=== PATIENT | male | born 1965 | race Caucasian/White ===

== ENCOUNTER 2021-10-24 08:52 | Emergency (ER) | payer BC, SELFPAY ==
--- NOTE | ~2021-10-24 | XR_ITS ---
XR knee RT min 4V 10/24/2021 10:00 Indication: Right knee pain Procedure: 4 views right knee Comparison: No prior studies for comparison. Findings: No fracture, subluxation or dislocation. There is a moderate joint effusion. There is anato dee alignment. No foreign bodies. Impression: 1: Moderate joint effusion. Reviewed, dictated and finalized at location A. Impression: 1: Moderate joint effusion.
[2021-10-24 08:56] VITALS: BP 159/86; PULSE 84; RESP 16; TEMP 36.6; O2SAT 100
--- NOTE | 2021-10-24 09:35 | ED.LOWEXIN ---
HPI - Extremity Injury (Lower) General Chief Complaint: Extremity Injury, Lower Stated Complaint: knee pain, swelling Time Seen by Provider: 10/24/21 08:58 Source: patient Mode of arrival: ambulatory Limitations: no limitations History of Present Illness HPI Narrative: 56-year-old male presents today with complaints of right knee pain that started 2 days ago. Patient right knee is swollen, tender to touch, and medial lower knee with erythema and warmth to touch. Patient denies any injuries, fevers, body aches, or chills. Patient states pain currently a 3 out of 10 but with ambulation pain is 10 out of 10. Patient was wearing a brace at home. Related Data Home Medications Medication Instructions Recorded Confirmed dapagliflozin 10 mg tablet 10 mg PO DAILY 10/05/19 06/23/21 Allergies Allergy/AdvReac Type Severity Reaction Status Date / Time No Known Allergies Allergy Verified 10/24/21 09:19 Review of Systems Review of Systems: CONSTITUTIONAL: Denies fever, chills, or sweats. EYES: Denies visual changes, redness, or discharge. ENT: Denies rhinorrhea, congestion, sore throat, or otalgia. CARDIOVASCULAR: Denies chest pain, palpitations, or edema. RESPIRATORY: Denies cough or dyspnea. GASTROINTESTINAL: Denies abdominal pain, nausea, vomiting, or diarrhea. GENITOURINARY: Denies dysuria or hematuria. SKIN: Redness and warmth to right lower medial knee. Denies rash or itching. MUSCULOSKELETAL: Right knee pain. Denies back pain or myalgia. NEUROLOGIC: Denies headache, numbness, dizziness, or weakness. PSYCHIATRIC: Denies anxiety or depression. PMFSH Past Medical History Medical History (Updated 10/24/21 @ 14:29 by Pattie Johnson APRN) Adhesions of nasal septum and turbinates Hypertension Rhinitis Type 2 diabetes mellitus Unspecified asthma, uncomplicated Social History Social History Smoking packs per day: 1 Smoking cigarettes per day: 20.0 Years smoked: 5 Smoking pack-years: 5.00 Smoking status: Former smoker Second hand tobacco smoke exposure: No Smoking end date: 08/08/91 Alcohol intake: never Substance use: never Substance use type: does not use Exam Narrative: GENERAL: Well-appearing, well-nourished, and in no acute distress. HEAD: Normocephalic, atraumatic. EYES: PERRLA and EOMI. ENT: Nares clear, no rhinorrhea or epistaxis. Mucous membranes moist. Oropharynx without tonsillar hypertrophy exudate or other lesions. Bilateral TMs pearly puckett nonbulging NECK: Supple. No adenopathy or masses. No carotid bruits or JVD CHEST: Clear to auscultation. No respiratory distress. No wheezes rales or rhonchi HEART: Regular rate and rhythm. No murmur heard. Normal peripheral pulses. ABDOMEN: Soft, nontender, nondistended, normal active bowel sounds. EXTREMITIES: Right knee with swelling, erythema, and warmth. Decreased range of motion due to pain. Negative Christen's test, anterior drawer test, and posterior drawer test. SKIN: Warm, dry, no rash. NEURO: No focal deficits. Alert and oriented x3. PSYCH: Normal mood and affect. Extrem: Right lower extremity: knee Course Reevaluation(s) Additional Reevaluation(s): All results reviewed with patient and . Patient to be discharged home with ibuprofen and follow up with Dr. Greenberg. Instructed on when to return. Patient and in agreement and understand all discharge instructions. Consultations Consultation #1: Dr. Greenberg consulted and fluid results reviewed. Plan discharge home with follow up. Date: 10/24/21 Time: 14:25 Vital Signs Vital signs: Vital Signs Temperature 36.6 C 10/24/21 08:56 Pulse Rate 84 10/24/21 08:56 Respiratory Rate 16 10/24/21 08:56 Blood Pressure 159/86 H 10/24/21 08:56 Pulse Oximetry 100 10/24/21 08:56 Temperature 36.6 C 10/24/21 08:56 Pulse Rate 85 10/24/21 11:08 Respiratory Rate 18 10/24/21 11:08 Blood Pressure 169/91 H
[2021-10-24 10:11] LABS: Basophils Percent Auto 0.2 % (0.2-1.2); Eosinophils Absolute Auto 0.2 K/mm3 (0-0.3); Eosinophils Percent Auto 1.9 % (0-4.4); Hematocrit 42.3 % (42.0-52.0); Immature Granulocyte Absolute 0.01 K/mm3 (0.00-0.031); Immature Granulocyte Percent A 0.1 % (0-0.5); Lymphocytes Absolute Auto 0.97 K/mm3 (0.9-3.2); Mean Corpuscular HGB Conc 30.7 g/dl (32-36); Mean Corpuscular Hemoglobin 27.5 pg (26-34); Mean Corpuscular Volume 89.6 fl (80-100); Mean Platelet Volume 9.6 fl (7.4-10.4); Monocytes Absolute Auto 1.1 K/mm3 (0.1-0.6); Monocytes Percent Auto 13.2 % (2.6-8.5); Neutrophils Absolute Auto 5.8 K/mm3 (1.3-6.7); Neutrophils Percent Auto 72.6 % (45.5-73.1); Platelet Count Result 244 k/mm3 (150-375); Red Blood Count 4.72 M/mm3 (4.6-6.20); Red Cell Distribution Width 13.4 % (11.5-14.5); White Blood Count 8.1 K/mm3 (4.5-10.0)
[2021-10-24 10:21] LABS: Prothrombin Time 12.8 Seconds (11.1-14.7)
[2021-10-24 10:22] LABS: Alanine Aminotransferase 19 U/L (4-50); Albumin Level 3.7 g/dL (3.5-5.1); Alkaline Phosphatase 187 U/L (38-126); Anion Gap 6 mmol/L (8-16); Aspartate Amino Transferase 19 U/L (17-59); Bilirubin,Total 0.4 mg/dL (0.2-1.3); Blood Urea Nitrogen 25 mg/dL (9-20); Calcium 9.2 mg/dL (8.4-10.2); Carbon Dioxide 29 mmol/L (22-30); Chloride 100 mmol/L (98-107); Estimated CRCL calculation 84 ml/min; Estimated Glomerular Filt Rate > 60; Glucose 478 mg/dL (65-110); Partial Thromboplastin Time 33.9 SECONDS (22.3-36.8); Potassium 4.8 mmol/L (3.4-5.0); Sodium 135 mmol/L (137-145)
[2021-10-24] MEDS: SODIUM CHLORIDE 0.9% IV 2,000 ML 999 ML IV CONT (10:45)
[2021-10-24 10:58] LABS: Procalcitonin 0.3 ng/mL
[2021-10-24 11:08] VITALS: BP 169/91; PULSE 85; RESP 18; O2SAT 100
[2021-10-24] MEDS: LIDOCAINE HCL 1% LOCAL INJ 20 ML VIAL 10 ML INFILTRATE (12:18)
[2021-10-24 12:20] LABS: Glucose Point of Care 330 mg/dl (65-105)
[2021-10-24 13:31] LABS: Appearance Synovial Fluid Hazy (Clear); Color Synovial Fluid Yellow (Colorless); Nucleated Cell Synovial Fluid 15439 /uL (0-200); RBC Synovial Fluid 31022 /uL (0-0); Source Synovial Fluid Synovial fluid
[2021-10-24 13:32] LABS: Neutrophils Synovial Fluid 83 % (0-25)
[2021-10-24 13:33] LABS: Lymphocytes Synovial Fluid 11 %; Monocytes Synovial Fluid 6 %
[2021-10-24 13:37] LABS: Crystals Synovial Fluid Rare Cppd (None Seen)
--- NOTE | 2021-10-24 14:47 | PC.NURSE ---
Derrick wrap applied to patient's right knee. PMS intact prior and post application.
== END 2021-10-24 14:51 | disposition home or self-care (01) ==
PROVIDERS: Emergency Provider Nurse Practitioner Family; PCP Internal Medicine
DX: M25.461 Effusion, right knee (principal); L03.115 Cellulitis of right lower limb; I10 Essential (primary) hypertension; E11.9 Type 2 diabetes mellitus without complications; J45.909 Unspecified asthma, uncomplicated; Z87.891 Personal history of nicotine dependence; Z79.84 Long term (current) use of oral hypoglycemic drugs
CPT/HCPCS: 36415; 73564; 80053; 82948; 84145; 85025; 85610; 85730; 87070; 87075; 87147; 87181; 87186; 87205; 89051; 89060; 96360; 96361; 99283; A9270; J7030

== ENCOUNTER 2021-10-26 13:53 | Emergency (ER) | payer BC, SELFPAY ==
[2021-10-26 13:59] VITALS: BP 167/88; PULSE 97; RESP 18; TEMP 36.2; O2SAT 100
[2021-10-26 15:59] VITALS: BP 136/86; PULSE 83; RESP 14; O2SAT 97
[2021-10-26] MEDS: MORPHINE SULFATE INJ (*CRX) 10 MG/ML AMP 4 MG IM (16:49)
--- NOTE | 2021-10-26 17:36 | ED.LOWEXIN ---
HPI - Extremity Injury (Lower) General Chief Complaint: Extremity Injury, Lower Stated Complaint: Leg Pain Time Seen by Provider: 10/26/21 16:00 Source: patient Mode of arrival: wheelchair Limitations: no limitations History of Present Illness HPI Narrative: 56-year-old male presents today with complaints of right knee pain. Patient seen here previously and right knee was drained for a moderate effusion. Patient states he has been unable to bear weight since prior to his stay the other day. Patient with limited movement to right knee. Patient does have crutches at home which he states he has been using. Related Data Home Medications Medication Instructions Recorded Confirmed dapagliflozin 10 mg tablet 10 mg PO DAILY 10/05/19 06/23/21 Allergies Allergy/AdvReac Type Severity Reaction Status Date / Time No Known Allergies Allergy Verified 10/24/21 09:19 Review of Systems Review of Systems: CONSTITUTIONAL: Denies fever, chills, or sweats. EYES: Denies visual changes, redness, or discharge. ENT: Denies rhinorrhea, congestion, sore throat, or otalgia. CARDIOVASCULAR: Denies chest pain, palpitations, or edema. RESPIRATORY: Denies cough or dyspnea. GASTROINTESTINAL: Denies abdominal pain, nausea, vomiting, or diarrhea. GENITOURINARY: Denies dysuria or hematuria. SKIN: Denies rash or itching. MUSCULOSKELETAL: Right knee pain with swelling. Denies back pain, joint pain, or myalgia. NEUROLOGIC: Denies headache, numbness, dizziness, or weakness. PSYCHIATRIC: Denies anxiety or depression. PMFSH Past Medical History Medical History (Updated 10/26/21 @ 17:54 by Pattie Johnson APRN) Adhesions of nasal septum and turbinates Hypertension Rhinitis Type 2 diabetes mellitus Unspecified asthma, uncomplicated Social History Social History Smoking packs per day: 1 Smoking cigarettes per day: 20.0 Years smoked: 5 Smoking pack-years: 5.00 Smoking status: Former smoker Second hand tobacco smoke exposure: No Smoking end date: 08/08/91 Alcohol intake: never Substance use: never Substance use type: does not use Exam Narrative: GENERAL: Well-appearing, well-nourished, and in no acute distress. HEAD: Normocephalic, atraumatic. EYES: PERRLA and EOMI. ENT: Nares clear, no rhinorrhea or epistaxis. Mucous membranes moist. Oropharynx without tonsillar hypertrophy exudate or other lesions. Bilateral TMs pearly puckett nonbulging NECK: Supple. No adenopathy or masses. No carotid bruits or JVD CHEST: Clear to auscultation. No respiratory distress. No wheezes rales or rhonchi HEART: Regular rate and rhythm. No murmur heard. Normal peripheral pulses. ABDOMEN: Soft, nontender, nondistended, normal active bowel sounds. EXTREMITIES: Right knee swelling decreased from previous visit. Ecchymosis noted to anterior knee. Decreased range of motion. Pain with palpation to knee. SKIN: Warm, dry, no rash. NEURO: No focal deficits. Alert and oriented x3. PSYCH: Normal mood and affect. Course Course Emergency Course: 56-year-old male presents today with complaints of right knee pain. Previously seen here and knee effusion drained. Patient states he has been using ibuprofen without relief. Morphine 4 mg IM given. Patient states the pain might be a little bit better. Patient still unable to bear weight onto right leg. Will prescribe colchicine and indomethacin. Vital Signs Vital signs: Vital Signs Temperature 36.2 C L 10/26/21 13:59 Pulse Rate 97 10/26/21 13:59 Respiratory Rate 18 10/26/21 13:59 Blood Pressure 167/88 H 10/26/21 13:59 Pulse Oximetry 100 10/26/21 13:59 Temperature 36.2 C L 10/26/21 13:59 Pulse Rate 87 10/26/21 17:42 Respiratory Rate 14 10/26/21 17:42 Blood Pressure 161/88 H 10/26/21 17:42 Pulse Oximetry 100 10/26/21 17:42 Discharge Plan Discharge Clinical Impression: Acute pain of right knee, Effusion of knee
[2021-10-26 17:42] VITALS: BP 161/88; PULSE 87; RESP 14; O2SAT 100
[2021-10-26] MEDS: INDOMETHACIN 25 MG CAPSULE 50 MG PO (18:00)
[2021-10-26] MEDS: COLCHICINE 0.6 MG TABLET PO (18:00)
== END 2021-10-26 18:00 | disposition home or self-care (01) ==
PROVIDERS: Emergency Provider Nurse Practitioner Family; PCP Internal Medicine
DX: M25.561 Pain in right knee (principal); M25.461 Effusion, right knee; I10 Essential (primary) hypertension; E11.9 Type 2 diabetes mellitus without complications; J45.909 Unspecified asthma, uncomplicated; Z87.891 Personal history of nicotine dependence; Z79.84 Long term (current) use of oral hypoglycemic drugs
CPT/HCPCS: 96372; 99283; A9270; J2270

== ENCOUNTER 2021-10-30 12:24 | Inpatient (IN) | payer BC, SELFPAY ==
--- NOTE | ~2021-10-30 | XR_ITS ---
EXAMINATION: XR chest 1V portable DATE: 11/04/2021 19:47 INDICATION: Tachycardia. TECHNIQUE: A single frontal view of the chest was obtained. COMPARISON: None. FINDINGS: The chest demonstrates clear lungs without pneumonia, pleural effusion, or pneumothorax. Th e heart size is normal. There is an old healed fracture of right clavicle. IMPRESSION: 1. No acute cardiopulmonary disease. Reviewed, dictated and finalized at location A.
--- NOTE | ~2021-10-30 | XR_ITS ---
EXAMINATION: XR chest PICC line EXAM DATE: 11/13/2021 11:21 INDICATION: PICC placement . TECHNIQUE: Portable AP frontal chest x-ray was obtained. Comparison is made to prior examination from 11/04/2021. FINDINGS: There is a right-sided PICC line with tip projecting over the cavoatrial junction. Possibl e developing bilateral ill-defined edema or pneumonia. Recommend follow-up exam. The cardiomediastina l silhouette is prominent but magnified on this AP technique. There is no pneumothorax suspected. The re are no pleural effusions. IMPRESSION: 1. PICC line in position. 2. Possible developing ill-defined airspace disease, edema or pneumonia. Reviewed, dictated and finalized at location A.
--- NOTE | ~2021-10-30 | CT_ITS ---
EXAMINATION: CT femur RT w con DATE: 11/09/2021 15:09 INDICATION: Right knee septic arthritis TECHNIQUE: High resolution computed tomography (CT) of the right femur was performed with 100 mL Omni paque-350 intravenous contrast. Additional sagittal and coronal reconstructions were performed. Autom ated exposure control and iterative reconstruction technique were employed. The dose-length product w as 480.78 mGy-cm. COMPARISON: Right knee radiographs dated 10/24/2021 FINDINGS: Bone alignment is normal. No fracture. The right hip and knee joint spaces are normal on nonweightbea ring imaging. No cortical erosions or osteolysis. Large right knee joint effusion with scattered foci of internal gas within the suprapatellar pouch. There is thickened peripheral enhancing synovitis. I n addition many of the foci of gas are loculated within the nondependent portion of the effusion sugg esting internal debris and/or synovitis. There is diffuse subcutaneous edema throughout the right thi gh extending cephalad to the right hip and colon to the upper calf. No soft tissue gas to suggest nec rotizing fasciitis. On the buyer liaison images there is intramedullary hal and interlocking screw fixation a t the visualized proximal left tibia. IMPRESSION: 1. Large complex right knee joint effusion with foci of scattered internal gas which could be consist ent with provided history of a right knee septic arthritis. No acute osseous abnormality. Correlate f or recent joint aspiration to account for the gas within the suprapatellar pouch. Reviewed, dictated and finalized at location B. IMPRESSION: 1. Large complex right knee joint effusion with foci of scattered internal gas which could be consistent with provided history of a right knee septic arthriti s. No acute osseous abnormality. Correlate for recent joint aspiration to accou nt for the gas within the suprapatellar pouch.
--- NOTE | ~2021-10-30 | US_ITS ---
EXAMINATION: US venous doppler [facility] EXAM DATE: 10/30/2021 18:20 INDICATION: Right leg edema and pain. TECHNIQUE: Multiple grayscale, color flow and Doppler images of the lower extremity deep venous syste ms bilaterally were obtained and reviewed. There is no prior study for comparison. FINDINGS: Right side: The right common femoral, femoral and profunda veins demonstrate normal color flow, respi ratory variation, augmentation and compressibility. Compressibility, color flow confirmed within the right popliteal, posterior tibial, peroneal, and greater saphenous veins. Left side: The left common femoral, femoral and profunda veins demonstrate normal color flow, respira tory variation, augmentation and compressibility. Compressibility, color flow confirmed within the l eft popliteal, posterior tibial, peroneal, and greater saphenous veins. IMPRESSION: 1. No lower extremity deep venous thrombosis bilaterally. Reviewed, dictated and finalized at location .
[2021-10-30 12:30] VITALS: BP 168/111; PULSE 78; RESP 18; TEMP 36.8; O2SAT 98
--- NOTE | 2021-10-30 14:21 | ED.LOWEXIN ---
HPI - Extremity Injury (Lower) General Chief Complaint: Extremity Injury, Lower Stated Complaint: knee Time Seen by Provider: 10/30/21 14:14 Source: patient and family Limitations: no limitations History of Present Illness HPI Narrative: Patient is 56 years old white male referred to the emergency room from Dr. Nugent office with septic arthritis of the right knee. The patient and his telling me that patient been having trouble at the right knee October 20. Came to our emergency room October 24, knee effusion, synovial fluid positive for MRSA. Patient came back on October 26, and was seen by his family physician nurse practitioner on October 29, and today was seen by Dr. Nugent who repeated the knee aspiration again and referred him to the emergency room for further evaluation. Patient was a started on Keflex on October 24. Patient denies any trauma to the right knee, fever, chills, chest pain or shortness of breath. History of diabetes, hypertension, hyperlipidemia, asthma, CVA, patient currently on aspirin. Patient does not smoke or drink or uses drugs. Related Data Home Medications Medication Instructions Recorded Confirmed dapagliflozin 10 mg tablet 10 mg PO DAILY 10/05/19 10/30/21 Allergies Allergy/AdvReac Type Severity Reaction Status Date / Time No Known Allergies Allergy Verified 10/27/21 13:51 Review of Systems Review of Systems: CONSTITUTIONAL: Denies fever, chills, or sweats. EYES: Denies visual changes, redness, or discharge. ENT: Denies rhinorrhea, congestion, sore throat, or otalgia. CARDIOVASCULAR: Denies chest pain, palpitations, or edema. RESPIRATORY: Denies cough or dyspnea. GASTROINTESTINAL: Denies abdominal pain, nausea, vomiting, or diarrhea. GENITOURINARY: Denies dysuria or hematuria. SKIN: Denies rash or itching. MUSCULOSKELETAL: Denies back pain, joint pain, or myalgia. NEUROLOGIC: Denies headache, numbness, or weakness. PSYCHIATRIC: Denies anxiety or depression. [facility] Past Medical History Medical History (Updated 10/30/21 @ 15:22 by Maikel Martínez MD) Adhesions of nasal septum and turbinates Hypertension Rhinitis Type 2 diabetes mellitus Unspecified asthma, uncomplicated Social History Social History Smoking packs per day: 1 Smoking cigarettes per day: 20.0 Years smoked: 5 Smoking pack-years: 5.00 Smoking status: Former smoker Second hand tobacco smoke exposure: No Smoking end date: 08/08/91 Alcohol intake: never Substance use: never Substance use type: does not use Exam Narrative: General appearance: Well-developed, well-nourished Skin: Normal color Head: Normocephalic, nontraumatic Eyes: Clear conjunctiva ENT: Oropharynx normal, ears normal, nose normal Neck: Supple, nontender Chest and respiratory: Airway patent, no respiratory distress, no accessory muscle use Heart: Regular rate/rhythm Abdomen: Soft, nontender, no organomegaly, quiet bowel sounds Vascular: Normal peripheral pulses, normal capillary refill. Musculoskeletal: Diffuse swelling and tenderness right knee, slight erythematous changes of the right thigh distally and laterally Neurologic: Alert and oriented ?3, [employer] is normal as tested, no gross motor deficit Course Course Emergency Course: The plan to admit patient to the hospital for septic arthritis, MRSA, sensitive to vancomycin. The plan to start patient on vancomycin and third-generation cephalosporin, and joint rest. Patient declined Bess catheter. Consultations Consultation #1: Dr. Nugent. Admit to hospitalist, agreed with the medication of vancomycin and Rocephin. Date: 10/30/21 Time: 14:52 Vital Si
--- NOTE | 2021-10-30 14:23 | ECG_ITS ---
Measurements Intervals [place] Rate: 96 P: 81 LA: 141 QRS: 24 QRSD: 86 T: 44 QT: 317 QTc: 402 Interpretive Statements SINUS RHYTHM NONSPECIFIC T-WAVE ABNORMALITY ABNORMAL ECG NO PREVIOUS ECG AVAILABLE FOR COMPARISON Electronically Signed On 10-30-2021 16:30:05 CDT by Alexander Barahona M.D.
[2021-10-30 14:59] LABS: Basophils Percent Auto 0.4 % (0.2-1.2); Eosinophils Absolute Auto 0.1 K/mm3 (0-0.3); Eosinophils Percent Auto 0.5 % (0-4.4); Hematocrit 41.9 % (42.0-52.0); Hemoglobin 12.9 g/dL (14.0-18.0); Immature Granulocyte Absolute 0.06 K/mm3 (0.00-0.031); Immature Granulocyte Percent A 0.6 % (0-0.5); Lymphocytes Absolute Auto 0.71 K/mm3 (0.9-3.2); Lymphocytes Percent Auto 6.8 % (18.3-44.2); Mean Corpuscular HGB Conc 30.8 g/dl (32-36); Mean Corpuscular Hemoglobin 27.3 pg (26-34); Mean Corpuscular Volume 88.8 fl (80-100); Mean Platelet Volume 8.8 fl (7.4-10.4); Monocytes Absolute Auto 1.1 K/mm3 (0.1-0.6); Monocytes Percent Auto 10.7 % (2.6-8.5); Neutrophils Absolute Auto 8.5 K/mm3 (1.3-6.7); Platelet Count Result 439 k/mm3 (150-375); Red Blood Count 4.72 M/mm3 (4.6-6.20); Red Cell Distribution Width 13.5 % (11.5-14.5); White Blood Count 10.4 K/mm3 (4.5-10.0)
[2021-10-30 15:09] LABS: INR 1.1; Prothrombin Time 13.8 Seconds (11.1-14.7)
[2021-10-30 15:10] LABS: Lactic Acid Reflex 1.8 mmol/L (0.7-2.1); Partial Thromboplastin Time 32.5 SECONDS (22.3-36.8)
[2021-10-30 15:29] VITALS: BP 156/83; PULSE 102; RESP 14; O2SAT 100
[2021-10-30 15:36] LABS: Alanine Aminotransferase 49 U/L (4-50); Albumin Level 3.5 g/dL (3.5-5.1); Alkaline Phosphatase 174 U/L (38-126); Anion Gap 8 mmol/L (8-16); Aspartate Amino Transferase 51 U/L (17-59); Bilirubin,Total 0.5 mg/dL (0.2-1.3); Blood Urea Nitrogen 33 mg/dL (9-20); Calcium 9.3 mg/dL (8.4-10.2); Carbon Dioxide 31 mmol/L (22-30); Chloride 95 mmol/L (98-107); Estimated CRCL calculation 70 ml/min; Estimated Glomerular Filt Rate > 60; Glucose 356 mg/dL (65-110); Sodium 134 mmol/L (137-145)
[2021-10-30] MEDS: SODIUM CHLORIDE 0.9% IV 1,000 ML 999 ML IV CONT (15:37)
[2021-10-30] MEDS: ONDANSETRON INJ 4 MG/2 ML VIAL IV PUSH (15:37)
[2021-10-30] MEDS: HYDROmorphone HCL INJ (*CRX) 1 MG/ML SYR 0.5 MG IV PUSH ×2 (15:37→19:25)
[2021-10-30 15:52] LABS: CRP > 45.0 mg/dL (<1.0)
--- NOTE | 2021-10-30 16:10 | PM.IMHP ---
H&P: HPI History of Present Illness Date/Time: 10/30/21 16:10 this is a 56-year-old male patient who was referred to the emergency room by Dr. Nugent presents office with septic arthritis of the right knee. The patient recently was seen here on 10/26/2021 in our ER with right knee effusion which was drained. The patient has been unable to bear weight on that right knee. He had been using crutches to get around. The patient saw Dr. Nugent today in his office and a right arthrocentesis was performed at that time obtaining 60 mL of purulence fluid. It was noted that patient's previous fluid aspiration grew MRSA. It looks like the patient may have taken Keflex outpatient. The patient was started on IV fluids, Rocephin, vancomycin, Dilaudid, and Zofran. His white count is noted to be 10.4. H&H is 12 point and 41.9. Platelet count 439. His blood sugars noted to be 356. Lactic is normal 1.8. C reactive protein is greater than 45. Alkaline phosphatase 174. The patient is being admitted to inpatient on the date of service of 10/30/2021. Chief Complaint: Infection to right knee Review of Systems Review of Systems: All systems reviewed & are unremarkable except as noted in HPI and below Constitutional: Constitutional: Reports as per HPI and Reports no additional constitutional complaints Eyes: Eyes: Reports as per HPI and Reports no additional eye complaints ENT: Reports system reviewed and no additional complaints, except as documented and Reports Normal hearing present Cardiovascular: Cardiovascular: Reports no additional cardiovascular complaints Respiratory: Respiratory: Reports no additional respiratory complaints and Reports no additional respiratory complaints Gastrointestinal: Gastrointestinal: Reports as per HPI and Reports no additional gastrointestinal complaints Musculoskeletal: Musculoskeletal: Reports no additional musculoskeletal complaints Integumentary/Breasts: Skin/Breast: Reports system reviewed and no additional complaints, except as docu and Reports as per HPI Neurologic: Reports system reviewed and no additional complaints, except as documented, Reports as per HPI and Reports Normal hearing present Psychiatric: Psychiatric: Reports no additional psychiatric complaints and Reports as per HPI Endocrine: Endocrine: Reports no additional endocrine complaints Hematologic/Lymphatic: Hematologic/Lymphatic: Reports no additional hematologic/lymphatic complaints Allergic/Immunologic: Allergic/Immunologic: Reports no additional allergic/immunologic complaints [facility] Past Medical History Medical History (Updated 10/30/21 @ 17:47 by Madeleine Reynoso NP) ADHD (attention deficit hyperactivity disorder) Adhesions of nasal septum and turbinates BPH w/o urinary obs/LUTS Gout Hyperlipidemia Hypertension Rhinitis Screening for colon cancer Type 2 diabetes mellitus Unspecified asthma, uncomplicated Surgical History Surgical History (Updated 10/30/21 @ 16:13 by Madeleine Reynoso NP) H/O nasal polypectomy History of tonsillectomy S/P ORIF (open reduction internal fixation) fracture left tibula Family History Family History Mother Polio Father Lung cancer Sibling Carcinoma of colon Social History Social History (Updated 10/30/21 @ 17:50 by Madeleine Reynoso NP) Social History: The patient is and lives with his . They have 3 children. They have a [employer] company as well as a [employer] company. Patient is a former smoker does not use any alcohol marijuana or illicit drugs. His is his durable power deputy attorney general for healthcare. Code status full code Smoking packs per day: 1 Smoking cigarettes per day: 20.0 Years smoked: 5 Smoking pack-years: 5.00 Smoking status: Former smoker Second hand tobacco smoke exposure: No Smoking end date: 08/08/91 Alcohol intake: never Substance use: never Substance use type: d
[2021-10-30 16:45] VITALS: BP 138/84; PULSE 96; RESP 18; TEMP 37.4; O2SAT 99
--- NOTE | 2021-10-30 16:48 | ADMGEN ---
This patient, Biju Navarrete, was admitted to Medical Room 348-01. Patient/family oriented to hospital policies and general routines including ID bracelet, bed and alarms, visiting hours, pain management, procedures, bathroom and other care routines, personal items, smoking policy, room service/diet, and visiting hours. Information on how to activate the Rapid Response Team has been discussed. Patient/Family are encouraged to report perceived risks to care and to ask questions if they do not understand what they are told or what they should do.
[2021-10-30] MEDS: SODIUM CHLORIDE 0.9% IV 1,000 ML 150 ML IV CONT (17:54)
[2021-10-30 21:02] VITALS: BP 147/82; PULSE 88; RESP 16; TEMP 36.3; O2SAT 94
[2021-10-30 21:09] LABS: Glucose Point of Care 416 mg/dl (65-105)
[2021-10-30] MEDS: INSULIN ASPART (*BKC) 100 UNITS/ML 8 UNITS SUB-Q (21:42)
[2021-10-30] MEDS: FLUTICASONE/SALMETEROL 230-21 MCG INHALER 1 PUFF 2 PUFF INHALATION (23:54)
[2021-10-31 00:59] VITALS: O2SAT 95
[2021-10-31 00:59] LABS: Glucose Point of Care 311 mg/dl (65-105)
[2021-10-31] MEDS: SODIUM CHLORIDE 0.9% IV 1,000 ML 150 ML IV CONT ×3 (03:56→18:57)
[2021-10-31] MEDS: HYDROmorphone HCL INJ (*CRX) 1 MG/ML SYR 0.5 MG IV PUSH (04:47)
[2021-10-31 06:10] LABS: Basophils Absolute Auto 0.1 K/mm3 (0.0-0.1); Basophils Percent Auto 0.5 % (0.2-1.2); Eosinophils Absolute Auto 0.1 K/mm3 (0-0.3); Eosinophils Percent Auto 1.2 % (0-4.4); Hematocrit 34.1 % (42.0-52.0); Hemoglobin 10.9 g/dL (14.0-18.0); Immature Granulocyte Absolute 0.14 K/mm3 (0.00-0.031); Immature Granulocyte Percent A 1.3 % (0-0.5); Lymphocytes Absolute Auto 0.95 K/mm3 (0.9-3.2); Lymphocytes Percent Auto 8.8 % (18.3-44.2); Mean Corpuscular Hemoglobin 27.5 pg (26-34); Mean Corpuscular Volume 86.1 fl (80-100); Mean Platelet Volume 8.9 fl (7.4-10.4); Monocytes Absolute Auto 1.3 K/mm3 (0.1-0.6); Monocytes Percent Auto 11.6 % (2.6-8.5); Neutrophils Absolute Auto 8.3 K/mm3 (1.3-6.7); Neutrophils Percent Auto 76.6 % (45.5-73.1); Platelet Count Result 380 k/mm3 (150-375); Red Blood Count 3.96 M/mm3 (4.6-6.20); Red Cell Distribution Width 13.7 % (11.5-14.5); White Blood Count 10.8 K/mm3 (4.5-10.0)
[2021-10-31 06:13] LABS: Lactic Acid Reflex 1.2 mmol/L (0.7-2.1)
[2021-10-31 06:14] LABS: Anion Gap 3 mmol/L (8-16); Blood Urea Nitrogen 28 mg/dL (9-20); Calcium 8.3 mg/dL (8.4-10.2); Carbon Dioxide 32 mmol/L (22-30); Chloride 98 mmol/L (98-107); Estimated CRCL calculation 77 ml/min; Estimated Glomerular Filt Rate > 60; Glucose 280 mg/dL (65-110); Potassium 4.4 mmol/L (3.4-5.0); Sodium 133 mmol/L (137-145)
[2021-10-31 06:18] LABS: Hemoglobin A1C 8.6 % (<5.7)
[2021-10-31 06:32] VITALS: BP 138/79; PULSE 101; RESP 18; TEMP 36.5; O2SAT 99
[2021-10-31 07:27] LABS: Glucose Point of Care 240 mg/dl (65-105)
[2021-10-31] MEDS: INSULIN ASPART (*BKC) 100 UNITS/ML SUB-Q ×2 (07:47→11:26)
[2021-10-31] MEDS: EMPAGLIFLOZIN 25 MG TABLET PO (08:06)
[2021-10-31] MEDS: INDOMETHACIN 25 MG CAPSULE 50 MG PO ×3 (08:06→16:37)
[2021-10-31] MEDS: lisinopriL 5 MG TABLET PO (08:07)
[2021-10-31] MEDS: MONTELUKAST SODIUM 10 MG TABLET PO (08:07)
[2021-10-31] MEDS: ENOXAPARIN 40 MG/0.4 ML SYRINGE SUB-Q (08:07)
[2021-10-31] MEDS: GLIMEPIRIDE 2 MG TABLET 4 MG PO ×2 (08:07→16:37)
[2021-10-31] MEDS: FLUTICASONE PROPIONATE 0.05% NA SPR 16 GM BTL (*BKC) 2 SPRAY NASAL (08:07)
[2021-10-31] MEDS: FLUTICASONE/SALMETEROL 230-21 MCG INHALER 1 PUFF 2 PUFF INHALATION ×2 (08:28→20:19)
[2021-10-31 11:27] LABS: Glucose Point of Care 252 mg/dl (65-105)
--- NOTE | 2021-10-31 12:15 | PM.IMPN ---
Progress Note: A&P Assessment and Plan (1) Septic arthritis: Qualifiers: Laterality: right Septic arthritis location: knee Septic arthritis organism: staphylococcal Qualified Code(s): M00.061 - Staphylococcal arthritis, right knee Code(s): M00.9 - Pyogenic arthritis, unspecified Status: Acute Assessment and Plan: -Sent by Dr. Nugent from clinic. Dr. Nugent will see him Tuesday. -knee aspiration 10/24 shows MRSA -continue IV vancomycin -blood cultures pending -venous doppler negative (2) Type 2 diabetes mellitus: Qualifiers: Diabetes mellitus complication status: with hyperglycemia Diabetes mellitus medical terminologist insulin use: without medical terminologist use Qualified Code(s): E11.65 - Type 2 diabetes mellitus with hyperglycemia Code(s): E11.9 - Type 2 diabetes mellitus without complications Status: Chronic Assessment and Plan: -Accu-Cheks AC and HS. -A1c 8.6 -Continue with jardiance, glimeperide, and januvia -increased to high dose sliding scale (3) Essential (primary) hypertension: Code(s): I10 - Essential (primary) hypertension Status: Acute Assessment and Plan: -stable -home meds Subjective Date/time seen: 10/31/21 12:15 Interval history: 56 yo male w/ hx of DM, HTN, HLD, BPH, gout, ADHD, admitted for septic arthritis. Pt still having significant pain in his knee. Still red/warm. Denies N/V/abd pain/fever/c/sob. Review of Systems Review of Systems: All systems reviewed & are unremarkable except as noted in HPI and below Exam Narrative: General: No acute distress, non toxic appearing Eyes: PERRL, no scleral icterus HEENT: NCAT, external ears normal, MMM Respiratory: No respiratory distress, Lungs CTA bilaterally, no wheezing Cardiovascular: RRR, no murmur Abdominal: Soft, nontender, non distended, no rebound or guarding Musculoskeletal: R knee w/ erythema, warmth, and edema Neurological: A/Ox3, speech normal, no facial asymmetry Skin: Warm, dry, no rashes Psychiatric: Normal affect, normal mood Objective Data Vital Signs Vital Signs: Vital Signs - 24 hr 10/30/21 12:30 10/30/21 15:29 10/30/21 16:45 Temperature 98.2 F 99.3 F Pulse Rate 78 102 H 96 Respiratory Rate 18 14 18 Blood Pressure 168/111 H 156/83 H 138/84 Pulse Oximetry 98 100 99 10/30/21 21:02 10/31/21 00:59 10/31/21 06:32 Temperature 97.4 F L 97.7 F Pulse Rate 88 101 H Respiratory Rate 16 18 Blood Pressure 147/82 H 138/79 Pulse Oximetry 94 95 99 Intake/Output Intake/Output: Intake & Output 10/28/21 10/29/21 10/30/21 10/31/21 23:59 23:59 23:59 23:59 Intake Total 630 2350 Output Total 600 Balance 630 1750 Meds/Results Medications: Active Medications Generic Name Dose Route Start Last Admin Trade Name Freq PRN Reason Stop Dose Admin Dextrose 12.5 gm 10/30/21 17:47 Dextrose 50% 25 Gm/50 Ml Syringe IV PUSH PRN PRN Hypoglycemia Protocol Empagliflozin 25 mg 10/31/21 09:00 10/31/21 08:06 Empagliflozin 25 Mg Tablet PO 25 mg DAILY MELIDA Administration Enoxaparin Sodium 40 mg 10/31/21 09:00 10/31/21 08:07 Enoxaparin 40 Mg/0.4 Ml Syringe SUB-Q 40 mg DAILY MELIDA Administration Fluticasone Propionate 2 spray 10/31/21 09:00 10/31/21 08:07 Fluticasone Propionate 0.05% Na Spr 16 Gm Btl (*Bkc) NASAL 2 spray DAILY MELIDA Administration Glimepiride 4 mg 10/31/21 09:00 10/31/21 08:07 Glimepiride 2 Mg Tablet PO 4 mg BID MELIDA Administration Glucagon 1 mg 10/30/21 17:47 Glucagon For Inj 1 Mg Vial IM PRN PRN Hypoglycemia Protocol Glucose 15 gm 10/30/21 17:47 Glucose Oral Gel 15 Gm Of Glucse In 37.5 Gm Tube PO PRN PRN Hypoglycemia Protocol Hydromorphone HCl 0.5 mg 10/30/21 15:13 10/31/21 04:47 Hydromorphone Hcl Inj (*Crx) 1 Mg/Ml Syr IV PUSH 0.5 mg Q4H PRN Administration Pain Rated 7-10
[2021-10-31 13:51] VITALS: BP 136/80; PULSE 82; RESP 18; TEMP 36.8; O2SAT 99
[2021-10-31 16:34] LABS: Glucose Point of Care 164 mg/dl (65-105)
[2021-10-31] MEDS: HYDROcodone/acetaminophen (*CRX) 5-325 MG TABLET 1 TAB PO ×2 (16:40→22:07)
[2021-10-31 20:21] VITALS: O2SAT 97
[2021-10-31 21:00] LABS: Glucose Point of Care 203 mg/dl (65-105)
[2021-10-31 21:29] VITALS: BP 136/76; PULSE 86; RESP 16; TEMP 36.7; O2SAT 97
[2021-11-01] MEDS: SODIUM CHLORIDE 0.9% IV 1,000 ML 150 ML IV CONT ×3 (00:53→15:42)
[2021-11-01] MEDS: HYDROcodone/acetaminophen (*CRX) 5-325 MG TABLET 1 TAB PO ×3 (04:55→15:44)
[2021-11-01 06:24] LABS: Basophils Percent Auto 0.2 % (0.2-1.2); Eosinophils Absolute Auto 0.2 K/mm3 (0-0.3); Eosinophils Percent Auto 1.8 % (0-4.4); Hematocrit 32.5 % (42.0-52.0); Hemoglobin 10.2 g/dL (14.0-18.0); Immature Granulocyte Absolute 0.06 K/mm3 (0.00-0.031); Immature Granulocyte Percent A 0.6 % (0-0.5); Lymphocytes Absolute Auto 0.89 K/mm3 (0.9-3.2); Lymphocytes Percent Auto 8.7 % (18.3-44.2); Mean Corpuscular HGB Conc 31.4 g/dl (32-36); Mean Corpuscular Hemoglobin 27.3 pg (26-34); Mean Corpuscular Volume 87.1 fl (80-100); Mean Platelet Volume 8.9 fl (7.4-10.4); Monocytes Absolute Auto 0.9 K/mm3 (0.1-0.6); Monocytes Percent Auto 8.7 % (2.6-8.5); Neutrophils Absolute Auto 8.2 K/mm3 (1.3-6.7); Platelet Count Result 382 k/mm3 (150-375); Red Blood Count 3.73 M/mm3 (4.6-6.20); Red Cell Distribution Width 13.9 % (11.5-14.5); White Blood Count 10.3 K/mm3 (4.5-10.0)
[2021-11-01 06:32] VITALS: BP 127/78; PULSE 100; RESP 16; TEMP 36.6; O2SAT 100
[2021-11-01 06:34] LABS: Alanine Aminotransferase 38 U/L (4-50); Alkaline Phosphatase 135 U/L (38-126); Anion Gap 7 mmol/L (8-16); Aspartate Amino Transferase 32 U/L (17-59); Bilirubin,Total 0.5 mg/dL (0.2-1.3); Blood Urea Nitrogen 20 mg/dL (9-20); Calcium 8.3 mg/dL (8.4-10.2); Carbon Dioxide 28 mmol/L (22-30); Chloride 103 mmol/L (98-107); Estimated CRCL calculation 77 ml/min; Estimated Glomerular Filt Rate > 60; Glucose 87 mg/dL (65-110); Potassium 3.9 mmol/L (3.4-5.0); Sodium 138 mmol/L (137-145)
[2021-11-01] MEDS: FLUTICASONE/SALMETEROL 230-21 MCG INHALER 1 PUFF 2 PUFF INHALATION ×2 (07:56→20:30)
[2021-11-01 07:58] VITALS: O2SAT 95
[2021-11-01] MEDS: GLIMEPIRIDE 2 MG TABLET 4 MG PO ×2 (08:44→16:35)
[2021-11-01] MEDS: MONTELUKAST SODIUM 10 MG TABLET PO (08:45)
[2021-11-01] MEDS: ENOXAPARIN 40 MG/0.4 ML SYRINGE SUB-Q (08:45)
[2021-11-01] MEDS: INDOMETHACIN 25 MG CAPSULE 50 MG PO ×3 (08:45→16:35)
[2021-11-01] MEDS: EMPAGLIFLOZIN 25 MG TABLET PO (08:45)
[2021-11-01] MEDS: lisinopriL 5 MG TABLET PO (08:46)
[2021-11-01] MEDS: FLUTICASONE PROPIONATE 0.05% NA SPR 16 GM BTL (*BKC) 2 SPRAY NASAL (08:46)
[2021-11-01 10:40] VITALS: BP 152/88; PULSE 102; RESP 18; TEMP 36.8; O2SAT 99
--- NOTE | 2021-11-01 10:54 | PM.IMPN ---
Progress Note: A&P Assessment and Plan (1) Septic arthritis: Qualifiers: Laterality: right Septic arthritis location: knee Septic arthritis organism: staphylococcal Qualified Code(s): M00.061 - Staphylococcal arthritis, right knee Code(s): M00.9 - Pyogenic arthritis, unspecified Status: Acute Assessment and Plan: -Sent by Dr. Nugent from clinic. Dr. Nugent will see him Tuesday. -knee aspiration 10/24 shows MRSA -continue IV vancomycin -blood NGTD -venous doppler negative (2) Type 2 diabetes mellitus: Qualifiers: Diabetes mellitus intermodal customer service insulin use: without jail use Diabetes mellitus complication status: with hyperglycemia Qualified Code(s): E11.65 - Type 2 diabetes mellitus with hyperglycemia Code(s): E11.9 - Type 2 diabetes mellitus without complications Status: Chronic Assessment and Plan: -Accu-Cheks AC and HS. -A1c 8.6 -Continue with jardiance, glimeperide, and januvia -increased to high dose sliding scale, improving (3) Essential (primary) hypertension: Code(s): I10 - Essential (primary) hypertension Status: Acute Assessment and Plan: -stable -home meds Subjective Date/time seen: 11/01/21 10:54 Interval history: 56 yo male w/ hx of DM, HTN, HLD, BPH, gout, ADHD, admitted for septic arthritis. Pain in the knee but more mild than yesterday. Denies N/V/abd pain/fever/chills/cp/sob. Review of Systems Review of Systems: All systems reviewed & are unremarkable except as noted in HPI and below Exam Narrative: General: No acute distress, non toxic appearing Eyes: PERRL, no scleral icterus HEENT: NCAT, external ears normal, MMM Respiratory: No respiratory distress, Lungs CTA bilaterally, no wheezing Cardiovascular: RRR, no murmur Abdominal: Soft, nontender, non distended, no rebound or guarding Musculoskeletal: R knee w/ erythema, warmth, and edema - improved, dec rom secondary to pain Neurological: A/Ox3, speech normal, no facial asymmetry Skin: Warm, dry, no rashes Psychiatric: Normal affect, normal mood Objective Data Vital Signs Vital Signs: Vital Signs - 24 hr 10/31/21 13:51 10/31/21 20:21 10/31/21 21:29 Temperature 98.3 F 98.1 F Pulse Rate 82 86 Respiratory Rate 18 16 Blood Pressure 136/80 136/76 Pulse Oximetry 99 97 97 11/01/21 06:32 11/01/21 07:58 11/01/21 10:40 Temperature 97.8 F 98.2 F Pulse Rate 100 102 H Respiratory Rate 16 18 Blood Pressure 127/78 152/88 H Pulse Oximetry 100 95 99 Intake/Output Intake/Output: Intake & Output 10/29/21 10/30/21 10/31/21 11/01/21 23:59 23:59 23:59 23:59 Intake Total 630 4380 1590 Output Total 1000 1700 Balance 630 3380 -110 Meds/Results Medications: Active Medications Generic Name Dose Route Start Last Admin Trade Name Freq PRN Reason Stop Dose Admin Hydrocodone Bitart/Acetaminophen 1 tab 10/31/21 13:38 11/01/21 08:45 Hydrocodone/Acetaminophen (*Crx) 5-325 Mg Tablet PO 1 tab Q4H PRN Administration Pain Rated 4-6 Dextrose 12.5 gm 10/30/21 17:47 Dextrose 50% 25 Gm/50 Ml Syringe IV PUSH PRN PRN Hypoglycemia Protocol Empagliflozin 25 mg 10/31/21 09:00 11/01/21 08:45 Empagliflozin 25 Mg Tablet PO 25 mg DAILY MELIDA Administration Enoxaparin Sodium 40 mg 10/31/21 09:00 11/01/21 08:45 Enoxaparin 40 Mg/0.4 Ml Syringe SUB-Q 40 mg DAILY MELIDA Administration Fluticasone Propionate 2 spray 10/31/21 09:00 11/01/21 08:46 Fluticasone Propionate 0.05% Na Spr 16 Gm Btl (*Bkc) NASAL 2 spray DAILY MELIDA Administration Glimepiride 4 mg 10/31/21 09:00 11/01/21 08:44 Glimepiride 2 Mg Tablet PO 4 mg BID MELIDA Administration Glucagon 1 mg 10/30/21 17:47 Glucagon For Inj 1 Mg Vial IM PRN PRN Hypoglycemia Protocol Glucose 15 gm 10/30/21 17:47 Glucose Oral Gel 15 Gm Of Glucse In 37.5 Gm Tube PO PRN NC
[2021-11-01 10:58] LABS: Glucose Point of Care 81 mg/dl (65-105)
[2021-11-01 11:58] LABS: Glucose Point of Care 172 mg/dl (65-105)
[2021-11-01 14:11] VITALS: BP 158/92; PULSE 93; RESP 16; TEMP 36; O2SAT 99
[2021-11-01 16:35] LABS: Glucose Point of Care 195 mg/dl (65-105)
[2021-11-01 20:00] VITALS: BP 156/87; PULSE 89; RESP 20; TEMP 36; O2SAT 99
[2021-11-01 20:30] VITALS: PULSE 78; RESP 20; O2SAT 96
[2021-11-01] MEDS: MELATONIN 5 MG TABLET PO (20:31)
[2021-11-01 21:05] LABS: Glucose Point of Care 189 mg/dl (65-105)
[2021-11-01 22:00] LABS: Vancomycin Trough 6.6 ug/mL (10.0-20.0)
[2021-11-01] MEDS: SODIUM CHLORIDE 0.9% IV 1,000 ML 125 ML IV CONT (22:54)
[2021-11-01] MEDS: HYDROmorphone HCL INJ (*CRX) 1 MG/ML SYR IV PUSH (22:55)
[2021-11-02] MEDS: HYDROcodone/acetaminophen (*CRX) 5-325 MG TABLET 1 TAB PO ×2 (02:10→07:48)
[2021-11-02 05:46] LABS: Basophils Percent Auto 0.3 % (0.2-1.2); Eosinophils Absolute Auto 0.2 K/mm3 (0-0.3); Eosinophils Percent Auto 2.1 % (0-4.4); Hematocrit 32.8 % (42.0-52.0); Hemoglobin 10.2 g/dL (14.0-18.0); Immature Granulocyte Absolute 0.08 K/mm3 (0.00-0.031); Immature Granulocyte Percent A 0.8 % (0-0.5); Lymphocytes Absolute Auto 0.89 K/mm3 (0.9-3.2); Lymphocytes Percent Auto 9.2 % (18.3-44.2); Mean Corpuscular HGB Conc 31.1 g/dl (32-36); Mean Corpuscular Hemoglobin 27.3 pg (26-34); Mean Corpuscular Volume 87.9 fl (80-100); Mean Platelet Volume 8.5 fl (7.4-10.4); Monocytes Absolute Auto 0.9 K/mm3 (0.1-0.6); Monocytes Percent Auto 8.8 % (2.6-8.5); Neutrophils Absolute Auto 7.6 K/mm3 (1.3-6.7); Neutrophils Percent Auto 78.8 % (45.5-73.1); Platelet Count Result 359 k/mm3 (150-375); Red Blood Count 3.73 M/mm3 (4.6-6.20); Red Cell Distribution Width 13.9 % (11.5-14.5); White Blood Count 9.7 K/mm3 (4.5-10.0)
[2021-11-02 06:00] VITALS: BP 155/86; PULSE 105; RESP 20; TEMP 36.1; O2SAT 98
[2021-11-02 06:00] LABS: Anion Gap 5 mmol/L (8-16); Blood Urea Nitrogen 19 mg/dL (9-20); Calcium 8.2 mg/dL (8.4-10.2); Carbon Dioxide 28 mmol/L (22-30); Chloride 104 mmol/L (98-107); Estimated CRCL calculation 97 ml/min; Estimated Glomerular Filt Rate > 60; Glucose 77 mg/dL (65-110); Potassium 4.1 mmol/L (3.4-5.0); Sodium 137 mmol/L (137-145)
[2021-11-02 07:45] LABS: Glucose Point of Care 176 mg/dl (65-105)
[2021-11-02] MEDS: FLUTICASONE/SALMETEROL 230-21 MCG INHALER 1 PUFF 2 PUFF INHALATION ×2 (07:56→21:38)
[2021-11-02 08:00] VITALS: PULSE 105; RESP 20; O2SAT 98
[2021-11-02] MEDS: INDOMETHACIN 25 MG CAPSULE 50 MG PO ×3 (08:02→16:50)
[2021-11-02] MEDS: MONTELUKAST SODIUM 10 MG TABLET PO (08:02)
[2021-11-02] MEDS: GLIMEPIRIDE 2 MG TABLET 4 MG PO ×2 (08:02→16:51)
[2021-11-02] MEDS: lisinopriL 5 MG TABLET PO (08:03)
[2021-11-02] MEDS: EMPAGLIFLOZIN 25 MG TABLET PO (08:05)
[2021-11-02] MEDS: FLUTICASONE PROPIONATE 0.05% NA SPR 16 GM BTL (*BKC) 2 SPRAY NASAL (08:06)
[2021-11-02] MEDS: ENOXAPARIN 40 MG/0.4 ML SYRINGE SUB-Q (08:06)
[2021-11-02] MEDS: SODIUM CHLORIDE 0.9% IV 1,000 ML 125 ML IV CONT ×2 (08:09→16:50)
[2021-11-02] MEDS: HYDROmorphone HCL INJ (*CRX) 1 MG/ML SYR IV PUSH (09:20)
--- NOTE | 2021-11-02 10:04 | PM.IMPN ---
Progress Note: A&P Assessment and Plan (1) Septic arthritis: Qualifiers: Laterality: right Septic arthritis location: knee Septic arthritis organism: staphylococcal Qualified Code(s): M00.061 - Staphylococcal arthritis, right knee Code(s): M00.9 - Pyogenic arthritis, unspecified Status: Acute Assessment and Plan: -Sent by Dr. Nugent from clinic. Dr. Nugent to see him today. -knee aspiration 10/24 shows MRSA -continue IV vancomycin -blood NGTD -venous doppler negative (2) Type 2 diabetes mellitus: Qualifiers: Diabetes mellitus jail insulin use: without jail use Diabetes mellitus complication status: with hyperglycemia Qualified Code(s): E11.65 - Type 2 diabetes mellitus with hyperglycemia Code(s): E11.9 - Type 2 diabetes mellitus without complications Status: Chronic Assessment and Plan: -Accu-Cheks AC and HS. -A1c 8.6 -Continue with jardiance, glimeperide, and januvia -increased to high dose sliding scale, improving (3) Essential (primary) hypertension: Code(s): I10 - Essential (primary) hypertension Status: Acute Assessment and Plan: -stable -home meds Subjective Date/time seen: 11/02/21 10:04 Interval history: 56 yo male w/ hx of DM, HTN, HLD, BPH, gout, ADHD, admitted for septic arthritis. Still having significant knee pain with any type of movement. At rest he has minimal pain. Denies N/V/abd pain/fever/chills/cp/sob. Review of Systems Review of Systems: All systems reviewed & are unremarkable except as noted in HPI and below Exam Narrative: General: No acute distress, non toxic appearing Eyes: PERRL, no scleral icterus HEENT: NCAT, external ears normal, MMM Respiratory: No respiratory distress, Lungs CTA bilaterally, no wheezing Cardiovascular: RRR, no murmur Abdominal: Soft, nontender, non distended, no rebound or guarding Musculoskeletal: R knee w/ erythema, warmth, and edema - improved, +dec rom secondary to pain Neurological: A/Ox3, speech normal, no facial asymmetry Skin: Warm, dry, no rashes Psychiatric: Normal affect, normal mood Objective Data Vital Signs Vital Signs: Vital Signs - 24 hr 11/01/21 10:40 11/01/21 14:11 11/01/21 20:00 Temperature 98.2 F 96.8 F L 96.8 F L Pulse Rate 102 H 93 89 Respiratory Rate 18 16 20 Blood Pressure 152/88 H 158/92 H 156/87 H Pulse Oximetry 99 99 99 11/01/21 20:30 11/02/21 06:00 Temperature 97.0 F L Pulse Rate 78 105 H Respiratory Rate 20 20 Blood Pressure 155/86 H Pulse Oximetry 96 98 Intake/Output Intake/Output: Intake & Output 10/30/21 10/31/21 11/01/21 11/02/21 23:59 23:59 23:59 23:59 Intake Total 630 4380 5320 1940 Output Total 1000 3600 700 Balance 630 3380 1720 1240 Meds/Results Medications: Active Medications Generic Name Dose Route Start Last Admin Trade Name Freq PRN Reason Stop Dose Admin Hydrocodone Bitart/Acetaminophen 1 tab 10/31/21 13:38 11/02/21 07:48 Hydrocodone/Acetaminophen (*Crx) 5-325 Mg Tablet PO 1 tab Q4H PRN Administration Pain Rated 4-6 Dextrose 12.5 gm 10/30/21 17:47 Dextrose 50% 25 Gm/50 Ml Syringe IV PUSH PRN PRN Hypoglycemia Protocol Empagliflozin 25 mg 10/31/21 09:00 11/02/21 08:05 Empagliflozin 25 Mg Tablet PO 25 mg DAILY MELIDA Administration Enoxaparin Sodium 40 mg 10/31/21 09:00 11/02/21 08:06 Enoxaparin 40 Mg/0.4 Ml Syringe SUB-Q 40 mg DAILY MELIDA Administration Fluticasone Propionate 2 spray 10/31/21 09:00 11/02/21 08:06 Fluticasone Propionate 0.05% Na Spr 16 Gm Btl (*Bkc) NASAL 2 spray DAILY MELIDA Administration Glimepiride 4 mg 10/31/21 09:00 11/02/21 08:02 Glimepiride 2 Mg Tablet PO 4 mg BID MELIDA Administration Glucagon 1 mg 10/30/21 17:47 Glucagon For Inj 1 Mg Vial IM PRN PRN Hypoglycemia Protocol Glucose 15 gm 10/30/21 17:47 Glucose Oral Gel
[2021-11-02 11:20] LABS: Glucose Point of Care 190 mg/dl (65-105)
[2021-11-02 14:19] VITALS: BP 159/86; PULSE 96; RESP 20; TEMP 36.2; O2SAT 99
--- NOTE | 2021-11-02 16:17 | PC.NURSE ---
Dr. Nugent and Tata RIVERA are here rounding on patient. Discussing plan with nursing and hospitalist.
--- NOTE | 2021-11-02 16:29 | PM.CNOR ---
Assessment and Plan Assessment and plan (1) Septic arthritis of knee, right: Qualifiers: Septic arthritis organism: staphylococcal Qualified Code(s): M00.061 - Staphylococcal arthritis, right knee Code(s): M00.9 - Pyogenic arthritis, unspecified Status: Acute Assessment and Plan: Severe acute infection. Showing signs of improvement with IV antibiotics and the previous aspiration. The knee has again filled with purulence and I aspirated 60 mL of grossly purulent fluid. He tolerated this well. Will need continued IV antibiotics and close observation. If he begins showing more signs of improvement then discharge with oral antibiotics may be a consideration. Likely will need another aspiration in 48 hours. He will need to remain as an inpatient with IV antibiotics due to the risk of the infection progressing from the knee into the soft tissues of the thigh, or development of sepsis. History of Present Illness HPI Consult date: 11/02/21 Chief complaint: Right knee septic arthritis Narrative: Pleasant 56-year-old male admitted with septic right knee arthritis. Complains of exquisite right knee pain. Significant benefit today with several days of IV antibiotics. Pain began 10/20/21. He complained of swelling, and recalls a spider bite. He was seen in the emergency room on 2 occasions. Aspiration was performed which ultimately confirmed presence of septic arthritis. Review of Systems Review of Systems: All systems reviewed & are unremarkable except as noted in HPI and below PMFSH Past Medical History Medical History ADHD (attention deficit hyperactivity disorder) Adhesions of nasal septum and turbinates BPH w/o urinary obs/LUTS Gout Hyperlipidemia Hypertension Rhinitis Screening for colon cancer Type 2 diabetes mellitus Unspecified asthma, uncomplicated Surgical History Surgical History H/O nasal polypectomy History of tonsillectomy S/P ORIF (open reduction internal fixation) fracture left tibula Family History Family History Mother Polio Father Lung cancer Sibling Carcinoma of colon Social History Social History Social History: The patient is and lives with his . They have 3 children. They have a [employer] company as well as a [employer] company. Patient is a former smoker does not use any alcohol marijuana or illicit drugs. His is his durable power finance attorney for healthcare. Code status full code Smoking packs per day: 1 Smoking cigarettes per day: 20.0 Years smoked: 5 Smoking pack-years: 5.00 Smoking status: Former smoker Second hand tobacco smoke exposure: No Smoking end date: 08/08/91 Alcohol intake: never Substance use: never Substance use type: does not use Spiritual care concerns: No Meds Home Medications and Allergies Home Medications Medication Instructions Recorded Confirmed Type dapagliflozin 10 mg tablet 10 mg PO DAILY 10/05/19 10/30/21 History fluticasone propionate 50 2 spray NASAL DAILY #18.2 ml 03/20/20 10/30/21 Rx mcg/actuation nasal spray,suspension lisinopril 5 mg tablet 5 mg PO DAILY #90 tablet 02/06/21 10/30/21 Rx glimepiride 4 mg tablet 4 mg PO BID #180 tablet 03/13/21 10/30/21 Rx metformin 1,000 mg tablet See Rx Instructions .ROUTE 04/09/21 10/30/21 Rx .COMPLEX #180 tablet fluticasone 500 mcg-salmeterol 50 1 inh INHALATION Q12H #60 ea 04/23/21 10/30/21 Rx mcg/dose blistr powdr for inhalation sildenafil (pulm.hypertension) 20 20 mg PO .COMPLEX #90 tablet 08/17/21 10/30/21 Rx mg tablet montelukast 10 mg tablet 10 mg PO DAILY #90 tablet 08/24/21 10/30/21 Rx sitagliptin 100 mg tablet 100 mg PO DAILY #90 tablet 10/15/21 10/30/21 Rx colchicine 0.6 mg PO BID #7 c
--- NOTE | 2021-11-02 16:35 | P.OPB_ITS ---
Procedure Note - Brief Procedure Note - Brief Date of procedure: 11/02/21 Pre-op diagnosis: Right knee septic arthritis Post-op diagnosis: Same Procedure performed: right knee aspiration. Description of procedure: The knee was prepared with alcohol, followed by Betadine prep. Aspiration performed with an 18 gauge needle and a 60 mL syringe. 60 mL purulent fluid obtained. Patient tolerated the procedure very w ell and felt improvement in pain afterwards. Surgeon: Dev Nugent MD Estimated blood loss (mL): 0 Drains: No Pathology: None sent Complications: No immediate complications Condition: Stable Disposition: No change
[2021-11-02 16:39] LABS: Glucose Point of Care 231 mg/dl (65-105)
[2021-11-02] MEDS: INSULIN ASPART (*BKC) 100 UNITS/ML SUB-Q (18:07)
[2021-11-02] MEDS: MELATONIN 5 MG TABLET PO (21:00)
[2021-11-02] MEDS: SODIUM CHLORIDE 0.9% IV 1,000 ML 75 ML IV CONT (21:07)
[2021-11-02 21:26] LABS: Glucose Point of Care 245 mg/dl (65-105)
[2021-11-02 22:00] VITALS: BP 155/85; PULSE 87; RESP 18; TEMP 36.1; O2SAT 98
[2021-11-03] MEDS: HYDROcodone/acetaminophen (*CRX) 5-325 MG TABLET 1 TAB PO ×5 (00:59→22:29)
[2021-11-03 06:00] VITALS: BP 146/94; PULSE 93; RESP 18; TEMP 36.3; O2SAT 98
[2021-11-03 07:37] LABS: Glucose Point of Care 124 mg/dl (65-105)
[2021-11-03] MEDS: INDOMETHACIN 25 MG CAPSULE 50 MG PO ×3 (08:26→17:24)
[2021-11-03] MEDS: MONTELUKAST SODIUM 10 MG TABLET PO (08:26)
[2021-11-03] MEDS: lisinopriL 5 MG TABLET PO (08:27)
[2021-11-03] MEDS: GLIMEPIRIDE 2 MG TABLET 4 MG PO ×2 (08:27→17:24)
[2021-11-03] MEDS: EMPAGLIFLOZIN 25 MG TABLET PO (08:27)
[2021-11-03] MEDS: FLUTICASONE PROPIONATE 0.05% NA SPR 16 GM BTL (*BKC) 2 SPRAY NASAL (08:28)
[2021-11-03] MEDS: ENOXAPARIN 40 MG/0.4 ML SYRINGE SUB-Q (08:28)
[2021-11-03] MEDS: FLUTICASONE/SALMETEROL 230-21 MCG INHALER 1 PUFF 2 PUFF INHALATION ×2 (08:34→21:00)
[2021-11-03 09:09] LABS: Alanine Aminotransferase 33 U/L (4-50); Alkaline Phosphatase 143 U/L (38-126); Anion Gap 7 mmol/L (8-16); Aspartate Amino Transferase 39 U/L (17-59); Bilirubin,Total 0.6 mg/dL (0.2-1.3); Blood Urea Nitrogen 18 mg/dL (9-20); Calcium 8.3 mg/dL (8.4-10.2); Carbon Dioxide 28 mmol/L (22-30); Chloride 104 mmol/L (98-107); Estimated CRCL calculation 86 ml/min; Estimated Glomerular Filt Rate > 60; Glucose 250 mg/dL (65-110); Potassium 3.7 mmol/L (3.4-5.0); Sodium 139 mmol/L (137-145)
[2021-11-03 09:19] LABS: Basophils Absolute Auto 0.1 K/mm3 (0.0-0.1); Basophils Percent Auto 0.5 % (0.2-1.2); Eosinophils Absolute Auto 0.3 K/mm3 (0-0.3); Eosinophils Percent Auto 2.2 % (0-4.4); Hematocrit 35.5 % (42.0-52.0); Hemoglobin 11.1 g/dL (14.0-18.0); Immature Granulocyte Absolute 0.13 K/mm3 (0.00-0.031); Immature Granulocyte Percent A 1.1 % (0-0.5); Lymphocytes Absolute Auto 0.83 K/mm3 (0.9-3.2); Mean Corpuscular HGB Conc 31.3 g/dl (32-36); Mean Corpuscular Hemoglobin 27.4 pg (26-34); Mean Corpuscular Volume 87.7 fl (80-100); Mean Platelet Volume 8.7 fl (7.4-10.4); Monocytes Percent Auto 8.3 % (2.6-8.5); Neutrophils Absolute Auto 9.6 K/mm3 (1.3-6.7); Neutrophils Percent Auto 80.9 % (45.5-73.1); Platelet Count Result 435 k/mm3 (150-375); Red Blood Count 4.05 M/mm3 (4.6-6.20); Red Cell Distribution Width 13.9 % (11.5-14.5); White Blood Count 11.9 K/mm3 (4.5-10.0)
[2021-11-03 09:28] LABS: Vancomycin Trough 8.9 ug/mL (10.0-20.0)
--- NOTE | 2021-11-03 10:35 | PM.IMPN ---
Progress Note: A&P Assessment and Plan (1) Septic arthritis: Qualifiers: Laterality: right Septic arthritis location: knee Septic arthritis organism: staphylococcal Qualified Code(s): M00.061 - Staphylococcal arthritis, right knee Code(s): M00.9 - Pyogenic arthritis, unspecified Status: Acute Assessment and Plan: -Sent by Dr. Nugent from clinic. -knee aspiration 10/24 shows MRSA -continue IV vancomycin -blood NGTD -venous doppler negative -repeat aspiration 11/03, culture pending -Discussed with Dr. Nugent, he is improving clinically but still having quite a bit of purulence. Plan is to continue the Vanc and possibly aspirate again in 48 hours. 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 -A1c 8.6 -Continue with jardiance, glimeperide, and januvia -increased to high dose sliding scale, was improving the past 2 days. This morning he was elevated again at 250 and 316 this afternoon. The only thing changed in the past 24 hours was that I decreased his NS from 125 to 75. I gave him a one time dose of 5 units after lunch (in addition to the 5 he received with his sliding scale) and will recheck in 2 hours. I also increased the IVF back to 125/hr. -will need continuous close monitoring, especially in light of his ongoing infection (3) Essential (primary) hypertension: Code(s): I10 - Essential (primary) hypertension Status: Acute Assessment and Plan: -stable -home meds Subjective Date/time seen: 11/03/21 10:35 Interval history: 56 yo male w/ hx of DM, HTN, HLD, BPH, gout, ADHD, admitted for septic arthritis. Still having significant knee pain with any type of movement. At rest he has minimal pain. Denies N/V/abd pain/fever/chills/cp/sob. Review of Systems Review of Systems: All systems reviewed & are unremarkable except as noted in HPI and below Exam Narrative: General: No acute distress, non toxic appearing Eyes: PERRL, no scleral icterus HEENT: NCAT, external ears normal, MMM Respiratory: No respiratory distress, Lungs CTA bilaterally, no wheezing Cardiovascular: RRR, no murmur Abdominal: Soft, nontender, non distended, no rebound or guarding Musculoskeletal: R knee w/edema but improving, +dec rom secondary to pain Neurological: A/Ox3, speech normal, no facial asymmetry Skin: Warm, dry, no rashes Psychiatric: Normal affect, normal mood Objective Data Vital Signs Vital Signs: Vital Signs - 24 hr 11/02/21 14:19 11/02/21 22:00 11/03/21 06:00 Temperature 97.2 F L 97.0 F L 97.4 F L Pulse Rate 96 87 93 Respiratory Rate 20 18 18 Blood Pressure 159/86 H 155/85 H 146/94 H Pulse Oximetry 99 98 98 Intake/Output Intake/Output: Intake & Output 10/31/21 11/01/21 11/02/21 11/03/21 23:59 23:59 23:59 23:59 Intake Total 4380 5320 5040 880 Output Total 1000 3600 2500 1900 Balance 3380 1720 2540 -1020 Meds/Results Medications: Active Medications Generic Name Dose Route Start Last Admin Trade Name Freq PRN Reason Stop Dose Admin Hydrocodone Bitart/Acetaminophen 1 tab 10/31/21 13:38 11/03/21 06:34 Hydrocodone/Acetaminophen (*Crx) 5-325 Mg Tablet PO 1 tab Q4H PRN Administration Pain Rated 4-6 Dextrose 12.5 gm 10/30/21 17:47 Dextrose 50% 25 Gm/50 Ml Syringe IV PUSH PRN PRN Hypoglycemia Protocol Empagliflozin 25 mg 10/31/21 09:00 11/03/21 08:27 Empagliflozin 25 Mg Tablet PO 25 mg DAILY MELIDA Administration Enoxaparin Sodium 40 mg 10/31/21 09:00 11/03/21 08:28 Enoxaparin 40 Mg/0.4 Ml Syringe S
[2021-11-03 11:51] LABS: Glucose Point of Care 316 mg/dl (65-105)
[2021-11-03] MEDS: INSULIN ASPART (*BKC) 100 UNITS/ML SUB-Q ×3 (12:00→17:29)
[2021-11-03 14:00] VITALS: BP 150/87; PULSE 104; RESP 20; TEMP 36.2; O2SAT 98
[2021-11-03 14:17] LABS: Glucose Point of Care 264 mg/dl (65-105)
--- NOTE | 2021-11-03 16:29 | PM.PNORT ---
Progress Note: A&P Assessment and Plan (1) Septic arthritis of knee, right: Qualifiers: Septic arthritis organism: staphylococcal Qualified Code(s): M00.061 - Staphylococcal arthritis, right knee Code(s): M00.9 - Pyogenic arthritis, unspecified Status: Acute Assessment and Plan: Severe acute infection. Showing signs of improvement with IV antibiotics and the previous aspiration. Knee is filling up again. Large effusion today. Plan on aspirating tomorrow. Patient states he is feeling slightly better each day, however he has severe pain with ROM of the knee. 20-70 due to pain. Will need continued IV antibiotics and close observation. If he begins showing more signs of improvement then discharge with oral antibiotics may be a consideration. He will need to remain as an inpatient with IV antibiotics due to the risk of the infection progressing from the knee into the soft tissues of the thigh, or development of sepsis. Subjective Subjective Date/Time Seen: 11/03/21 16:29 Patient resting comfortably. States pain is controlled with pain medication. Severe pain with knee ROM. No fever. No other complaints. Review of Systems Review of Systems: All systems reviewed & are unremarkable except as noted in HPI and below Exam Narrative: Patient is alert and oriented. Shows fair insight. No acute distress. Afebrile. The knee is quite warm. Large effusion with tenderness diffusely. No drainage or sinus tracts. Excoriations on the tibia without drainage. Distal neurovascular status intact. Range of motion limited due to pain and swelling. 20? to 70?. Objective Data Vital Signs Vital Signs: Vital Signs - 24 hr 11/02/21 22:00 11/03/21 06:00 11/03/21 14:00 Temperature 97.0 F L 97.4 F L 97.1 F L Pulse Rate 87 93 104 H Respiratory Rate 18 18 20 Blood Pressure 155/85 H 146/94 H 150/87 H Pulse Oximetry 98 98 98 Intake/Output Intake/Output: Intake & Output 10/31/21 11/01/21 11/02/21 11/03/21 23:59 23:59 23:59 23:59 Intake Total 4380 5320 5040 1120 Output Total 1000 3600 2500 1900 Balance 3380 1720 2540 -780 Meds/Results Medications: Active Medications Generic Name Dose Route Start Last Admin Trade Name Freq PRN Reason Stop Dose Admin Hydrocodone Bitart/Acetaminophen 1 tab 10/31/21 13:38 11/03/21 10:45 Hydrocodone/Acetaminophen (*Crx) 5-325 Mg Tablet PO 1 tab Q4H PRN Administration Pain Rated 4-6 Dextrose 12.5 gm 10/30/21 17:47 Dextrose 50% 25 Gm/50 Ml Syringe IV PUSH PRN PRN Hypoglycemia Protocol Empagliflozin 25 mg 10/31/21 09:00 11/03/21 08:27 Empagliflozin 25 Mg Tablet PO 25 mg DAILY MELIDA Administration Enoxaparin Sodium 40 mg 10/31/21 09:00 11/03/21 08:28 Enoxaparin 40 Mg/0.4 Ml Syringe SUB-Q 40 mg DAILY MELIDA Administration Fluticasone Propionate 2 spray 10/31/21 09:00 11/03/21 08:28 Fluticasone Propionate 0.05% Na Spr 16 Gm Btl (*Bkc) NASAL 2 spray DAILY MELIDA Administration Glimepiride 4 mg 10/31/21 09:00 11/03/21 08:27 Glimepiride 2 Mg Tablet PO 4 mg BID MELIDA Administration Glucagon 1 mg 10/30/21 17:47 Glucagon For Inj 1 Mg Vial IM PRN PRN Hypoglycemia Protocol Glucose 15 gm 10/30/21 17:47 Glucose Oral Gel 15 Gm Of Glucse In 37.5 Gm Tube PO PRN PRN Hypoglycemia Protocol Hydromorphone HCl 1 mg 10/31/21 13:39 11/02/21 09:20 Hydromorphone Hcl Inj (*Crx) 1 Mg/Ml Syr IV PUSH 1 mg Q4H PRN Administration Pain Rated 7-10 Sodium Chloride 1,000 mls @ 125 mls/hr 10/30/21 15:15 11/02/21 21:07 Normal Saline Iv IV CONT 75 mls/hr .Q8H MELIDA Administration Dextrose 1,000 mls @ 100 mls/hr 10/30/21 17:47 Dextrose 5% 1,000 Ml IVPB PRN PRN Hypoglycemia Protocol Vancomycin HCl 1,500 mg in 500 mls @ 333.333 mls/hr 11/03/21 10:00 11/03/21 10:42 Vancomycin 1,500 Mg/D5w 500 Ml IVPB 333.33 mls/hr Q12H MELIDA Adminis
[2021-11-03 16:41] LABS: Glucose Point of Care 204 mg/dl (65-105)
[2021-11-03] MEDS: SODIUM CHLORIDE 0.9% IV 1,000 ML 75 ML IV CONT (17:26)
[2021-11-03 21:03] VITALS: O2SAT 98
[2021-11-03] MEDS: MELATONIN 5 MG TABLET PO (21:10)
[2021-11-03 21:21] LABS: Glucose Point of Care 133 mg/dl (65-105)
[2021-11-03 22:00] VITALS: BP 128/89; PULSE 115; RESP 20; TEMP 36.1; O2SAT 98
[2021-11-04] VITALS (11 sets, daily range): BP systolic 117–146; BP diastolic 86–98; PULSE 150–163; RESP 18; TEMP 36.4–36.7; O2SAT 94–99
[2021-11-04] MEDS: SODIUM CHLORIDE 0.9% IV 1,000 ML 125 ML IV CONT ×2 (02:23→10:17)
[2021-11-04] MEDS: HYDROcodone/acetaminophen (*CRX) 5-325 MG TABLET 1 TAB PO ×4 (02:23→22:42)
[2021-11-04 05:40] LABS: Basophils Absolute Auto 0.1 K/mm3 (0.0-0.1); Basophils Percent Auto 0.5 % (0.2-1.2); Eosinophils Absolute Auto 0.3 K/mm3 (0-0.3); Eosinophils Percent Auto 2.4 % (0-4.4); Hematocrit 32.1 % (42.0-52.0); Lymphocytes Absolute Auto 1.09 K/mm3 (0.9-3.2); Lymphocytes Percent Auto 10.5 % (18.3-44.2); Mean Corpuscular HGB Conc 31.2 g/dl (32-36); Mean Corpuscular Hemoglobin 26.9 pg (26-34); Mean Corpuscular Volume 86.3 fl (80-100); Mean Platelet Volume 8.7 fl (7.4-10.4); Monocytes Absolute Auto 0.9 K/mm3 (0.1-0.6); Monocytes Percent Auto 8.8 % (2.6-8.5); Neutrophils Percent Auto 76.8 % (45.5-73.1); Platelet Count Result 416 k/mm3 (150-375); Red Blood Count 3.72 M/mm3 (4.6-6.20); Red Cell Distribution Width 13.9 % (11.5-14.5); White Blood Count 10.4 K/mm3 (4.5-10.0)
[2021-11-04 05:47] LABS: Anion Gap 8 mmol/L (8-16); Blood Urea Nitrogen 18 mg/dL (9-20); Carbon Dioxide 25 mmol/L (22-30); Chloride 106 mmol/L (98-107); Estimated CRCL calculation 97 ml/min; Estimated Glomerular Filt Rate > 60; Glucose 94 mg/dL (65-110); Potassium 3.8 mmol/L (3.4-5.0); Sodium 139 mmol/L (137-145)
[2021-11-04 07:50] LABS: Glucose Point of Care 108 mg/dl (65-105)
[2021-11-04] MEDS: EMPAGLIFLOZIN 25 MG TABLET PO (10:17)
[2021-11-04] MEDS: MONTELUKAST SODIUM 10 MG TABLET PO (10:17)
[2021-11-04] MEDS: INDOMETHACIN 25 MG CAPSULE 50 MG PO (10:18)
[2021-11-04] MEDS: lisinopriL 5 MG TABLET PO (10:18)
[2021-11-04] MEDS: GLIMEPIRIDE 2 MG TABLET 4 MG PO ×2 (10:18→17:10)
[2021-11-04] MEDS: ENOXAPARIN 40 MG/0.4 ML SYRINGE SUB-Q (10:19)
[2021-11-04] MEDS: FLUTICASONE PROPIONATE 0.05% NA SPR 16 GM BTL (*BKC) 2 SPRAY NASAL (10:19)
--- NOTE | 2021-11-04 11:09 | PM.IMPN ---
Progress Note: A&P Assessment and Plan (1) Septic arthritis: Qualifiers: Laterality: right Septic arthritis location: knee Septic arthritis organism: staphylococcal Qualified Code(s): M00.061 - Staphylococcal arthritis, right knee Code(s): M00.9 - Pyogenic arthritis, unspecified Status: Acute Assessment and Plan: Patient presented to Dr. Nugent's outpatient clinic after 10 days of knee pain and swelling and was referred to ED Patient with severe infection and large effusion Knee was aspirated on 10/24 and culture grew MRSA Appreciate orthopedic surgery consultation Joint was aspirated today by Ortho and yielded 50 cc yellow purulent fluid per RN Continue with IV vancomycin Repeat right knee synovial fluid culture pending. Preliminary results with scant growth of Staphylococcus aureus Preliminary blood cultures are negative to date Venous Doppler negative At this time will discontinue indomethacin which was started at ER visit on 10/26 for suspected gout flare. (2) Type 2 diabetes mellitus: Qualifiers: Diabetes mellitus shelter insulin use: without shelter use Diabetes mellitus complication status: with hyperglycemia Qualified Code(s): E11.65 - Type 2 diabetes mellitus with hyperglycemia Code(s): E11.9 - Type 2 diabetes mellitus without complications Status: Chronic Assessment and Plan: A1c is 8.6. Blood sugars have been elevated above target but improving today Continue with Accu-Cheks, high-dose sliding scale insulin, and hypoglycemic protocol Continue home Jardiance, glimepiride, Januvia Consider addition of scheduled mealtime insulin if blood sugars become elevated Fasting glucose this morning was 94 Continue to monitor glucose trends. Close monitoring in light of active infection (3) Essential (primary) hypertension: Code(s): I10 - Essential (primary) hypertension Status: Acute Assessment and Plan: Blood pressures reviewed and have been stable. Last BP 122/86 Continue lisinopril Subjective Date/time seen: 11/04/21 11:09 Interval history: Date of service: 11/04/2021 Biju Navarrete is a 56-year-old male with a history of ADHD, BPH, hypertension, hyperlipidemia, type 2 diabetes mellitus, and asthma who is seen in follow-up for septic arthritis of the right knee. His knee was aspirated this morning by Orthopedic surgery. He tolerated this well. At this time he rates this pain as 5/10. He states his stabbing on the lateral side. He is able to ambulate using a walker but is not able to bear any weight on the right knee without significant pain. He has not been eating as much because the pain has caused him to have decreased appetite. He also feels that his heart is racing occasionally when he has flashes of pain. He does note that his pain is worse at night and last night he woke with shooting pains. He denies fevers, chills, sweats. No dizziness or lightheadedness. Denies nausea or vomiting. Reports regular bowel movements and denies urinary symptoms. Review of Systems Review of Systems: All systems reviewed & are unremarkable except as noted in HPI and below Exam Narrative: General: Well-nourished, well-appearing 56 year-old male, semi recumbent in bed, comfortable, NARD Neuro: awake, alert and oriented x4, speech clear, no focal neuro deficits noted HEENMT: normocephalic, atraumatic, EOMI, sclerae anicteric Respiratory: clear to auscultation bilaterally, nonlabored breathing Cardio: regular rate, regular rhythm with S1-S2 Abdomen: nondistended, normoactive bowel sounds, soft, nontender to palpation Extremities: Right knee is erythematous and warm to palpation with bandage covering the lateral surface, trace edema of the right calf. Left lower extremity no edema, erythema, tenderness to palpation. DP pulses 2+ bilaterally Skin: Scattered excoriations on the bilateral anterior shins and right thigh, n
--- NOTE | 2021-11-04 12:01 | PM.PNORT ---
Progress Note: A&P Assessment and Plan (1) Septic arthritis of knee, right: Qualifiers: Septic arthritis organism: staphylococcal Qualified Code(s): M00.061 - Staphylococcal arthritis, right knee Code(s): M00.9 - Pyogenic arthritis, unspecified Status: Acute Assessment and Plan: Severe acute infection. Showing signs of improvement with IV antibiotics and the previous aspiration. Pain worse again today. Knee is filling up again. Large effusion today. Aspirated knee today 50 cc purulent fluid drained. Severe pain with ROM of the knee. 20-70 due to pain. Will need continued IV antibiotics and close observation. He will need to remain as an inpatient with IV antibiotics due to the risk of the infection progressing from the knee into the soft tissues of the thigh, or development of sepsis. Subjective Subjective Date/Time Seen: 11/04/21 12:01 Patient states he had a bad night last night. Severe pain with any motion of his knee. Pain controlled if he keeps it still with medications. No numbness or tingling. No fever. No other symptoms today. Review of Systems Review of Systems: All systems reviewed & are unremarkable except as noted in HPI and below Exam Narrative: Patient is alert and oriented. Shows fair insight. No acute distress. Afebrile. The knee is quite warm. Large effusion with tenderness diffusely. No drainage or sinus tracts. Excoriations on the tibia without drainage. Distal neurovascular status intact. Range of motion limited due to pain and swelling. 20? to 70?. Objective Data Vital Signs Vital Signs: Vital Signs - 24 hr 11/03/21 14:00 11/03/21 21:03 11/03/21 22:00 Temperature 97.1 F L 96.9 F L Pulse Rate 104 H 115 H Respiratory Rate 20 20 Blood Pressure 150/87 H 128/89 Pulse Oximetry 98 98 98 11/04/21 05:56 11/04/21 09:28 Temperature 97.8 F Pulse Rate Respiratory Rate 18 Blood Pressure 122/86 Pulse Oximetry 99 98 Intake/Output Intake/Output: Intake & Output 11/01/21 11/02/21 11/03/21 11/04/21 23:59 23:59 23:59 23:59 Intake Total 5320 5040 3760 2980 Output Total 3600 2500 2950 400 Balance 1720 2540 810 2580 Meds/Results Medications: Active Medications Generic Name Dose Route Start Last Admin Trade Name Freq PRN Reason Stop Dose Admin Hydrocodone Bitart/Acetaminophen 1 tab 10/31/21 13:38 11/04/21 10:18 Hydrocodone/Acetaminophen (*Crx) 5-325 Mg Tablet PO 1 tab Q4H PRN Administration Pain Rated 4-6 Dextrose 12.5 gm 10/30/21 17:47 Dextrose 50% 25 Gm/50 Ml Syringe IV PUSH PRN PRN Hypoglycemia Protocol Empagliflozin 25 mg 10/31/21 09:00 11/04/21 10:17 Empagliflozin 25 Mg Tablet PO 25 mg DAILY MELIDA Administration Enoxaparin Sodium 40 mg 10/31/21 09:00 11/04/21 10:19 Enoxaparin 40 Mg/0.4 Ml Syringe SUB-Q 40 mg DAILY MELIDA Administration Fluticasone Propionate 2 spray 10/31/21 09:00 11/04/21 10:19 Fluticasone Propionate 0.05% Na Spr 16 Gm Btl (*Bkc) NASAL 2 spray DAILY MELIDA Administration Glimepiride 4 mg 10/31/21 09:00 11/04/21 10:18 Glimepiride 2 Mg Tablet PO 4 mg BID MELIDA Administration Glucagon 1 mg 10/30/21 17:47 Glucagon For Inj 1 Mg Vial IM PRN PRN Hypoglycemia Protocol Glucose 15 gm 10/30/21 17:47 Glucose Oral Gel 15 Gm Of Glucse In 37.5 Gm Tube PO PRN PRN Hypoglycemia Protocol Hydromorphone HCl 1 mg 10/31/21 13:39 11/02/21 09:20 Hydromorphone Hcl Inj (*Crx) 1 Mg/Ml Syr IV PUSH 1 mg Q4H PRN Administration Pain Rated 7-10 Dextrose 1,000 mls @ 100 mls/hr 10/30/21 17:47 Dextrose 5% 1,000 Ml IVPB PRN PRN Hypoglycemia Protocol Vancomycin HCl 1,500 mg in 500 mls @ 333.333 mls/hr 11/03/21 10:00 11/04/21 10:17 Vancomycin 1,500 Mg/D5w 500 Ml IVPB 333 mls/hr Q12H MELIDA Administration Insulin Aspart 4 - 8 units 10/31/21 17:00 11/04/21 08:53 Insulin Aspart (*Bkc)
[2021-11-04 12:12] LABS: Glucose Point of Care 210 mg/dl (65-105)
[2021-11-04] MEDS: INSULIN ASPART (*BKC) 100 UNITS/ML SUB-Q (12:13)
--- NOTE | 2021-11-04 12:14 | PM.OP ---
Procedure Note - Brief Procedure Note - Brief Date of procedure: 11/04/21 Pre-op diagnosis: Right knee septic arthritis Surgeon: NICOLE Del Rosario Date of procedure: 11/04/21 Post-op diagnosis: Same Procedure performed: Right knee aspiration. Description of procedure: The knee was prepared with alcohol, followed by Betadine prep. Aspiration performed with an 18 gauge needle and a 50 mL syringe. 50 mL purulent fluid obtained. Patient tolerated the procedure very well and felt improvement in pain afterwards. Estimated blood loss (mL): 0 Drains: No Pathology: None sent Complications: No immediate complications Condition: Stable Disposition: No change
--- NOTE | 2021-11-04 14:38 | ECG_ITS ---
Measurements Intervals [place] Rate: 162 P: IN: 0 QRS: 9 QRSD: 86 T: 0 QT: 286 QTc: 470 Interpretive Statements ATRIAL FLUTTER/TACHYCARDIA WITH RAPID VENTRICULAR RESPONSE ST & T-WAVE ABNORMALITY ANTEROLATERAL LEADS, CONSIDER MYOCARDIAL ISCHEMIA ABNORMAL ECG COMPARED TO ECG 10/30/2021 15:16:09 ATRIAL FLUTTER NOW PRESENT Electronically Signed On 11-04-2021 15:35:46 CDT by Zechariah De Souza M.D.
--- NOTE | 2021-11-04 14:58 | PC.NURSE ---
Patient HR elevated, nurse called pt hospitalist, stat EKG ordered and new orders received.
[2021-11-04] MEDS: METOPROLOL TARTRATE INJ 5 MG/5 ML VIAL IV PUSH ×2 (15:24→17:59)
[2021-11-04 16:44] LABS: Glucose Point of Care 157 mg/dl (65-105)
[2021-11-04] MEDS: POTASSIUM CHLORIDE 20 MEQ TABLET 40 MEQ PO (18:03)
[2021-11-04 18:10] LABS: NT Pro B Type Natriuretic Pept 2750 pg/mL (5-100)
[2021-11-04] MEDS: HYDROmorphone HCL INJ (*CRX) 1 MG/ML SYR IV PUSH (19:48)
[2021-11-04 19:57] LABS: Anion Gap 5 mmol/L (8-16); Blood Urea Nitrogen 24 mg/dL (9-20); Calcium 8.3 mg/dL (8.4-10.2); Carbon Dioxide 30 mmol/L (22-30); Chloride 102 mmol/L (98-107); Estimated CRCL calculation 54 ml/min; Estimated Glomerular Filt Rate 58; Glucose 298 mg/dL (65-110); Magnesium 1.9 mg/dL (1.6-2.3); Potassium 4.6 mmol/L (3.4-5.0); Sodium 137 mmol/L (137-145)
[2021-11-04 20:00] LABS: Glucose Point of Care 255 mg/dl (65-105)
[2021-11-04] MEDS: SODIUM CHLORIDE 0.9% IV 1,000 ML 999 ML IV CONT ×2 (20:25→23:41)
[2021-11-04 21:25] LABS: Vancomycin Trough 12.3 ug/mL (10.0-20.0)
[2021-11-04] MEDS: MELATONIN 5 MG TABLET PO (22:30)
[2021-11-04] MEDS: dilTIAZem HCl INJ 25 MG/5 ML VIAL 10 MG IV PUSH (22:30)
[2021-11-04] MEDS: LABETALOL HCL INJ 100 MG/20 ML VIAL 20 MG IV PUSH (23:42)
[2021-11-05] VITALS (40 sets, daily range): BP systolic 97–170; BP diastolic 71–109; PULSE 33–163; RESP 14–21; TEMP 36.3–37.2; O2SAT 96–100
--- NOTE | 2021-11-05 | ECHO_ITS ---
Patient Info Name: Biju Navarrete Age: 56 years : 1965 Gender: Male Ht: 67 in Wt: 171 lbs BSA: 1.93 m2 HR: 79 bpm BP: 126 / 87 mmHg Heart Rhythm: Sinus Rhythm Technical Quality: Good Exam Date: 11/05/2021 11:13 AM Exam Location: [facility] Pulmonary Exam Room: 201 Patient Status: Inpatient Admit Date: 10/30/2021 Staff Ordering Physician: Ailyn Blackwell DO Voip Technician: Gale Jolley RDCS Attending Provider: Jaylyn Willard PA-C Referring Physician: Rosalva FISHER; Exam Type: CA echo doppler color flow Study Info Indications - new onset afib Complete two-dimensional, color flow and Doppler transthoracic echocardiogram is performed. Summary 1. Left ventricular chamber dimension is mildly enlarged. 2. Left ventricular systolic function is normal, estimated at 55-60%. 3. There is no increased left ventricular wall thickness. 4. The left ventricular diastolic function is abnormal. 5. Global longitudinal strain is moderately elevated at -10 %. 6. Left atrial chamber dimension is severely enlarged. 7. There is trace mitral valve regurgitation. 8. There is mild tricuspid valve regurgitation. 9. Moderate pulmonary hypertension, estimated pulmonary arterial systolic pressure is 50 mmHg. Left Ventricle Left ventricular chamber dimension is mildly enlarged. Left ventricular systolic function is normal, estimated at 55-60%. There is no increased left ventricular wall thickness. The left ventricular diastolic function is abnormal. Global longitudinal strain is moderately elevated at -10 %. Right Ventricle Right ventricular chamber dimension is normal. Right ventricular systolic function is normal. Left Atria Left atrial chamber dimension is severely enlarged. Right Atria Right atrial chamber dimension is normal. Aortic Valve The aortic valve is trileaflet. There is mild aortic valve sclerosis. There is no aortic valve stenosis. There is no aortic valve regurgitation. Pulmonic Valve The pulmonic valve is normal. There is trace pulmonic regurgitation. Mitral Valve The mitral valve has thickened leaflets. There is trace mitral valve regurgitation. The mitral valve annulus is mildly calcified. Tricuspid Valve The tricuspid valve leaflets are normal. There is mild tricuspid valve regurgitation. Moderate pulmonary hypertension, estimated pulmonary arterial systolic pressure is 50 mmHg. Pericardium/Pleural The pericardium appears normal. There is trivial pericardial effusion. Inferior Vena Cava Normal inferior vena cava with >50% collapse upon inspiration consistent with normal right atrial pressure, 5 mmHg. Aorta The aortic root size at the sinus of Valsalva is normal. There is mild aortic atherosclerosis. Left Ventricular Outflow Tract Name Value Normal LVOT 2D LVOT Diameter 2.0 cm LVOT Doppler LVOT Peak Gradient 7 mmHg LVOT Mean Gradient 3 mmHg LVOT VTI 24 cm LVOT VTI/AV VTI Ratio 1.0 LVOT Stroke Volume
[2021-11-05 00:25] LABS: Glucose Point of Care 193 mg/dl (65-105)
[2021-11-05] MEDS: ADENOSINE IV SOLN 6 MG/2 ML VIAL 12 MG (00:52)
[2021-11-05] MEDS: LORazepam INJ (*CRX) 2 MG/ML VIAL (00:53)
[2021-11-05] MEDS: dilTIAZem HCl INJ 25 MG/5 ML VIAL 20 MG IV PUSH (00:54)
[2021-11-05] MEDS: dilTIAZem 100 MG/100 ML 100 MG/100 ML BAG IV CONT (01:04)
--- NOTE | 2021-11-05 01:21 | PM.EVENT ---
Event Note Event Note Event Note: Patient had EKG performed earlier in the day demonstrating atrial tachycardia. Question was whether this was atrial fib/flutter versus a SVT. Try giving the patient IV Lopressor, IV labetalol and IV Cardizem. The patient's heart rate did not improve. Patient subsequently received 2 L normal saline. Despite these measures the patient remained diaphoretic. He was not having any chest pain, palpitations or shortness of breath. And still was not clear whether not the patient was in antral for versus SVT. Patient was moved to IMU and given a dose of adenosine. Underlying rhythm demonstrated atrial fibrillation. Patient was subsequently given 20 Cardizem IV push and was started on a Cardizem drip. After the Cardizem bolus of 20 mg patient did drop his systolic blood pressures into the 90s. Will monitor the patient on Cardizem drip. If low blood pressures persist the patient will be switched to amiodarone with this new onset atrial fibrillation. will stop patient's prophylactic Lovenox in place patient on heparin drip. The patient is not complaining of any cardiac symptoms or shortness of breath. His main complaint is that his knee is filled back up and he is having severe knee pain. Cardiology has been consulted earlier in the day. GENERAL: Thin body habitus, acutely ill-appearing, disheveled HEENT: Poor dentition, tacky mucous membranes, pupils equal and reactive CARDIOVASCULAR: Tachycardic, 2+ bilateral radial pedal pulses RESPIRATORY: Clear to auscultation bilaterally, no increased work of breathing ABDOMEN: Soft, nontender INTEGUMENT: Diaphoretic, generalized pallor, warm to touch NEUROLOGIC: Alert and oriented, speech is clear but slow PSYCHIATRIC: Pleasant with odd affect, cooperative EXTREMITIES: Large joint effusion of the right knee, pain with palpation and with passive motion : Deferred Patient has been transferred to the IMU. 50 minutes spent in critical care activities. Due to a high probability of clinically significant, life threatening deterioration, the patient required my highest level of preparedness to intervene emergently and I personally spent this critical care time directly and personally managing the patient. This critical care time included obtaining a history; examining the patient; pulse oximetry; ordering and review of studies; arranging urgent treatment with development of a management plan; evaluation of patient's response to treatment; frequent reassessment; and discussions with other providers. It was exclusive of separately billable procedures and treating other patients and teaching time. Please see Assessment and Plan section and the rest of the note for further information on patient assessment and treatment.
--- NOTE | 2021-11-05 01:23 | PC.NURSE ---
This patient, Biju Navarrete, was received from [[id number] ] on 11/05/21 at 0040. Patient/family oriented to unit policies and routines
[2021-11-05 02:10] LABS: Hematocrit 31.9 % (42.0-52.0); Hemoglobin 9.7 g/dL (14.0-18.0); Mean Corpuscular HGB Conc 30.4 g/dl (32-36); Mean Corpuscular Hemoglobin 27.1 pg (26-34); Mean Corpuscular Volume 89.1 fl (80-100); Mean Platelet Volume 8.5 fl (7.4-10.4); Platelet Count Result 402 k/mm3 (150-375); Red Blood Count 3.58 M/mm3 (4.6-6.20); Red Cell Distribution Width 14.1 % (11.5-14.5); White Blood Count 12.2 K/mm3 (4.5-10.0)
[2021-11-05 02:22] LABS: INR 1.2; Prothrombin Time 14.8 Seconds (11.1-14.7)
[2021-11-05 02:23] LABS: Partial Thromboplastin Time 31.6 SECONDS (22.3-36.8)
[2021-11-05 02:26] LABS: Lactic Acid Reflex 1.2 mmol/L (0.7-2.1)
[2021-11-05 02:29] LABS: Anion Gap 7 mmol/L (8-16); Blood Urea Nitrogen 22 mg/dL (9-20); Calcium 7.8 mg/dL (8.4-10.2); Carbon Dioxide 24 mmol/L (22-30); Chloride 105 mmol/L (98-107); Estimated CRCL calculation 77 ml/min; Estimated Glomerular Filt Rate > 60; Glucose 206 mg/dL (65-110); Potassium 4.3 mmol/L (3.4-5.0); Sodium 136 mmol/L (137-145)
[2021-11-05] MEDS: HEPARIN SOD/D5W 100 UNITS/ML 25,000 UNITS/250 ML BAG 14 UNITS IV CONT (02:39)
[2021-11-05] MEDS: HEPARIN SODIUM 5,000 UNITS/ML VIAL 6000 UNITS IV PUSH ×2 (02:39→09:27)
[2021-11-05 03:18] LABS: CRP 28.6 mg/dL (<1.0)
[2021-11-05] MEDS: AMIODARONE 150 MG/D5W 100 ML 150 MG/100 ML BAG 600 MG IV CONT ×2 (04:14→09:15)
[2021-11-05] MEDS: AMIODARONE 360 MG/D5W 200 ML 360 MG/200 ML BAG 33.33 MG IV CONT ×2 (04:15→10:33)
[2021-11-05] MEDS: lisinopriL 5 MG TABLET PO (08:34)
[2021-11-05] MEDS: MONTELUKAST SODIUM 10 MG TABLET PO (08:34)
[2021-11-05] MEDS: GLIMEPIRIDE 2 MG TABLET 4 MG PO ×2 (08:34→16:35)
[2021-11-05] MEDS: EMPAGLIFLOZIN 25 MG TABLET PO (08:34)
[2021-11-05] MEDS: FLUTICASONE/SALMETEROL 230-21 MCG INHALER 1 PUFF 2 PUFF INHALATION (08:46)
[2021-11-05 08:59] LABS: Partial Thromboplastin Time 36.8 SECONDS (22.3-36.8)
--- NOTE | 2021-11-05 09:00 | PM.CNCAR ---
Assessment and Plan Assessment and plan (1) Atrial flutter with rapid ventricular response: Code(s): I48.92 - Unspecified atrial flutter Status: Acute Assessment and Plan: New onset atrial flutter with rapid ventricular response being yesterday afternoon around 2:00 p.m.. Refractory to calcium channel alok and beta-alok therapy. Started on amiodarone overnight. Patient hemodynamically stable, tolerating well. Started on heparin infusion, remains subtherapeutic as of this morning. Follow heparin protocol. Discussed current clinical status, considerations, management options at length with the patient and once again with his at bedside. All questions answered to their satisfaction. Discussed medications versus electrical cardioversion, rate vs rhythm in general. MATTHIEU guidance not necessary given known onset within 24 hours and initiation of systemic anticoagulation. No prior known history per patient and . Discussed with with sedation including aspiration possible need for intubation, hypertension, stroke, bleeding and need for systemic anticoagulation ongoing. CHADS2 Vasc score 2. Discussed further options in the future such as ablation for atrial flutter. Discussed risk for recurrence of atrial flutter, complications if other surgical intervention required for his septic arthritis and need to discontinue anticoagulation even temporarily which may increase risk for stroke. They understand. We also discussed risk for tachycardia induced cardiomyopathy with ongoing unabated tachycardia for prolonged period of time. He is currently stable and relatively asymptomatic. - He will be kept NPO in anticipation for cardioversion later today (or tomorrow) to restore sinus rhythm once he is therapeutic on heparin unless surgical intervention for right knee septic arthritis felt necessary which to this point is not planned to my knowledge. We discussed preference to continue uninterrupted systemic anticoagulation for 30 days post cardioversion to reduce risk for embolic stroke even if in sinus rhythm. Will transition to oral anticoagulation when appropriate. 2D echocardiogram once heart rate better controlled. Discussed risks, benefits, and alternatives amiodarone including but not limited to toxicity risks involved eyes, thyroid, lungs the need for ongoing monitoring. Plan is for short-term/temporary use of amiodarone until he is more fully recovered from his acute infection which I feel is a significant trigger for developed his atrial flutter although he clearly has a flutter pathway. We discussed benefits of ablation in the future as an outpatient as well. Plan for Xarelto 20 mg at bedtime accepted by insurance. (2) Septic arthritis of knee, right: Qualifiers: Septic arthritis organism: staphylococcal Qualified Code(s): M00.061 - Staphylococcal arthritis, right knee Code(s): M00.9 - Pyogenic arthritis, unspecified Status: Acute Assessment and Plan: Per primary service and Orthopedic surgery. Antibiotics and supportive care. (3) Hypertension: Code(s): I10 - Essential (primary) hypertension Status: Chronic Assessment and Plan: Transiently low overnight although hypertensive today. Continue to monitor closely. 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 History of Present Illness History of Present Illness Consult date/time: Date of service: 11/05/21 09:00 Cardiology consultation at the request of Jaylyn Willard of the [facility] service for opinion regarding new onset atrial flutter with rapid ventricular
[2021-11-05 09:16] LABS: Glucose Point of Care 168 mg/dl (65-105)
[2021-11-05] MEDS: METOPROLOL TARTRATE INJ 5 MG/5 ML VIAL IV PUSH (10:37)
--- NOTE | 2021-11-05 11:00 | PM.PNORT ---
Progress Note: A&P Assessment and Plan (1) Septic arthritis of knee, right: Qualifiers: Septic arthritis organism: staphylococcal Qualified Code(s): M00.061 - Staphylococcal arthritis, right knee Code(s): M00.9 - Pyogenic arthritis, unspecified Status: Acute Assessment and Plan: Severe acute infection. Continues to show signs of improvement with IV antibiotics and the previous aspirations from 10/30, 11/02 and 11/04. After aspiration yesterday, patient was found to have and increased HR. He was transferred to the IMU and was cardioverted today. Pain improving slightly. Pain controlled with medications. Continues to have severe pain with ROM of the knee. 20-70 due to pain. Will need continued IV antibiotics and close observation. He will need to remain as an inpatient with IV antibiotics due to the risk of the infection progressing from the knee into the soft tissues of the thigh, or development of sepsis. Dr. Nugent also saw and examined patient today. Subjective Subjective Date/Time Seen: 11/05/21 11:00 Patient seen and examined. Notes that the knee continues to improve slightly each day. He does struggle with pain control. Pain with ROM. States overall he was feeling okay although he was having an increased HR and was transferred to IMU. No other complaints. No thigh pain. Exam Narrative: Patient is alert and oriented. Shows fair insight. No acute distress. Afebrile. Decreased warmth today. Moderate effusion with tenderness diffusely. No thigh pain. No drainage or sinus tracts. Excoriations on the tibia without drainage. Distal neurovascular status intact. Range of motion limited due to pain and swelling. 20? to 70?. Objective Data Vital Signs Vital Signs: Vital Signs - 24 hr 11/04/21 15:24 11/04/21 16:31 11/04/21 17:59 Temperature Pulse Rate 160 H 159 H 158 H Respiratory Rate Blood Pressure Pulse Oximetry 11/04/21 18:07 11/04/21 20:00 11/04/21 21:08 Temperature 97.6 F Pulse Rate 156 H 158 H 159 H Respiratory Rate 18 Blood Pressure 117/91 H 134/92 H Pulse Oximetry 97 11/04/21 21:54 11/04/21 23:42 11/05/21 00:00 Temperature Pulse Rate 150 H 156 H Respiratory Rate Blood Pressure Pulse Oximetry 97 11/05/21 00:40 11/05/21 00:45 11/05/21 00:55 Temperature 98.2 F Pulse Rate 159 H 155 H 160 H Respiratory Rate 18 Blood Pressure 124/89 124/95 H 101/71 Pulse Oximetry 99 99 100 11/05/21 00:59 11/05/21 01:00 11/05/21 01:04 Temperature Pulse Rate 160 H 160 H 160 H Respiratory Rate 18 Blood Pressure 97/79 L Pulse Oximetry 100 100 11/05/21 01:25 11/05/21 01:35 11/05/21 02:20 Temperature Pulse Rate 160 H 160 H 160 H Respiratory Rate Blood Pressure 118/75 129/91 H Pulse Oximetry 11/05/21 02:30 11/05/21 03:05 11/05/21 03:11 Temperature Pulse Rate 160 H 160 H 160 H Respiratory Rate Blood Pressure 128/98 H Pulse Oximetry 11/05/21 03:18 11/05/21 03:42 11/05/21 04:00 Temperature 98.2 F Pulse Rate 163 H 163 H 163 H Respiratory Rate 18 20 Blood Pressure 126/87 Pulse Oximetry 100 96 11/05/21 04:14 11/05/21 04:15 11/05/21 04:25 Temperature Pulse Rate 163 H 163 H 155 H Respiratory Rate Blood Pressure Pulse Oximetry 11/05/21 06:00 11/05/21 08:00 11/05/21 09:15 Temperature 98.9 F Pulse Rate 155 H 145 H 147 H Respiratory Rate 20 Blood Pressure 160/104 H Pulse Oximetry 98 11/05/21 10:00 11/05/21 10:33 11/05/21 10:37 Temperature Pulse Rate 147 H 148 H 149 H Respiratory Rate Blood Pressure Pulse Oximetry 11/05/21 11:51 11/05/21 12:00 11/05/21 13:05 Temperature 98.2 F Pulse Rate 145 H 145 H 146 H Respiratory Rate 18 18 20 Blood Pressure 147/97 H 170/109 H Pulse Oximetry 98 98 97 11/05/21 13:15 11/05/21 13:20 11/05/21 13:25 Temperature Pulse Rate 144 H 81 82 Respiratory Rate 14 16 21 H Blood Pressure 1
[2021-11-05] MEDS: HYDROcodone/acetaminophen (*CRX) 5-325 MG TABLET 1 TAB PO ×2 (11:18→16:34)
[2021-11-05 12:11] LABS: Partial Thromboplastin Time 195.6 SECONDS (22.3-36.8)
[2021-11-05 12:38] LABS: Glucose Point of Care 218 mg/dl (65-105)
--- NOTE | 2021-11-05 13:00 | WPDMODSED ---
Moderate Sedation Note-Pt Data Patient Data Diagnosis: Atrial flutter with rapid ventricular response Present Complaint: None Procedure to be performed/Plan: Elective electrical cardioversion Allergies Allergy/AdvReac Type Severity Reaction Status Date / Time No Known Allergies Allergy Verified 10/27/21 13:51 Home Medications Medication Instructions Recorded Confirmed Type dapagliflozin 10 mg tablet 10 mg PO DAILY 10/05/19 10/30/21 History fluticasone propionate 50 2 spray NASAL DAILY #18.2 ml 03/20/20 10/30/21 Rx mcg/actuation nasal spray,suspension lisinopril 5 mg tablet 5 mg PO DAILY #90 tablet 02/06/21 10/30/21 Rx glimepiride 4 mg tablet 4 mg PO BID #180 tablet 03/13/21 10/30/21 Rx metformin 1,000 mg tablet See Rx Instructions .ROUTE 04/09/21 10/30/21 Rx .COMPLEX #180 tablet fluticasone 500 mcg-salmeterol 50 1 inh INHALATION Q12H #60 ea 04/23/21 10/30/21 Rx mcg/dose blistr powdr for inhalation sildenafil (pulm.hypertension) 20 20 mg PO .COMPLEX #90 tablet 08/17/21 10/30/21 Rx mg tablet montelukast 10 mg tablet 10 mg PO DAILY #90 tablet 08/24/21 10/30/21 Rx sitagliptin 100 mg tablet 100 mg PO DAILY #90 tablet 10/15/21 10/30/21 Rx colchicine 0.6 mg PO BID #7 cap 10/26/21 10/30/21 Rx indomethacin 50 mg PO TID #15 cap 10/26/21 10/30/21 Rx Current Medications: Active Medications Hydrocodone Bitart/Acetaminophen (Hydrocodone/Acetaminophen (*Crx) 5-325 Mg Tablet) 1 tab PO Q4H PRN PRN Reason: Pain Rated 4-6 Last Admin: 11/05/21 11:18 Dose: 1 tab Documented by: Dextrose (Dextrose 50% 25 Gm/50 Ml Syringe) 12.5 gm IV PUSH PRN PRN; Protocol PRN Reason: Hypoglycemia Empagliflozin (Empagliflozin 25 Mg Tablet) 25 mg PO DAILY MELIDA Last Admin: 11/05/21 08:34 Dose: 25 mg Documented by: Fluticasone Propionate (Fluticasone Propionate 0.05% Na Spr 16 Gm Btl (*Bkc)) 2 spray NASAL DAILY [facility] Last Admin: 11/05/21 08:36 Dose: Not Given Documented by: Glimepiride (Glimepiride 2 Mg Tablet) 4 mg PO BID [facility] Last Admin: 11/05/21 08:34 Dose: 4 mg Documented by: Glucagon (Glucagon For Inj 1 Mg Vial) 1 mg IM PRN PRN; Protocol PRN Reason: Hypoglycemia Glucose (Glucose Oral Gel 15 Gm Of Glucse In 37.5 Gm Tube) 15 gm PO PRN PRN; Protocol PRN Reason: Hypoglycemia Heparin Sodium (Porcine) (Heparin Sodium 5,000 Units/Ml Vial) 6,000 units IV PUSH PRN PRN PRN Reason: aPTT less than 55 seconds Last Admin: 11/05/21 09:27 Dose: 6,000 units Documented by: Heparin Sodium (Porcine) (Heparin Sodium 5,000 Units/Ml Vial) 3,000 units IV PUSH PRN PRN PRN Reason: aPTT 55 - 70 seconds Hydromorphone HCl (Hydromorphone Hcl Inj (*Crx) 1 Mg/Ml Syr) 1 mg IV PUSH Q4H PRN PRN Reason: Pain Rated 7-10 Last Admin: 11/04/21 19:48 Dose: 1 mg Documented by: Dextrose (Dextrose 5% 1,000 Ml) 1,000 mls @ 100 mls/hr IVPB PRN PRN; Protocol PRN Reason: Hypoglycemia Vancomycin HCl (Vancomycin 1,500 Mg/D5w 500 Ml) 1,500 mg in 500 mls @ 333.333 mls/hr IVPB Q12H [facility] Last Admin: 11/05/21 10:37 Dose: 333 mls/hr Documented by: Heparin Sodium/Dextrose (Heparin Sodium/D5w 100 Units/Ml) 25,000 units in 250 mls @ 0 mls/hr IV CONT .Q0M [facility]; Protocol Last Titration: 11/05/21 12:16 Dose: 0 units/hr, 0 mls/hr Documented by: Amiodarone HCl/Dextrose (Nexterone 360 Mg/D5w 200 Ml) 360 mg in 200 mls @ 16.667 mls/hr IV CONT .Q12H [facility] Last Admin: 11/05/21 10:33 Dose: 1 mg/min, 33.33 mls/hr Documented by: Insulin Aspart (Insulin Aspart (*Bkc) 100 Units/Ml) 4 - 8 units SUB-Q TIDWM [facility]; Protocol Last Admin: 11/05/21 08:33 Dose: Not Given Documented by: Lisinopril (Lisinopril 5 Mg Tablet) 5 mg PO DAILY [facility] Last Admin: 11/05/21 08:34 Dose: 5 mg Documented by: Melatonin (Melatonin 5 Mg Tablet) 5 mg PO [facility] Last Admin: 11/04/21 22:30 Dose: 5 mg Documented by: Montelukast Sodium (Montelukast Sodium 10 Mg Tablet) 10 mg PO DAILY [facility] Last Admin: 11/05/21 08:34 Dose: 10 mg Documented by: Ondansetron HCl (Ondansetron Inj 4 Mg/2
--- NOTE | 2021-11-05 13:24 | P.PCNCVR_ITS ---
Cardioversion Cardioversion Date of procedure: 11/05/21 Procedure: Elective electrical cardioversion Pre-op diagnosis: Atrial flutter with rapid ventricular response Post-op diagnosis: Same Indications: Atrial flutter with rapid ventricular response Description of procedure: Brief history present illness: Patient is a pleasant 56-year-old male with history of hypertension, diabetes mellitus, hyperlipidemia admitted with septic arthritis of the right knee on 10/30/2021 in sinus rhythm. Then developed new onset atrial flutter with rapid ventricular response heart rate approximately 150 beats per minute afternoon of 11/04/2021 started on heparin infusion for anticoagulation. Atrial flutter has been refractory to AV willy blocking agents and antiarrhythmic therapy with amiodarone subsequently referred for elective electrical cardioversion in attempt to restore sinus rhythm. As onset of arrhythmia and initiation of anticoagulation all occurred well within 24 hours MATTHIEU guidance was not warranted. Procedure in detail: After verbal and written informed consent was obtained the patient and his who signed consent given slight confusion and narcotic pain medication use including but not limited to risks, benefits, and alternatives explained in detail the patient agreed to proceed with the plan of care as outlined above. Patient was evaluated at bedside in the [facility] procedure room. On examination, neck was supple with normal range of motion, no restrictions to opening of the oral cavity, jaw angle and posterior hypopharynx was clear. Lungs were clear to auscultation. Patient was placed in appropriate 30 to 45 degree angle in a supine position. Patient was monitored throughout the study with telemetry, oxygen saturation, end-tidal CO2 monitoring, blood pressure, heart rate, and respirations. Anterior and posterior defibrillator pads placed in the appropriate positions. After confirmation of adequate sedation electrical cardioversion was carried out without complication. Patient tolerated the procedure well without difficulty. Sedation: Moderate Sedation/Anesthesia administration: Patient denied previous intolerance or complications with anesthesia/sedation. Please see sedation note for documentation of the pre-procedure physical examination. A total of 2mg intravenous Versed and a total of 25mcg intravenous Fentanyl in multiple divided doses was utilized for moderate sedation. Sedation start time was 1314 and end time was 1320 for a total of 6 minutes [id number] intra-procedure time. Sedation was administered by a qualified observer Jenniffer Ahn RN under my supervision with intra-procedure [id number] observation and management throughout the entirety of the procedure. There were no other issues or complications and patient tolerated the procedure well and sedation protocol well and I was present for the entirety. Findings: Elective electrical cardioversion: After confirmation of adequate sedation and persistence of atrial flutter, 100 joules synched biphasic energy x1 was delivered with immediate gnosticism of sinus rhythm. Twelve lead EKG was obtained postprocedure confirming sinus rhythm. Complications: None Conclusion: Successful gnosticism of sinus rhythm with 100 joules synched biphasic energy x1. Transition to oral amiodarone and oral systemic anticoagulation when appropriate.
--- NOTE | 2021-11-05 13:29 | ECG_ITS ---
Measurements Intervals [place] Rate: 79 P: 85 MS: 129 QRS: 14 QRSD: 91 T: 240 QT: 416 QTc: 478 Interpretive Statements SINUS RHYTHM WITH OCCASIONAL SUPRAVENTRICULAR PREMATURE COMPLEXES ST DEVIATION AND MODERATE T-WAVE ABNORMALITY, CONSIDER ANTEROLATERAL ISCHEMIA [-0.1+ mV T WAVE IN V3-V6] ABNORMAL ECG COMPARED TO ECG 11/04/2021 14:44:14 SINUS RHYTHM NOW PRESENT Electronically Signed On 11-16-2021 13:47:46 CDT by Alexander Barahona M.D.
--- NOTE | 2021-11-05 14:56 | P.PNIM_ITS ---
Progress Note: A&P Assessment and Plan (1) Septic arthritis: Qualifiers: Laterality: right Septic arthritis location: knee Septic arthritis organism: staphylococcal Qualified Code(s): M00.061 - Staphylococcal arthritis, right knee Code(s): M00.9 - Pyogenic arthritis, unspecified Status: Acute Assessment and Plan: Patient presented to Dr. Nugent's outpatient clinic after 10 days of knee pain and swelling and was referred to ED * Patient with severe infection and large effusion * Knee was aspirated on 10/24 in the ED and culture grew MRSA * Appreciate orthopedic surgery consultation * He has undergone repeat aspiration on 11/02 and 11/04/2021 * Repeat culture on 11/02/2021 again with MRSA * Continue with IV vancomycinBased on susceptibility report * Blood cultures are negative * Venous Doppler negative * slight increase in WBC today. Patient remains afebrile. CRP trending down from admission. Lactic is within normal limits. (2) Atrial flutter with rapid ventricular response: Code(s): I48.92 - Unspecified atrial flutter Status: Acute Assessment and Plan: 11/04/2021 patient became tachycardic. EKG revealed atrial flutter with rapid ventricular response with heart rate in the 160s * patient did not have improvement with IV Lopressor, IV labetalol, IV Cardizem, and IV fluid bolus * he was transferred to IMU and started on Cardizem drip which did cause decline in blood pressure therefore he was transition to amiodarone and started on heparin drip * patient has been seen in consultation by Cardiology * underwent successful electrical cardioversion on 11/05 and sinus rhythm was restored * he will be transitioned to oral anticoagulation and amiodarone per Cardiology when appropriate * continue monitoring on telemetry (3) Type 2 diabetes mellitus: Qualifiers: Diabetes mellitus shelter insulin use: without longitudinal float operator use Diabetes mellitus complication status: with hyperglycemia Qualified Code(s): E11.65 - Type 2 diabetes mellitus with hyperglycemia Code(s): E11.9 - Type 2 diabetes mellitus without complications Status: Chronic Assessment and Plan: A1c is 8.6. Blood sugars have been elevated above target in the 200-220s range * Continue with Accu-Cheks, high-dose sliding scale insulin, and hypoglycemic protocol * Continue home Jardiance, glimepiride, Januvia * Will add 3 units NovoLog scheduled with meals * Continue to monitor glucose trends. Close monitoring in light of active infection (4) Essential (primary) hypertension: Code(s): I10 - Essential (primary) hypertension Status: Acute Assessment and Plan: Blood pressures reviewed and have been stable. Last BP 122/86 * Continue lisinopril Subjective Date/time seen: 11/05/21 14:56 Interval history: Date of service: 11/05/2021 Biju Navarrete is a 56-year-old male with a history of ADHD, BPH, hypertension, hyperlipidemia, type 2 diabetes mellitus, and asthma who is seen in follow-up for septic arthritis of the right knee as well as atrial flutter with rapid ventricular response. His is present at the bedside. He underwent cardioversion this afternoon and tolerated well. At this time he is feeling well. His only complaint is knee pain which he rates as 8/10. He states his pain has been getting worse through the day. He believes this is because earlier today he was nervous for his cardioversion and he had his mind off of his knee but after everything went well with the cardioversion he began focusing on the knee pain agamiya
--- NOTE | 2021-11-05 14:56 | PM.IMPN ---
Progress Note: A&P Assessment and Plan (1) Septic arthritis: Qualifiers: Laterality: right Septic arthritis location: knee Septic arthritis organism: staphylococcal Qualified Code(s): M00.061 - Staphylococcal arthritis, right knee Code(s): M00.9 - Pyogenic arthritis, unspecified Status: Acute Assessment and Plan: Patient presented to Dr. Nugent's outpatient clinic after 10 days of knee pain and swelling and was referred to ED Patient with severe infection and large effusion Knee was aspirated on 10/24 in the ED and culture grew MRSA Appreciate orthopedic surgery consultation He has undergone repeat aspiration on 11/02 and 11/04/2021 Repeat culture on 11/02/2021 again with MRSA Continue with IV vancomycinBased on susceptibility report Blood cultures are negative Venous Doppler negative slight increase in WBC today. Patient remains afebrile. CRP trending down from admission. Lactic is within normal limits. (2) Atrial flutter with rapid ventricular response: Code(s): I48.92 - Unspecified atrial flutter Status: Acute Assessment and Plan: 11/04/2021 patient became tachycardic. EKG revealed atrial flutter with rapid ventricular response with heart rate in the 160s patient did not have improvement with IV Lopressor, IV labetalol, IV Cardizem, and IV fluid bolus he was transferred to IMU and started on Cardizem drip which did cause decline in blood pressure therefore he was transition to amiodarone and started on heparin drip patient has been seen in consultation by Cardiology underwent successful electrical cardioversion on 11/05 and sinus rhythm was restored he will be transitioned to oral anticoagulation and amiodarone per Cardiology when appropriate continue monitoring on telemetry (3) Type 2 diabetes mellitus: Qualifiers: Diabetes mellitus care home insulin use: without technician terminal and repeater use Diabetes mellitus complication status: with hyperglycemia Qualified Code(s): E11.65 - Type 2 diabetes mellitus with hyperglycemia Code(s): E11.9 - Type 2 diabetes mellitus without complications Status: Chronic Assessment and Plan: A1c is 8.6. Blood sugars have been elevated above target in the 200-220s range Continue with Accu-Cheks, high-dose sliding scale insulin, and hypoglycemic protocol Continue home Jardiance, glimepiride, Januvia Will add 3 units NovoLog scheduled with meals Continue to monitor glucose trends. Close monitoring in light of active infection (4) Essential (primary) hypertension: Code(s): I10 - Essential (primary) hypertension Status: Acute Assessment and Plan: Blood pressures reviewed and have been stable. Last BP 122/86 Continue lisinopril Subjective Date/time seen: 11/05/21 14:56 Interval history: Date of service: 11/05/2021 Biju Navarrete is a 56-year-old male with a history of ADHD, BPH, hypertension, hyperlipidemia, type 2 diabetes mellitus, and asthma who is seen in follow-up for septic arthritis of the right knee as well as atrial flutter with rapid ventricular response. His is present at the bedside. He underwent cardioversion this afternoon and tolerated well. At this time he is feeling well. His only complaint is knee pain which he rates as 8/10. He states his pain has been getting worse through the day. He believes this is because earlier today he was nervous for his cardioversion and he had his mind off of his knee but after everything went well with the cardioversion he began focusing on the knee pain again. He states his pain is throbbing and is concentrated mostly in the popliteal fossa and he occasionally has shooting pains going all way through the knee. He is not able to bear weight. He endorses increased swelling in his knee and feels that it is filling up. States his swelling goes up to the midthigh. He denies drainage from the knee. He believes that he was b
[2021-11-05] MEDS: AMIODARONE HCL 200 MG TABLET 400 MG PO (16:35)
[2021-11-05] MEDS: INSULIN ASPART (*BKC) 100 UNITS/ML SUB-Q (16:36)
[2021-11-05 16:51] LABS: Glucose Point of Care 193 mg/dl (65-105)
[2021-11-05 18:36] LABS: Partial Thromboplastin Time 50.1 SECONDS (22.3-36.8)
--- NOTE | 2021-11-05 19:35 | PC.NURSE ---
PTT drawn at 1800 to determine baseline after cardioversion was performed.
[2021-11-05] MEDS: HYDROmorphone HCL INJ (*CRX) 1 MG/ML SYR IV PUSH (21:24)
[2021-11-05] MEDS: MELATONIN 5 MG TABLET PO (21:25)
[2021-11-05 21:33] LABS: Glucose Point of Care 209 mg/dl (65-105)
[2021-11-05] MEDS: HEPARIN SOD/D5W 100 UNITS/ML 25,000 UNITS/250 ML BAG 15 UNITS IV CONT (23:07)
[2021-11-05 23:27] LABS: Partial Thromboplastin Time 68.1 SECONDS (22.3-36.8)
[2021-11-05] MEDS: HEPARIN SODIUM 5,000 UNITS/ML VIAL 3000 UNITS IV PUSH (23:40)
[2021-11-06] VITALS (16 sets, daily range): BP systolic 102–167; BP diastolic 78–96; PULSE 83–99; RESP 16–20; TEMP 36.1–36.9; O2SAT 97–100
[2021-11-06] MEDS: HYDROmorphone HCL INJ (*CRX) 1 MG/ML SYR IV PUSH (02:10)
[2021-11-06] MEDS: HYDROcodone/acetaminophen (*CRX) 5-325 MG TABLET 1 TAB PO ×5 (04:40→20:31)
[2021-11-06 06:10] LABS: Basophils Absolute Auto 0.1 K/mm3 (0.0-0.1); Basophils Percent Auto 0.6 % (0.2-1.2); Eosinophils Absolute Auto 0.2 K/mm3 (0-0.3); Eosinophils Percent Auto 1.8 % (0-4.4); Hematocrit 32.2 % (42.0-52.0); Hemoglobin 9.8 g/dL (14.0-18.0); Immature Granulocyte Absolute 0.14 K/mm3 (0.00-0.031); Immature Granulocyte Percent A 1.3 % (0-0.5); Lymphocytes Absolute Auto 1.16 K/mm3 (0.9-3.2); Lymphocytes Percent Auto 10.7 % (18.3-44.2); Mean Corpuscular HGB Conc 30.4 g/dl (32-36); Mean Corpuscular Hemoglobin 26.6 pg (26-34); Mean Corpuscular Volume 87.5 fl (80-100); Mean Platelet Volume 8.7 fl (7.4-10.4); Monocytes Absolute Auto 0.8 K/mm3 (0.1-0.6); Monocytes Percent Auto 6.9 % (2.6-8.5); Neutrophils Absolute Auto 8.5 K/mm3 (1.3-6.7); Neutrophils Percent Auto 78.7 % (45.5-73.1); Platelet Count Result 446 k/mm3 (150-375); Red Blood Count 3.68 M/mm3 (4.6-6.20); Red Cell Distribution Width 14.2 % (11.5-14.5); White Blood Count 10.8 K/mm3 (4.5-10.0)
[2021-11-06 06:17] LABS: Partial Thromboplastin Time 102.3 SECONDS (22.3-36.8)
[2021-11-06 07:41] LABS: Anion Gap 5 mmol/L (8-16); Blood Urea Nitrogen 22 mg/dL (9-20); CRP 29.7 mg/dL (<1.0); Carbon Dioxide 27 mmol/L (22-30); Chloride 104 mmol/L (98-107); Estimated CRCL calculation 86 ml/min; Estimated Glomerular Filt Rate > 60; Glucose 128 mg/dL (65-110); Potassium 3.9 mmol/L (3.4-5.0); Sodium 136 mmol/L (137-145)
[2021-11-06 08:21] LABS: Glucose Point of Care 168 mg/dl (65-105)
[2021-11-06] MEDS: AMIODARONE HCL 200 MG TABLET 400 MG PO ×3 (08:32→16:40)
[2021-11-06] MEDS: lisinopriL 5 MG TABLET PO (08:33)
[2021-11-06] MEDS: MONTELUKAST SODIUM 10 MG TABLET PO (08:33)
[2021-11-06] MEDS: EMPAGLIFLOZIN 25 MG TABLET PO (08:33)
[2021-11-06] MEDS: GLIMEPIRIDE 2 MG TABLET 4 MG PO ×2 (08:33→16:41)
[2021-11-06] MEDS: INSULIN ASPART (*BKC) 100 UNITS/ML SUB-Q ×3 (08:35→16:41)
--- NOTE | 2021-11-06 08:42 | PCNWS ---
Weekly nutritional screen. Patient screened in for length of stay. Patient is tolerating current diet with adequate intake. No weight loss reported. No nutritional needs at this time. No nutritional interventions at this time. Will follow up in 7 days if pt has not been discharged.
--- NOTE | 2021-11-06 11:51 | P.PNIM_ITS ---
Progress Note: A&P Assessment and Plan (1) Septic arthritis: Qualifiers: Laterality: right Septic arthritis location: knee Septic arthritis organism: staphylococcal Qualified Code(s): M00.061 - Staphylococcal arthritis, right knee Code(s): M00.9 - Pyogenic arthritis, unspecified Status: Acute Assessment and Plan: Patient presented to Dr. Nugent's outpatient clinic after 10 days of knee pain and swelling and was referred to ED. He had been taking PO Keflex outpatient * Patient with severe infection and large effusion * Knee was aspirated on 10/24 in the ED and culture grew MRSA * Appreciate orthopedic surgery consultation * He has undergone repeat aspiration on 11/02 and 11/04/2021 * Repeat culture on 11/02/2021 again with MRSA * Continue with IV vancomycin based on susceptibility report * Blood cultures are negative * Venous Doppler negative * Slight improvement in WBC today. Patient remains afebrile. CRP improved from admission. Lactic is within normal limits. (2) Atrial flutter with rapid ventricular response: Code(s): I48.92 - Unspecified atrial flutter Status: Acute Assessment and Plan: 11/04/2021 patient became tachycardic. EKG revealed atrial flutter with rapid ventricular response with heart rate in the 160s * Patient did not have improvement with IV Lopressor, IV labetalol, IV Cardizem, and IV fluid bolus * He was transferred to IMU and started on Cardizem drip which did cause decline in blood pressure therefore he was transitioned to amiodarone and started on h eparin drip * Patient has been seen in consultation by Cardiology * Underwent successful electrical cardioversion on 11/05 and sinus rhythm was restored * Patient now on amiodarone 400 mg t.i.d. * He will be transitioned to oral anticoagulation when clinically appropriate from Cardiology standpoint * Continue monitoring on telemetry (3) Type 2 diabetes mellitus: Qualifiers: Diabetes mellitus long term acute care registered nurse insulin use: without mcfp use Diabetes mellitus complication status: with hyperglycemia Qualified Code(s): E11.65 - Type 2 diabetes mellitus with hyperglycemia Code(s): E11.9 - Type 2 diabetes mellitus without complications Status: Chronic Assessment and Plan: A1c is 8.6. Blood sugars have been elevated above target but improving today 130-170 * Continue with Accu-Cheks, high-dose sliding scale insulin, and hypoglycemic protocol * Continue home Jardiance, glimepiride, Januvia * 3 units NovoLog scheduled with meals * Continue to monitor glucose trends. Close monitoring in light of active infection (4) Essential (primary) hypertension: Code(s): I10 - Essential (primary) hypertension Status: Acute Assessment and Plan: Blood pressures reviewed and have been stable. Last BP 159/93 * Continue lisinopril Additional Plan Patient is hemodynamically stable and will be downgraded to medical floor with telemetry monitoring PT/OT ordered, appreciate evaluations Subjective Date/time seen: 11/06/21 11:51 Interval history: Date of service: 11/06/2021 Biju Navarrete is a 56-year-old male with a history of ADHD, BPH, hypertension, hyperlipidemia, type 2 diabetes mellitus, and asthma who is seen in follow-up for septic arthritis of the right knee as well as atrial flutter with rapid ventricular response. He was cardioverted yesterday and tolerated this well. Today he is feeling a bit better. He feels that his pain is slowly improving. This morning he states his pain was up to 3/10. He had just taken so
--- NOTE | 2021-11-06 11:51 | PM.IMPN ---
Progress Note: A&P Assessment and Plan (1) Septic arthritis: Qualifiers: Laterality: right Septic arthritis location: knee Septic arthritis organism: staphylococcal Qualified Code(s): M00.061 - Staphylococcal arthritis, right knee Code(s): M00.9 - Pyogenic arthritis, unspecified Status: Acute Assessment and Plan: Patient presented to Dr. Nugent's outpatient clinic after 10 days of knee pain and swelling and was referred to ED. He had been taking PO Keflex outpatient Patient with severe infection and large effusion Knee was aspirated on 10/24 in the ED and culture grew MRSA Appreciate orthopedic surgery consultation He has undergone repeat aspiration on 11/02 and 11/04/2021 Repeat culture on 11/02/2021 again with MRSA Continue with IV vancomycin based on susceptibility report Blood cultures are negative Venous Doppler negative Slight improvement in WBC today. Patient remains afebrile. CRP improved from admission. Lactic is within normal limits. (2) Atrial flutter with rapid ventricular response: Code(s): I48.92 - Unspecified atrial flutter Status: Acute Assessment and Plan: 11/04/2021 patient became tachycardic. EKG revealed atrial flutter with rapid ventricular response with heart rate in the 160s Patient did not have improvement with IV Lopressor, IV labetalol, IV Cardizem, and IV fluid bolus He was transferred to IMU and started on Cardizem drip which did cause decline in blood pressure therefore he was transitioned to amiodarone and started on heparin drip Patient has been seen in consultation by Cardiology Underwent successful electrical cardioversion on 11/05 and sinus rhythm was restored Patient now on amiodarone 400 mg t.i.d. He will be transitioned to oral anticoagulation when clinically appropriate from Cardiology standpoint Continue monitoring on telemetry (3) Type 2 diabetes mellitus: Qualifiers: Diabetes mellitus project development director insulin use: without project development director use Diabetes mellitus complication status: with hyperglycemia Qualified Code(s): E11.65 - Type 2 diabetes mellitus with hyperglycemia Code(s): E11.9 - Type 2 diabetes mellitus without complications Status: Chronic Assessment and Plan: A1c is 8.6. Blood sugars have been elevated above target but improving today 130-170 Continue with Accu-Cheks, high-dose sliding scale insulin, and hypoglycemic protocol Continue home Jardiance, glimepiride, Januvia 3 units NovoLog scheduled with meals Continue to monitor glucose trends. Close monitoring in light of active infection (4) Essential (primary) hypertension: Code(s): I10 - Essential (primary) hypertension Status: Acute Assessment and Plan: Blood pressures reviewed and have been stable. Last BP 159/93 Continue lisinopril Additional Plan Patient is hemodynamically stable and will be downgraded to medical floor with telemetry monitoring PT/OT ordered, appreciate evaluations Subjective Date/time seen: 11/06/21 11:51 Interval history: Date of service: 11/06/2021 Biju Navarrete is a 56-year-old male with a history of ADHD, BPH, hypertension, hyperlipidemia, type 2 diabetes mellitus, and asthma who is seen in follow-up for septic arthritis of the right knee as well as atrial flutter with rapid ventricular response. He was cardioverted yesterday and tolerated this well. Today he is feeling a bit better. He feels that his pain is slowly improving. This morning he states his pain was up to 3/10. He had just taken some pain medication and had a little bit of improvement in his pain. Today he is seen in the medial aspect of his knee is sore and has pain her popliteal fossa. He believes it is less swollen today and states that his skin is less tight. He is able to bend the knee just a little bit more. He is still not able to bear any weight. Does endorse occasional sweats which he states come on
[2021-11-06 12:33] LABS: Partial Thromboplastin Time 77.9 SECONDS (22.3-36.8)
[2021-11-06 12:37] LABS: Glucose Point of Care 111 mg/dl (65-105)
--- NOTE | 2021-11-06 14:08 | PM.PNCARD ---
Progress Note: A&P Assessment and Plan (1) Atrial flutter with rapid ventricular response: Code(s): I48.92 - Unspecified atrial flutter Status: Acute Assessment and Plan: New onset atrial flutter with rapid ventricular response being yesterday afternoon around 2:00 p.m.. Refractory to calcium channel alok and beta-alok therapy. Maintaining sinus rhythm status post cardioversion yesterday afternoon on amiodarone. Transition heparin drip to Xarelto 20 mg daily beginning this evening. Stop heparin drip 2 hours prior to Xarelto administration depending upon PTT. Amiodarone 400 mg p.o. t.i.d. x3 days, 400 mg p.o. b.i.d. x7 days, then 400 mg daily for 2 weeks then 200 mg daily thereafter. Continue Xarelto 20 mg in the evening as an outpatient. CHADS2 Vasc score 2. Follow-up in the office as an outpatient in 4 weeks with me. Will sign off. Please do not hesitate to contact us with any additional questions or concerns. Disposition per primary service. Monitor for bleeding on Xarelto, hemarthrosis. Ambulate with caution to avoid risk for falls and injuries. Go to ER immediately with head injury. (2) Septic arthritis of knee, right: Qualifiers: Septic arthritis organism: staphylococcal Qualified Code(s): M00.061 - Staphylococcal arthritis, right knee Code(s): M00.9 - Pyogenic arthritis, unspecified Status: Acute Assessment and Plan: Per primary service and Orthopedic surgery. Antibiotics and supportive care. (3) Hypertension: Code(s): I10 - Essential (primary) hypertension Status: Chronic Assessment and Plan: Transiently low overnight although hypertensive today. Continue to monitor closely. (4) Type 2 diabetes mellitus: Qualifiers: Diabetes mellitus complication status: with hyperglycemia Diabetes mellitus jail insulin use: without jail use Qualified Code(s): E11.65 - Type 2 diabetes mellitus with hyperglycemia Code(s): E11.9 - Type 2 diabetes mellitus without complications Status: Chronic Assessment and Plan: Management per primary service. Subjective Date/time seen: Date of service: 11/06/21 14:08 Follow-up for atrial flutter with rapid ventricular response Feels about the same. Did well with cardioversion yesterday maintaining sinus rhythm oral amiodarone. Remains on heparin infusion. Complains of right knee pain. Fatigue. No chest pain or shortness of breath. Review of Systems Review of Systems: All systems reviewed & are unremarkable except as noted in HPI and below Constitutional: Constitutional: Reports as per HPI and Reports no additional constitutional complaints Eyes: Eyes: Reports as per HPI and Reports no additional eye complaints ENT: Reports system reviewed and no additional complaints, except as documented and Reports as per HPI Cardiovascular: Cardiovascular: Reports as per HPI and Reports no additional cardiovascular complaints Respiratory: Respiratory: Reports as per HPI and Reports no additional respiratory complaints Gastrointestinal: Gastrointestinal: Reports as per HPI and Reports no additional gastrointestinal complaints Genitourinary: Genitourinary: Reports no additional male genitourinary complaints and Reports as per HPI Musculoskeletal: Musculoskeletal: Reports no additional musculoskeletal complaints and Reports as per HPI Integumentary/Breasts: Skin/Breast: Reports system reviewed and no additional complaints, except as docu and Reports as per HPI Neurologic: Reports system reviewed and no additional complaints, except as documented and Reports as per HPI Psychiatric: Psychiatric: Reports no additional psychiatric complaints and Reports as per HPI Endocrine: Endocrine: Reports no additional endocrine complaints and Reports as per HPI Hematologic/Lymphatic: Hematologic/Lymphatic: Reports no additional hematologic/lymphatic complaints and Reports as per HPI Allergic/Immu
--- NOTE | 2021-11-06 14:18 | PM.PNORT ---
Progress Note: A&P Assessment and Plan (1) Septic arthritis of knee, right: Qualifiers: Septic arthritis organism: staphylococcal Qualified Code(s): M00.061 - Staphylococcal arthritis, right knee <NICOLE Del Rosario - Last Filed: 11/06/21 14:28> Code(s): M00.9 - Pyogenic arthritis, unspecified <NICOLE Del Rosario - Last Filed: 11/06/21 14:28> Status: Acute <NICOLE Del Rosario - Last Filed: 11/06/21 14:28> Assessment and Plan: Severe acute infection. Continues to show subtle signs of improvement with IV antibiotics. Aspirations performed 10/30, 11/02 and 11/04. Knee filling up again today. Aspirated again today. 50cc Purulent fluid drained. Decreased pain after aspiration. He was cardioverted yesterday and is feeling better. Pain improving slightly. Pain controlled with medications. Continues to have severe pain with ROM of the knee. 20-70 due to pain. Weight bearing as tolerated. He likely will not tolerate much movement. Will need continued IV antibiotics and close observation. Patient is diabetic and is at high risk. His stated that his blood sugars have not been controlled recently. Dr. Nugent also saw and examined patient today. <NICOLE Del Rosario - Last Filed: 11/06/21 14:28> Additional Plan Patient seen and examined. Discussed above care plan. Knee swelling moderate but improving overall. The distal lateral thigh shows edema and mild tenderness, but no sign of fluid collection, warmth, or erythema. Mobilize patient with therapy. May WBAT. <Dev Nugent MD - Last Filed: 11/06/21 15:46> Subjective Subjective Date/Time Seen: 11/06/21 14:18 Patient seen and examined. Notes that the knee continues to improve slightly each day. He does struggle with pain control. Pain with ROM. States overall he was feeling okay. Cardioverted yesterday. No other complaints. Notes some thigh pain with palpation. Most of his pain is in his knee and in the back of his knee. No fever. <NICOLE Del Rosario - Last Filed: 11/06/21 14:28> Review of Systems Review of Systems: All systems reviewed & are unremarkable except as noted in HPI and below <NICOLE Del Rosario - Last Filed: 11/06/21 14:28> Exam Narrative: Patient is alert and oriented. Shows fair insight. No acute distress. Afebrile. Decreased warmth today. Moderate effusion with tenderness diffusely. Thigh pain with palpation. Pitting edema in his thigh and lower leg. No drainage or obvious sinus tracts. Excoriations on the tibia without drainage. Distal neurovascular status intact. Range of motion limited due to pain and swelling. 20? to 70?. <NICOLE Del Rosario - Last Filed: 11/06/21 14:28> Objective Data Vital Signs Vital Signs: Vital Signs - 24 hr 11/05/21 16:00 11/05/21 16:40 11/05/21 18:00 Temperature 98.1 F Pulse Rate 99 88 90 Respiratory Rate 16 Blood Pressure 133/79 Pulse Oximetry 98 11/05/21 20:00 11/05/21 22:00 11/06/21 00:00 Temperature 97.3 F L 97.7 F Pulse Rate 87 85 87 Respiratory Rate 20 16 Blood Pressure 149/80 H 151/95 H Pulse Oximetry 100 99 11/06/21 02:00 11/06/21 04:00 11/06/21 06:00 Temperature 97.8 F Pulse Rate 87 89 92 Respiratory Rate 20 Blood Pressure 167/96 H Pulse Oximetry 99 11/06/21 07:51 11/06/21 08:00 11/06/21 08:32 Temperature 98.5 F Pulse Rate 88 92 Respiratory Rate 16 Blood Pressure 159/93 H Pulse Oximetry 97 99 11/06/21 10:00 11/06/21 12:00 11/06/21 12:45 Temperature 97 F L Pulse Rate 99 92 93 Respiratory Rate 16 Blood Pressure 151/89 H Pulse Oximetry 99 <NICOLE Del Rosario - Last Filed: 11/06/21 14:28> Intake/Output Intake/Output: Intake & Output 11/03/21 11/04/21 11/05/21 11/06/21 23:59 23:59 23:59 23:59 Intake Total 3760 6200 2700 980 Output Total 2950 1600 1100 3025 Balance 810 4600 1600 -2045 <Tata Stephen. Pis
--- NOTE | 2021-11-06 14:18 | PM.OP ---
Procedure Note - Brief Procedure Note - Brief Date of procedure: 11/06/21 Pre-op diagnosis: Right knee septic arthritis Surgeon: NICOLE Del Rosario Date of procedure: 11/06/21 Performed by: NICOLE Del Rosario Date of procedure: 11/06/21 Post-op diagnosis: Same Procedure performed: Right knee aspiration. Description of procedure: The knee was prepared with alcohol, followed by Betadine prep. Aspiration performed with an 18 gauge needle and a 60 mL syringe. 50 mL purulent fluid obtained. Patient tolerated the procedure very well and felt improvement in pain afterwards. Estimated blood loss (mL): 0 Drains: No Pathology: None sent Complications: No immediate complications Condition: Stable Disposition: No change
--- NOTE | 2021-11-06 14:41 | PC.NURSE ---
This patient, Biju Navarrete, was transferred to [ [facility]] on 11/06/21 at 1442. Personal belongings sent with patient. Report given to [YOUNG Peraza @ 1442 ]. Appropriate documentation sent with patient.
[2021-11-06 16:27] LABS: Glucose Point of Care 152 mg/dl (65-105)
[2021-11-06] MEDS: RIVAROXABAN 20 MG TABLET PO (16:41)
[2021-11-06] MEDS: MELATONIN 5 MG TABLET PO (20:31)
[2021-11-06 20:33] LABS: Glucose Point of Care 108 mg/dl (65-105)
[2021-11-07] VITALS (13 sets, daily range): BP systolic 144–158; BP diastolic 74–88; PULSE 84–99; RESP 16–18; TEMP 36.4–36.6; O2SAT 95–100
[2021-11-07] MEDS: HYDROcodone/acetaminophen (*CRX) 5-325 MG TABLET 1 TAB PO ×5 (02:08→20:11)
[2021-11-07 06:00] LABS: Hematocrit 34.3 % (42.0-52.0); Hemoglobin 10.4 g/dL (14.0-18.0); Mean Corpuscular HGB Conc 30.3 g/dl (32-36); Mean Corpuscular Volume 89.1 fl (80-100); Mean Platelet Volume 8.5 fl (7.4-10.4); Platelet Count Result 431 k/mm3 (150-375); Red Blood Count 3.85 M/mm3 (4.6-6.20); Red Cell Distribution Width 14.5 % (11.5-14.5); White Blood Count 12.6 K/mm3 (4.5-10.0)
[2021-11-07 06:35] LABS: Anion Gap 8 mmol/L (8-16); Blood Urea Nitrogen 19 mg/dL (9-20); Calcium 8.3 mg/dL (8.4-10.2); Carbon Dioxide 27 mmol/L (22-30); Chloride 103 mmol/L (98-107); Estimated CRCL calculation 77 ml/min; Estimated Glomerular Filt Rate > 60; Glucose 86 mg/dL (65-110); Potassium 3.9 mmol/L (3.4-5.0); Sodium 138 mmol/L (137-145)
[2021-11-07 07:32] LABS: Glucose Point of Care 78 mg/dl (65-105)
[2021-11-07] MEDS: FLUTICASONE/SALMETEROL 230-21 MCG INHALER 1 PUFF 2 PUFF INHALATION (08:46)
--- NOTE | 2021-11-07 08:46 | PCRCNOTE ---
pt refise advair due to it hurting his mouth
[2021-11-07] MEDS: GLIMEPIRIDE 2 MG TABLET 4 MG PO ×2 (09:44→16:10)
[2021-11-07] MEDS: AMIODARONE HCL 200 MG TABLET 400 MG PO ×3 (09:44→16:34)
[2021-11-07] MEDS: lisinopriL 5 MG TABLET PO (09:44)
[2021-11-07] MEDS: MONTELUKAST SODIUM 10 MG TABLET PO (09:44)
[2021-11-07] MEDS: EMPAGLIFLOZIN 25 MG TABLET PO (09:44)
[2021-11-07] MEDS: FLUTICASONE PROPIONATE 0.05% NA SPR 16 GM BTL (*BKC) 2 SPRAY NASAL (09:45)
[2021-11-07 11:23] LABS: Glucose Point of Care 225 mg/dl (65-105)
--- NOTE | 2021-11-07 11:41 | P.PNIM_ITS ---
Progress Note: A&P Assessment and Plan (1) Septic arthritis: Qualifiers: Laterality: right Septic arthritis location: knee Septic arthritis organism: staphylococcal Qualified Code(s): M00.061 - Staphylococcal arthritis, right knee Code(s): M00.9 - Pyogenic arthritis, unspecified Status: Acute Assessment and Plan: Patient presented to Dr. Nugent's outpatient clinic after 10 days of knee pain and swelling and was referred to ED. He had been taking PO Keflex outpatient * Patient with severe infection and large effusion * Knee was aspirated on 10/24 in the ED and culture grew MRSA * Appreciate orthopedic surgery consultation * He has undergone repeat aspiration on 11/02 and 11/04/2021 * Repeat culture on 11/02/2021 again with MRSA * Continue with IV vancomycin based on susceptibility report * Blood cultures are negative * Venous Doppler negative * Slight improvement in WBC today. Patient remains afebrile. CRP improved from admission. Lactic is within normal limits. (2) Atrial flutter with rapid ventricular response: Code(s): I48.92 - Unspecified atrial flutter Status: Acute Assessment and Plan: 11/04/2021 patient became tachycardic. EKG revealed atrial flutter with rapid ventricular response with heart rate in the 160s * Patient did not have improvement with IV Lopressor, IV labetalol, IV Cardizem, and IV fluid bolus * He was transferred to IMU and started on Cardizem drip which did cause decline in blood pressure therefore he was transitioned to amiodarone and started on h eparin drip * Patient has been seen in consultation by Cardiology * Underwent successful electrical cardioversion on 11/05 and sinus rhythm was restored * Patient now on amiodarone 400 mg t.i.d. 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 Blood sugars have been elevated above target but improving today 130-170 * Continue with Accu-Cheks, high-dose sliding scale insulin, and hypoglycemic protocol * Continue home Jardiance, glimepiride, Januvia * 3 units NovoLog scheduled with meals * Continue to monitor glucose trends. Close monitoring in light of active infection (4) Essential (primary) hypertension: Code(s): I10 - Essential (primary) hypertension Status: Acute Assessment and Plan: Blood pressures reviewed and have been stable. Last BP 159/93 * Continue lisinopril Additional Plan Patient is hemodynamically stable and will be downgraded to medical floor with telemetry monitoring PT/OT ordered, appreciate evaluations Time Spent With Patient Time with patient: 15 - 25 minutes Subjective Date/time seen: 11/07/21 0930 This pt. was examined at the bedside in interval assessment today. He endorses continued right knee pain and edema with increased pain when applying pressure. He has remained afebrile. He has no other complaints today such as CP, SOB, N/V/D. He remains on IV Vancomycin for abx coverage. Interval history: Date of service: 11/06/2021 Biju Navarrete is a 56-year-old male with a history of ADHD, BPH, hypertension, hyperlipidemia, type 2
--- NOTE | 2021-11-07 11:41 | PM.IMPN ---
Progress Note: A&P Assessment and Plan (1) Septic arthritis: Qualifiers: Laterality: right Septic arthritis location: knee Septic arthritis organism: staphylococcal Qualified Code(s): M00.061 - Staphylococcal arthritis, right knee Code(s): M00.9 - Pyogenic arthritis, unspecified Status: Acute Assessment and Plan: Patient presented to Dr. Nugent's outpatient clinic after 10 days of knee pain and swelling and was referred to ED. He had been taking PO Keflex outpatient Patient with severe infection and large effusion Knee was aspirated on 10/24 in the ED and culture grew MRSA Appreciate orthopedic surgery consultation He has undergone repeat aspiration on 11/02 and 11/04/2021 Repeat culture on 11/02/2021 again with MRSA Continue with IV vancomycin based on susceptibility report Blood cultures are negative Venous Doppler negative Slight improvement in WBC today. Patient remains afebrile. CRP improved from admission. Lactic is within normal limits. (2) Atrial flutter with rapid ventricular response: Code(s): I48.92 - Unspecified atrial flutter Status: Acute Assessment and Plan: 11/04/2021 patient became tachycardic. EKG revealed atrial flutter with rapid ventricular response with heart rate in the 160s Patient did not have improvement with IV Lopressor, IV labetalol, IV Cardizem, and IV fluid bolus He was transferred to IMU and started on Cardizem drip which did cause decline in blood pressure therefore he was transitioned to amiodarone and started on heparin drip Patient has been seen in consultation by Cardiology Underwent successful electrical cardioversion on 11/05 and sinus rhythm was restored Patient now on amiodarone 400 mg t.i.d. He will be transitioned to oral anticoagulation when clinically appropriate from Cardiology standpoint Continue monitoring on telemetry (3) Type 2 diabetes mellitus: Qualifiers: Diabetes mellitus terminal manager insulin use: without terminal manager use Diabetes mellitus complication status: with hyperglycemia Qualified Code(s): E11.65 - Type 2 diabetes mellitus with hyperglycemia Code(s): E11.9 - Type 2 diabetes mellitus without complications Status: Chronic Assessment and Plan: A1c is 8.6. Blood sugars have been elevated above target but improving today 130-170 Continue with Accu-Cheks, high-dose sliding scale insulin, and hypoglycemic protocol Continue home Jardiance, glimepiride, Januvia 3 units NovoLog scheduled with meals Continue to monitor glucose trends. Close monitoring in light of active infection (4) Essential (primary) hypertension: Code(s): I10 - Essential (primary) hypertension Status: Acute Assessment and Plan: Blood pressures reviewed and have been stable. Last BP 159/93 Continue lisinopril Additional Plan Patient is hemodynamically stable and will be downgraded to medical floor with telemetry monitoring PT/OT ordered, appreciate evaluations Time Spent With Patient Time with patient: 15 - 25 minutes Subjective Date/time seen: 11/07/21 0930 This pt. was examined at the bedside in interval assessment today. He endorses continued right knee pain and edema with increased pain when applying pressure. He has remained afebrile. He has no other complaints today such as CP, SOB, N/V/D. He remains on IV Vancomycin for abx coverage. Interval history: Date of service: 11/06/2021 Biju Navarrete is a 56-year-old male with a history of ADHD, BPH, hypertension, hyperlipidemia, type 2 diabetes mellitus, and asthma who is seen in follow-up for septic arthritis of the right knee as well as atrial flutter with rapid ventricular response. He was cardioverted yesterday and tolerated this well. Today he is feeling a bit better. He feels that his pain is slowly improving. This morning he states his pain was up to 3/10. He had just taken some pain medication and had a little bit
[2021-11-07] MEDS: INSULIN ASPART (*BKC) 100 UNITS/ML SUB-Q ×3 (12:20→16:18)
[2021-11-07] MEDS: RIVAROXABAN 20 MG TABLET PO (16:11)
[2021-11-07 16:18] LABS: Glucose Point of Care 175 mg/dl (65-105)
[2021-11-07] MEDS: MELATONIN 5 MG TABLET PO (20:11)
[2021-11-07 20:57] LABS: Glucose Point of Care 176 mg/dl (65-105)
[2021-11-07 22:25] LABS: Vancomycin Trough 12.7 ug/mL (10.0-20.0)
[2021-11-08] VITALS (13 sets, daily range): BP systolic 144–152; BP diastolic 87–91; PULSE 82–128; RESP 18–20; TEMP 36.1–36.4; O2SAT 93–98
[2021-11-08] MEDS: HYDROcodone/acetaminophen (*CRX) 5-325 MG TABLET 1 TAB PO ×5 (00:46→21:27)
[2021-11-08 05:51] LABS: Basophils Absolute Auto 0.1 K/mm3 (0.0-0.1); Basophils Percent Auto 0.5 % (0.2-1.2); Eosinophils Absolute Auto 0.1 K/mm3 (0-0.3); Eosinophils Percent Auto 0.7 % (0-4.4); Hematocrit 32.5 % (42.0-52.0); Hemoglobin 10.1 g/dL (14.0-18.0); Immature Granulocyte Absolute 0.13 K/mm3 (0.00-0.031); Immature Granulocyte Percent A 0.9 % (0-0.5); Lymphocytes Absolute Auto 1.15 K/mm3 (0.9-3.2); Lymphocytes Percent Auto 8.4 % (18.3-44.2); Mean Corpuscular HGB Conc 31.1 g/dl (32-36); Mean Corpuscular Hemoglobin 26.9 pg (26-34); Mean Corpuscular Volume 86.7 fl (80-100); Mean Platelet Volume 8.4 fl (7.4-10.4); Monocytes Percent Auto 7.2 % (2.6-8.5); Neutrophils Absolute Auto 11.3 K/mm3 (1.3-6.7); Neutrophils Percent Auto 82.3 % (45.5-73.1); Nucleated Red Blood Cells Perc 0.1 % (0.0-0.2); Platelet Count Result 431 k/mm3 (150-375); Red Blood Count 3.75 M/mm3 (4.6-6.20); Red Cell Distribution Width 14.2 % (11.5-14.5); White Blood Count 13.7 K/mm3 (4.5-10.0)
[2021-11-08 06:06] LABS: Alanine Aminotransferase 33 U/L (4-50); Albumin Level 2.8 g/dL (3.5-5.1); Alkaline Phosphatase 137 U/L (38-126); Anion Gap 5 mmol/L (8-16); Aspartate Amino Transferase 30 U/L (17-59); Bilirubin,Total 0.6 mg/dL (0.2-1.3); Blood Urea Nitrogen 18 mg/dL (9-20); Calcium 8.2 mg/dL (8.4-10.2); Carbon Dioxide 29 mmol/L (22-30); Chloride 102 mmol/L (98-107); Estimated CRCL calculation 86 ml/min; Estimated Glomerular Filt Rate > 60; Glucose 131 mg/dL (65-110); Magnesium 1.8 mg/dL (1.6-2.3); Potassium 4.1 mmol/L (3.4-5.0); Sodium 136 mmol/L (137-145)
--- NOTE | 2021-11-08 06:18 | PCRCNOTE ---
patient has been refusing use of MDI due to mouth pain; RT explained the importance of rinsing mouth after use
[2021-11-08 07:36] LABS: Glucose Point of Care 121 mg/dl (65-105)
[2021-11-08] MEDS: FLUTICASONE/SALMETEROL 230-21 MCG INHALER 1 PUFF 2 PUFF INHALATION ×2 (07:57→20:31)
[2021-11-08] MEDS: EMPAGLIFLOZIN 25 MG TABLET PO (09:06)
[2021-11-08] MEDS: GLIMEPIRIDE 2 MG TABLET 4 MG PO ×2 (09:06→17:09)
[2021-11-08] MEDS: lisinopriL 5 MG TABLET PO (09:07)
[2021-11-08] MEDS: AMIODARONE HCL 200 MG TABLET 400 MG PO ×2 (09:07→17:08)
[2021-11-08] MEDS: MONTELUKAST SODIUM 10 MG TABLET PO (09:07)
[2021-11-08] MEDS: FLUTICASONE PROPIONATE 0.05% NA SPR 16 GM BTL (*BKC) 2 SPRAY NASAL (09:08)
[2021-11-08 11:43] LABS: Glucose Point of Care 234 mg/dl (65-105)
[2021-11-08] MEDS: INSULIN ASPART (*BKC) 100 UNITS/ML SUB-Q ×3 (12:32→17:11)
--- NOTE | 2021-11-08 12:37 | P.PNIM_ITS ---
Progress Note: A&P Assessment and Plan (1) Septic arthritis: Qualifiers: Laterality: right Septic arthritis location: knee Septic arthritis organism: staphylococcal Qualified Code(s): M00.061 - Staphylococcal arthritis, right knee Code(s): M00.9 - Pyogenic arthritis, unspecified Status: Acute Assessment and Plan: Patient presented to Dr. Nugent's outpatient clinic after 10 days of knee pain and swelling and was referred to ED. He had been taking PO Keflex outpatient * Patient with severe infection and large effusion * Knee was aspirated on 10/24 in the ED and culture grew MRSA * Appreciate orthopedic surgery consultation * He has undergone repeat aspiration on 11/02 and 11/04/2021 * Repeat culture on 11/02/2021 again with MRSA * Continue with IV vancomycin based on susceptibility report * Blood cultures are negative * Venous Doppler negative * Slight improvement in WBC today. Patient remains afebrile. CRP improved from admission. Lactic is within normal limits. * - 11/06: WBC count continues to improve. No left shift and pt. is physically improving. Discussion regarding peaks and valleys with pain control is had with patient and he is agreeable to using strategy to see if pain can be better controlled. (2) Atrial flutter with rapid ventricular response: Code(s): I48.92 - Unspecified atrial flutter Status: Acute Assessment and Plan: 11/04/2021 patient became tachycardic. EKG revealed atrial flutter with rapid ventricular response with heart rate in the 160s * Patient did not have improvement with IV Lopressor, IV labetalol, IV Cardizem, and IV fluid bolus * He was transferred to IMU and started on Cardizem drip which did cause decline in blood pressure therefore he was transitioned to amiodarone and started on heparin drip * Patient has been seen in consultation by Cardiology * Underwent successful electrical cardioversion on 11/05 and sinus rhythm was restored * Patient now on amiodarone 400 mg t.i.d. * He will be transitioned to oral anticoagulation when clinically appropriate from Cardiology standpoint * Continue monitoring on telemetry (3) Type 2 diabetes mellitus: Qualifiers: Diabetes mellitus termite renewal inspector insulin use: without termite renewal inspector use Diabetes mellitus complication status: with hyperglycemia Qualified Code(s): E11.65 - Type 2 diabetes mellitus with hyperglycemia Code(s): E11.9 - Type 2 diabetes mellitus without complications Status: Chronic Assessment and Plan: A1c is 8.6. Blood sugars have been elevated above target but improving today 130-170 * Continue with Accu-Cheks, high-dose sliding scale insulin, and hypoglycemic protocol * Continue home Jardiance, glimepiride, Januvia * 3 units NovoLog scheduled with meals * Continue to monitor glucose trends. Close monitoring in light of active infection (4) Essential (primary) hypertension: Code(s): I10 - Essential (primary) hypertension Status: Acute Assessment and Plan: Blood pressures reviewed and have been stable. Last BP 159/93 * Continue lisinopril Time Spent With Patient Time with patient: 15 - 25 minutes Subjective Date/time seen: 11/08/21 1017 This pt. was examined at the bedside today in interval assessment of his acute Septic arthritis of his right knee. He has pain, edema and warmth. Cultures grew out MRSA and it is being treated with Vancomycin. Hi halima is not as well controlled today as the pt. has been up and moving with therapy and he is waiting until his pain is high on the pain scale to request coverag
--- NOTE | 2021-11-08 12:37 | PM.IMPN ---
Progress Note: A&P Assessment and Plan (1) Septic arthritis: Qualifiers: Laterality: right Septic arthritis location: knee Septic arthritis organism: staphylococcal Qualified Code(s): M00.061 - Staphylococcal arthritis, right knee Code(s): M00.9 - Pyogenic arthritis, unspecified Status: Acute Assessment and Plan: Patient presented to Dr. Nugent's outpatient clinic after 10 days of knee pain and swelling and was referred to ED. He had been taking PO Keflex outpatient Patient with severe infection and large effusion Knee was aspirated on 10/24 in the ED and culture grew MRSA Appreciate orthopedic surgery consultation He has undergone repeat aspiration on 11/02 and 11/04/2021 Repeat culture on 11/02/2021 again with MRSA Continue with IV vancomycin based on susceptibility report Blood cultures are negative Venous Doppler negative Slight improvement in WBC today. Patient remains afebrile. CRP improved from admission. Lactic is within normal limits. - 11/06: WBC count continues to improve. No left shift and pt. is physically improving. Discussion regarding peaks and valleys with pain control is had with patient and he is agreeable to using strategy to see if pain can be better controlled. (2) Atrial flutter with rapid ventricular response: Code(s): I48.92 - Unspecified atrial flutter Status: Acute Assessment and Plan: 11/04/2021 patient became tachycardic. EKG revealed atrial flutter with rapid ventricular response with heart rate in the 160s Patient did not have improvement with IV Lopressor, IV labetalol, IV Cardizem, and IV fluid bolus He was transferred to IMU and started on Cardizem drip which did cause decline in blood pressure therefore he was transitioned to amiodarone and started on heparin drip Patient has been seen in consultation by Cardiology Underwent successful electrical cardioversion on 11/05 and sinus rhythm was restored Patient now on amiodarone 400 mg t.i.d. 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 Blood sugars have been elevated above target but improving today 130-170 Continue with Accu-Cheks, high-dose sliding scale insulin, and hypoglycemic protocol Continue home Jardiance, glimepiride, Januvia 3 units NovoLog scheduled with meals Continue to monitor glucose trends. Close monitoring in light of active infection (4) Essential (primary) hypertension: Code(s): I10 - Essential (primary) hypertension Status: Acute Assessment and Plan: Blood pressures reviewed and have been stable. Last BP 159/93 Continue lisinopril Time Spent With Patient Time with patient: 15 - 25 minutes Subjective Date/time seen: 11/08/21 7551 This pt. was examined at the bedside today in interval assessment of his acute Septic arthritis of his right knee. He has pain, edema and warmth. Cultures grew out MRSA and it is being treated with Vancomycin. Hi halima is not as well controlled today as the pt. has been up and moving with therapy and he is waiting until his pain is high on the pain scale to request coverage. I discussed in length with patient how it is appropriate to ask for pain medication when it is at a 5, and not wait until it is severe and explained the peaks and valleys of treating pain. He verbalized understanding. No other complaints today such as CP, Dyspnea, N/V/D. He appears positive today and he said overall he feels a little bit better than yesterday. Review of Sy
[2021-11-08 16:28] LABS: Glucose Point of Care 190 mg/dl (65-105)
--- NOTE | 2021-11-08 16:35 | PM.PNCARD ---
Progress Note: A&P Assessment and Plan (1) Atrial flutter with rapid ventricular response: Code(s): I48.92 - Unspecified atrial flutter Status: Acute Assessment and Plan: New onset atrial flutter with rapid ventricular response maintaining sinus rhythm status post cardioversion 11/05/2021. He was refractory to CCB, BB, and IV Amiodarone initially. Patient had been maintaining sinus rhythm status post cardioversion, however, this afternoon unfortunately reverted back to atrial flutter failed AV block RVR. Continue Xarelto 20 mg at bedtime. -Increase Amiodarone back to 400 mg p.o. t.i.d.. CHADS2 Vasc score 2. -Add Metoprolol tartrate 25 mg p.o. b.i.d., 1st dose now. -Keep NPO after midnight in repeat cardioversion required. No need for MATTHIEU guidance. Discussed with patient and nursing. Patient in agreement. Recommendations to follow. Repeat 12 lead EKG. Magnesium and potassium stable. (2) Septic arthritis of knee, right: Qualifiers: Septic arthritis organism: staphylococcal Qualified Code(s): M00.061 - Staphylococcal arthritis, right knee Code(s): M00.9 - Pyogenic arthritis, unspecified Status: Acute Assessment and Plan: Per primary service and Orthopedic surgery. Antibiotics and supportive care. (3) Hypertension: Code(s): I10 - Essential (primary) hypertension Status: Chronic Assessment and Plan: Remains little elevated at times overall reasonably stable. (4) Type 2 diabetes mellitus: Qualifiers: Diabetes mellitus complication status: with hyperglycemia Diabetes mellitus residential insulin use: without buttermaker use Qualified Code(s): E11.65 - Type 2 diabetes mellitus with hyperglycemia Code(s): E11.9 - Type 2 diabetes mellitus without complications Status: Chronic Assessment and Plan: Management per primary service. Subjective Date/time seen: DATE OF SERVICE: 11/08/21 16:35 Follow-up for atrial flutter status post cardioversion, new onset atrial fibrillation with RVR Patient states he is feeling much better overall. Less knee pain. Tolerating medications. Eating well, no chest pain, palpitations shortness of breath. This afternoon patient unfortunately reverted back to atrial flutter with rapid ventricular response on telemetry. Review of Systems Review of Systems: All systems reviewed & are unremarkable except as noted in HPI and below Constitutional: Constitutional: Reports as per HPI and Reports no additional constitutional complaints Eyes: Eyes: Reports as per HPI and Reports no additional eye complaints ENT: Reports system reviewed and no additional complaints, except as documented and Reports as per HPI Cardiovascular: Cardiovascular: Reports as per HPI and Reports no additional cardiovascular complaints Respiratory: Respiratory: Reports as per HPI and Reports no additional respiratory complaints Gastrointestinal: Gastrointestinal: Reports as per HPI and Reports no additional gastrointestinal complaints Genitourinary: Genitourinary: Reports no additional male genitourinary complaints and Reports as per HPI Musculoskeletal: Musculoskeletal: Reports no additional musculoskeletal complaints and Reports as per HPI Integumentary/Breasts: Skin/Breast: Reports system reviewed and no additional complaints, except as docu and Reports as per HPI Neurologic: Reports system reviewed and no additional complaints, except as documented and Reports as per HPI Psychiatric: Psychiatric: Reports no additional psychiatric complaints and Reports as per HPI Endocrine: Endocrine: Reports no additional endocrine complaints and Reports as per HPI Hematologic/Lymphatic: Hematologic/Lymphatic: Reports no additional hematologic/lymphatic complaints and Reports as per HPI Allergic/Immunologic: Allergic/Immunologic: Reports no additional allergic/immunologic complaints and Reports as per HPI Exam Narrative: General: C
[2021-11-08] MEDS: METOPROLOL TARTRATE 25 MG TABLET PO (17:09)
[2021-11-08] MEDS: RIVAROXABAN 20 MG TABLET PO (17:09)
[2021-11-08] MEDS: MELATONIN 5 MG TABLET PO (20:10)
[2021-11-08 20:33] LABS: Glucose Point of Care 219 mg/dl (65-105)
[2021-11-09] VITALS (35 sets, daily range): BP systolic 99–159; BP diastolic 69–112; PULSE 103–125; RESP 11–20; TEMP 36.4–36.8; O2SAT 95–100
[2021-11-09] MEDS: HYDROcodone/acetaminophen (*CRX) 5-325 MG TABLET 1 TAB PO ×4 (02:58→21:45)
[2021-11-09 05:38] LABS: Estimated CRCL calculation 97 ml/min; Estimated Glomerular Filt Rate > 60
--- NOTE | 2021-11-09 06:30 | ECG_ITS ---
Measurements Intervals [place] Rate: 122 P: [place]: 0 QRS: 11 QRSD: 93 T: 61 QT: 320 QTc: 457 Interpretive Statements ATRIAL FLUTTER/TACHYCARDIA WITH RAPID VENTRICULAR RESPONSE ST DEVIATION AND T-WAVE ABNORMALITY, CONSIDER ISCHEMIA Electronically Signed On 11-09-2021 14:30:14 CDT by Wes Chery M.D.
[2021-11-09 07:39] LABS: Glucose Point of Care 87 mg/dl (65-105)
[2021-11-09] MEDS: FLUTICASONE/SALMETEROL 230-21 MCG INHALER 1 PUFF 2 PUFF INHALATION (07:53)
[2021-11-09] MEDS: METOPROLOL TARTRATE 25 MG TABLET PO (08:50)
[2021-11-09] MEDS: lisinopriL 5 MG TABLET PO (08:50)
[2021-11-09] MEDS: MONTELUKAST SODIUM 10 MG TABLET PO (08:50)
[2021-11-09] MEDS: AMIODARONE HCL 200 MG TABLET 400 MG PO ×3 (08:50→17:06)
[2021-11-09] MEDS: FLUTICASONE PROPIONATE 0.05% NA SPR 16 GM BTL (*BKC) 2 SPRAY NASAL (08:50)
--- NOTE | 2021-11-09 09:57 | PCPTNOTE ---
Attempted to see patient for PT at this time, however patient was leaving room for testing.
--- NOTE | 2021-11-09 10:07 | WPDMODSED ---
Moderate Sedation Note-Pt Data Patient Data Allergies Allergy/AdvReac Type Severity Reaction Status Date / Time No Known Allergies Allergy Verified 10/27/21 13:51 Home Medications Medication Instructions Recorded Confirmed Type dapagliflozin 10 mg tablet 10 mg PO DAILY 10/05/19 10/30/21 History fluticasone propionate 50 2 spray NASAL DAILY #18.2 ml 03/20/20 10/30/21 Rx mcg/actuation nasal spray,suspension lisinopril 5 mg tablet 5 mg PO DAILY #90 tablet 02/06/21 10/30/21 Rx glimepiride 4 mg tablet 4 mg PO BID #180 tablet 03/13/21 10/30/21 Rx metformin 1,000 mg tablet See Rx Instructions .ROUTE 04/09/21 10/30/21 Rx .COMPLEX #180 tablet fluticasone 500 mcg-salmeterol 50 1 inh INHALATION Q12H #60 ea 04/23/21 10/30/21 Rx mcg/dose blistr powdr for inhalation sildenafil (pulm.hypertension) 20 20 mg PO .COMPLEX #90 tablet 08/17/21 10/30/21 Rx mg tablet montelukast 10 mg tablet 10 mg PO DAILY #90 tablet 08/24/21 10/30/21 Rx sitagliptin 100 mg tablet 100 mg PO DAILY #90 tablet 10/15/21 10/30/21 Rx colchicine 0.6 mg PO BID #7 cap 10/26/21 10/30/21 Rx indomethacin 50 mg PO TID #15 cap 10/26/21 10/30/21 Rx Current Medications: Active Medications Hydrocodone Bitart/Acetaminophen (Hydrocodone/Acetaminophen (*Crx) 5-325 Mg Tablet) 1 tab PO Q4H PRN PRN Reason: Pain Rated 4-6 Last Admin: 11/09/21 08:50 Dose: 1 tab Documented by: Amiodarone HCl (Amiodarone Hcl 200 Mg Tablet) 400 mg PO TID [facility] Last Admin: 11/09/21 08:50 Dose: 400 mg Documented by: Dextrose (Dextrose 50% 25 Gm/50 Ml Syringe) 12.5 gm IV PUSH PRN PRN; Protocol PRN Reason: Hypoglycemia Empagliflozin (Empagliflozin 25 Mg Tablet) 25 mg PO DAILY [facility] Last Admin: 11/09/21 08:36 Dose: Not Given Documented by: Fluticasone Propionate (Fluticasone Propionate 0.05% Na Spr 16 Gm Btl (*Bkc)) 2 spray NASAL DAILY [facility] Last Admin: 11/09/21 08:50 Dose: 2 spray Documented by: Glimepiride (Glimepiride 2 Mg Tablet) 4 mg PO BID [facility] Last Admin: 11/09/21 08:37 Dose: Not Given Documented by: Glucagon (Glucagon For Inj 1 Mg Vial) 1 mg IM PRN PRN; Protocol PRN Reason: Hypoglycemia Glucose (Glucose Oral Gel 15 Gm Of Glucse In 37.5 Gm Tube) 15 gm PO PRN PRN; Protocol PRN Reason: Hypoglycemia Hydromorphone HCl (Hydromorphone Hcl Inj (*Crx) 1 Mg/Ml Syr) 1 mg IV PUSH Q4H PRN PRN Reason: Pain Rated 7-10 Last Admin: 11/06/21 02:10 Dose: 1 mg Documented by: Dextrose (Dextrose 5% 1,000 Ml) 1,000 mls @ 100 mls/hr IVPB PRN PRN; Protocol PRN Reason: Hypoglycemia Vancomycin HCl (Vancomycin 1,500 Mg/D5w 500 Ml) 1,500 mg in 500 mls @ 333.333 mls/hr IVPB Q12H [facility] Last Infusion: 11/08/21 22:40 Dose: Infused Documented by: Insulin Aspart (Insulin Aspart (*Bkc) 100 Units/Ml) 4 - 8 units SUB-Q TIDWM [facility]; Protocol Last Admin: 11/09/21 08:27 Dose: Not Given Documented by: Insulin Aspart (Insulin Aspart (*Bkc) 100 Units/Ml) 3 units SUB-Q TIDWM [facility] Last Admin: 11/09/21 08:36 Dose: Not Given Documented by: Lisinopril (Lisinopril 5 Mg Tablet) 5 mg PO DAILY [facility] Last Admin: 11/09/21 08:50 Dose: 5 mg Documented by: Melatonin (Melatonin 5 Mg Tablet) 5 mg PO HS [facility] Last Admin: 11/08/21 20:10 Dose: 5 mg Documented by: Metoprolol Tartrate (Metoprolol Tartrate 25 Mg Tablet) 25 mg PO Q12HR [facility] Last Admin: 11/09/21 08:50 Dose: 25 mg Documented by: Montelukast Sodium (Montelukast Sodium 10 Mg Tablet) 10 mg PO DAILY [facility] Last Admin: 11/09/21 08:50 Dose: 10 mg Documented by: Ondansetron HCl (Ondansetron Inj 4 Mg/2 Ml Vial) 4 mg IV PUSH Q4H PRN PRN Reason: Nausea Perflutren Lipid Microsphere (Perflutren Lipid Microspheres 1.5 Ml Vial Diluted To 10 Ml Total Volume) 0 ml IV PUSH ONCE PRN; Protocol PRN Reason: adequate visualization Rivaroxaban (Rivaroxaban 20 Mg Tablet) 20 mg PO DAILY@1700 MELIDA Last Admin: 11/08/21 17:09 Dose: 20 mg Documented by: Fluticasone/Salmeterol (Fluticasone/Salmeterol 230-21 Mcg Inhaler 1 Puff) 2 puff INHALATION Q12HRT
--- NOTE | 2021-11-09 10:25 | PC.NURSE ---
PT to clinical laboratory manager for cardioversion, report given to Niya VIDAL
[2021-11-09] MEDS: PROPOFOL IV EMULSION 200 MG/20 ML VIAL (10:40)
[2021-11-09] MEDS: ADENOSINE IV SOLN 6 MG/2 ML VIAL ×2 (10:47→11:25)
--- NOTE | 2021-11-09 11:03 | WPDCARDVER ---
Cardioversion Cardioversion Date of procedure: 11/09/21 Description of procedure: DATE OF PROCEDURE: 11/09/2021 INDICATION FOR PROCEDURE: Recurrent, difficult to control atrial flutter with RVR. Patient had DC cardioversion on 11/05/2021 for atrial flutter with anglican of sinus rhythm. Subsequently, he had recurrent atrial flutter with RVR with difficult to control heart rate. He has been on amiodarone, metoprolol and rivaroxaban. His initial DC cardioversion was performed without MATTHIEU due to presentation within 24 hours of onset of arrhythmia. PROCEDURES PERFORMED: 1. Synchronized DC cardioversion with failure to restore sinus rhythm 2. Moderate sedation -CPT 57524 SEDATION: Propofol 50 mg ; start time 1039 minutes, stop time 1047 minutes; total [id number] time 8 minutes; Niya Duffy RN was trained observer for the moderate sedation. PROCEDURE: Informed consent was taken prior to the procedure. Transcutaneous pads were placed in the right parasternal and left paravertebral positions. After adequate conscious sedation with IV propofol, synchronized DC cardioversion was performed with 200 joules x2. Patient transiently went into sinus rhythm with recurrence of tachycardia. Patient remained in tachycardia, narrow complex, regular. Due to persistent tachycardia which did not respond to DC cardioversion and appeared regular narrow complex tachycardia, we proceeded IV adenosine injection, 6 mg x2. Patient's rhythm did not change. Due to persistent tachycardia, plan is to initiate patient on IV esmolol to control heart rate. He will need to be evaluated by electrophysiology once his heart rate is controlled. CONCLUSIONS: Significant DC cardioversion without anglican of sinus rhythm. RECOMMENDATIONS: Patient remained in narrow complex tachycardia post cardioversion x2. He did not respond to IV adenosine x2. Patient will be initiated on esmolol to control heart rate. He will be continued on other medications including amiodarone for now and anticoagulation with rivaroxaban. Patient will need to be evaluated by electrophysiology for rhythm management once his heart rate is controlled.
--- NOTE | 2021-11-09 11:03 | SUR.PHASEII ---
Syncronized cardioversion at 200J x 2 without conversion to normal sinus rhythm. Pt given IV adenosine 6mg x 2, heart rate slowed after each administration. HR has remained elevated around 119. Resting comfortably in bed, responds to name, A&Ox3, answers questions appropriately, denies pain.
--- NOTE | 2021-11-09 11:08 | WPDCNINT ---
Assessment and Plan Assessment and plan (1) Atrial flutter with rapid ventricular response: Code(s): I48.92 - Unspecified atrial flutter Status: Acute Assessment and Plan: Status post failed multiple attempts of DC cardioversion currently heart rate is 120 and appears sinus tach on the telemetry. I will check is EKG this time and if confirmed, Esmolol infusion will be started for rate control Continue p.o. metoprolol and amiodarone Cardiology is following and plans to transfer patient to a facility with electrophysiology for consultation ICU monitoring Replace magnesium with 2 g of Mag sulfate Anticoagulated with Xarelto (2) Gout: Code(s): M10.9 - Gout, unspecified Status: Chronic Assessment and Plan: colchicine (3) Septic arthritis: Qualifiers: Laterality: right Septic arthritis location: knee Septic arthritis organism: staphylococcal Qualified Code(s): M00.061 - Staphylococcal arthritis, right knee Code(s): M00.9 - Pyogenic arthritis, unspecified Status: Acute Assessment and Plan: Status post multiple joint aspiration by Orthopedics Synovial fluid is growing MRSA sensitive to vancomycin Patient is on vancomycin Patient had a small injury around 2 months ago here to the right knee. although the skin wound has healed with scarring, the area appears firm. Discussed with orthopedics. 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 metoprolol, lisinopril and now will be on IV esmolol infusion (6) Asthma: Code(s): J45.909 - Unspecified asthma, uncomplicated Status: Acute Assessment and Plan: continue Advair at home dose Additional Plan DVT prophylaxis - Xarelto Code Status - Full Code Emergency Preparedness Coordinator Consult Note Consult date: 11/09/21 HPI: Biju Navarrete is a 56 year old male with past medical history diabetes, hypertension who was referred to the emergency room by Dr. Nugent office with septic arthritis of the right knee on 10/30. Patient had right knee effusion which was drained on 10/26. Fluid grew MRSA. Patient was started on IV antibiotics and IV fluids. Patient had repeat right knee aspiration done on 11/02 and on 11/04. On 11/04 patient went into atrial flutter RVR and Cardiology was consulted. Patient was treated with IV Cardizem labetalol and Lopressor with no improvement. Patient was DC cardioverted on 11/05 by Cardiology into normal sinus rhythm. On 11/08 patient reverted back to atrial flutter. Patient was taken to cardiac catheterization lab and another DC cardioversion was attempted but despite multiple attempts patient remained in atrial flutter. He also did not respond to adenosine. Patient is being now admitted to ICU for rate control with esmolol infusion. Patient at this time states that he is feeling much better since coming to the hospital. he denies any palpitations this time he denies any chest pain shortness of breath nausea vomiting. He states that he still has pain in right knee but was only 2/10 . Pain is achy, intermittent with no radiation. Gets worse with movement. he states the pain is much better than before as he is able to bear weight on his right leg now. Review system was also positive for swelling overnight and poor appetite. All other systems were revi
--- NOTE | 2021-11-09 11:12 | ECG_ITS ---
Measurements Intervals [place] Rate: 119 P: [place]: 0 QRS: 25 QRSD: 109 T: 66 QT: 326 QTc: 459 Interpretive Statements ATRIAL FLUTTER/TACHYCARDIA WITH RAPID VENTRICULAR RESPONSE ST DEVIATION AND MODERATE T-WAVE ABNORMALITY, CONSIDER LATERAL ISCHEMIA [-0.1+ mV T WAVE IN I/aVL/V5/V6] ABNORMAL ECG COMPARED TO ECG 11/09/2021 07:20:56 NO SIGNIFICANT CHANGES Electronically Signed On 11-16-2021 13:49:34 CDT by Alexander Barahona M.D.
[2021-11-09 11:35] LABS: Potassium 3.7 mmol/L (3.4-5.0)
[2021-11-09 11:38] LABS: Anion Gap 4 mmol/L (8-16); Blood Urea Nitrogen 16 mg/dL (9-20); Calcium 8.2 mg/dL (8.4-10.2); Carbon Dioxide 29 mmol/L (22-30); Chloride 102 mmol/L (98-107); Estimated CRCL calculation 97 ml/min; Estimated Glomerular Filt Rate > 60; Glucose 89 mg/dL (65-110); Magnesium 1.8 mg/dL (1.6-2.3); Sodium 135 mmol/L (137-145)
--- NOTE | 2021-11-09 11:55 | PCOTNOTE ---
Patient unavailable, having cardioversion at 11:30 when attempted to see for OT. Will continue plan of care.
--- NOTE | 2021-11-09 12:12 | PM.IMPN ---
Progress Note: A&P Assessment and Plan (1) Atrial flutter with rapid ventricular response: Code(s): I48.92 - Unspecified atrial flutter Status: Acute Assessment and Plan: Pt. with failed cardioversion, transferring to ICU for esmolol infusion. (2) Gout: Qualifiers: Gout site: unspecified site Encounter type: sequela Chronicity: unspecified Code(s): M10.9 - Gout, unspecified Status: Chronic Assessment and Plan: colchicine (3) Septic arthritis: Qualifiers: Laterality: right Septic arthritis location: knee Septic arthritis organism: staphylococcal Qualified Code(s): M00.061 - Staphylococcal arthritis, right knee Code(s): M00.9 - Pyogenic arthritis, unspecified Status: Acute Assessment and Plan: synovial fluid is growing MRSA sensitive to vancomycin patient is on vancomycin (4) Type 2 diabetes mellitus: Qualifiers: Diabetes mellitus meterman insulin use: without group home use Diabetes mellitus complication status: with hyperglycemia Qualified Code(s): E11.65 - Type 2 diabetes mellitus with hyperglycemia Code(s): E11.9 - Type 2 diabetes mellitus without complications Status: Chronic Assessment and Plan: continue Amaryl Jardiance and sliding scale (5) Hypertension: Code(s): I10 - Essential (primary) hypertension Status: Chronic Assessment and Plan: currently on p.o. metoprolol, lisinopril and now will be on IV esmolol infusion Additional Plan DVT prophylaxis - Xarelto Code Status - Full Code Time Spent With Patient Time with patient: 15 - 25 minutes Subjective Date/time seen: 11/09/21 0730 This pt. was examined at the bedside this morning in interval assessment. He reports that he feels lousy as his heart is racing. He denies any CP. He converted back to atrial fib/flutter yesterday afternoon and it has been refractory to treatment thus far. He is set for another cardioversion today in attempt to restore NSR. No MATTHIEU performed with first cardioversion. With regards to the knee, he reports that it is feeling better and his pain is better controlled after discussing treatment options yesterday with the analogy of peaks and valleys and the explanation of basal control. He remains on IV Vancomycin for septic joint with MRSA. At 1150, I see that this patient will not be return to the medical floor, instead he will be taken to ICU as he was unable to be converted into NSR despite multiple direct current attempts at cardioversion. In addition, pt. did not respond to Adenosine. Therefore he is being placed in the intensive care unit with treatment with Esmolol infusion. Review of Systems Review of Systems: All systems reviewed & are unremarkable except as noted in HPI and below Exam Narrative: General: well-appearing 56 year-old male, sitting at the bedside in the chair cleaning up. NAD Neuro: awake, alert and oriented x4, speech clear, no focal neuro deficits noted HEENMT: normocephalic, atraumatic, EOMI, sclerae anicteric, poor dentition Respiratory: clear to auscultation bilaterally, nonlabored breathing Cardio: Tachycardic, irregular rhythm Abdomen: nondistended, normoactive bowel sounds, soft, nontender to palpation Extremities: Right knee is edematous (improved from prior exam), warmth still present but diminished, bandage covering the lateral surface that is clean and dr.. Left lower extremity no edema, erythema, tenderness to palpation. DP pulses 2+ bilaterally Skin: Scattered excoriations on the bilateral anterior shins, no rashes or lesions, warm and dry Psych: appropriate mood and affect, judgment and insight intact Objective Data Vital Signs Vital Signs: Vital Signs - 24 hr 11/08/21 15:03 11/08/21 16:00 11/08/21 17:08 Temperature 97 F L Pulse Rate 128 H 114 H 116 H Respiratory Rate 18 Blood Pressure 146/91 H Pulse Oximetry 98 11/08/21 17:09
--- NOTE | 2021-11-09 12:35 | PC.NURSE ---
This patient, Biju Navarrete, was transferred to ICU on 11/09/21 at 1235. Personal belongings sent with patient. Report given to Kika VIDAL. Appropriate documentation sent with patient.
--- NOTE | 2021-11-09 12:45 | SUR.PHASEII ---
PT TRANSPORTED TO ICU-3 AFTER REPORT CALLED. TRANSPORTED VIA WHEELCHAIR.
[2021-11-09] MEDS: INSULIN ASPART (*BKC) 100 UNITS/ML SUB-Q ×2 (12:50→17:07)
--- NOTE | 2021-11-09 12:54 | PC.NURSE ---
This patient, Biju Navarrete, was received from [laborer laboratory/3 med/surg ] on 11/09/21 at 1230. Patient/family oriented to unit policies and routines
--- NOTE | 2021-11-09 13:04 | ECG_ITS ---
Measurements Intervals [place] Rate: 119 P: [place]: 0 QRS: 6 QRSD: 107 T: 61 QT: 318 QTc: 448 Interpretive Statements SUPRAVENTRICULAR TACHYCARDIA, POSSIBLE ATRIAL FLUTTER ST DEVIATION AND MODERATE T-WAVE ABNORMALITY, CONSIDER ISCHEMIA Electronically Signed On 11-09-2021 15:53:38 CDT by Wes Chery M.D.
--- NOTE | 2021-11-09 13:10 | PCPTNOTE ---
Addendum entered by Elba Arias, REGISTERED NURSE HH CASE MANAGER 11/10/21 07:35: Pt transferred to ICU not IMU. Original Note: Patient transferred to IMU from [address] [place] [id number] due to uncontrolled heart rate, patient unable to be seen for therapy this date.
[2021-11-09 13:17] LABS: Glucose Point of Care 96 mg/dl (65-105)
--- NOTE | 2021-11-09 13:32 | PCOTNOTE ---
Patient moved to ICU following unsuccessful cardioversion, patient's HR uncontrolled. Per RN, hold today for therapy. Will continue plan of care tomorrow.
[2021-11-09] MEDS: ESMOLOL HCL 2,500 MG/250 ML 2,500 MG/250 ML BAG 23.4 MG IV CONT (13:40)
[2021-11-09] MEDS: MAGNESIUM SULF 2 GM/WATER 50ML 2 GM/50 ML BAG IVPB (13:47)
[2021-11-09] MEDS: SODIUM CHLORIDE 0.9% IV 1,000 ML 100 ML IV CONT (13:48)
--- NOTE | 2021-11-09 14:01 | PM.PNORT ---
Progress Note: A&P Assessment and Plan (1) Septic arthritis of knee, right: Qualifiers: Septic arthritis organism: staphylococcal Qualified Code(s): M00.061 - Staphylococcal arthritis, right knee Code(s): M00.9 - Pyogenic arthritis, unspecified Status: Acute (2) Atrial flutter with rapid ventricular response: Code(s): I48.92 - Unspecified atrial flutter Status: Acute Assessment and Plan: Persistent pain and swelling in the right knee and thigh. Transferred to the ICU this morning, due to persistent arrhythmia. Discussed the care plan with the tin can feeder. We agree to obtain a CT scan of the thigh and knee. Discussed with the radiologist who advises the use of contrast. Subjective Subjective Date/Time Seen: 11/09/21 14:01 Patient seen and examined. He is alert oriented. He says the knee and thigh do feel better and are more mobile. However he continues to note swelling and significant pain. He has been able to put more weight down on the foot and mobilized with therapy. Exam Narrative: Afebrile. No distress. Resting comfortable in the ICU. Knee continues to show mild swelling. Mild swelling and pitting along the lateral distal thigh. No redness or warmth. No fluctuance. Neurovascular status unchanged. Objective Data Vital Signs Vital Signs: Vital Signs - 24 hr 11/08/21 15:03 11/08/21 16:00 11/08/21 17:08 Temperature 36.1 C L Pulse Rate 128 H 114 H 116 H Respiratory Rate 18 Blood Pressure 146/91 H Pulse Oximetry 98 11/08/21 17:09 11/08/21 20:00 11/08/21 20:24 Temperature 36.4 C Pulse Rate 116 H 110 H 111 H Respiratory Rate 18 20 Blood Pressure 144/91 H Pulse Oximetry 97 96 11/08/21 20:33 11/09/21 00:00 11/09/21 04:00 Temperature Pulse Rate 110 H 116 H 118 H Respiratory Rate 18 Blood Pressure Pulse Oximetry 97 11/09/21 05:29 11/09/21 07:53 11/09/21 08:49 Temperature 36.6 C Pulse Rate 120 H 125 H Respiratory Rate 20 Blood Pressure 159/93 H 137/89 Pulse Oximetry 99 95 95 11/09/21 08:50 11/09/21 09:00 11/09/21 10:16 Temperature Pulse Rate 125 H 121 H 118 H Respiratory Rate 14 Blood Pressure 146/100 H Pulse Oximetry 97 100 11/09/21 10:40 11/09/21 10:45 11/09/21 10:50 Temperature Pulse Rate 118 H 118 H 119 H Respiratory Rate 19 15 15 Blood Pressure 152/112 H 129/91 H 123/84 Pulse Oximetry 100 100 100 11/09/21 11:00 11/09/21 11:17 11/09/21 11:30 Temperature Pulse Rate 119 H 119 H 119 H Respiratory Rate 15 13 14 Blood Pressure 140/93 H 141/91 H 146/95 H Pulse Oximetry 100 100 97 11/09/21 11:45 11/09/21 12:00 11/09/21 12:51 Temperature 36.4 C Pulse Rate 120 H 121 H 120 H Respiratory Rate 11 L 15 18 Blood Pressure 151/98 H 146/93 H 141/102 H Pulse Oximetry 100 100 97 11/09/21 13:40 11/09/21 13:59 Temperature Pulse Rate 118 H 117 H Respiratory Rate Blood Pressure 151/102 H Pulse Oximetry Intake/Output Intake/Output: Intake & Output 11/06/21 11/07/21 11/08/21 11/09/21 23:59 23:59 23:59 23:59 Intake Total 2570 1980 3110 Output Total 3325 1075 2450 1700 Balance -755 905 660 -1700 Meds/Results Medications: Active Medications Generic Name Dose Route Start Last Admin Trade Name Freq PRN Reason Stop Dose Admin Hydrocodone Bitart/Acetaminophen 1 tab 10/31/21 13:38 11/09/21 08:50 Hydrocodone/Acetaminophen (*Crx) 5-325 Mg Tablet PO 1 tab Q4H PRN Administration Pain Rated 4-6 Amiodarone HCl 400 mg 11/08/21 17:00 11/09/21 12:50 Amiodarone Hcl 200 Mg Tablet PO 400 mg TID MELIDA Administration Dextrose 12.5 gm 10/30/21 17:47 Dextrose 50% 25 Gm/50 Ml Syringe IV PUSH PRN PRN Hypoglycemia Protocol Empagliflozin 25 mg 10/31/21 09:00 11/09/21 08:36 Empagliflozin 25 Mg Tablet PO Not Given DAILY MELIDA Fluticasone Propionate 2 spray 10/31/21 09:00 11/09/21 08:50 Fluticasone Propionate 0.05% Na
[2021-11-09 16:48] LABS: Glucose Point of Care 92 mg/dl (65-105)
[2021-11-09] MEDS: ESMOLOL HCL 2,500 MG/250 ML 2,500 MG/250 ML BAG 140.4 MG IV CONT ×3 (16:49→20:27)
[2021-11-09] MEDS: GLIMEPIRIDE 2 MG TABLET 4 MG PO (17:05)
[2021-11-09] MEDS: RIVAROXABAN 20 MG TABLET PO (17:06)
[2021-11-09 21:27] LABS: Glucose Point of Care 152 mg/dl (65-105)
[2021-11-09] MEDS: MELATONIN 5 MG TABLET PO (21:45)
[2021-11-10] VITALS (24 sets, daily range): BP systolic 115–136; BP diastolic 56–87; PULSE 65–99; RESP 14–18; TEMP 36.4–37.2; O2SAT 96–100
[2021-11-10] MEDS: ESMOLOL HCL 2,500 MG/250 ML 2,500 MG/250 ML BAG 46.8 MG IV CONT (00:06)
[2021-11-10] MEDS: SODIUM CHLORIDE 0.9% IV 1,000 ML 100 ML IV CONT (01:09)
[2021-11-10 04:28] LABS: Hematocrit 32.1 % (42.0-52.0); Hemoglobin 9.7 g/dL (14.0-18.0); Mean Corpuscular HGB Conc 30.2 g/dl (32-36); Mean Corpuscular Hemoglobin 26.9 pg (26-34); Mean Corpuscular Volume 89.2 fl (80-100); Mean Platelet Volume 8.3 fl (7.4-10.4); Platelet Count Result 411 k/mm3 (150-375); Red Cell Distribution Width 14.5 % (11.5-14.5); White Blood Count 10.7 K/mm3 (4.5-10.0)
[2021-11-10 04:38] LABS: Alanine Aminotransferase 27 U/L (4-50); Albumin Level 2.5 g/dL (3.5-5.1); Alkaline Phosphatase 101 U/L (38-126); Anion Gap 4 mmol/L (8-16); Aspartate Amino Transferase 35 U/L (17-59); Bilirubin,Total 0.4 mg/dL (0.2-1.3); Blood Urea Nitrogen 17 mg/dL (9-20); Calcium 7.7 mg/dL (8.4-10.2); Carbon Dioxide 28 mmol/L (22-30); Chloride 103 mmol/L (98-107); Estimated CRCL calculation 77 ml/min; Estimated Glomerular Filt Rate > 60; Glucose 110 mg/dL (65-110); Magnesium 2.1 mg/dL (1.6-2.3); Potassium 4.2 mmol/L (3.4-5.0); Sodium 135 mmol/L (137-145)
[2021-11-10] MEDS: HYDROcodone/acetaminophen (*CRX) 5-325 MG TABLET 1 TAB PO ×4 (05:06→21:58)
--- NOTE | 2021-11-10 08:10 | PCOTNOTE ---
Per nurse, continue to hold pt. for therapy today due to current medical condition. Nurse will follow up with regarding continuation.
[2021-11-10] MEDS: FLUTICASONE/SALMETEROL 230-21 MCG INHALER 1 PUFF 2 PUFF INHALATION (08:48)
--- NOTE | 2021-11-10 08:53 | WPDINTPN ---
Progress Note: A&P Assessment and Plan (1) Atrial flutter with rapid ventricular response: Code(s): I48.92 - Unspecified atrial flutter Status: Acute Assessment and Plan: Status post failed multiple attempts of DC cardioversion He was started on esmolol infusion yesterday and has now converted to sinus rhythm heart rate in 70s and adequate blood pressure He is asymptomatic I will discontinue Esmolol infusion and start patient on p.o. metoprolol Continue p.o. amiodarone Cardiology is following He was also given 2 g of Mag sulfate yesterday. His Mag level is in normal range today Anticoagulated with Xarelto (2) Gout: Qualifiers: Gout site: unspecified site Encounter type: sequela Chronicity: unspecified Code(s): M10.9 - Gout, unspecified Status: Chronic Assessment and Plan: Continue colchicine (3) Septic arthritis: Qualifiers: Laterality: right Septic arthritis location: knee Septic arthritis organism: staphylococcal Qualified Code(s): M00.061 - Staphylococcal arthritis, right knee Code(s): M00.9 - Pyogenic arthritis, unspecified Status: Acute Assessment and Plan: Status post multiple joint aspiration by Orthopedics Synovial fluid is growing MRSA sensitive to vancomycin Patient is on vancomycin Patient had a small injury around 2 months ago here to the right knee. although the skin wound has healed with scarring, the area appears firm. Discussed with orthopedics. CT 11/09 CT femur RT w con IMPRESSION: 1. Large complex right knee joint effusion with foci of scattered internal gas which could be consistent with provided history of a right knee septic arthritis. No acute osseous abnormality. Correlate for recent joint aspiration to account for the gas within the suprapatellar pouch. Further management per Orthopedics (4) Type 2 diabetes mellitus: Qualifiers: Diabetes mellitus long-term insulin use: without termite control service representative use Diabetes mellitus complication status: with hyperglycemia Qualified Code(s): E11.65 - Type 2 diabetes mellitus with hyperglycemia Code(s): E11.9 - Type 2 diabetes mellitus without complications Status: Chronic Assessment and Plan: continue Amaryl Jardiance and sliding scale (5) Hypertension: Code(s): I10 - Essential (primary) hypertension Status: Chronic Assessment and Plan: currently on p.o. metoprolol, lisinopril (6) Asthma: Code(s): J45.909 - Unspecified asthma, uncomplicated Status: Acute Assessment and Plan: continue Advair at home dose Additional Plan DVT prophylaxis - Xarelto Code Status - Full Code Transfer out of ICU today Subjective Date/time seen: 11/10/21 08:53 Patient converted to sinus rhythm overnight. He states he is feeling better and denies any complaints at this morning. States his pain in the knee is unchanged at 2/10. Pain is achy intermittent, worse with movement and feels better with rest. No radiation. He denies any fever chills rigors swelling overnight. Denies any chest pain shortness of breath or palpitation. All other systems were reviewed and were negative Interval history: Biju Navarrete is a 56-year-old male with a history of ADHD, BPH, hypertension, hyperlipidemia, type 2 diabetes mellitus, and asthma admitted for septic arthritis of the right knee as well as atrial flutter with rapid ventricular response. He failed DC cardioversion multiple times Review of Systems Review of Systems: All systems reviewed & are unremarkable except as noted in HPI and below (HPI) Exam Narrative: General: Pt is alert awake and in NAD Lungs/Chest: Trachea central Clear BS B/L, No crackles or wheezing. Cardiac: RRR. Normal S1 S2. No murmurs Circulation: Pedal pulses are intact and symmetrical. Abdomen: Normal bowel sounds.. Soft. NT. ND. Extremities: No clubbing, cyanosis or edema. Warm : Bess in place
[2021-11-10 09:09] LABS: Glucose Point of Care 93 mg/dl (65-105)
[2021-11-10] MEDS: GLIMEPIRIDE 2 MG TABLET 4 MG PO ×2 (09:19→17:51)
[2021-11-10] MEDS: AMIODARONE HCL 200 MG TABLET 400 MG PO ×2 (09:20→17:50)
[2021-11-10] MEDS: lisinopriL 5 MG TABLET PO (09:20)
[2021-11-10] MEDS: METOPROLOL TARTRATE 25 MG TABLET PO ×2 (09:20→21:58)
[2021-11-10] MEDS: FLUTICASONE PROPIONATE 0.05% NA SPR 16 GM BTL (*BKC) 2 SPRAY NASAL (09:20)
[2021-11-10] MEDS: MONTELUKAST SODIUM 10 MG TABLET PO (09:20)
[2021-11-10] MEDS: EMPAGLIFLOZIN 25 MG TABLET PO (09:20)
[2021-11-10] MEDS: INSULIN ASPART (*BKC) 100 UNITS/ML SUB-Q ×3 (09:26→17:57)
--- NOTE | 2021-11-10 09:38 | PM.IMPN ---
Progress Note: A&P Assessment and Plan (1) Atrial flutter with rapid ventricular response: Code(s): I48.92 - Unspecified atrial flutter Status: Acute Assessment and Plan: Pt. with failed cardioversion, transferring to ICU for esmolol infusion. Currently rate controlled Metoprolol and amiodarone Continue anticoagulation (2) Gout: Qualifiers: Gout site: unspecified site Encounter type: sequela Chronicity: unspecified Code(s): M10.9 - Gout, unspecified Status: Chronic Assessment and Plan: colchicine (3) Septic arthritis: Qualifiers: Laterality: right Septic arthritis location: knee Septic arthritis organism: staphylococcal Qualified Code(s): M00.061 - Staphylococcal arthritis, right knee Code(s): M00.9 - Pyogenic arthritis, unspecified Status: Acute Assessment and Plan: synovial fluid is growing MRSA sensitive to vancomycin Patient on IV vancomycin will need 4-6 weeks of IV antibiotics Orthopedic following (4) Type 2 diabetes mellitus: Qualifiers: Diabetes mellitus rat 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 metoprolol, lisinopril Additional Plan DVT prophylaxis - Xarelto Code Status - Full Code Subjective Date/time seen: 11/10/21 09:38 Interval history: Biju Navarrete is a 56-year-old male with a history of ADHD, BPH, hypertension, hyperlipidemia, type 2 diabetes mellitus, and asthma who is seen in follow-up for septic arthritis of the right knee as well as atrial flutter with rapid ventricular response. Failed cardioversion transferred to ICU for esmolol drip. Patient currently on IV antibiotics for MRSA septic arthritis Patient feels better today heart rate better controlled Patient denies fever headache chest pain shortness of breath I am seeing the patient for septic arthritis Exam Narrative: Alert Chest no wheeze crackles Abdomen nontender nondistended CVS S1 + S2 Positive for right knee swelling Negative Lower extremity edema Objective Data Vital Signs Vital Signs: Vital Signs - 24 hr 11/09/21 10:16 11/09/21 10:40 11/09/21 10:45 Temperature Pulse Rate 118 H 118 H 118 H Respiratory Rate 14 19 15 Blood Pressure 146/100 H 152/112 H 129/91 H Pulse Oximetry 100 100 100 11/09/21 10:50 11/09/21 11:00 11/09/21 11:17 Temperature Pulse Rate 119 H 119 H 119 H Respiratory Rate 15 15 13 Blood Pressure 123/84 140/93 H 141/91 H Pulse Oximetry 100 100 100 11/09/21 11:30 11/09/21 11:45 11/09/21 12:00 Temperature Pulse Rate 119 H 120 H 121 H Respiratory Rate 14 11 L 15 Blood Pressure 146/95 H 151/98 H 146/93 H Pulse Oximetry 97 100 100 11/09/21 12:51 11/09/21 13:40 11/09/21 13:59 Temperature 97.6 F Pulse Rate 120 H 118 H 117 H Respiratory Rate 18 Blood Pressure 141/102 H 151/102 H Pulse Oximetry 97 11/09/21 14:00 11/09/21 14:37 11/09/21 15:18 Temperature Pulse Rate 116 H 114 H 115 H Respiratory Rate 13 Blood Pressure 141/98 H 132/95 H 135/69 Pulse Oximetry 96 11/09/21 16:00 11/09/21 16:34 11/09/21 16:49 Temperature 97.7 F Pulse Rate 113 H 117 H 112 H Respiratory Rate 12 Blood Pressure 127/92 H 123/92 H Pulse Oximetry 96 11/09/21 17:00 11/09/21 18:00 11/09/21 18:30 Temperature 98.2 F 98 F Pulse Rate 111 H 109 H 110 H Respiratory Rate 18 15 Blood Pressure 120/89 100/79 101/70 Pulse Oximetry 97 95 11/09/21 19:00 11/09/21 19:43 11/09/21 20:00 Temperature 98.1 F Pulse Rate 106 H 106 H
--- NOTE | 2021-11-10 11:21 | PM.PNCARD ---
Progress Note: A&P Assessment and Plan (1) Atrial flutter with rapid ventricular response: Code(s): I48.92 - Unspecified atrial flutter Status: Acute Assessment and Plan: Patient underwent repeat DC cardioversion x2 yesterday with failure to restore sinus rhythm. Post cardioversion, patient had narrow complex tachycardia, and was given IV adenosine x2 without change in the rhythm. Due to persistently elevated heart rates, patient was transferred to ICU for esmolol GTT. Overnight, patient reverted back to sinus rhythm. Currently stable from cardiovascular standpoint. -bridge esmolol to metoprolol tartrate. -continue oral amiodarone for now, dose decreased to 400 mg p.o. b.i.d.. -continue anticoagulation with rivaroxaban. -continue to monitor on telemetry, may transfer to tele floor. -EP evaluation can be done as an outpatient. -other management as per primary team and Orthopedics. Subjective Date/time seen: 11/10/21 11:21 Date of Service: 11/10/2021 Interval history: Patient underwent DC cardioversion yesterday with failure to restore sinus rhythm. He was found to have narrow complex tachycardia, received IV adenosine 6 mg x 2, without synagogue of sinus rhythm. Patient remained tachycardia, and was transferred to ICU for rate control with esmolol. Overnight, patient converted to sinus rhythm. At the time of evaluation, patient was feeling well from cardiovascular standpoint. He complained of right knee pain. On telemetry, patient is in sinus rhythm. Exam Narrative: PHYSICAL EXAMINATION: GENERAL: Alert, oriented, mild distress due to right knee pain MENTAL STATUS: Anxious EYES: Extraocular movements intact, no pallor EARS: External ears appear normal, hearing grossly normal NOSE: Normal and patent, no discharge MOUTH: Mucous membranes moist, tongue normal NECK: Supple, no JVD CHEST: Good respiratory effort, clear to auscultation HEART: Normal rate, regular rhythm, normal S1 and S2, no audible murmurs ABDOMEN: Soft, nontender NEUROLOGICAL: Alert, oriented, normal speech, no gross motor deficits MUSCULOSKELETAL: No major deformity, no amputation EXTREMITIES: Swelling in the right knee area SKIN: no rash on the exposed area, no cyanosis PSYCHIATRIC: Normal mood, appropriate affect Objective Data Vital Signs Vital Signs: Vital Signs - 24 hr 11/09/21 11:30 11/09/21 11:45 11/09/21 12:00 Temperature Pulse Rate 119 H 120 H 121 H Respiratory Rate 14 11 L 15 Blood Pressure 146/95 H 151/98 H 146/93 H Pulse Oximetry 97 100 100 11/09/21 12:51 11/09/21 13:40 11/09/21 13:59 Temperature 36.4 C Pulse Rate 120 H 118 H 117 H Respiratory Rate 18 Blood Pressure 141/102 H 151/102 H Pulse Oximetry 97 11/09/21 14:00 11/09/21 14:37 11/09/21 15:18 Temperature Pulse Rate 116 H 114 H 115 H Respiratory Rate 13 Blood Pressure 141/98 H 132/95 H 135/69 Pulse Oximetry 96 11/09/21 16:00 11/09/21 16:34 11/09/21 16:49 Temperature 36.5 C Pulse Rate 113 H 117 H 112 H Respiratory Rate 12 Blood Pressure 127/92 H 123/92 H Pulse Oximetry 96 11/09/21 17:00 11/09/21 18:00 11/09/21 18:30 Temperature 36.8 C 36.6 C Pulse Rate 111 H 109 H 110 H Respiratory Rate 18 15 Blood Pressure 120/89 100/79 101/70 Pulse Oximetry 97 95 11/09/21 19:00 11/09/21 19:43 11/09/21 20:00 Temperature 36.7 C Pulse Rate 106 H 106 H 104 H Respiratory Rate 14 15 Blood Pressure 99/72 L 107/79 Pulse Oximetry 97 95 11/09/21 20:27 11/09/21 21:00 11/09/21 22:00 Temperature Pulse Rate 105 H 104 H 103 H Respiratory Rate 16 16 Blood Pressure 107/75 112/80 113/86 Pulse Oximetry 97 96 11/09/21 23:00 11/10/21 00:00 11/10/21 00:06 Temperature 36.8 C Pulse Rate 103 H 95 99 Respiratory Rate 16 16 Blood Pressure 121/87 121/77 121/77 Pulse Oximetry 96 96 11/10/21 01:00 11/10/21 02:00 11/10/21 03:00 Temperature Pulse Rate 73 66 65 Respiratory Rate 16 16 16
--- NOTE | 2021-11-10 13:14 | PC.NURSE ---
This patient, Biju Navarrete, was transferred to [facility] on 11/10/21 at 1314. Personal belongings sent with patient. Report given to Yashira VIDAL. Appropriate documentation sent with patient.
--- NOTE | 2021-11-10 13:16 | PC.NURSE ---
This patient, Biju Navarrete, was received from [ICU-3 ] on 11/10/21 at 1316. Patient/family oriented to unit policies and routines. Report received from YOUNG Ramirez @ [phone]
[2021-11-10 13:18] LABS: Glucose Point of Care 189 mg/dl (65-105)
--- NOTE | 2021-11-10 14:52 | PCPTNOTE ---
Per OT, Per nurse, continue to hold pt. for therapy today due to current medical condition. Nurse will follow up with regarding continuation.
--- NOTE | 2021-11-10 16:13 | PM.PNORT ---
Progress Note: A&P Assessment and Plan (1) Septic arthritis: Qualifiers: Laterality: right Septic arthritis location: knee Septic arthritis organism: staphylococcal Qualified Code(s): M00.061 - Staphylococcal arthritis, right knee Code(s): M00.9 - Pyogenic arthritis, unspecified Status: Acute (2) Atrial flutter with rapid ventricular response: Code(s): I48.92 - Unspecified atrial flutter Status: Acute Assessment and Plan: Patient states his pain is improving. He is able to bend and straighten the knee slightly. Mobility is improved. Examination Afebrile. Appears comfortable. Knee swelling improving. Mild to moderate effusion. Thigh swelling down. No streaking warmth, or erythema. Calf nontender. Neurovascular status unchanged. Diagnostics I reviewed the CT scan which shows a moderate effusion without evidence of necrosis of the surrounding muscle, or deep abscess. Impression Septic arthritis right knee with some improvement. CT scan helpful to rule out more aggressive infection expanding into the thigh. I was able to aspirate 20 mL today. This represents a significant decrease compared to prior aspirations. He may not require any further aspirations. Continue to mobilize. I reviewed knee exercises with him. Subjective Subjective Date/Time Seen: 11/10/21 16:14 Objective Data Vital Signs Vital Signs: Vital Signs - 24 hr 11/09/21 16:34 11/09/21 16:49 11/09/21 17:00 Temperature 36.8 C Pulse Rate 117 H 112 H 111 H Respiratory Rate 18 Blood Pressure 123/92 H 120/89 Pulse Oximetry 97 11/09/21 18:00 11/09/21 18:30 11/09/21 19:00 Temperature 36.6 C Pulse Rate 109 H 110 H 106 H Respiratory Rate 15 14 Blood Pressure 100/79 101/70 99/72 L Pulse Oximetry 95 97 11/09/21 19:43 11/09/21 20:00 11/09/21 20:27 Temperature 36.7 C Pulse Rate 106 H 104 H 105 H Respiratory Rate 15 Blood Pressure 107/79 107/75 Pulse Oximetry 95 11/09/21 21:00 11/09/21 22:00 11/09/21 23:00 Temperature Pulse Rate 104 H 103 H 103 H Respiratory Rate 16 16 16 Blood Pressure 112/80 113/86 121/87 Pulse Oximetry 97 96 96 11/10/21 00:00 11/10/21 00:06 11/10/21 01:00 Temperature 36.8 C Pulse Rate 95 99 73 Respiratory Rate 16 16 Blood Pressure 121/77 121/77 125/78 Pulse Oximetry 96 96 11/10/21 02:00 11/10/21 03:00 11/10/21 03:57 Temperature Pulse Rate 66 65 68 Respiratory Rate 16 16 Blood Pressure 122/77 128/78 Pulse Oximetry 96 96 11/10/21 04:00 11/10/21 05:00 11/10/21 06:00 Temperature 36.6 C 36.8 C Pulse Rate 68 69 73 Respiratory Rate 14 14 16 Blood Pressure 128/83 131/87 129/83 Pulse Oximetry 97 100 100 11/10/21 08:00 11/10/21 08:48 11/10/21 09:20 Temperature 36.5 C Pulse Rate 69 79 Respiratory Rate 16 Blood Pressure 136/80 Pulse Oximetry 97 98 11/10/21 10:00 11/10/21 12:00 11/10/21 14:00 Temperature 36.8 C Pulse Rate 77 71 72 Respiratory Rate 15 16 Blood Pressure 125/74 115/56 L Pulse Oximetry 96 97 Intake/Output Intake/Output: Intake & Output 11/07/21 11/08/21 11/09/21 11/10/21 23:59 23:59 23:59 23:59 Intake Total 1980 3110 3290 2209 Output Total 1075 2450 1700 550 Balance 562 725 9652 1659 Meds/Results Medications: Active Medications Generic Name Dose Route Start Last Admin Trade Name Freq PRN Reason Stop Dose Admin Hydrocodone Bitart/Acetaminophen 1 tab 10/31/21 13:38 11/10/21 11:42 Hydrocodone/Acetaminophen (*Crx) 5-325 Mg Tablet PO 1 tab Q4H PRN Administration Pain Rated 4-6 Amiodarone HCl 400 mg 11/10/21 17:00 Amiodarone Hcl 200 Mg Tablet PO BID MELIDA Dextrose 12.5 gm 10/30/21 17:47 Dextrose 50% 25 Gm/50 Ml Syringe IV PUSH PRN PRN Hypoglycemia Protocol Empagliflozin 25 mg 10/31/21 09:00 11/10/21 09:20 Empagliflozin 25 Mg Tablet PO 25 mg DAILY MELIDA Administration Fluticasone Propionate 2 spray 10/31/21 09:00
--- NOTE | 2021-11-10 16:17 | PM.OP ---
Procedure Note - Brief Procedure Note - Brief Date of procedure: 11/10/21 Pre-op diagnosis: Right knee septic arthritis Post-op diagnosis: Same Procedure performed: Right knee aspiration. Description of procedure: The knee was prepared with alcohol, followed by Betadine prep. Aspiration performed with an 18 gauge needle and a 60 mL syringe. 20 mL purulent fluid obtained. Patient tolerated the procedure very well. Anesthesia: none Surgeon: Dev Nugent MD Estimated blood loss (mL): 0 Drains: No Pathology: None sent Complications: No immediate complications Condition: Stable
[2021-11-10 16:38] LABS: Glucose Point of Care 179 mg/dl (65-105)
[2021-11-10] MEDS: RIVAROXABAN 20 MG TABLET PO (17:52)
[2021-11-10 20:12] LABS: Glucose Point of Care 242 mg/dl (65-105)
[2021-11-10 20:38] LABS: Vancomycin Trough 17.5 ug/mL (10.0-20.0)
[2021-11-10] MEDS: MELATONIN 5 MG TABLET PO (21:59)
[2021-11-11] VITALS (14 sets, daily range): BP systolic 140–158; BP diastolic 80–92; PULSE 64–77; RESP 12–17; TEMP 36.1–37; O2SAT 96–100
[2021-11-11] MEDS: HYDROcodone/acetaminophen (*CRX) 5-325 MG TABLET 1 TAB PO ×4 (03:35→22:02)
[2021-11-11 04:49] LABS: Hematocrit 32.1 % (42.0-52.0); Hemoglobin 9.9 g/dL (14.0-18.0); Mean Corpuscular HGB Conc 30.8 g/dl (32-36); Mean Corpuscular Hemoglobin 26.7 pg (26-34); Mean Corpuscular Volume 86.5 fl (80-100); Mean Platelet Volume 8.3 fl (7.4-10.4); Platelet Count Result 418 k/mm3 (150-375); Red Blood Count 3.71 M/mm3 (4.6-6.20); Red Cell Distribution Width 14.3 % (11.5-14.5); White Blood Count 10.9 K/mm3 (4.5-10.0)
[2021-11-11 04:58] LABS: Alanine Aminotransferase 30 U/L (4-50); Albumin Level 2.8 g/dL (3.5-5.1); Alkaline Phosphatase 147 U/L (38-126); Anion Gap 4 mmol/L (8-16); Aspartate Amino Transferase 28 U/L (17-59); Bilirubin,Total 0.3 mg/dL (0.2-1.3); Blood Urea Nitrogen 20 mg/dL (9-20); Calcium 8.1 mg/dL (8.4-10.2); Carbon Dioxide 28 mmol/L (22-30); Chloride 104 mmol/L (98-107); Estimated CRCL calculation 70 ml/min; Estimated Glomerular Filt Rate > 60; Glucose 165 mg/dL (65-110); Magnesium 2.1 mg/dL (1.6-2.3); Potassium 4.1 mmol/L (3.4-5.0); Sodium 136 mmol/L (137-145)
[2021-11-11 08:10] LABS: Glucose Point of Care 121 mg/dl (65-105)
[2021-11-11] MEDS: MONTELUKAST SODIUM 10 MG TABLET PO (08:15)
[2021-11-11] MEDS: METOPROLOL TARTRATE 25 MG TABLET PO ×2 (08:15→20:47)
[2021-11-11] MEDS: FLUTICASONE PROPIONATE 0.05% NA SPR 16 GM BTL (*BKC) 2 SPRAY NASAL (08:15)
[2021-11-11] MEDS: lisinopriL 5 MG TABLET PO (08:16)
[2021-11-11] MEDS: INSULIN ASPART (*BKC) 100 UNITS/ML SUB-Q ×3 (08:16→16:55)
[2021-11-11] MEDS: EMPAGLIFLOZIN 25 MG TABLET PO (08:16)
[2021-11-11] MEDS: GLIMEPIRIDE 2 MG TABLET 4 MG PO ×2 (08:16→16:55)
[2021-11-11] MEDS: AMIODARONE HCL 200 MG TABLET 400 MG PO ×2 (08:16→16:55)
--- NOTE | 2021-11-11 11:16 | PM.IMPN ---
Progress Note: A&P Assessment and Plan (1) Atrial flutter with rapid ventricular response: Code(s): I48.92 - Unspecified atrial flutter Status: Acute Assessment and Plan: Pt. with failed cardioversion Patient from cardiology note underwent repeat DC cardioversion x2 with failure to restore sinus rhythm. Post cardioversion, patient had narrow complex tachycardia, and was given IV adenosine x2 without change in the rhythm . , transferred to ICU for esmolol infusion. Currently in sinus rhythm patient was transferred to step-down his condition continued to improve patient will be transferred to medical floor with telemetry Metoprolol and amiodarone Continue anticoagulation (2) Gout: Qualifiers: Gout site: unspecified site Encounter type: sequela Chronicity: unspecified Code(s): M10.9 - Gout, unspecified Status: Chronic Assessment and Plan: colchicine (3) Septic arthritis: Qualifiers: Laterality: right Septic arthritis location: knee Septic arthritis organism: staphylococcal Qualified Code(s): M00.061 - Staphylococcal arthritis, right knee Code(s): M00.9 - Pyogenic arthritis, unspecified Status: Acute Assessment and Plan: synovial fluid is growing MRSA sensitive to vancomycin Patient on IV vancomycin will need 4-6 weeks of IV antibiotics Orthopedic following May need PICC line Anticipate discharge once okay with Orthopedic and after probably placement of PICC line final recommendation regarding antibiotic pending from Orthopedic (4) Type 2 diabetes mellitus: Qualifiers: 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 metoprolol, lisinopril Additional Plan DVT prophylaxis - Xarelto Code Status - Full Code Subjective Date/time seen: 11/11/21 11:16 Interval history: Biju Navarrete is a 56-year-old male with a history of ADHD, BPH, hypertension, hyperlipidemia, type 2 diabetes mellitus, and asthma who is seen in follow-up for septic arthritis of the right knee as well as atrial flutter with rapid ventricular response. Failed cardioversion transferred to ICU for esmolol drip. Patient currently on IV antibiotics for MRSA septic arthritis Had knee aspiration again Patient feels better today currently in sinus rhythm Patient denies fever headache chest pain shortness of breath I am seeing the patient for septic arthritis Exam Narrative: Alert Chest no wheeze crackles Abdomen nontender nondistended CVS S1 + S2 Positive for right knee swelling Negative Lower extremity edema Objective Data Vital Signs Vital Signs: Vital Signs - 24 hr 11/10/21 12:00 11/10/21 14:00 11/10/21 16:00 Temperature 98.3 F 98.9 F Pulse Rate 71 72 66 Respiratory Rate 16 18 Blood Pressure 115/56 L 118/64 Pulse Oximetry 97 99 11/10/21 17:50 11/10/21 18:00 11/10/21 19:49 Temperature 97.6 F Pulse Rate 81 78 78 Respiratory Rate 15 Blood Pressure 119/74 Pulse Oximetry 98 11/10/21 20:00 11/10/21 20:36 11/10/21 21:58 Temperature Pulse Rate 69 76 Respiratory Rate 15 Blood Pressure Pulse Oximetry 99 97 11/10/21 22:00 11/10/21 23:45 11/11/21 00:00 Temperature 97.8 F Pulse Rate 78 69 74 Respiratory Rate 15 16 Blood Pressure 129/74 Pulse Oximetry 99 100 11/11/21 02:00 11/11/21 04:00 11/11/21 05:55 Temperature 98.5 F Pulse Rate 69 74 74 Respiratory Rate 16 Blood Pressure 140/82 Pulse Oximetry 100 11/11/21 08:00 11/11/21
[2021-11-11 12:11] LABS: Glucose Point of Care 161 mg/dl (65-105)
--- NOTE | 2021-11-11 16:09 | PM.PNORT ---
Progress Note: A&P Assessment and Plan (1) Septic arthritis: Qualifiers: Laterality: right Septic arthritis location: knee Septic arthritis organism: staphylococcal Qualified Code(s): M00.061 - Staphylococcal arthritis, right knee Code(s): M00.9 - Pyogenic arthritis, unspecified Status: Acute (2) Atrial flutter with rapid ventricular response: Code(s): I48.92 - Unspecified atrial flutter Status: Acute Assessment and Plan: Septic arthritis right knee with some improvement. Spoke with hospitalist today over the phone with Dr. Nugent. Patient will likely need infectious disease consult to determine need, length, and monitoring for outpatient IV antibiotics. Continue mobilization with PT. Subjective Subjective Date/Time Seen: 11/11/21 16:09 Patient feeling better today. Able to ambulate better with a walker. ROM and pain improving slowly. No racing heart rate. Review of Systems Review of Systems: All systems reviewed & are unremarkable except as noted in HPI and below Exam Narrative: Patient is alert and oriented. Shows fair insight. No acute distress. Afebrile. Decreased warmth today. Moderate effusion with improved tenderness. No thigh pain with palpation. Pitting edema in his thigh and lower leg. No drainage or obvious sinus tracts. Excoriations on the tibia without drainage. Distal neurovascular status intact. Range of motion limited due to pain and swelling. 10? to 80?. Objective Data Vital Signs Vital Signs: Vital Signs - 24 hr 11/10/21 17:50 11/10/21 18:00 11/10/21 19:49 Temperature 97.6 F Pulse Rate 81 78 78 Respiratory Rate 15 Blood Pressure 119/74 Pulse Oximetry 98 11/10/21 20:00 11/10/21 20:36 11/10/21 21:58 Temperature Pulse Rate 69 76 Respiratory Rate 15 Blood Pressure Pulse Oximetry 99 97 11/10/21 22:00 11/10/21 23:45 11/11/21 00:00 Temperature 97.8 F Pulse Rate 78 69 74 Respiratory Rate 15 16 Blood Pressure 129/74 Pulse Oximetry 99 100 11/11/21 02:00 11/11/21 04:00 11/11/21 05:55 Temperature 98.5 F Pulse Rate 69 74 74 Respiratory Rate 16 Blood Pressure 140/82 Pulse Oximetry 100 11/11/21 08:00 11/11/21 08:15 11/11/21 08:16 Temperature 98.4 F Pulse Rate 72 70 70 Respiratory Rate 12 Blood Pressure 141/80 H Pulse Oximetry 100 11/11/21 08:52 11/11/21 12:00 Temperature Pulse Rate 64 Respiratory Rate Blood Pressure Pulse Oximetry 96 Intake/Output Intake/Output: Intake & Output 11/08/21 11/09/21 11/10/21 11/11/21 23:59 23:59 23:59 23:59 Intake Total 3110 3290 2449 1170 Output Total 2450 0764 053 7915 Balance 660 1590 1549 -30 Meds/Results Medications: Active Medications Generic Name Dose Route Start Last Admin Trade Name Freq PRN Reason Stop Dose Admin Hydrocodone Bitart/Acetaminophen 1 tab 10/31/21 13:38 11/11/21 11:23 Hydrocodone/Acetaminophen (*Crx) 5-325 Mg Tablet PO 1 tab Q4H PRN Administration Pain Rated 4-6 Amiodarone HCl 400 mg 11/10/21 17:00 11/11/21 08:16 Amiodarone Hcl 200 Mg Tablet PO 400 mg BID MELIDA Administration Dextrose 12.5 gm 10/30/21 17:47 Dextrose 50% 25 Gm/50 Ml Syringe IV PUSH PRN PRN Hypoglycemia Protocol Empagliflozin 25 mg 10/31/21 09:00 11/11/21 08:16 Empagliflozin 25 Mg Tablet PO 25 mg DAILY MELIDA Administration Fluticasone Propionate 2 spray 10/31/21 09:00 11/11/21 08:15 Fluticasone Propionate 0.05% Na Spr 16 Gm Btl (*Bkc) NASAL 2 spray DAILY MELIDA Administration Glimepiride 4 mg 10/31/21 09:00 11/11/21 08:16 Glimepiride 2 Mg Tablet PO 4 mg BID MELIDA Administration Glucagon 1 mg 10/30/21 17:47 Glucagon For Inj 1 Mg Vial IM PRN PRN Hypoglycemia Protocol Glucose 15 gm 10/30/21 17:47 Glucose Oral Gel 15 Gm Of Glucse In 37.5 Gm Tube PO PRN PRN Hypoglycemia Protocol Hydromorphone HCl 1 mg 0
[2021-11-11 16:41] LABS: Glucose Point of Care 179 mg/dl (65-105)
[2021-11-11] MEDS: RIVAROXABAN 20 MG TABLET PO (16:54)
[2021-11-11 20:40] LABS: Glucose Point of Care 190 mg/dl (65-105)
[2021-11-11] MEDS: FLUTICASONE/SALMETEROL 230-21 MCG INHALER 1 PUFF 2 PUFF INHALATION (20:42)
[2021-11-11] MEDS: MELATONIN 5 MG TABLET PO (20:47)
[2021-11-12] VITALS (14 sets, daily range): BP systolic 122–156; BP diastolic 77–87; PULSE 69–148; RESP 14–18; TEMP 36.3–36.9; O2SAT 96–100
[2021-11-12] MEDS: HYDROcodone/acetaminophen (*CRX) 5-325 MG TABLET 1 TAB PO ×4 (06:42→21:33)
[2021-11-12] MEDS: AMIODARONE HCL 200 MG TABLET 400 MG PO ×2 (08:22→17:11)
[2021-11-12] MEDS: FLUTICASONE PROPIONATE 0.05% NA SPR 16 GM BTL (*BKC) 2 SPRAY NASAL (08:22)
[2021-11-12] MEDS: GLIMEPIRIDE 2 MG TABLET 4 MG PO ×2 (08:22→17:11)
[2021-11-12] MEDS: INSULIN ASPART (*BKC) 100 UNITS/ML SUB-Q ×3 (08:22→17:11)
[2021-11-12] MEDS: METOPROLOL TARTRATE 25 MG TABLET PO ×2 (08:22→21:27)
[2021-11-12 08:23] LABS: Glucose Point of Care 102 mg/dl (65-105)
[2021-11-12] MEDS: EMPAGLIFLOZIN 25 MG TABLET PO (08:23)
[2021-11-12] MEDS: lisinopriL 5 MG TABLET PO (08:23)
[2021-11-12] MEDS: MONTELUKAST SODIUM 10 MG TABLET PO (08:23)
--- NOTE | 2021-11-12 09:21 | ECG_ITS ---
Measurements Intervals [place] Rate: 105 P: [place]: 0 QRS: 3 QRSD: 116 T: 87 QT: 366 QTc: 485 Interpretive Statements PROBABLE SINUS TACHYCARDIA MODERATE INTRAVENTRICULAR CONDUCTION DELAY [110+ ms QRS DURATION] ST DEVIATION AND MODERATE T-WAVE ABNORMALITY, CONSIDER LATERAL ISCHEMIA [-0.1+ mV T WAVE IN I/aVL/V5/V6] COMPARED TO ECG 11/09/2021 13:13:07 THE RHYTHM NOW APPEARS TO BE A SINUS TACHYCARDIA. Electronically Signed On 11-12-2021 18:55:11 CDT by Thuy Sánchez M.D.
--- NOTE | 2021-11-12 09:32 | PC.NURSE ---
Tele monitor alarmed for irregular rhythm. RN assessed alarm and noticed patient rhythm had changed to Afib with a rate from 110's-130's. EKG order to confirm rhythm changed. Strip printed and Jena Hedrick NP notified of changes. Pt asymptomatic with changes. 12 lead EKG reads as Aflutter/tachycardia w/ RVR
[2021-11-12 09:46] LABS: Hematocrit 37.9 % (42.0-52.0); Hemoglobin 11.4 g/dL (14.0-18.0); Mean Corpuscular HGB Conc 30.1 g/dl (32-36); Mean Corpuscular Hemoglobin 26.5 pg (26-34); Mean Corpuscular Volume 88.1 fl (80-100); Mean Platelet Volume 8.2 fl (7.4-10.4); Platelet Count Result 420 k/mm3 (150-375); Red Cell Distribution Width 14.5 % (11.5-14.5); White Blood Count 12.6 K/mm3 (4.5-10.0)
[2021-11-12 09:55] LABS: Alanine Aminotransferase 32 U/L (4-50); Albumin Level 3.3 g/dL (3.5-5.1); Alkaline Phosphatase 145 U/L (38-126); Anion Gap 6 mmol/L (8-16); Aspartate Amino Transferase 30 U/L (17-59); Bilirubin,Total 0.6 mg/dL (0.2-1.3); Blood Urea Nitrogen 18 mg/dL (9-20); Calcium 8.5 mg/dL (8.4-10.2); Carbon Dioxide 28 mmol/L (22-30); Chloride 103 mmol/L (98-107); Estimated CRCL calculation 77 ml/min; Estimated Glomerular Filt Rate > 60; Glucose 153 mg/dL (65-110); Magnesium 1.9 mg/dL (1.6-2.3); Potassium 4.1 mmol/L (3.4-5.0); Sodium 137 mmol/L (137-145)
[2021-11-12 11:07] LABS: Vancomycin Trough 13.6 ug/mL (10.0-20.0)
--- NOTE | 2021-11-12 12:36 | PM.PNORT ---
Progress Note: A&P Assessment and Plan (1) Septic arthritis: Qualifiers: Laterality: right Septic arthritis location: knee Septic arthritis organism: staphylococcal Qualified Code(s): M00.061 - Staphylococcal arthritis, right knee Code(s): M00.9 - Pyogenic arthritis, unspecified Status: Acute (2) Atrial flutter with rapid ventricular response: Code(s): I48.92 - Unspecified atrial flutter Status: Acute Assessment and Plan: Septic arthritis right knee with some improvement. Continues to show improvement. Patient will likely need infectious disease consult to determine need, length, and monitoring for outpatient IV antibiotics. Continue mobilization with PT. Subjective Subjective Date/Time Seen: 11/12/21 12:36 Patient feeling better today. Able to ambulate better with a walker. ROM and pain improving slowly. Does not feel like his heart is racing. Review of Systems Review of Systems: All systems reviewed & are unremarkable except as noted in HPI and below Exam Narrative: Patient is alert and oriented. Shows fair insight. No acute distress. Afebrile. Decreased warmth today. Moderate effusion with improved tenderness. No thigh pain with palpation. Pitting edema in his thigh and lower leg. No drainage or obvious sinus tracts. Excoriations on the tibia without drainage. Distal neurovascular status intact. Range of motion limited due to pain and swelling. 10? to 80?. Objective Data Vital Signs Vital Signs: Vital Signs - 24 hr 11/11/21 16:00 11/11/21 16:55 11/11/21 20:00 Temperature 98.6 F 96.9 F L Pulse Rate 72 74 75 Respiratory Rate 17 16 Blood Pressure 150/80 H 158/92 H Pulse Oximetry 99 97 11/11/21 20:42 11/11/21 20:47 11/12/21 00:00 Temperature Pulse Rate 75 75 Respiratory Rate Blood Pressure Pulse Oximetry 97 11/12/21 04:00 11/12/21 08:00 11/12/21 08:22 Temperature 98.0 F 98.5 F Pulse Rate 74 75 74 Respiratory Rate 16 14 Blood Pressure 156/87 H 151/82 H Pulse Oximetry 98 97 11/12/21 11:56 Temperature 98.1 F Pulse Rate 94 Respiratory Rate 16 Blood Pressure 129/82 Pulse Oximetry 99 Intake/Output Intake/Output: Intake & Output 11/09/21 11/10/21 11/11/2107/22 23:59 23:59 23:59 23:59 Intake Total 3290 2449 2120 540 Output Total 4312 289 8429 2950 Balance 1590 1549 420 -2410 Meds/Results Medications: Active Medications Generic Name Dose Route Start Last Admin Trade Name Freq PRN Reason Stop Dose Admin Hydrocodone Bitart/Acetaminophen 1 tab 10/31/21 13:38 11/12/21 11:11 Hydrocodone/Acetaminophen (*Crx) 5-325 Mg Tablet PO 1 tab Q4H PRN Administration Pain Rated 4-6 Amiodarone HCl 400 mg 11/10/21 17:00 11/12/21 08:22 Amiodarone Hcl 200 Mg Tablet PO 400 mg BID MELIDA Administration Dextrose 12.5 gm 10/30/21 17:47 Dextrose 50% 25 Gm/50 Ml Syringe IV PUSH PRN PRN Hypoglycemia Protocol Empagliflozin 25 mg 10/31/21 09:00 11/12/21 08:23 Empagliflozin 25 Mg Tablet PO 25 mg DAILY MELIDA Administration Fluticasone Propionate 2 spray 10/31/21 09:00 11/12/21 08:22 Fluticasone Propionate 0.05% Na Spr 16 Gm Btl (*Bkc) NASAL 2 spray DAILY MELIDA Administration Glimepiride 4 mg 10/31/21 09:00 11/12/21 08:22 Glimepiride 2 Mg Tablet PO 4 mg BID MELIDA Administration Glucagon 1 mg 10/30/21 17:47 Glucagon For Inj 1 Mg Vial IM PRN PRN Hypoglycemia Protocol Glucose 15 gm 10/30/21 17:47 Glucose Oral Gel 15 Gm Of Glucse In 37.5 Gm Tube PO PRN PRN Hypoglycemia Protocol Hydromorphone HCl 1 mg 10/31/21 13:39 11/06/21 02:10 Hydromorphone Hcl Inj (*Crx) 1 Mg/Ml Syr IV PUSH 1 mg Q4H PRN Administration Pain Rated 7-10 Dextrose 1,000 mls @ 100 mls/hr 10/30/21 17:47 Dextrose 5% 1,000 Ml IVPB PRN PRN Hypoglycemia Protocol Vancomycin HCl 1,250 mg in 250 mls @ 200 mls/hr
--- NOTE | 2021-11-12 12:38 | PM.PNCARD ---
Progress Note: A&P Assessment and Plan (1) Atrial flutter with rapid ventricular response: Code(s): I48.92 - Unspecified atrial flutter Status: Acute Assessment and Plan: Patient underwent repeat DC cardioversion x2 yesterday with failure to restore sinus rhythm. Post cardioversion, patient had narrow complex tachycardia, and was given IV adenosine x2 without change in the rhythm. Due to persistently elevated heart rates, patient was transferred to ICU for esmolol GTT. Patient reverted back to sinus rhythm. Currently stable from cardiovascular standpoint. He was back in AF RVR this morning. Asymptomatic. Converted back to NSR and has been in and out of AF with rate controlled and NSR with frequent PAC's. Metoprolol for rate control continue oral amiodarone at 400mg b.i.d. continue anticoagulation with rivaroxaban. continue to monitor on telemetry, may transfer to tele floor. EP evaluation can be done as an outpatient. other management as per primary team and Orthopedics. Subjective Date/time seen: 11/12/21 12:38 Cardiology follow up for atrial fibrillation He feels a little better today. Notes improvement in knee with more range of motion but it is still quite painful. He does not have any chest pain, palpitations, or shortness of breath. Review of Systems Review of Systems: All systems reviewed & are unremarkable except as noted in HPI and below Constitutional: Constitutional: Reports as per HPI and Reports no additional constitutional complaints Eyes: Eyes: Reports as per HPI and Reports no additional eye complaints ENT: Reports system reviewed and no additional complaints, except as documented and Reports as per HPI Cardiovascular: Cardiovascular: Reports as per HPI and Reports no additional cardiovascular complaints Respiratory: Respiratory: Reports as per HPI and Reports no additional respiratory complaints Gastrointestinal: Gastrointestinal: Reports as per HPI and Reports no additional gastrointestinal complaints Genitourinary: Genitourinary: Reports no additional male genitourinary complaints and Reports as per HPI Musculoskeletal: Musculoskeletal: Reports no additional musculoskeletal complaints and Reports as per HPI Integumentary/Breasts: Skin/Breast: Reports system reviewed and no additional complaints, except as docu and Reports as per HPI Neurologic: Reports system reviewed and no additional complaints, except as documented and Reports as per HPI Psychiatric: Psychiatric: Reports no additional psychiatric complaints and Reports as per HPI Endocrine: Endocrine: Reports no additional endocrine complaints and Reports as per HPI Hematologic/Lymphatic: Hematologic/Lymphatic: Reports no additional hematologic/lymphatic complaints and Reports as per HPI Allergic/Immunologic: Allergic/Immunologic: Reports no additional allergic/immunologic complaints and Reports as per HPI Exam Const: General: comfortable and no acute distress Orientation/consciousness: patient oriented x3 Limitations: physical limitations HENMT: Head: normal to inspection Ears: hearing grossly normal bilaterally Face and sinus: normal facial exam Mouth: Yes Normal oral and palatal mucosa present Eyes: General: appearance normal, both eyes and all related structures Pupils: Equal, round and reactive pupils present Neck: Neck: normal visual inspection Resp: Effort & Inspection: normal respiratory effort Auscultation: clear to auscultation bilaterally Cardio: Rate: regular rate Rhythm: abnormal rhythm Heart sounds: S1 normal heart sound present and S2 normal heart sound present Peripheral pulses: Peripheral pulses 2+ throughout GI: Auscultation: normal bowel sounds Skin: General skin exam: normal color Neuro: General: patient oriented x3 Extrem: Right lower extremity: knee Details: abnormal to inspection, tenderness, swelling and abnormal ROM Psych: Appearance: grossly normal Mental Status: mental
[2021-11-12 12:40] LABS: Glucose Point of Care 171 mg/dl (65-105)
--- NOTE | 2021-11-12 13:18 | PM.IMPN ---
Progress Note: A&P Assessment and Plan (1) Atrial flutter with rapid ventricular response: Code(s): I48.92 - Unspecified atrial flutter Status: Acute Assessment and Plan: Pt. with failed cardioversion x2 11/09/2021 now back to sinus rhythm Post cardioversion, patient had narrow complex tachycardia, and was given IV adenosine x2 without change in the rhythm . , transferred to ICU for esmolol infusion. Remains in sinus rhythm Metoprolol and amiodarone Continue anticoagulation with Xarelto EP evaluation as an outpatient basis (2) Gout: Qualifiers: Gout site: unspecified site Encounter type: sequela Chronicity: unspecified Code(s): M10.9 - Gout, unspecified Status: Chronic Assessment and Plan: colchicine (3) Septic arthritis: Qualifiers: Laterality: right Septic arthritis location: knee Septic arthritis organism: staphylococcal Qualified Code(s): M00.061 - Staphylococcal arthritis, right knee Code(s): M00.9 - Pyogenic arthritis, unspecified Status: Acute Assessment and Plan: synovial fluid is growing MRSA sensitive to vancomycin Patient on IV vancomycin will need 4-6 weeks of IV antibiotics Orthopedic following May need PICC line Anticipate discharge once okay with Orthopedic and after probably placement of PICC line final recommendation regarding antibiotic pending from Orthopedic Touch base with social services analyst to get infectious disease to follow as an outpatient. 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 metoprolol, lisinopril Additional Plan DVT prophylaxis - Xarelto Code Status - Full Code Subjective Date/time seen: 11/12/21 13:18 Interval history: Biju Navarrete is a 56-year-old male with a history of ADHD, BPH, hypertension, hyperlipidemia, type 2 diabetes mellitus, and asthma who is seen in follow-up for septic arthritis of the right knee as well as atrial flutter with rapid ventricular response. Failed cardioversion transferred to ICU for esmolol drip. Patient currently on IV antibiotics for MRSA septic arthritis Had knee aspiration again 11/12/21 no new complaints. Denies any fever. Right knee is sore improving daily. He is able to ambulate slowly Review of Systems Review of Systems: All systems reviewed & are unremarkable except as noted in HPI and below (HPI) Exam Narrative: GENERAL: The patient is well developed, not in acute distress HEENT: Nonicteric sclerae, PERRLA, EOMI. Oropharynx clear. Moist mucous membranes. Conjunctivae appear well perfused. CHEST: Chest wall is nontender. HEART: Regular rate and rhythm without murmur, rubs, or gallops LUNGS: Clear to auscultation bilaterally. no respiratory distress ABDOMEN: Soft, positive bowel sounds, non-tender, no organomegaly. SKIN: No rash, no excessive bruising, petechiae, or purpura. NEUROLOGIC: Cranial nerves II-XII intact, alert and oriented x 3, no gross motor deficits EXTREMITIES: no edema, cyanosis or clubbing Right knee with swelling and tenderness noted range of motion is limited due to pain. Objective Data Vital Signs Vital Signs: Vital Signs - 24 hr 11/11/21 16:00 11/11/21 16:55 11/11/21 20:00 Temperature 98.6 F 96.9 F L Pulse Rate 72 74 75 Respiratory Rate 17 16 Blood Pressure 150/80 H 158/92 H Pulse Oximetry 99 97 11/11/21 20:42
[2021-11-12 16:28] LABS: Glucose Point of Care 198 mg/dl (65-105)
[2021-11-12] MEDS: RIVAROXABAN 20 MG TABLET PO (17:12)
[2021-11-12] MEDS: METOPROLOL TARTRATE INJ 5 MG/5 ML VIAL IV PUSH (17:44)
[2021-11-12 20:59] LABS: Glucose Point of Care 118 mg/dl (65-105)
[2021-11-12] MEDS: MELATONIN 5 MG TABLET PO (21:28)
[2021-11-12] MEDS: FLUTICASONE/SALMETEROL 230-21 MCG INHALER 1 PUFF 2 PUFF INHALATION (21:40)
[2021-11-13] VITALS (15 sets, daily range): BP systolic 128–147; BP diastolic 86–93; PULSE 77–142; RESP 16–20; TEMP 36.9–37.3; O2SAT 97–100
[2021-11-13] MEDS: HYDROcodone/acetaminophen (*CRX) 5-325 MG TABLET 1 TAB PO ×4 (03:43→19:58)
--- NOTE | 2021-11-13 04:33 | PC.NURSE ---
Pt transferred from IMU 211 to [facility] 258 by WC with belongings.
[2021-11-13 05:23] LABS: Hematocrit 34.7 % (42.0-52.0); Hemoglobin 10.8 g/dL (14.0-18.0); Mean Corpuscular HGB Conc 31.1 g/dl (32-36); Mean Corpuscular Hemoglobin 26.7 pg (26-34); Mean Corpuscular Volume 85.9 fl (80-100); Mean Platelet Volume 8.2 fl (7.4-10.4); Platelet Count Result 414 k/mm3 (150-375); Red Blood Count 4.04 M/mm3 (4.6-6.20); Red Cell Distribution Width 14.2 % (11.5-14.5); White Blood Count 10.1 K/mm3 (4.5-10.0)
[2021-11-13 05:32] LABS: Alanine Aminotransferase 32 U/L (4-50); Albumin Level 2.8 g/dL (3.5-5.1); Alkaline Phosphatase 124 U/L (38-126); Anion Gap 3 mmol/L (8-16); Aspartate Amino Transferase 31 U/L (17-59); Bilirubin,Total 0.5 mg/dL (0.2-1.3); Blood Urea Nitrogen 17 mg/dL (9-20); Carbon Dioxide 31 mmol/L (22-30); Chloride 101 mmol/L (98-107); Estimated CRCL calculation 77 ml/min; Estimated Glomerular Filt Rate > 60; Glucose 76 mg/dL (65-110); Magnesium 1.7 mg/dL (1.6-2.3); Potassium 3.9 mmol/L (3.4-5.0); Sodium 135 mmol/L (137-145)
[2021-11-13 07:40] LABS: Glucose Point of Care 74 mg/dl (65-105)
[2021-11-13] MEDS: AMIODARONE HCL 200 MG TABLET 400 MG PO ×2 (07:59→16:02)
[2021-11-13] MEDS: GLIMEPIRIDE 2 MG TABLET 4 MG PO ×2 (07:59→16:02)
[2021-11-13] MEDS: MONTELUKAST SODIUM 10 MG TABLET PO (07:59)
[2021-11-13] MEDS: EMPAGLIFLOZIN 25 MG TABLET PO (07:59)
[2021-11-13] MEDS: lisinopriL 5 MG TABLET PO (08:00)
[2021-11-13] MEDS: METOPROLOL TARTRATE 25 MG TABLET PO ×2 (08:00→19:54)
[2021-11-13] MEDS: FLUTICASONE PROPIONATE 0.05% NA SPR 16 GM BTL (*BKC) 2 SPRAY NASAL (08:00)
[2021-11-13] MEDS: FLUTICASONE/SALMETEROL 230-21 MCG INHALER 1 PUFF 2 PUFF INHALATION ×2 (08:05→20:20)
--- NOTE | 2021-11-13 10:01 | PM.PNCARD ---
Progress Note: A&P Additional Plan For now will continue with current regimen his heart rate control is reasonable although not ideal since he is still in atrial flutter. Yesterday morning for a short time he was in sinus rhythm according to telemetry review. Hopefully the longer he takes amiodarone we will see tendency for more sinus rhythm than atrial flutter. He is nonetheless hemodynamically stable and not tachycardic with this rhythm and since he failed cardioversion nothing else could really be done about it at this time Cortes Roy MD [facility] Subjective Date/time seen: 11/13/21 10:01 Interval history: Follow-up visit in this 56-year-old man with: Atypical atrial flutter with moderate ventricular response patient is receiving rate control regimen including amiodarone as well as beta-alok. Attempted DC cardioversion surprisingly was unsuccessful. Principal reason for hospitalization is septic arthritis. No cardiovascular complaints. Patient is still reporting knee pain Exam Narrative: PHYSICAL EXAMINATION: GENERAL: Alert, oriented, mild distress due to right knee pain MENTAL STATUS: Anxious EYES: Extraocular movements intact, no pallor EARS: External ears appear normal, hearing grossly normal NOSE: Normal and patent, no discharge MOUTH: Mucous membranes moist, tongue normal NECK: Supple, no JVD CHEST: Good respiratory effort, clear to auscultation HEART: Normal rate, regular rhythm, normal S1 and S2, no audible murmurs ABDOMEN: Soft, nontender NEUROLOGICAL: Alert, oriented, normal speech, no gross motor deficits MUSCULOSKELETAL: No major deformity, no amputation EXTREMITIES: Swelling in the right knee area SKIN: no rash on the exposed area, no cyanosis PSYCHIATRIC: Normal mood, appropriate affect Const: General: comfortable and no acute distress Orientation/consciousness: patient oriented x3 Limitations: physical limitations HENMT: Head: normal to inspection Ears: hearing grossly normal bilaterally Face and sinus: normal facial exam Mouth: Yes Normal oral and palatal mucosa present Eyes: General: appearance normal, both eyes and all related structures Pupils: Equal, round and reactive pupils present Neck: Neck: normal visual inspection Resp: Effort & Inspection: normal respiratory effort Auscultation: clear to auscultation bilaterally Cardio: Rate: regular rate Rhythm: abnormal rhythm Heart sounds: S1 normal heart sound present and S2 normal heart sound present Peripheral pulses: Peripheral pulses 2+ throughout GI: Auscultation: normal bowel sounds Skin: General skin exam: normal color Neuro: General: patient oriented x3 Cranial nerves: Yes Equal, round and reactive pupils present Extrem: Right lower extremity: knee Details: abnormal to inspection, tenderness, swelling and abnormal ROM Psych: Appearance: grossly normal Mental Status: mental status grossly normal Objective Data Vital Signs Vital Signs: Vital Signs - 24 hr 11/12/21 11:56 11/12/21 12:00 11/12/21 15:58 Temperature 36.7 C 36.8 C Pulse Rate 94 93 109 H Respiratory Rate 16 16 Blood Pressure 129/82 122/77 Pulse Oximetry 99 98 11/12/21 16:00 11/12/21 17:11 11/12/21 17:44 Temperature Pulse Rate 108 H 108 H 148 H Respiratory Rate Blood Pressure Pulse Oximetry 11/12/21 20:00 11/12/21 21:27 11/12/21 21:39 Temperature 36.3 C L Pulse Rate 110 H 110 H 105 H Respiratory Rate 18 Blood Pressure 140/85 Pulse Oximetry 100 11/12/21 23:13 11/13/21 00:00 11/13/21 04:00 Temperature 36.9 C Pulse Rate 104 H 110 H Respiratory Rate 20 Blood Pressure 145/93 H Pulse Oximetry 96 100 11/13/21 04:10 11/13/21 07:59 11/13/21 08:00 Temperature 37.0 C Pulse Rate 110 H 118 H 118 H Respiratory Rate 18 Blood Pressure 142/90 H Pulse Oximetry 97 11/13/21 08:06 Temperature Pulse Rate Respiratory Rate Blood Pressure Pulse Oximetry 97 Intake/Output I
--- NOTE | 2021-11-13 10:39 | PCPTNOTE ---
Held treatment at this time per nursing. Nursing states patient needs a (picc) line and cannot have therapy until it is placed. will attempt at a later time.
[2021-11-13] MEDS: LIDOCAINE HCL 1% PF INJ 5 ML VIAL INFILTRATE (10:40)
--- NOTE | 2021-11-13 11:09 | PM.PNORT ---
Progress Note: A&P Assessment and Plan (1) Septic arthritis of knee, right: Qualifiers: Septic arthritis organism: staphylococcal Qualified Code(s): M00.061 - Staphylococcal arthritis, right knee Code(s): M00.9 - Pyogenic arthritis, unspecified Status: Acute Assessment and Plan: Care plan discussed with Dr. Greenfield and the hospitalist today. We agree that continued IV anntibiotics are indicated. He will be getting his PICC line and then discharged with IV vancomycin. Dr. Greenfield has kindly agreed to monitor. He will follow up weekly in my clinic as well. Subjective Subjective Date/Time Seen: 11/13/21 11:09 Objective Data Vital Signs Vital Signs: Vital Signs - 24 hr 11/12/21 11:56 11/12/21 12:00 11/12/21 15:58 Temperature 36.7 C 36.8 C Pulse Rate 94 93 109 H Respiratory Rate 16 16 Blood Pressure 129/82 122/77 Pulse Oximetry 99 98 11/12/21 16:00 11/12/21 17:11 11/12/21 17:44 Temperature Pulse Rate 108 H 108 H 148 H Respiratory Rate Blood Pressure Pulse Oximetry 11/12/21 20:00 11/12/21 21:27 11/12/21 21:39 Temperature 36.3 C L Pulse Rate 110 H 110 H 105 H Respiratory Rate 18 Blood Pressure 140/85 Pulse Oximetry 100 11/12/21 23:13 11/13/21 00:00 11/13/21 04:00 Temperature 36.9 C Pulse Rate 104 H 110 H Respiratory Rate 20 Blood Pressure 145/93 H Pulse Oximetry 96 100 11/13/21 04:10 11/13/21 07:59 11/13/21 08:00 Temperature 37.0 C Pulse Rate 110 H 118 H 118 H Respiratory Rate 18 Blood Pressure 142/90 H Pulse Oximetry 97 11/13/21 08:06 Temperature Pulse Rate Respiratory Rate Blood Pressure Pulse Oximetry 97 Intake/Output Intake/Output: Intake & Output 11/10/21 11/11/21 11/12/21 11/13/21 23:59 23:59 23:59 23:59 Intake Total 2449 2120 1990 880 Output Total 900 1700 3550 1600 Balance 0610 426 -3676 -850 Meds/Results Medications: Active Medications Generic Name Dose Route Start Last Admin Trade Name Freq PRN Reason Stop Dose Admin Hydrocodone Bitart/Acetaminophen 1 tab 10/31/21 13:38 11/13/21 09:23 Hydrocodone/Acetaminophen (*Crx) 5-325 Mg Tablet PO 1 tab Q4H PRN Administration Pain Rated 4-6 Amiodarone HCl 400 mg 11/10/21 17:00 11/13/21 07:59 Amiodarone Hcl 200 Mg Tablet PO 400 mg BID MELIDA Administration Dextrose 12.5 gm 10/30/21 17:47 Dextrose 50% 25 Gm/50 Ml Syringe IV PUSH PRN PRN Hypoglycemia Protocol Empagliflozin 25 mg 10/31/21 09:00 11/13/21 07:59 Empagliflozin 25 Mg Tablet PO 25 mg DAILY MELIDA Administration Fluticasone Propionate 2 spray 10/31/21 09:00 11/13/21 08:00 Fluticasone Propionate 0.05% Na Spr 16 Gm Btl (*Bkc) NASAL 2 spray DAILY MELIDA Administration Glimepiride 4 mg 10/31/21 09:00 11/13/21 07:59 Glimepiride 2 Mg Tablet PO 4 mg BID MELIDA Administration Glucagon 1 mg 10/30/21 17:47 Glucagon For Inj 1 Mg Vial IM PRN PRN Hypoglycemia Protocol Glucose 15 gm 10/30/21 17:47 Glucose Oral Gel 15 Gm Of Glucse In 37.5 Gm Tube PO PRN PRN Hypoglycemia Protocol Hydromorphone HCl 1 mg 10/31/21 13:39 11/06/21 02:10 Hydromorphone Hcl Inj (*Crx) 1 Mg/Ml Syr IV PUSH 1 mg Q4H PRN Administration Pain Rated 7-10 Dextrose 1,000 mls @ 100 mls/hr 10/30/21 17:47 Dextrose 5% 1,000 Ml IVPB PRN PRN Hypoglycemia Protocol Vancomycin HCl 1,250 mg in 250 mls @ 200 mls/hr 11/12/21 12:00 11/13/21 01:26 Vancomycin 1,250 Mg/D5w 250 Ml IVPB Infused Q12H MELIDA Infusion Insulin Aspart 4 - 8 units 10/31/21 17:00 11/13/21 07:42 Insulin Aspart (*Bkc) 100 Units/Ml SUB-Q Not Given [facility] Protocol Lisinopril 5 mg 10/31/21 09:00 11/13/21 08:00 Lisinopril 5 Mg Tablet PO 5 mg DAILY MELIDA Administration Melatonin 5 mg 11/01/21 21:00 11/12/21 21:28 Melatonin 5 Mg Tablet PO 5 mg HS MELIDA Administration Metoprolol Tar
[2021-11-13 11:52] LABS: Glucose Point of Care 150 mg/dl (65-105)
--- NOTE | 2021-11-13 12:25 | PCOTNOTE ---
Attempted to see patient this pm, however patient was with physical therapy at this time.
--- NOTE | 2021-11-13 13:45 | PC.NURSE ---
On 11/13/21, the student, [Arie Drake], provided care and completed [facility] documentation on this patient. I have reviewed the student's documentation and agree with the findings.
[2021-11-13] MEDS: CENTRAL LINE FLUSH 10 ML IV PUSH ×2 (14:17→19:55)
--- NOTE | 2021-11-13 15:52 | PM.PNORT ---
Progress Note: A&P Assessment and Plan (1) Septic arthritis of knee, right: Qualifiers: Septic arthritis organism: staphylococcal Qualified Code(s): M00.061 - Staphylococcal arthritis, right knee Code(s): M00.9 - Pyogenic arthritis, unspecified Status: Acute Assessment and Plan: PICC line has been placed. The patient is comfortable. He exercise with physical therapy today. Trace effusion. No warmth or erythema. Mild residual tenderness. Gentle motion well tolerated. Reviewed his discharge plan with him and his . Follow-up appointments have been arranged. Subjective Subjective Date/Time Seen: 11/13/21 15:52 Objective Data Vital Signs Vital Signs: Vital Signs - 24 hr 11/12/21 15:58 11/12/21 16:00 11/12/21 17:11 Temperature 36.8 C Pulse Rate 109 H 108 H 108 H Respiratory Rate 16 Blood Pressure 122/77 Pulse Oximetry 98 11/12/21 17:44 11/12/21 20:00 11/12/21 21:27 Temperature 36.3 C L Pulse Rate 148 H 110 H 110 H Respiratory Rate 18 Blood Pressure 140/85 Pulse Oximetry 100 11/12/21 21:39 11/12/21 23:13 11/13/21 00:00 Temperature 36.9 C Pulse Rate 105 H 104 H Respiratory Rate 20 Blood Pressure 145/93 H Pulse Oximetry 96 100 11/13/21 04:00 11/13/21 04:10 11/13/21 07:59 Temperature 37.0 C Pulse Rate 110 H 110 H 118 H Respiratory Rate 18 Blood Pressure 142/90 H Pulse Oximetry 97 11/13/21 08:00 11/13/21 08:06 11/13/21 12:00 Temperature Pulse Rate 118 H 120 H Respiratory Rate Blood Pressure Pulse Oximetry 97 11/13/21 14:19 Temperature 37.3 C Pulse Rate 102 H Respiratory Rate 17 Blood Pressure 128/92 H Pulse Oximetry 98 Intake/Output Intake/Output: Intake & Output 11/10/21 11/11/21 11/12/21 11/13/21 23:59 23:59 23:59 23:59 Intake Total 2449 2120 1990 1360 Output Total 900 1700 3550 2800 Balance 9450 517 -[id number] -1048 Meds/Results Medications: Active Medications Generic Name Dose Route Start Last Admin Trade Name Freq PRN Reason Stop Dose Admin Hydrocodone Bitart/Acetaminophen 1 tab 10/31/21 13:38 11/13/21 14:13 Hydrocodone/Acetaminophen (*Crx) 5-325 Mg Tablet PO 1 tab Q4H PRN Administration Pain Rated 4-6 Amiodarone HCl 400 mg 11/10/21 17:00 11/13/21 07:59 Amiodarone Hcl 200 Mg Tablet PO 400 mg BID MELIDA Administration Dextrose 12.5 gm 10/30/21 17:47 Dextrose 50% 25 Gm/50 Ml Syringe IV PUSH PRN PRN Hypoglycemia Protocol Docusate Sodium 100 mg 11/13/21 21:00 Docusate Sodium 100 Mg Capsule PO Q12HR MELIDA Empagliflozin 25 mg 10/31/21 09:00 11/13/21 07:59 Empagliflozin 25 Mg Tablet PO 25 mg DAILY MELIDA Administration Fluticasone Propionate 2 spray 10/31/21 09:00 11/13/21 08:00 Fluticasone Propionate 0.05% Na Spr 16 Gm Btl (*Bkc) NASAL 2 spray DAILY MELIDA Administration Glimepiride 4 mg 10/31/21 09:00 11/13/21 07:59 Glimepiride 2 Mg Tablet PO 4 mg BID MELIDA Administration Glucagon 1 mg 10/30/21 17:47 Glucagon For Inj 1 Mg Vial IM PRN PRN Hypoglycemia Protocol Glucose 15 gm 10/30/21 17:47 Glucose Oral Gel 15 Gm Of Glucse In 37.5 Gm Tube PO PRN PRN Hypoglycemia Protocol Hydromorphone HCl 1 mg 10/31/21 13:39 11/06/21 02:10 Hydromorphone Hcl Inj (*Crx) 1 Mg/Ml Syr IV PUSH 1 mg Q4H PRN Administration Pain Rated 7-10 Dextrose 1,000 mls @ 100 mls/hr 10/30/21 17:47 Dextrose 5% 1,000 Ml IVPB PRN PRN Hypoglycemia Protocol Vancomycin HCl 1,250 mg in 250 mls @ 200 mls/hr 11/12/21 12:00 11/13/21 12:18 Vancomycin 1,250 Mg/D5w 250 Ml IVPB 200 mls/hr Q12H MELIDA Administration Insulin Aspart 4 - 8 units 10/31/21 17:00 11/13/21 11:55 Insulin Aspart (*Bkc) 100 Units/Ml SUB-Q Not Given TID[facility] Protocol Lisinopril 5 mg 10/31/21 09:00 11/13/21 08:00 Lisinopril 5 Mg Tablet PO 5 mg DAILY MELIDA Administrati
[2021-11-13] MEDS: RIVAROXABAN 20 MG TABLET PO (16:02)
[2021-11-13 16:25] LABS: Glucose Point of Care 195 mg/dl (65-105)
--- NOTE | 2021-11-13 17:04 | PM.IMPN ---
Progress Note: A&P Assessment and Plan (1) Atrial flutter with rapid ventricular response: Code(s): I48.92 - Unspecified atrial flutter Status: Acute Assessment and Plan: Pt. with failed cardioversion x2 11/09/2021 now back to sinus rhythm Post cardioversion, patient had narrow complex tachycardia, and was given IV adenosine x2 without change in the rhythm . , transferred to ICU for esmolol infusion. Remains in sinus rhythm Metoprolol and amiodarone Continue anticoagulation with Xarelto EP evaluation as an outpatient basis (2) Gout: Qualifiers: Gout site: unspecified site Encounter type: sequela Chronicity: unspecified Code(s): M10.9 - Gout, unspecified Status: Chronic Assessment and Plan: colchicine (3) Septic arthritis: Qualifiers: Laterality: right Septic arthritis location: knee Septic arthritis organism: staphylococcal Qualified Code(s): M00.061 - Staphylococcal arthritis, right knee Code(s): M00.9 - Pyogenic arthritis, unspecified Status: Acute Assessment and Plan: synovial fluid is growing MRSA sensitive to vancomycin Patient on IV vancomycin will need 4-6 weeks of IV antibiotics Orthopedic following May need PICC line Anticipate discharge once okay with Orthopedic and after probably placement of PICC line final recommendation regarding antibiotic pending from Orthopedic Touch base with social scientist to get infectious disease to follow as an outpatient. IV vancomycin for For weeks course to be planned followed by oral antibiotic Blood culture x2 has been negative on admission Dr. Berrios agreed to follow him at for his IV antibiotics as an outpatient. For 2 more weeks PICC line in place Oral options is clindamycin/ doxycycline/Bactrim after conclusion of IV antibiotics Discussed with patient in detail He will follow-up with Dr. Fuentes as an outpatient basis weekly (4) Type 2 diabetes mellitus: Qualifiers: Diabetes mellitus makeup artist insulin use: without makeup artist use Diabetes mellitus complication status: with hyperglycemia Qualified Code(s): E11.65 - Type 2 diabetes mellitus with hyperglycemia Code(s): E11.9 - Type 2 diabetes mellitus without complications Status: Chronic Assessment and Plan: continue Amaryl Jardiance and sliding scale (5) Hypertension: Code(s): I10 - Essential (primary) hypertension Status: Chronic Assessment and Plan: currently on p.o. metoprolol, lisinopril Additional Plan DVT prophylaxis - Xarelto Code Status - Full Code Subjective Date/time seen: 11/13/21 17:04 Interval history: Biju Navarrete is a 56-year-old male with a history of ADHD, BPH, hypertension, hyperlipidemia, type 2 diabetes mellitus, and asthma who is seen in follow-up for septic arthritis of the right knee as well as atrial flutter with rapid ventricular response. Failed cardioversion transferred to ICU for esmolol drip. Patient currently on IV antibiotics for MRSA septic arthritis Had knee aspiration again 11/12/21 no new complaints. Denies any fever. Right knee is sore improving daily. He is able to ambulate slowly no overnight events. Remains afebrile. States that his knee is improving. Remains afebrile. Plans for IV antibiotics discussed with the patient and his at bedside. Review of Systems Review of Systems: All systems reviewed & are unremarkable except as noted in HPI and below (HPI) Exam Narrative: GENERAL: The patient is well developed, not in acute distress HEENT: Nonicteric sclerae, PERRLA, EOMI. Oropharynx clear. Moist mucous membranes. Conjunctivae appear well perfused. CHEST: Chest wall is nontender. HEART: Regular rate and rhythm without murmur, rubs, or gallops LUNGS: Clear to auscultation bilaterally. no respiratory distress ABDOMEN: Soft, positive bowel sounds, non-tender, no organomegaly. SKIN: No rash, no excessive bruising, p
[2021-11-13 19:49] LABS: Glucose Point of Care 256 mg/dl (65-105)
[2021-11-13] MEDS: METOPROLOL TARTRATE INJ 5 MG/5 ML VIAL IV PUSH (19:53)
[2021-11-13] MEDS: DOCUSATE SODIUM 100 MG CAPSULE PO (19:54)
[2021-11-13] MEDS: MELATONIN 5 MG TABLET PO (19:54)
[2021-11-14] VITALS (7 sets, daily range): BP systolic 126; BP diastolic 85; PULSE 108–114; RESP 18; TEMP 36.1; O2SAT 99
[2021-11-14] MEDS: HYDROcodone/acetaminophen (*CRX) 5-325 MG TABLET 1 TAB PO ×2 (01:24→08:16)
[2021-11-14] MEDS: CENTRAL LINE FLUSH 10 ML IV PUSH (05:37)
[2021-11-14 05:44] LABS: Hematocrit 34.5 % (42.0-52.0); Hemoglobin 10.5 g/dL (14.0-18.0); Mean Corpuscular HGB Conc 30.4 g/dl (32-36); Mean Corpuscular Hemoglobin 26.9 pg (26-34); Mean Corpuscular Volume 88.2 fl (80-100); Mean Platelet Volume 8.2 fl (7.4-10.4); Platelet Count Result 384 k/mm3 (150-375); Red Blood Count 3.91 M/mm3 (4.6-6.20); Red Cell Distribution Width 14.3 % (11.5-14.5); White Blood Count 10.1 K/mm3 (4.5-10.0)
[2021-11-14 05:54] LABS: Alanine Aminotransferase 29 U/L (4-50); Albumin Level 2.8 g/dL (3.5-5.1); Alkaline Phosphatase 126 U/L (38-126); Anion Gap 4 mmol/L (8-16); Aspartate Amino Transferase 27 U/L (17-59); Bilirubin,Total 0.5 mg/dL (0.2-1.3); Blood Urea Nitrogen 16 mg/dL (9-20); Calcium 8.2 mg/dL (8.4-10.2); Carbon Dioxide 29 mmol/L (22-30); Chloride 103 mmol/L (98-107); Estimated CRCL calculation 77 ml/min; Estimated Glomerular Filt Rate > 60; Glucose 93 mg/dL (65-110); Magnesium 1.8 mg/dL (1.6-2.3); Potassium 3.9 mmol/L (3.4-5.0); Sodium 136 mmol/L (137-145)
[2021-11-14 07:39] LABS: Glucose Point of Care 89 mg/dl (65-105)
[2021-11-14] MEDS: AMIODARONE HCL 200 MG TABLET 400 MG PO (08:11)
[2021-11-14] MEDS: FLUTICASONE PROPIONATE 0.05% NA SPR 16 GM BTL (*BKC) 2 SPRAY NASAL (08:11)
[2021-11-14] MEDS: lisinopriL 5 MG TABLET PO (08:11)
[2021-11-14] MEDS: GLIMEPIRIDE 2 MG TABLET 4 MG PO (08:11)
[2021-11-14] MEDS: MONTELUKAST SODIUM 10 MG TABLET PO (08:11)
[2021-11-14] MEDS: EMPAGLIFLOZIN 25 MG TABLET PO (08:12)
[2021-11-14] MEDS: DOCUSATE SODIUM 100 MG CAPSULE PO (08:12)
[2021-11-14] MEDS: METOPROLOL TARTRATE 25 MG TABLET PO (08:12)
--- NOTE | 2021-11-14 10:40 | PM.DS ---
DS: Admitting Diagnosis Discharge Date 11/14/2021 Admitting Diagnosis Septic arthritis DS: Discharge Diagnosis Discharge Diagnosis (1) Atrial flutter with rapid ventricular response: Code(s): I48.92 - Unspecified atrial flutter Status: Acute Assessment and Plan: Pt. with failed cardioversion x2 11/09/2021 now back to sinus rhythm Post cardioversion, patient had narrow complex tachycardia, and was given IV adenosine x2 without change in the rhythm . , transferred to ICU for esmolol infusion. Remains in sinus rhythm but goes in and out of AFib Metoprolol and amiodarone. Amiodarone 400 mg twice daily but will switch to once daily in 11/17/2021. Metoprolol dose increased to q.8 hours 25 mg better rate control Continue anticoagulation with Xarelto EP evaluation as an outpatient basis (2) Gout: Qualifiers: Gout site: unspecified site Encounter type: sequela Chronicity: unspecified Code(s): M10.9 - Gout, unspecified Status: Chronic Assessment and Plan: colchicine (3) Septic arthritis: Qualifiers: Laterality: right Septic arthritis location: knee Septic arthritis organism: staphylococcal Qualified Code(s): M00.061 - Staphylococcal arthritis, right knee Code(s): M00.9 - Pyogenic arthritis, unspecified Status: Acute Assessment and Plan: synovial fluid is growing MRSA sensitive to vancomycin Patient on IV vancomycin will need 4-6 weeks of IV antibiotics Orthopedic following Patient underwent intermittent right knee aspiration x4 during the hospital stay Infectious disease was not available for consultation in the hospital. Discussed with orthopedics and with his septic arthritis will prefer to give him at least 4 weeks of IV antibiotics followed by oral antibiotics for 2 more weeks following that Blood culture x2 has been negative on admission Dr. Berrios agreed to follow him at for his IV antibiotics as an outpatient. He needed 2 more weeks of IV antibiotics as an outpatient basis at the time of discharge which was arranged with [facility]. PICC line was placed on 11/13/2021 and needs to be removed after IV antibiotics are concluded Oral options is clindamycin/ doxycycline/Bactrim after conclusion of IV antibiotics which is not ordered and niece to be followed up by primary care/orthopedics Discussed with patient in detail He will follow-up with Dr. Barrett as an outpatient basis weekly (4) Type 2 diabetes mellitus: Qualifiers: Diabetes mellitus jail insulin use: without supervisor intermediates use Diabetes mellitus complication status: with hyperglycemia Qualified Code(s): E11.65 - Type 2 diabetes mellitus with hyperglycemia Code(s): E11.9 - Type 2 diabetes mellitus without complications Status: Chronic Assessment and Plan: continue Amaryl Jardiance and sliding scale Resume home medication at discharge (5) Hypertension: Code(s): I10 - Essential (primary) hypertension Status: Chronic Assessment and Plan: currently on p.o. metoprolol, lisinopril DS: Summary Hospital Course Hospital Course: See above Time Spent with Patient Time attestation: Total time spent providing and/or coordinating discharge services: 60 minutes Exam Narrative: GENERAL: The patient is well developed, not in acute distress HEENT: Nonicteric sclerae, PERRLA, EOMI. Oropharynx clear. Moist mucous membranes. Conjunctivae appear well perfused. CHEST: Chest wall is nontender. HEART: Mildly tachycardic, Regular rate without murmur, rubs, or gallops LUNGS: Clear to auscultation bilaterally. no respiratory distress ABDOMEN: Soft, positive bowel sounds, non-tender, no organomegaly. SKIN: No rash, no excessive bruising, petechiae, or purpura. NEUROLOGIC: Cranial nerves II-XII intact, alert and oriented x 3, no gross motor deficits EXTREMITIES: no edema, cyanosis or clubbing Right knee with swelling and tenderness noted range of motion
[2021-11-14 11:13] LABS: Glucose Point of Care 224 mg/dl (65-105)
[2021-11-14] MEDS: INSULIN ASPART (*BKC) 100 UNITS/ML SUB-Q (11:40)
== END 2021-11-14 12:50 | disposition home health service (06) | DRG 549 ==
LOC: ANHED 15:22 → ANH3MED 15:35 → ANHIMU 11-05 00:32 → ANH3MED 11-06 14:46 → ANHICU 11-09 12:52 → ANHIMU 11-10 13:12 → ANH2MED 11-12 21:01
PROVIDERS: Family Medicine; Internal Medicine; Internal Medicine Cardiovascular Disease; Nurse Practitioner; Nurse Practitioner Adult Health; Orthopaedic Surgery; Physician Assistant; Admitting Provider Internal Medicine; Emergency Provider Emergency Medicine; PCP Internal Medicine; Visit Provider Internal Medicine
PROC: 5A2204Z Restoration of Cardiac Rhythm, Single (ICD-10-PCS; principal; 2021-11-05 13:00)
DX: M00.061 Staphylococcal arthritis, right knee (principal); I48.92 Unspecified atrial flutter; I47.1 Supraventricular tachycardia; B95.62 Methicillin resistant Staphylococcus aureus infection as the cause of diseases classified elsewhere; I10 Essential (primary) hypertension; E78.5 Hyperlipidemia, unspecified; J45.909 Unspecified asthma, uncomplicated; Z86.73 Personal history of transient ischemic attack (TIA), and cerebral infarction without residual deficits; Z79.82 Long term (current) use of aspirin; Z87.891 Personal history of nicotine dependence; F90.9 Attention-deficit hyperactivity disorder, unspecified type; M10.9 Gout, unspecified; N40.0 Benign prostatic hyperplasia without lower urinary tract symptoms; M00.9 Pyogenic arthritis, unspecified; Z79.84 Long term (current) use of oral hypoglycemic drugs; E11.65 Type 2 diabetes mellitus with hyperglycemia; I48.91 Unspecified atrial fibrillation
CPT/HCPCS: 36415; 36569; 71045; 73701; 80048; 80053; 80202; 82565; 82948; 83036; 83605; 83735; 83880; 84443; 85025; 85027; 85610; 85730; 86140; 87040; 87070; 87075; 87147; 87181; 87186; 87205; 89060; 92960; 93005; 93306; 93970; 94640; 97110; 97116; 97161; 97165; 97530; 97535; 99285; A9270; C1751; J0131; J0153; J0282; J0696; J1170; J1644; J1650; J1815; J2060; J2250; J2310; J2405; J2704; J3010; J3370; J3475; J7030; J7040

== ENCOUNTER 2021-10-30 12:31 | Outpatient (NON) | payer BC, SELFPAY ==
[2021-10-30 13:30] LABS: Crystals Synovial Fluid None Seen (None Seen)
== END 2021-10-30 12:32 | disposition home or self-care (01) ==
PROVIDERS: PCP Nurse Practitioner; Visit Provider Orthopaedic Surgery
DX: M00.061 Staphylococcal arthritis, right knee (principal)
CPT/HCPCS: 87070; 87075; 87147; 87181; 87186; 87205; 89060

== ENCOUNTER 2022-07-23 00:53 | Day surgery (SDC) | payer BC, SELFPAY ==
[2022-07-16 11:40] VITALS: BMI 23.8
[2022-07-23 06:40] VITALS: BP 115/67; PULSE 75; RESP 18; O2SAT 99
[2022-07-23] MEDS: LACTATED RINGERS 1,000 ML 150 ML IV CONT (06:43)
[2022-07-23] MEDS: DEXTROSE 50% 25 GM/50 ML SYRINGE IV PUSH (06:45)
[2022-07-23 06:59] LABS: Glucose Point of Care 126 mg/dl (65-105)
[2022-07-23 06:59] LABS: Glucose Point of Care 65 mg/dl (65-105)
--- NOTE | 2022-07-23 07:20 | PM.HPGS ---
History of Present Illness History of Present Illness Consent: Risks, benefits, and alternatives have been discussed and questions answered. Patient agrees to proceed with procedure. Chief complaint: neoplasm screening Narrative: Biju Navarrete is a 57 year old male here for first screening colonoscopy Review of Systems Constitutional: Constitutional: Denies headache(s) and Denies weakness Eyes: Eyes: Denies blurry vision ENT: Reports Normal hearing present, Denies headache(s) and Denies neck pain Cardiovascular: Cardiovascular: Denies chest pain and Denies dyspnea Respiratory: Respiratory: Denies dyspnea Gastrointestinal: Gastrointestinal: Reports no additional gastrointestinal complaints Genitourinary: Genitourinary: Denies dysuria Musculoskeletal: Musculoskeletal: Denies neck pain Integumentary/Breasts: Skin/Breast: Denies dry skin Neurologic: Reports Normal hearing present, Denies headache(s) and Denies weakness Psychiatric: Psychiatric: Denies anxiety Endocrine: Endocrine: Denies change in body appearance Hematologic/Lymphatic: Hematologic/Lymphatic: Denies easy bleeding Allergic/Immunologic: Allergic/Immunologic: Denies urticaria PMFSH Past Medical History Medical History ADHD (attention deficit hyperactivity disorder) Adhesions of nasal septum and turbinates BPH w/o urinary obs/LUTS Gout Hyperlipidemia Hypertension Rhinitis Screening for colon cancer Type 2 diabetes mellitus Unspecified asthma, uncomplicated Surgical History Surgical History H/O nasal polypectomy History of tonsillectomy S/P ORIF (open reduction internal fixation) fracture left tibula Family History Family History Mother Polio Father Lung cancer Sibling Carcinoma of colon Social History Social History (Updated 06/18/22 @ 13:16 by Yasemin Valadez CMA) Social History: The patient is and lives with his . They have 3 children. They have a [employer] company as well as a [employer] company. Patient is a former smoker does not use any alcohol marijuana or illicit drugs. 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 Code status full code Smoking packs per day: 1 Smoking cigarettes per day: 20.0 Years smoked: 5 Smoking pack-years: 5.00 Smoking status: Former smoker Tobacco type: cigarettes Second hand tobacco smoke exposure: No Smoking end date: 08/08/91 Alcohol intake: never Substance use: never Substance use type: does not use Lack of Transportation: No Lack of Food: Never True Current Housing: I Have Housing Concerned About Future Housing: No Difficulty Paying Gas/Electric Bills: No Difficulty Paying for Meds: No Education: Grade School Difficulty w/ Childcare or Family Care: No Living arrangements: with family Spiritual care concerns: No Meds Home Medications and Allergies Home Medications Medication Instructions Recorded Confirmed Type fluticasone 500 mcg-salmeterol 50 1 inh inhalation Q12H #60 ea 04/23/21 07/23/22 Rx mcg/dose blistr powdr for inhalation (Advair Diskus) sildenafil (pulm.hypertension) 20 20 mg PO .COMPLEX #90 tabs 08/17/21 07/23/22 Rx mg tablet glimepiride 4 mg tablet 4 mg PO BID #180 tabs 12/07/21 07/23/22 Rx montelukast 10 mg tablet 10 mg PO DAILY #90 tabs 12/07/21 07/23/22 Rx (Singulair) lisinopril 5 mg tablet 5 mg PO DAILY #90 tabs 02/15/22 07/23/22 Rx rivaroxaban 20 mg tablet (Xarelto) 20 mg PO DAILY 02/22/22 07/23/22 History diltiazem HCl 120 mg 120 mg PO DAILY 04/28/22 07/23/22 History capsule,extended release 24 hr, controlled (DILT-XR) flecainide 150 mg tablet 150 mg PO Q12H 04/28/22 07/23/22 History sitagliptin phosphate 100 mg 100 mg PO DAILY #90 tabs 06/07/22 07/23/22 Rx tablet (Januvia) metformin 1,00
--- NOTE | 2022-07-23 07:48 | WPDANESEPPF ---
Anes - Initial Pre Proc Eval Procedure: Operation Date: 07/23/22 07:30 Proposed Procedures p Screening Colonoscopy - Jarred Garcia MD Date/Time: 07/23/22 07:48 Surgeon: Jarred Garcia MD Pre Op Diagnosis: neoplasm screening Patient Data Age: 57 Gender: M Height: 1.85 m Weight: 74.7 kg Last Vital Signs Pulse 75 07/23/22 06:40 Resp 18 07/23/22 06:40 BP 115/67 07/23/22 06:40 Pulse Ox 99 07/23/22 06:40 O2 Del Method Room Air 07/23/22 06:40 Allergies Allergy/AdvReac Type Severity Reaction Status Date / Time vancomycin Allergy Severe Hives Verified 07/23/22 06:38 Home Medications Medication Instructions Recorded Confirmed Type fluticasone 500 mcg-salmeterol 50 1 inh inhalation Q12H #60 ea 04/23/21 07/23/22 Rx mcg/dose blistr powdr for inhalation (Advair Diskus) sildenafil (pulm.hypertension) 20 20 mg PO .COMPLEX #90 tabs 08/17/21 07/23/22 Rx mg tablet glimepiride 4 mg tablet 4 mg PO BID #180 tabs 12/07/21 07/23/22 Rx montelukast 10 mg tablet 10 mg PO DAILY #90 tabs 12/07/21 07/23/22 Rx (Singulair) lisinopril 5 mg tablet 5 mg PO DAILY #90 tabs 02/15/22 07/23/22 Rx rivaroxaban 20 mg tablet (Xarelto) 20 mg PO DAILY 02/22/22 07/23/22 History diltiazem HCl 120 mg 120 mg PO DAILY 04/28/22 07/23/22 History capsule,extended release 24 hr, controlled (DILT-XR) flecainide 150 mg tablet 150 mg PO Q12H 04/28/22 07/23/22 History sitagliptin phosphate 100 mg 100 mg PO DAILY #90 tabs 06/07/22 07/23/22 Rx tablet (Januvia) metformin 1,000 mg tablet 1,000 mg BID 07/16/22 07/23/22 History Laboratory Tests 07/23/22 07/23/22 06:24 06:57 POC Capillary Glucose 65 mg/dl mg/dl 126 mg/dl H mg/dl (65-105) (65-105) Patient hx anesthesia problems: none Family hx anesthesia problems: none Results Review: All pre-operative results and documents have been reviewed as part of the pre-operative evaluation. [facility] Past Medical History Medical History ADHD (attention deficit hyperactivity disorder) Adhesions of nasal septum and turbinates BPH w/o urinary obs/LUTS Gout Hyperlipidemia Hypertension Rhinitis Screening for colon cancer Type 2 diabetes mellitus Unspecified asthma, uncomplicated Surgical History Surgical History H/O nasal polypectomy History of tonsillectomy S/P ORIF (open reduction internal fixation) fracture left tibula Family History Family History Mother Polio Father Lung cancer Sibling Carcinoma of colon Social History Social History (Updated 06/18/22 @ 13:16 by Yasemin Valadez [facility]) Social History: The patient is and lives with his . They have 3 children. They have a [employer] company as well as a [employer] company. Patient is a former smoker does not use any alcohol marijuana or illicit drugs. 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 Code status full code Smoking packs per day: 1 Smoking cigarettes per day: 20.0 Years smoked: 5 Smoking pack-years: 5.00 Smoking status: Former smoker Tobacco type: cigarettes Second hand tobacco smoke exposure: No Smoking end date: 08/08/91 Alcohol intake: never Substance use: never Substance use type: does not use Lack of Transportation: No Lack of Food: Never True Current Housing: I Have Housing Concerned About Future Housing: No Difficulty Paying Gas/Electric Bills: No Difficulty Paying for Meds: No Education: Grade School Difficulty w/ Childcare or Family Care: No Living arrangements: with family Spiritual care concerns: No Anes - Eval Final PreProcedure Day of Procedure 07/23/22 07:48 Patient weight: normal Heart: regular rate and rhythm Lungs: clear to auscultation Airway: Mallampati scale class II Neurolog
[2022-07-23 07:50] VITALS: BP 99/61; PULSE 64; RESP 19; O2SAT 98
[2022-07-23 08:00] VITALS: BP 97/61; PULSE 62; RESP 17; O2SAT 97
[2022-07-23 08:05] LABS: Glucose Point of Care 89 mg/dl (65-105)
[2022-07-23 08:10] VITALS: BP 127/52; PULSE 61; RESP 15; O2SAT 98
== END 2022-07-23 08:25 | disposition home or self-care (01) ==
PROVIDERS: PCP Internal Medicine; Visit Provider Internal Medicine Gastroenterology
PROC: 0DJD8ZZ Inspection of Lower Intestinal Tract, Via Natural or Artificial Opening Endoscopic (ICD-10-PCS; CPT 45378; principal; 2022-07-23 07:30)
DX: Z12.11 Encounter for screening for malignant neoplasm of colon (principal); D12.3 Benign neoplasm of transverse colon; D12.2 Benign neoplasm of ascending colon; K64.8 Other hemorrhoids; I10 Essential (primary) hypertension; E78.5 Hyperlipidemia, unspecified; E11.9 Type 2 diabetes mellitus without complications; J45.909 Unspecified asthma, uncomplicated; M10.9 Gout, unspecified; N40.0 Benign prostatic hyperplasia without lower urinary tract symptoms; Z87.891 Personal history of nicotine dependence; Z79.84 Long term (current) use of oral hypoglycemic drugs
CPT/HCPCS: 45385; 82948; 88305; J2704; J7120

== ENCOUNTER 2022-08-01 07:11 | Inpatient (IN) | payer BC, SELFPAY ==
[2022-08-01] VITALS (18 sets, daily range): BP systolic 97–148; BP diastolic 64–90; PULSE 68–200; RESP 18–22; TEMP 35.9–36.8; O2SAT 97–100; BMI 21.9; BMI 21.8
--- NOTE | ~2022-08-01 | NM_ITS ---
EXAMINATION: NM nicky stress w perfusion DATE: 08/03/2022 11:24 INDICATION: Chest pain. Elevated troponins and abnormal EKG. TECHNIQUE: Rest images were obtained following intravenous administration of 10.2 mCi Tc99m tetrofosm in (Myoview). The patient was infused intravenously with Lexiscan (Regadenoson). Then, 33.0 mCi Tc99m tetrofosmin (Myoview) was administered intravenously, and stress images were obtained in supine posi tion. Additional prone post stress images were obtained. Data was reconstructed into short axis and h orizontal and vertical long axis SPECT images. Gated SPECT images were also obtained. COMPARISON: None. FINDINGS: There is a perfusion defect involving the apical as well as the surrounding anterior, later al, inferior and septal apical segments on the rest and stress images in the supine position likely t o large degree artifactual with normalization with prone imaging in all but the apical and apical inf erior segments where there is improvement but activity consistent with small mild infarct not complet binu normalized. There is a small region of mildly decreased perfusion at the mid anterior segment on the post stress images which persists with prone imaging with areas of abnormal uptake on rest imagin g consistent with small region of mild ischemia. Mildly increased left ventricular chamber size with calculated end-diastolic volume of 197 mm. There is normal left ventricular wall motion and ejection fraction. Left ventricular ejection fraction measures 52%. IMPRESSION: 1. Small mild infarct involving the apical and apical inferior segments. 2. Small region of mild reversible decreased perfusion system with ischemia at the mid anterior segme nt. 2. Mild left ventricular enlargement with normal left ventricular ejection fraction measuring 52%. Reviewed, dictated and finalized at location A. EDICAL SERVICE ENGINEER IMPRESSION: 1. Small mild infarct involving the apical and apical inferior segments. 2. Small region of mild reversible decreased perfusion system with ischemia at the mid anterior segment. 2. Mild left ventricular enlargement with normal left ventricular ejection frac tion measuring 52%.
--- NOTE | ~2022-08-01 | XR_ITS ---
EXAMINATION: XR chest 1V portable DATE: 08/01/2022 08:02 INDICATION: Shortness of breath. Supraventricular tachycardia. TECHNIQUE: frontal view of the chest was obtained. COMPARISON: Chest radiograph dated 11/13/2021 FINDINGS: The lungs are clear with no focal airspace opacities, pulmonary edema, pleural effusion or pneumothor ax. The cardiomediastinal silhouette is normal. Old healed right clavicle fracture deformity. IMPRESSION: 1. No acute cardiopulmonary disease. Reviewed, dictated and finalized at location A. ODITY MERCHANT
[2022-08-01] MEDS: fentaNYL CITRATE INJ (*CRX) 100 MCG/2 ML VIAL (07:31)
[2022-08-01] MEDS: MIDAZOLAM HCL (*CRX) 2 MG/2 ML VIAL (07:31)
--- NOTE | 2022-08-01 07:35 | ECG_ITS ---
Measurements Intervals [place] Rate: 96 P: 78 [place]: 140 QRS: -35 QRSD: 125 T: 85 QT: 383 QTc: 484 Interpretive Statements SINUS RHYTHM LEFT AXIS DEVIATION SEPTAL MYOCARDIAL INFARCTION, PROBABLY OLD ST DEPRESSION, CONSIDER SUBENDOCARDIAL INJURY ABNORMAL ECG COMPARED TO ECG 11/12/2021 09:29:41 ST ABNORMALITIES MORE PROMINENT Electronically Signed On 08-01-2022 15:50:47 MAPLE SUGAR MAKER by Zechariah De Souza M.D.
--- NOTE | 2022-08-01 07:38 | ED.ARRPALP ---
HPI - Arrhythmia/Palpitations General Chief Complaint: Arrhythmia/Palpitations Stated Complaint: chest pain Time Seen by Provider: 08/01/22 07:35 History of Present Illness HPI narrative: Patient is a 57-year-old male with a history of atrial flutter status post ablation on flecainide and Dilt, hypertension, diabetes presenting with chest pain and lightheadedness. Patient states that starting last night he developed lightheadedness and palpitations. The sensation continued through this morning and he is now complaining of substernal chest pressure. On arrival patient is noted to be in SVT with a rate around 200. History limited due to clinical condition the patient denies recent illnesses or infectious symptoms. States he is compliant with his medications. Related Data Home Medications Medication Instructions Recorded Confirmed rivaroxaban 20 mg tablet (Xarelto) 20 mg PO DAILY 02/22/22 08/01/22 diltiazem HCl 120 mg 120 mg PO DAILY 04/28/22 08/01/22 capsule,extended release 24 hr, controlled (DILT-XR) flecainide 150 mg tablet 150 mg PO Q12H 04/28/22 08/01/22 metformin 1,000 mg tablet 1,000 mg BID 07/16/22 08/01/22 Adults Multivitamin 1 tablet PO DAILY 08/01/22 08/01/22 Allergies Allergy/AdvReac Type Severity Reaction Status Date / Time vancomycin Allergy Severe Hives Verified 08/01/22 07:46 Review of Systems Review of Systems: ROS unobtainable: Yes unobtainable due to medical condition PMFSH Past Medical History Medical History (Updated 08/04/22 @ 13:48 by Elba Harp MD) Asthma Atrial fibrillation and flutter Attention deficit hyperactivity disorder Benign prostatic hyperplasia Gout Hyperlipidemia Hypertension Septic arthritis of knee, right (10/2021) Type 2 diabetes mellitus Surgical History Surgical History (Updated 08/01/22 @ 22:40 by Chula Pacheco PA-C) History of cardiac radiofrequency ablation (04/2022) History of nasal polypectomy History of open reduction and internal fixation (ORIF) procedure Repair left tibial fracture. History of tonsillectomy Family History Family History Mother Polio Father Lung cancer Sibling Carcinoma of colon Cancer Social History Social History (Updated 08/01/22 @ 22:40 by Chula Pacheco PA-C) Social History: The patient is and lives with his . They have 3 children. 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 He has not been able to work since this spring. He is a former smoker and quit in 1991. No alcohol or illicit substance abuse. Surrogate medical decision maker: Ailyn Navarrete, spouse. Code status: Full code. Smoking packs per day: 1 Smoking cigarettes per day: 20.0 Years smoked: 5 Smoking pack-years: 5.00 Smoking status: Former smoker Tobacco type: cigarettes Second hand tobacco smoke exposure: No Smoking end date: 08/08/91 Alcohol intake: former Substance use: never Substance use type: does not use Lack of Transportation: No Lack of Food: Sometimes True Current Housing: I Have Housing Concerned About Future Housing: No Difficulty Paying Gas/Electric Bills: No Difficulty Paying for Meds: No Currently Unemployed: YES Education: Grade School Difficulty w/ Childcare or Family Care: No Spiritual care concerns: No Exam Narrative: GENERAL: Pale, ill-appearing, no acute distress. HEAD: Normocephalic, atraumatic. EYES: PERRLA and EOMI. ENT: Nares clear, no rhinorrhea or epistaxis. Mucous membranes moist. NECK: Supple. CHEST: Clear to auscultation. No respiratory distress. HEART: Tachycardic, regular rate. ABDOMEN: Soft, nontender, nondistended, normal active bowel sounds. EXTREMITIES: Normal range of motion. No edema. SKIN: Warm, dry, no rash. NEURO: No focal deficits. Alert and oriented x3. PSYCH: Normal mood and affect. Course Vital Signs Vital signs: Vital Signs Temperature
[2022-08-01] MEDS: SODIUM CHLORIDE 0.9% IV 1,000 ML 999 ML IV CONT (07:51)
[2022-08-01] MEDS: METOPROLOL TARTRATE 50 MG TAB PO (08:37)
--- NOTE | 2022-08-01 08:39 | ECG_ITS ---
Measurements Intervals [place] Rate: 78 P: 81 [place]: 161 QRS: -8 QRSD: 101 T: -27 QT: 391 QTc: 447 Interpretive Statements SINUS RHYTHM ST DEVIATION AND MODERATE T-WAVE ABNORMALITY, CONSIDER LATERAL ISCHEMIA ABNORMAL ECG COMPARED TO ECG 08/01/2022 08:43:35 NO SIGNIFICANT CHANGES Electronically Signed On 08-01-2022 15:55:45 AREA FIELD PERSON by Zechariah De Souza M.D.
--- NOTE | 2022-08-01 08:39 | ECG_ITS ---
Measurements Intervals [place] Rate: 83 P: 77 [place]: 165 QRS: -6 QRSD: 111 T: 58 QT: 388 QTc: 458 Interpretive Statements SINUS RHYTHM MODERATE T-WAVE ABNORMALITY, CONSIDER LATERAL ISCHEMIA ABNORMAL ECG COMPARED TO ECG 08/01/2022 07:37:36 NO SIGNIFICANT CHANGES Electronically Signed On 08-01-2022 15:51:33 CORNER BEAD OPERATOR by Zechariah De Souza M.D.
--- NOTE | 2022-08-01 08:42 | PC.NURSE ---
7:28 pt is in SVT HR 200 07:29 12 mg of Adenosine given with no change in the HR 07:30 50 mcg of Fentanyl and 1mg of Midazolam given 07:31 shock given, pt converted to normal sinus rhythm Pt states is feeling much better .
[2022-08-01 09:07] LABS: Basophils Absolute Auto 0.1 K/mm3 (0.0-0.1); Basophils Percent Auto 0.6 % (0.2-1.2); Eosinophils Absolute Auto 0.2 K/mm3 (0-0.3); Eosinophils Percent Auto 1.9 % (0-4.4); Hematocrit 48.1 % (42.0-52.0); Hemoglobin 14.7 g/dL (14.0-18.0); Immature Granulocyte Absolute 0.06 K/mm3 (0.00-0.031); Immature Granulocyte Percent A 0.6 % (0-0.5); Lymphocytes Absolute Auto 1.06 K/mm3 (0.9-3.2); Lymphocytes Percent Auto 9.8 % (18.3-44.2); Mean Corpuscular HGB Conc 30.6 g/dl (32-36); Mean Corpuscular Hemoglobin 26.2 pg (26-34); Mean Corpuscular Volume 85.7 fl (80-100); Monocytes Absolute Auto 0.9 K/mm3 (0.1-0.6); Monocytes Percent Auto 8.3 % (2.6-8.5); Neutrophils Absolute Auto 8.6 K/mm3 (1.3-6.7); Neutrophils Percent Auto 78.8 % (45.5-73.1); Platelet Count Result 229 k/mm3 (150-375); Red Blood Count 5.61 M/mm3 (4.6-6.20); Red Cell Distribution Width 16.8 % (11.5-14.5); White Blood Count 10.9 K/mm3 (4.5-10.0)
[2022-08-01 09:18] LABS: Alanine Aminotransferase 39 U/L (6-50); Alkaline Phosphatase 239 U/L (38-126); Anion Gap 9 mmol/L (8-16); Aspartate Amino Transferase 30 U/L (17-59); Bilirubin,Total 0.7 mg/dL (0.2-1.3); Blood Urea Nitrogen 33 mg/dL (9-20); Carbon Dioxide 28 mmol/L (22-30); Chloride 99 mmol/L (98-107); Estimated CRCL calculation 68 ml/min; Estimated Glomerular Filt Rate > 60; Glucose 478 mg/dL (65-110); Potassium 5.5 mmol/L (3.4-5.0); Sodium 136 mmol/L (137-145)
[2022-08-01 09:19] LABS: Lactic Acid Reflex 1.7 mmol/L (0.7-2.0)
[2022-08-01 09:21] LABS: INR 1.1; Prothrombin Time 13.9 Seconds (11.1-14.7)
[2022-08-01 09:22] LABS: Partial Thromboplastin Time 27.7 SECONDS (22.3-36.8)
[2022-08-01 09:26] LABS: NT Pro B Type Natriuretic Pept 1760 pg/mL (5-100)
[2022-08-01 09:33] LABS: Troponin I 0.424 ng/mL (0.000-0.034)
[2022-08-01 09:45] LABS: Influenza A QL RT-PCR Negative (Negative); Influenza B QL RT-PCR Negative (Negative); SARS-CoV-2 RNA PCR Negative
--- NOTE | 2022-08-01 11:16 | ADMGEN ---
This patient, Biju Navarrete, was admitted to IMU Room 209-01. Patient/family oriented to hospital policies and general routines including ID bracelet, bed and alarms, visiting hours, pain management, procedures, bathroom and other care routines, personal items, smoking policy, room service/diet, and visiting hours. Information on how to activate the Rapid Response Team has been discussed. Patient/Family are encouraged to report perceived risks to care and to ask questions if they do not understand what they are told or what they should do.
[2022-08-01 11:37] LABS: Glucose Point of Care 460 mg/dl (65-105)
[2022-08-01] MEDS: INSULIN ASPART (*BKC) 100 UNITS/ML SUB-Q ×2 (12:56→17:06)
[2022-08-01] MEDS: FLECAINIDE ACETATE 50 MG TABLET PO ×2 (12:57→20:16)
[2022-08-01] MEDS: lisinopriL 5 MG TABLET PO (12:59)
[2022-08-01] MEDS: MULTIVITAMINS THERAPEUTIC TAB (*BKC) 1 TABLET PO (12:59)
[2022-08-01] MEDS: FLECAINIDE ACETATE 100 MG TABLET PO ×2 (12:59→20:16)
[2022-08-01] MEDS: MONTELUKAST SODIUM 10 MG TABLET PO (12:59)
[2022-08-01 13:04] LABS: Troponin I 0.546 ng/mL (0.000-0.034)
--- NOTE | 2022-08-01 13:22 | PM.CNCAR ---
Assessment and Plan Assessment and plan (1) SVT (supraventricular tachycardia): Code(s): I47.1 - Supraventricular tachycardia Status: Acute Assessment and Plan: Reported narrow complex tachycardia refractory to intravenous adenosine maintaining sinus rhythm status post cardioversion. He has been compliant with flecainide 150 mg twice daily and diltiazem 120 mg daily. This is a new arrhythmia which he tolerated relatively poorly. Unfortunately, I do not have a rhythm strip for review to further confirm more precise nature of his tachyarrhythmia. Monitor electrolytes closely. Repeat BMP in potassium. Check magnesium, TSH. Discussed management options with the patient at length. Concern with regards to up titration of flecainide given elevated troponin and his presentation has a feel further clarification with regards to his cardiac status is warranted prior to escalate this therapy given inherent risks. Furthermore, of titration of diltiazem to 240 mg daily likely the most reasonable option, however, there is an interaction with his Xarelto potentially increasing bleeding risk. Discontinuation of diltiazem in favor of metoprolol an option, however, he was refractory on regimens utilizing metoprolol in the past as he reported side effects with this and with amiodarone as well. However, patient did receive metoprolol in the ER. Continue Xarelto for now. (2) Elevated troponin: Code(s): R77.8 - Other specified abnormalities of plasma proteins Status: Acute Assessment and Plan: Most likely type 2 infarction secondary to demand ischemia in setting of rapid SVT, relative hypotension, however, cannot exclude underlying CAD. Trend troponin, repeat 12 lead EKG. 2D echocardiogram in a.m. to assess LV function and wall motion abnormalities. Given use of flecainide ischemic warranted however recommendation to follow after review of echocardiogram. If concern for LV and wall motion abnormalities is noted flecainide would be then contraindicated and alternative antiarrhythmic strategy should be sought. (3) Atrial fibrillation and flutter: Code(s): I48.91 - Unspecified atrial fibrillation; I48.92 - Unspecified atrial flutter Status: Acute Assessment and Plan: As above, patient has a complicated history with regards atrial fibrillation and atrial flutter refractory to medical therapy including amiodarone and cardioversion. He underwent successful PVI ablation of atrial fibrillation [facility] 05/04/2022 without symptomatic recurrence to date. He now presents an SVT very rapid ventricular response which he tolerated poorly. (4) Essential (primary) hypertension: Code(s): I10 - Essential (primary) hypertension Status: Acute Assessment and Plan: Quite stable at this time. Continue monitor closely. (5) Type 2 diabetes mellitus: Qualifiers: Diabetes mellitus intermission coordinator insulin use: without intermission coordinator use Diabetes mellitus complication status: with hyperglycemia Qualified Code(s): E11.65 - Type 2 diabetes mellitus with hyperglycemia Code(s): E11.9 - Type 2 diabetes mellitus without complications Status: Chronic Assessment and Plan: Patient very hyperglycemic presentation. Management Per primary service. (6) Hyperkalemia: Code(s): E87.5 - Hyperkalemia Status: Acute Assessment and Plan: Repeat potassium stat. Check TSH, magnesium level. Further management per primary service. History of Present Illness History of Present Illness Consult date/time: Date of service: 08/01/22 13:22 Requesting physician: Elba Harp MD Consult reason: Other (SVT) Reason For Visit: SVT Narrative: Patient is a pleasant 57-year-old male with a past medical history significant for hypertension, type 2 diabetes mellitus, hyperlipidemia and history of refractory atrial fibrillation with rapid ventricular response and atrial flutte
--- NOTE | 2022-08-01 13:24 | ECG_ITS ---
Measurements Intervals [place] Rate: 72 P: 85 MS: 173 QRS: -29 QRSD: 105 T: -72 QT: 407 QTc: 448 Interpretive Statements SINUS RHYTHM ST DEVIATION AND MODERATE T-WAVE ABNORMALITY, CONSIDER ANTEROLATERAL ISCHEMIA ST DEVIATION AND MODERATE T-WAVE ABNORMALITY, CONSIDER INFERIOR ISCHEMIA ABNORMAL ECG COMPARED TO ECG 08/01/2022 12:24:37 NO SIGNIFICANT CHANGES Electronically Signed On 08-01-2022 15:58:37 FUEL TECHNICIAN by Zechariah De Souza M.D.
[2022-08-01 14:49] LABS: Magnesium 1.4 mg/dL (1.6-2.3)
[2022-08-01 16:44] LABS: Glucose Point of Care 329 mg/dl (65-105)
[2022-08-01] MEDS: RIVAROXABAN 20 MG TABLET PO (17:05)
[2022-08-01] MEDS: MAGNESIUM SULF 2 GM/WATER 50ML 2 GM/50 ML BAG IVPB (17:05)
[2022-08-01] MEDS: GLIMEPIRIDE 2 MG TABLET 4 MG PO (17:06)
[2022-08-01 18:14] LABS: Hemoglobin A1C 8.9 % (<5.7)
[2022-08-01 18:17] LABS: Troponin I 0.671 ng/mL (0.000-0.034)
--- NOTE | 2022-08-01 18:30 | PM.IMHP ---
H&P: HPI History of Present Illness Date/Time: 08/01/22 18:30 Chief Complaint: Shortness of breath and palpitations. Narrative: This is a very pleasant 57-year-old male with history of hypertension, hyperlipidemia, type 2 diabetes mellitus, and atrial fibrillation and flutter who presented to the emergency department from home for evaluation of shortness of breath and palpitations. He had an ablation done in April [address] Miles at [facility] and several weeks thereafter he reportedly went back in atrial fibrillation and was cardioverted. He has been doing well since that time and is maintained on diltiazem and flecainide as well as relative for stroke prophylaxis. Last evening at about 18:00 he started to feel a bit lightheaded and was having mild palpitations. He was able to sleep okay however this morning his palpitations worsened with feelings of mid chest heaviness, shortness of breath, nausea, lightheadedness, and diaphoresis. He was in SVT with heart rate of 200 beats per minute on arrival to the ED and he was given adenosine 6 milligrams and 12 milligrams IV without termination of the arrhythmia. He was hypotensive thereafter and the decision was made to proceed with cardioversion and he has maintained sinus rhythm since that time. EKG on admission showed diffuse ST segment depressions which did improve with rate control. He has not had any symptoms since admission and is feeling well. He states compliance with his home medications. He has not had any recent illnesses. Prior to today he has not been experiencing any chest discomfort or significant shortness of breath. Review of Systems Review of Systems: Twelve systems were reviewed. No fever, chills, or sweats. No recent cold or flu symptoms. No lower extremity edema. He denies orthopnea and paroxysmal nocturnal dyspnea. Glucose is typically between 120 and 160 fasting however this morning his glucose was over 300 which is very unusual for him. He denies blurry vision, polyuria, and polydipsia. No nephropathy, neuropathy, or retinopathy. Except as documented, all other systems were reviewed and are negative. [facility] Past Medical History Medical History (Updated 08/01/22 @ 22:50 by Chula Pacheco PA-C) Asthma Atrial fibrillation and flutter Attention deficit hyperactivity disorder Benign prostatic hyperplasia Gout Hyperlipidemia Hypertension Septic arthritis of knee, right (10/2021) Type 2 diabetes mellitus Surgical History Surgical History (Updated 08/01/22 @ 22:40 by Chula Pacheco PA-C) History of cardiac radiofrequency ablation (04/2022) History of nasal polypectomy History of open reduction and internal fixation (ORIF) procedure Repair left tibial fracture. History of tonsillectomy Family History Family History Mother Polio Father Lung cancer Sibling Carcinoma of colon Cancer Social History Social History (Updated 08/01/22 @ 22:40 by Chula Pacheco PA-C) Social History: The patient is and lives with his . They have 3 children. They have a [employer] company as well as a [employer] company. He has not been able to work since this spring. He is a former smoker and quit in 1991. No alcohol or illicit substance abuse. Surrogate medical decision maker: Ailyn Landon, spouse. Code status: Full code. Smoking packs per day: 1 Smoking cigarettes per day: 20.0 Years smoked: 5 Smoking pack-years: 5.00 Smoking status: Former smoker Tobacco type: cigarettes Second hand tobacco smoke exposure: No Smoking end date: 08/08/91 Alcohol intake: former Substance use: never Substance use type: does not use Lack of Transportation: No Lack of Food: Sometimes True Current Housing: I Have Housing Concerned About Future Housing: No Difficulty Paying Gas/Electric Bills: No Difficulty Paying for Meds: No Currently Unemployed: YES Education: Gr
[2022-08-01 20:33] LABS: Glucose Point of Care 252 mg/dl (65-105)
[2022-08-01] MEDS: FLUTICASONE/SALMETEROL 230-21 MCG INHALER 1 PUFF 2 PUFF INHALATION (22:07)
[2022-08-02] VITALS (23 sets, daily range): BP systolic 93–128; BP diastolic 60–89; PULSE 64–87; RESP 16–20; TEMP 36.1–36.7; O2SAT 97–100; BMI 21.8
[2022-08-02 04:51] LABS: Hematocrit 41.8 % (42.0-52.0); Hemoglobin 12.9 g/dL (14.0-18.0); Mean Corpuscular HGB Conc 30.9 g/dl (32-36); Mean Corpuscular Hemoglobin 26.1 pg (26-34); Mean Corpuscular Volume 84.4 fl (80-100); Mean Platelet Volume 8.9 fl (7.4-10.4); Platelet Count Result 229 k/mm3 (150-375); Red Blood Count 4.95 M/mm3 (4.6-6.20); White Blood Count 8.9 K/mm3 (4.5-10.0)
[2022-08-02 05:06] LABS: Potassium 4.2 mmol/L (3.4-5.0)
[2022-08-02 05:09] LABS: Alanine Aminotransferase 33 U/L (6-50); Albumin Level 3.5 g/dL (3.5-5.1); Alkaline Phosphatase 118 U/L (38-126); Anion Gap 2 mmol/L (8-16); Aspartate Amino Transferase 31 U/L (17-59); Bilirubin,Total 0.4 mg/dL (0.2-1.3); Blood Urea Nitrogen 35 mg/dL (9-20); Calcium 8.8 mg/dL (8.4-10.2); Carbon Dioxide 35 mmol/L (22-30); Chloride 98 mmol/L (98-107); Estimated CRCL calculation 72 ml/min; Estimated Glomerular Filt Rate > 60; Glucose 81 mg/dL (65-110); Magnesium 1.8 mg/dL (1.6-2.3); Sodium 135 mmol/L (137-145)
[2022-08-02] MEDS: MULTIVITAMINS THERAPEUTIC TAB (*BKC) 1 TABLET PO (08:01)
[2022-08-02] MEDS: MONTELUKAST SODIUM 10 MG TABLET PO (08:01)
[2022-08-02] MEDS: GLIMEPIRIDE 2 MG TABLET 4 MG PO ×2 (08:01→16:31)
[2022-08-02] MEDS: FLECAINIDE ACETATE 50 MG TABLET PO ×2 (08:01→21:16)
[2022-08-02] MEDS: lisinopriL 5 MG TABLET PO (08:01)
[2022-08-02] MEDS: FLECAINIDE ACETATE 100 MG TABLET PO ×2 (08:02→21:17)
[2022-08-02 08:22] LABS: Glucose Point of Care 102 mg/dl (65-105)
[2022-08-02] MEDS: FLUTICASONE/SALMETEROL 230-21 MCG INHALER 1 PUFF 2 PUFF INHALATION ×2 (08:40→20:27)
[2022-08-02 11:48] LABS: Glucose Point of Care 301 mg/dl (65-105)
[2022-08-02] MEDS: INSULIN ASPART (*BKC) 100 UNITS/ML SUB-Q ×2 (11:54→16:32)
--- NOTE | 2022-08-02 12:57 | PM.IMPN ---
Progress Note: A&P Assessment and Plan (1) Supraventricular tachycardia: Code(s): I47.1 - Supraventricular tachycardia Status: Acute Assessment and Plan: Precipitating etiology not entirely clear. He states compliance with his flecainide and diltiazem. He was refractory to adenosine and has been maintaining sinus rhythm post cardioversion in the ED. potassium was a bit high on arrival, magnesium was low and was replaced. To echo and stress test ordered.Results. Appreciate Cardiology input. (2) Elevated troponin: Code(s): R77.8 - Other specified abnormalities of plasma proteins Status: Acute Assessment and Plan: EKG showed diffuse ST depression on arrival with improvement following cardioversion. Troponins have remained elevated and her most likely a type 2 infarction due to demand ischemia in the setting of the SVT and hypotension. Echocardiogram ordered to assess LV function and wall motion. He has not had any discomfort since arrival to the floor. (3) Atrial fibrillation and flutter: Code(s): I48.91 - Unspecified atrial fibrillation; I48.92 - Unspecified atrial flutter Status: Acute Assessment and Plan: Status post PVI ablation in April 2022. Maintained on flecainide and diltiazem as well as relative for stroke prophylaxis. (4) Essential (primary) hypertension: Code(s): I10 - Essential (primary) hypertension Status: Acute Assessment and Plan: Blood pressures have been stable since cardioversion. Continue to monitor closely. (5) Type 2 diabetes mellitus: Qualifiers: Diabetes mellitus terminal computer operator insulin use: without fdc use Diabetes mellitus complication status: with hyperglycemia Qualified Code(s): E11.65 - Type 2 diabetes mellitus with hyperglycemia Code(s): E11.9 - Type 2 diabetes mellitus without complications Status: Chronic Assessment and Plan: Glucose was over 300 on arrival. Initiate sliding scale insulin, Accu-Cheks, and hypoglycemic protocol. Check hemoglobin A1c. (6) Hyperkalemia: Code(s): E87.5 - Hyperkalemia Status: Acute Assessment and Plan: Repeat potassium was normal. Magnesium was low and was replaced. Continue to monitor electrolytes closely. (7) Hypomagnesemia: Code(s): E83.42 - Hypomagnesemia Status: Acute Subjective Date/time seen: 08/02/22 12:57 No new complaints Exam Narrative: General: Well-developed, well-nourished male sitting up in bed no distress. Weight: 75.1 kilograms. BMI: 21.8. HEENT: PERRL, EOMI. Sclera anicteric. Oral mucosa moist. Oropharynx clear. Neck: Supple. No JVD. Respiratory: Lungs are clear to auscultation bilaterally. Cardiovascular: Regular rate and rhythm with S1-S2. Gastrointestinal: Abdomen is soft, flat, nontender, and nondistended with positive bowel sounds. Skin: Warm and dry. Some excoriations of the lower legs. Extremities: No cyanosis, clubbing, or edema. Radial and pedal pulses intact. Neurological: Alert. Cranial nerves 2-12 are grossly intact. No gross focal deficits to casual conversation. Psychiatric: Pleasant and cooperative with normal mood and affect. Judgment and insight intact. He is in good spirits. Objective Data Vital Signs Vital Signs: Vital Signs - 24 hr 08/01/22 15:41 08/01/22 16:56 08/01/22 14:00 Temperature 96.6 F L Pulse Rate 85 76 Respiratory Rate 20 Blood Pressure 111/65 Pulse Oximetry 98 Oxygen Delivery Room Air 08/01/22 16:00 08/01/22 18:00 08/01/22 19:14 Temperature Pulse Rate 76 68 Respiratory Rate Blood Pressure 112/64 Pulse Oximetry Oxygen Delivery 08/01/22 20:16 08/01/22 20:16 08/01/22 20:15 Temperature Pulse Rate 71 71 Respiratory Rate Blood Pressure Pulse Oximetry Oxygen Delivery Room Air 08/01/22 20:00 08/01/22 20:44 08/01/22 22:00 Temperature 97.2 F L Pulse Rate 71 69 72 Respirat
--- NOTE | 2022-08-02 13:25 | ECHO_ITS ---
Patient Info Name: Biju Navarrete Age: 57 years : 1965 Gender: Male Ht: 73 in Wt: 165 lbs BSA: 1.96 m2 HR: 67 bpm BP: 95 / 65 mmHg Heart Rhythm: Sinus Rhythm Technical Quality: Fair Exam Date: 08/02/2022 1:04 PM Exam Location: [facility] Card Pulmonary Patient Status: Inpatient Admit Date: 08/01/2022 Staff Ordering Physician: Zechariah De Souza MD Sql Bi Developer: Heather Lora RDCS Attending Provider: Mulugeta Alberto MD Referring Physician: Ap ORTIZ; Exam Type: CA echo doppler color flow Study Info Indications - svt, elevated troponin Complete two-dimensional, color flow and Doppler transthoracic echocardiogram is performed. Summary 1. Complete two-dimensional, color flow and Doppler transthoracic echocardiogram is performed. 2. Left ventricular chamber dimension is normal. 3. Left ventricular systolic function is normal, estimated at 50-55%. 4. There is mildly increased left ventricular wall thickness. 5. The left ventricular diastolic function is abnormal. 6. E/e' 15.5 is moderately elevated. 7. Left atrial chamber dimension is severely enlarged. 8. There is mild mitral valve regurgitation. 9. There is mild tricuspid valve regurgitation. 10. No pulmonary hypertension, estimated pulmonary arterial systolic pressure is 33 mmHg. Left Ventricle Left ventricular chamber dimension is normal. Left ventricular systolic function is normal, estimated at 50-55%. There is mildly increased left ventricular wall thickness. The left ventricular diastolic function is abnormal. E/e' 15.5 is moderately elevated. Right Ventricle Right ventricular chamber dimension is normal. Right ventricular systolic function is normal. Left Atria Left atrial chamber dimension is severely enlarged. Right Atria Right atrial chamber dimension is mildly enlarged. Aortic Valve The aortic valve is trileaflet. There is no aortic valve stenosis. There is no aortic valve regurgitation. Pulmonic Valve The pulmonic valve is normal. There is trace pulmonic regurgitation. Mitral Valve The mitral valve has thickened leaflets. There is mild mitral valve regurgitation. The mitral valve annulus is mildly calcified. Tricuspid Valve The tricuspid valve leaflets are normal. There is mild tricuspid valve regurgitation. No pulmonary hypertension, estimated pulmonary arterial systolic pressure is 33 mmHg. Pericardium/Pleural The pericardium appears normal. There is no pericardial effusion. Inferior Vena Cava Normal inferior vena cava with >50% collapse upon inspiration consistent with normal right atrial pressure, 5 mmHg. Aorta The aortic root size at the sinus of Valsalva is normal. There is mild aortic atherosclerosis. Left Ventricular Outflow Tract Name Value Normal LVOT 2D LVOT Diameter 2.0 cm LVOT Doppler LVOT Peak Gradient 2 mmHg LVOT Mean Gradient 1 mmHg LVOT VTI 13 cm LVOT VTI/AV VTI Ratio 0.6 LVOT Stroke Volume 42 ml
--- NOTE | 2022-08-02 14:43 | PM.PNCARD ---
Progress Note: A&P Assessment and Plan (1) SVT (supraventricular tachycardia): Code(s): I47.1 - Supraventricular tachycardia Status: Acute Assessment and Plan: Reported narrow complex tachycardia refractory to intravenous adenosine maintaining sinus rhythm status post cardioversion. He has been compliant with flecainide 150 mg twice daily and diltiazem 120 mg daily. This is a new arrhythmia which he tolerated relatively poorly. Unfortunately, I do not have a rhythm strip for review to further confirm more precise nature of his tachyarrhythmia. Monitor electrolytes closely. Repeat BMP in potassium. Check magnesium, TSH. Discussed management options with the patient at length. Concern with regards to up titration of flecainide given elevated troponin and his presentation has a feel further clarification with regards to his cardiac status is warranted prior to escalate this therapy given inherent risks. Furthermore, of titration of diltiazem to 240 mg daily likely the most reasonable option, however, there is an interaction with his Xarelto potentially increasing bleeding risk. Discontinuation of diltiazem in favor of metoprolol an option, however, he was refractory on regimens utilizing metoprolol in the past as he reported side effects with this and with amiodarone as well. Patient stable from an arrhythmia perspective at this time. Expressed my concern regarding his presentation and the need for further ischemic evaluation while on flecainide. NPO after midnight for Lexiscan stress test in a.m.. 2D echocardiogram to assess LV size/function, wall motion abnormalities. Will review when available. Recommendations to follow. If echo and/or stress test abnormal alternative to flecainide likely warranted. Still do not see a strip of the review with which the patient presented which is very important. Will continue to attempt to locate. (2) Elevated troponin: Code(s): R77.8 - Other specified abnormalities of plasma proteins Status: Acute Assessment and Plan: Most likely type 2 infarction secondary to demand ischemia in setting of rapid SVT, relative hypotension, however, cannot exclude underlying CAD. EKG with persistent ischemic changes and troponin further increased to 0.6. Will add aspirin 81 mg daily. Hold Xarelto intake patient for possible invasive angiography but were require 48 hour washout. We did discuss timing and ultimate plan of care based on results of echo and stress test. They agree with plan of care. (3) Atrial fibrillation and flutter: Code(s): I48.91 - Unspecified atrial fibrillation; I48.92 - Unspecified atrial flutter Status: Acute Assessment and Plan: As above, patient has a complicated history with regards atrial fibrillation and atrial flutter refractory to medical therapy including amiodarone and cardioversion. He underwent successful PVI ablation of atrial fibrillation [facility] 05/04/2022 without symptomatic recurrence to date. He now presents an SVT very rapid ventricular response which he tolerated poorly. (4) Essential (primary) hypertension: Code(s): I10 - Essential (primary) hypertension Status: Acute Assessment and Plan: Quite stable at this time. Continue monitor closely. (5) Type 2 diabetes mellitus: Qualifiers: Diabetes mellitus terminal makeup operator insulin use: without usp use Diabetes mellitus complication status: with hyperglycemia Qualified Code(s): E11.65 - Type 2 diabetes mellitus with hyperglycemia Code(s): E11.9 - Type 2 diabetes mellitus without complications Status: Chronic Assessment and Plan: Management Per primary service. (6) Hyperkalemia: Code(s): E87.5 - Hyperkalemia Status: Acute Assessment and Plan: Repeat potassium stat. Check TSH, magnesium level. Further management per primary service. Subjective Date/time seen: Date of service: 08/02/22 14:4
[2022-08-02 16:53] LABS: Glucose Point of Care 235 mg/dl (65-105)
[2022-08-02 20:12] LABS: Glucose Point of Care 228 mg/dl (65-105)
[2022-08-03] VITALS (20 sets, daily range): BP systolic 105–145; BP diastolic 42–86; PULSE 67–78; RESP 18–22; TEMP 35.9–36.6; O2SAT 96–100
--- NOTE | 2022-08-03 07:27 | ECG_ITS ---
Measurements Intervals [place] Rate: 71 P: 77 MD: 176 QRS: -20 QRSD: 107 T: 56 QT: 405 QTc: 442 Interpretive Statements SINUS RHYTHM ST DEVIATION AND MODERATE T-WAVE ABNORMALITY, CONSIDER LATERAL ISCHEMIA ABNORMAL ECG COMPARED TO ECG 08/01/2022 14:39:10 NO SIGNIFICANT CHANGES Electronically Signed On 08-03-2022 17:48:44 LOAN AUDITOR by Zechariah De Souza M.D.
[2022-08-03] MEDS: FLECAINIDE ACETATE 50 MG TABLET PO (08:06)
[2022-08-03] MEDS: GLIMEPIRIDE 2 MG TABLET 4 MG PO ×2 (08:06→16:48)
[2022-08-03] MEDS: FLECAINIDE ACETATE 100 MG TABLET PO (08:06)
[2022-08-03] MEDS: MULTIVITAMINS THERAPEUTIC TAB (*BKC) 1 TABLET PO (08:07)
[2022-08-03] MEDS: lisinopriL 5 MG TABLET PO (08:07)
[2022-08-03] MEDS: MONTELUKAST SODIUM 10 MG TABLET PO (08:07)
[2022-08-03] MEDS: INSULIN ASPART (*BKC) 100 UNITS/ML SUB-Q ×2 (08:08→12:32)
[2022-08-03 08:24] LABS: Glucose Point of Care 254 mg/dl (65-105)
[2022-08-03] MEDS: FLUTICASONE/SALMETEROL 230-21 MCG INHALER 1 PUFF 2 PUFF INHALATION (08:27)
--- NOTE | 2022-08-03 10:00 | EST_ITS ---
Patient Info Name: Biju Navarrete Age: 57 years : 1965 Gender: Male Ht: 73 in Wt: 165 lbs BSA: 1.96 m2 HR: 69 bpm BP: 131 / 85 mmHg Heart Rhythm: Sinus Rhythm Exam Date: 08/03/2022 10:32 AM Exam Location: [facility] Stress Patient Status: Inpatient Admit Date: 08/01/2022 Staff Ordering Physician: Zechariah De Souza MD Attending Provider: Mulugeta Alberto MD Exercise Technologist: Massiel Young, CT Nurse: CASEY REICH Exam Type: CA stress nicky w NM Study Info Indications 790.99 - ELEVATED TROPONIN R07.9 - Chest pain, unspecified A regadenoson stress test was performed. Summary 1. Normal sinus rhythm. ST abnormality consider myocardial ischemia inferolateral leads. 2. No abnormal ST/T wave changes with Lexiscan compared to baseline. 3. No arrhythmias were observed during the examination. 4. No chest discomfort with stress test. 5. Please correlate with nuclear medicine images, reported separately. Protocol: Lexiscan Stress ECG Details Stage: REST Duration (min): 1 min : 27 sec HR (bpm): 68 SBP (mmHg): 131 DBP (mmHg): 85 Stage: REST Duration (min): 5 min : 57 sec HR (bpm): 66 SBP (mmHg): 131 DBP (mmHg): 85 Stage: STAGE 1 Duration (min): 0 min : 59 sec HR (bpm): 76 SBP (mmHg): 132 DBP (mmHg): 82 Stage: RECOVERY Duration (min): 1 min : 0 sec HR (bpm): 80 SBP (mmHg): 132 DBP (mmHg): 82 Stage: RECOVERY Duration (min): 2 min : 0 sec HR (bpm): 79 SBP (mmHg): 132 DBP (mmHg): 82 Stage: RECOVERY Duration (min): 3 min : 0 sec HR (bpm): 80 SBP (mmHg): 140 DBP (mmHg): 84 Stage: RECOVERY Duration (min): 3 min : 6 sec HR (bpm): 80 SBP (mmHg): 140 DBP (mmHg): 84 Rest HR: 66 bpm Peak HR: 82 bpm Rest Sys BP: 131 mmHg Peak Sys BP: 140 mmHg Max Pred HR: 165 bpm % Max Pred HR: 50 % Target HR: 140 bpm Max RPP: 11,480 bpm*mmHg Total Time: 1 min : 0 sec Rest Mahmood BP: 85 mmHg Peak Mahmood BP: 84 mmHg Total Dose: 0.4 mg Resting ECG Normal sinus rhythm. ST abnormality consider myocardial ischemia inferolateral leads. Stress ECG No abnormal ST/T wave changes with Lexiscan compared to baseline. Arrhythmias No arrhythmias were observed during the examination. Report Signatures
--- NOTE | 2022-08-03 10:56 | PM.PNCARD ---
Progress Note: A&P Assessment and Plan (1) SVT (supraventricular tachycardia): Code(s): I47.1 - Supraventricular tachycardia <JANNY Mckeon - Last Filed: 08/03/22 14:30> Status: Acute <JANNY Mckeon - Last Filed: 08/03/22 14:30> Assessment and Plan: Reported narrow complex tachycardia refractory to intravenous adenosine maintaining sinus rhythm status post cardioversion. He has been compliant with flecainide 150 mg twice daily and diltiazem 120 mg daily. No recurrence during this admission. Stress test today did show small area of infarct and a small, mild, reversible defect. Therefore, flecainide not an appropriate choice. Will discontinue flecainide and increase diltiazem to 240mg daily. Monitor closely for bleeding (interaction with Xarelto increased risk for bleeding). <JANNY Mckeon - Last Filed: 08/03/22 14:30> (2) Elevated troponin: Code(s): R77.8 - Other specified abnormalities of plasma proteins <JANNY Mckeon - Last Filed: 08/03/22 14:30> Status: Acute <JANNY Mckeon - Last Filed: 08/03/22 14:30> Assessment and Plan: Lexiscan stress test today showed a small mild infarct involving the apical and apical inferior segments and small region of mild reversible decreased perfusion system with ischemia at the mid anterior segment. Will start ASA, statin. Will need coronary angiogram, but this can be scheduled as an outpatient (Currently on Xarelto so would need to wait at least 48 hours before proceeding with cath). <JANNY Mckeon - Last Filed: 08/03/22 14:30> (3) Atrial fibrillation and flutter: Code(s): I48.91 - Unspecified atrial fibrillation; I48.92 - Unspecified atrial flutter <JANNY Mckeon - Last Filed: 08/03/22 14:30> Status: Acute <JANNY Mckeon - Last Filed: 08/03/22 14:30> Assessment and Plan: S/p PVI ablation of atrial fibrillation [facility] 05/04/2022 without symptomatic recurrence to date. He now presents an SVT very rapid ventricular response which he tolerated poorly. <JANNY Mckeon - Last Filed: 08/03/22 14:30> (4) Essential (primary) hypertension: Code(s): I10 - Essential (primary) hypertension <JANNY Mckeon - Last Filed: 08/03/22 14:30> Status: Acute <JANNY Mckeon - Last Filed: 08/03/22 14:30> Assessment and Plan: At goal. <JANNY Mckeon - Last Filed: 08/03/22 14:30> (5) Type 2 diabetes mellitus: Qualifiers: Diabetes mellitus complication status: with hyperglycemia Diabetes mellitus termite control technician insulin use: without termite control technician use Qualified Code(s): E11.65 - Type 2 diabetes mellitus with hyperglycemia <JANNY Mckeon - Last Filed: 08/03/22 14:30> Code(s): E11.9 - Type 2 diabetes mellitus without complications <JANNY Mckeon - Last Filed: 08/03/22 14:30> Status: Chronic <JANNY Mckeon - Last Filed: 08/03/22 14:30> Assessment and Plan: Management Per primary service. <JANNY Mckeon - Last Filed: 08/03/22 14:30> (6) Hyperkalemia: Code(s): E87.5 - Hyperkalemia <JANNY Mckeon - Last Filed: 08/03/22 14:30> Status: Acute <JANNY Mckeon - Last Filed: 08/03/22 14:30> Assessment and Plan: Improved <JANNY Mckeon - Last Filed: 08/03/22 14:30> Assessment and Plan: Attending Addendum: I agree with the above documentation and plan of care as outlined. Observed overnight off flecainide. Follow up as an outpatient with electrophysiology. Outpatient [facility] given abnormal stress test. <Zechariah De Souza MD - Last Filed: 08/03/22 17:05> Subjective Date/time seen: 08/03/22 10:56 Cardiology follow up for SVT, elevated troponin He is feeling well this morning and does not have any complaints. Denies any palpitations, chest pain, or shortness of shakira
--- NOTE | 2022-08-03 12:29 | PM.IMPN ---
Progress Note: A&P Assessment and Plan (1) Supraventricular tachycardia: Code(s): I47.1 - Supraventricular tachycardia Status: Acute Assessment and Plan: Precipitating etiology not entirely clear. He states compliance with his flecainide and diltiazem. He was refractory to adenosine and has been maintaining sinus rhythm post cardioversion in the ED. potassium was a bit high on arrival, magnesium was low and was replaced. echo noted stress test does show some reversible ischemia - await plan from cardiology (2) Elevated troponin: Code(s): R77.8 - Other specified abnormalities of plasma proteins Status: Acute Assessment and Plan: EKG showed diffuse ST depression on arrival with improvement following cardioversion. Troponins have remained elevated and her most likely a type 2 infarction due to demand ischemia in the setting of the SVT and hypotension. Echocardiogram ordered to assess LV function and wall motion. He has not had any discomfort since arrival to the floor. (3) Atrial fibrillation and flutter: Code(s): I48.91 - Unspecified atrial fibrillation; I48.92 - Unspecified atrial flutter Status: Acute Assessment and Plan: Status post PVI ablation in April 2022. Maintained on flecainide and diltiazem as well as relative for stroke prophylaxis. (4) Essential (primary) hypertension: Code(s): I10 - Essential (primary) hypertension Status: Acute Assessment and Plan: Blood pressures have been stable since cardioversion. Continue to monitor closely. (5) Type 2 diabetes mellitus: Qualifiers: Diabetes mellitus alf insulin use: without alf use Diabetes mellitus complication status: with hyperglycemia Qualified Code(s): E11.65 - Type 2 diabetes mellitus with hyperglycemia Code(s): E11.9 - Type 2 diabetes mellitus without complications Status: Chronic Assessment and Plan: Glucose was over 300 on arrival. Initiate sliding scale insulin, Accu-Cheks, and hypoglycemic protocol. Check hemoglobin A1c. (6) Hyperkalemia: Code(s): E87.5 - Hyperkalemia Status: Acute Assessment and Plan: Repeat potassium was normal. Magnesium was low and was replaced. Continue to monitor electrolytes closely. (7) Hypomagnesemia: Code(s): E83.42 - Hypomagnesemia Status: Acute Subjective Date/time seen: 08/03/22 12:29 no new complaints Exam Narrative: General: Well-developed, well-nourished male sitting up in bed no distress. Weight: 75.1 kilograms. BMI: 21.8. HEENT: PERRL, EOMI. Sclera anicteric. Oral mucosa moist. Oropharynx clear. Neck: Supple. No JVD. Respiratory: Lungs are clear to auscultation bilaterally. Cardiovascular: Regular rate and rhythm with S1-S2. Gastrointestinal: Abdomen is soft, flat, nontender, and nondistended with positive bowel sounds. Skin: Warm and dry. Some excoriations of the lower legs. Extremities: No cyanosis, clubbing, or edema. Radial and pedal pulses intact. Neurological: Alert. Cranial nerves 2-12 are grossly intact. No gross focal deficits to casual conversation. Psychiatric: Pleasant and cooperative with normal mood and affect. Judgment and insight intact. He is in good spirits. Objective Data Vital Signs Vital Signs: Vital Signs - 24 hr 08/02/22 16:00 08/02/22 16:00 08/02/22 14:00 Temperature 97 F L Pulse Rate 72 87 65 Respiratory Rate 18 16 Blood Pressure 128/83 Pulse Oximetry 100 100 Oxygen Delivery Room Air 08/02/22 16:00 08/02/22 18:00 08/02/22 20:00 Temperature 98.0 F Pulse Rate 64 69 68 Respiratory Rate 20 Blood Pressure 121/89 Pulse Oximetry 99 Oxygen Delivery 08/02/22 20:27 08/02/22 21:16 08/02/22 21:17 Temperature Pulse Rate 72 77 77 Respiratory Rate 16 Blood Pressure Pulse Oximetry Oxygen Delivery 08/02/22 20:00 08/02/22 22:48 08/02/22 20:00 Temperature 97.7 F
[2022-08-03] MEDS: INSULIN ASPART (*BKC) 100 UNITS/ML 10 UNITS SUB-Q (16:46)
[2022-08-03 17:52] LABS: Glucose Point of Care 400 mg/dl (65-105)
[2022-08-03 20:06] LABS: Glucose Point of Care 285 mg/dl (65-105)
--- NOTE | 2022-08-03 23:25 | PCRCNOTE ---
Pt refused and said that he was breathing just fine.
[2022-08-04] VITALS (22 sets, daily range): BP systolic 91–139; BP diastolic 57–83; PULSE 70–138; RESP 18–24; TEMP 36.1–36.7; O2SAT 98–99
--- NOTE | 2022-08-04 00:25 | ECG_ITS ---
Measurements Intervals [place] Rate: 122 P: MT: 0 QRS: -31 QRSD: 122 T: 87 QT: 317 QTc: 453 Interpretive Statements ATRIAL FIBRILLATION WITH RAPID VENTRICULAR RESPONSE MARKED LEFT AXIS DEVIATION [QRS AXIS < -30] MODERATE INTRAVENTRICULAR CONDUCTION DELAY [110+ ms QRS DURATION] NONSPECIFIC ST & T-WAVE ABNORMALITY ST DEVIATION AND MODERATE T-WAVE ABNORMALITY IN THE LATERAL LEADS, CONSIDER ISCHEMIA COMPARED TO ECG 08/03/2022 07:27:24 ATRIAL FIBRILLATION NOW PRESENT LEFT-AXIS DEVIATION NOW PRESENT INTRAVENTRICULAR CONDUCTION DELAY NOW PRESENT Electronically Signed On 08-04-2022 13:18:42 RECONDITIONER by Ana Paula Orlando M.D.
[2022-08-04 03:00] LABS: Glucose Point of Care 223 mg/dl (65-105)
--- NOTE | 2022-08-04 06:52 | ECG_ITS ---
Measurements Intervals [place] Rate: 106 P: [place]: 0 QRS: -21 QRSD: 118 T: 71 QT: 368 QTc: 490 Interpretive Statements ATRIAL FLUTTER/TACHYCARDIA WITH RAPID VENTRICULAR RESPONSE BORDERLINE LEFT AXIS DEVIATION [QRS AXIS < -20] MODERATE INTRAVENTRICULAR CONDUCTION DELAY [110+ ms QRS DURATION] NONSPECIFIC ST & T-WAVE ABNORMALITY ABNORMAL RHYTHM ECG COMPARED TO ECG 08/04/2022 00:30:52 ATRIAL FLUTTER NOW PRESENT Electronically Signed On 08-04-2022 13:22:28 COMMUNICATIONS OFFICER by Ana Paula Orlando M.D.
[2022-08-04 08:26] LABS: Glucose Point of Care 242 mg/dl (65-105)
[2022-08-04] MEDS: lisinopriL 5 MG TABLET PO (09:27)
[2022-08-04] MEDS: MONTELUKAST SODIUM 10 MG TABLET PO (09:27)
[2022-08-04] MEDS: GLIMEPIRIDE 2 MG TABLET 4 MG PO ×2 (09:27→17:44)
[2022-08-04] MEDS: MULTIVITAMINS THERAPEUTIC TAB (*BKC) 1 TABLET PO (09:28)
[2022-08-04] MEDS: ATORVASTATIN 20 MG TABLET PO (09:28)
[2022-08-04] MEDS: INSULIN ASPART (*BKC) 100 UNITS/ML SUB-Q ×2 (09:29→17:45)
[2022-08-04] MEDS: FLUTICASONE/SALMETEROL 230-21 MCG INHALER 1 PUFF 2 PUFF INHALATION ×2 (09:31→20:57)
[2022-08-04] MEDS: ASPIRIN 81 MG ENTERIC TABLET PO (09:35)
[2022-08-04 11:32] LABS: Glucose Point of Care 414 mg/dl (65-105)
[2022-08-04] MEDS: INSULIN ASPART (*BKC) 100 UNITS/ML 10 UNITS SUB-Q (11:40)
--- NOTE | 2022-08-04 12:07 | PM.IMPN ---
Progress Note: A&P Assessment and Plan (1) Supraventricular tachycardia: Code(s): I47.1 - Supraventricular tachycardia Status: Acute Assessment and Plan: Medications were adjusted as flecainide cannot be used with ischemic disease. Cardizem started. Continue Xarelto. Now in atrial fib/flutter. Heart rate is elevated. Await plan from Cardiology echo noted stress test does show some reversible ischemia - await plan from cardiology (2) Elevated troponin: Code(s): R77.8 - Other specified abnormalities of plasma proteins Status: Acute Assessment and Plan: EKG showed diffuse ST depression on arrival with improvement following cardioversion. Troponins have remained elevated and her most likely a type 2 infarction due to demand ischemia in the setting of the SVT and hypotension. Echocardiogram ordered to assess LV function and wall motion. He has not had any discomfort since arrival to the floor. (3) Atrial fibrillation and flutter: Code(s): I48.91 - Unspecified atrial fibrillation; I48.92 - Unspecified atrial flutter Status: Acute Assessment and Plan: Status post PVI ablation in April 2022. Maintained on flecainide and diltiazem as well as relative for stroke prophylaxis. (4) Essential (primary) hypertension: Code(s): I10 - Essential (primary) hypertension Status: Acute Assessment and Plan: Blood pressures have been stable since cardioversion. Continue to monitor closely. (5) Type 2 diabetes mellitus: Qualifiers: Diabetes mellitus fly finisher insulin use: without fly finisher use Diabetes mellitus complication status: with hyperglycemia Qualified Code(s): E11.65 - Type 2 diabetes mellitus with hyperglycemia Code(s): E11.9 - Type 2 diabetes mellitus without complications Status: Chronic Assessment and Plan: Glucose was over 300 on arrival. Initiate sliding scale insulin, Accu-Cheks, and hypoglycemic protocol. Check hemoglobin A1c. (6) Hyperkalemia: Code(s): E87.5 - Hyperkalemia Status: Acute Assessment and Plan: Repeat potassium was normal. Magnesium was low and was replaced. Continue to monitor electrolytes closely. (7) Hypomagnesemia: Code(s): E83.42 - Hypomagnesemia Status: Acute Subjective Date/time seen: 08/04/22 12:07 Heart rate is still elevated. Now in AFib flutter Exam Narrative: General: Well-developed, well-nourished male sitting up in bed no distress. Weight: 75.1 kilograms. BMI: 21.8. HEENT: PERRL, EOMI. Sclera anicteric. Oral mucosa moist. Oropharynx clear. Neck: Supple. No JVD. Respiratory: Lungs are clear to auscultation bilaterally. Cardiovascular: Regular rate and rhythm with S1-S2. Gastrointestinal: Abdomen is soft, flat, nontender, and nondistended with positive bowel sounds. Skin: Warm and dry. Some excoriations of the lower legs. Extremities: No cyanosis, clubbing, or edema. Radial and pedal pulses intact. Neurological: Alert. Cranial nerves 2-12 are grossly intact. No gross focal deficits to casual conversation. Psychiatric: Pleasant and cooperative with normal mood and affect. Judgment and insight intact. He is in good spirits. Objective Data Vital Signs Vital Signs: Vital Signs - 24 hr 08/03/22 12:26 08/03/22 16:37 08/03/22 16:00 Temperature 96.7 F L 97.3 F L Pulse Rate 69 73 Respiratory Rate 18 22 H Blood Pressure 114/42 L 134/63 Pulse Oximetry 98 100 Oxygen Delivery Room Air 08/03/22 14:00 08/03/22 16:00 08/03/22 18:00 Temperature Pulse Rate 67 70 77 Respiratory Rate Blood Pressure Pulse Oximetry Oxygen Delivery 08/03/22 19:52 08/03/22 20:00 08/03/22 23:09 Temperature 97.9 F 97.7 F Pulse Rate 71 72 Respiratory Rate 20 20 Blood Pressure 135/43 L 145/86 H Pulse Oximetry 96 99 Oxygen Delivery Room Air 08/03/22 20:30 08/03/22 20:00 08/03/22 22:00 Temperature Pulse Rate
[2022-08-04] MEDS: METOPROLOL TARTRATE INJ 5 MG/5 ML VIAL IV PUSH (14:24)
--- NOTE | 2022-08-04 15:14 | PM.PNCARD ---
Progress Note: A&P Assessment and Plan (1) Atrial flutter with rapid ventricular response: Code(s): I48.92 - Unspecified atrial flutter Status: Acute Assessment and Plan: Reported narrow complex tachycardia refractory to intravenous adenosine maintaining sinus rhythm status post cardioversion although strip unavailable. Clinically now he is in atrial flutter may have been atrial flutter with 1:1 conduction. Stress test abnormal with did show small area of infarct and a small, mild, mid anterior reversible defect prompting discontinuation of flecainide. Discussed with patient and his at bedside options, plan of care and concerns. While it may be reasonable to continue flecainide given the circumstances I feel it would be in his best interest not to utilize given the abnormal stress test and elevated troponin possibility of underlying CAD although LV function is preserved. I discussed this case with his hot header operator Dr. Miles who agreed with me with regards to plans to discontinue diltiazem, resume metoprolol and load with amiodarone. Expressed concern with regards to initiation of amiodarone after more recently stopping flecainide although he felt it was reasonable at this point felt it was safe. Xarelto has been held for 2 doses but will resume this evening and if he does not convert to sinus rhythm will plan for MATTHIEU guided cardioversion on Tuesday. Keep NPO after midnight evening. We discussed proarrhythmic risks with the above management and given his complicated history previously refractory to cardioversion at 1 point although he was quite ill during that period time so success may be improved at present. He previously reported potential intolerance metoprolol and or amiodarone at various times although he believes he may have been having symptoms/side effects due to other medications now. Will monitor tolerance closely with recommendations to follow. (2) Elevated troponin: Code(s): R77.8 - Other specified abnormalities of plasma proteins Status: Acute Assessment and Plan: Lexiscan stress test showed a small mild infarct involving the apical and apical inferior segments and small region of mild reversible decreased perfusion system with ischemia at the mid anterior segment. Will start ASA, statin. We discussed possible coronary angiogram, but this will be deferred an outpatient particular is patient had no anginal symptoms prior to or subsequent to pentecostalism of sinus rhythm. Clinically, I feel his elevated troponin was most likely secondary to demand ischemia I just cannot exclude underlying CAD they do not feel he had acute coronary syndrome as the impetus for his presentation. We will continue aspirin, statin therapy. LV function is normal without wall motion abnormalities. (3) Atrial fibrillation and flutter: Code(s): I48.91 - Unspecified atrial fibrillation; I48.92 - Unspecified atrial flutter Status: Acute Assessment and Plan: S/p PVI ablation of atrial fibrillation [facility] 05/04/2022 without symptomatic recurrence to date. However, he presented with SVT (strip unavailable concern may have been atrial flutter with 1:1 conduction given present atrial flutter) very rapid ventricular response which he tolerated poorly. Continue systemic anticoagulation. Management as above. (4) Essential (primary) hypertension: Code(s): I10 - Essential (primary) hypertension Status: Acute Assessment and Plan: At goal. (5) Type 2 diabetes mellitus: Qualifiers: Diabetes mellitus group home insulin use: without termite treater helper use Diabetes mellitus complication status: with hyperglycemia Qualified Code(s): E11.65 - Type 2 diabetes mellitus with hyperglycemia Code(s): E11.9 - Type 2 diabetes mellitus without complications Status: Chronic Assessment and Plan: Management Per primary service. (6) Hyperkalemia: Code(s)
[2022-08-04 15:51] LABS: Hematocrit 46.7 % (42.0-52.0); Hemoglobin 14.2 g/dL (14.0-18.0); Mean Corpuscular HGB Conc 30.4 g/dl (32-36); Mean Corpuscular Hemoglobin 26.3 pg (26-34); Mean Corpuscular Volume 86.6 fl (80-100); Mean Platelet Volume 9.3 fl (7.4-10.4); Platelet Count Result 251 k/mm3 (150-375); Red Blood Count 5.39 M/mm3 (4.6-6.20); Red Cell Distribution Width 16.8 % (11.5-14.5); White Blood Count 7.8 K/mm3 (4.5-10.0)
[2022-08-04 16:01] LABS: Anion Gap 6 mmol/L (8-16); Blood Urea Nitrogen 40 mg/dL (9-20); Carbon Dioxide 30 mmol/L (22-30); Chloride 99 mmol/L (98-107); Estimated CRCL calculation 66 ml/min; Estimated Glomerular Filt Rate > 60; Glucose 315 mg/dL (65-110); Sodium 135 mmol/L (137-145)
[2022-08-04 16:17] LABS: Magnesium 1.9 mg/dL (1.6-2.3)
[2022-08-04 16:48] LABS: Glucose Point of Care 331 mg/dl (65-105)
[2022-08-04] MEDS: AMIODARONE HCL 200 MG TABLET 400 MG PO (17:44)
[2022-08-04 20:33] LABS: Glucose Point of Care 270 mg/dl (65-105)
[2022-08-04] MEDS: RIVAROXABAN 20 MG TABLET PO (21:57)
[2022-08-04] MEDS: METOPROLOL TARTRATE 25 MG TABLET PO (21:57)
[2022-08-05] VITALS (20 sets, daily range): BP systolic 106–127; BP diastolic 69–91; PULSE 109–125; RESP 18–20; TEMP 35.8–36.7; O2SAT 98–100
[2022-08-05 08:22] LABS: Glucose Point of Care 341 mg/dl (65-105)
--- NOTE | 2022-08-05 08:33 | PM.PNCARD ---
Progress Note: A&P Assessment and Plan (1) Atrial flutter with rapid ventricular response: Code(s): I48.92 - Unspecified atrial flutter <JANNY Mckeon - Last Filed: 08/05/22 11:12> Status: Acute <Jena EscobarRiya JANNY Hedrick - Last Filed: 08/05/22 11:12> Assessment and Plan: Reported narrow complex tachycardia refractory to intravenous adenosine maintaining sinus rhythm status post cardioversion although strip unavailable. Clinically now he is in atrial flutter may have been atrial flutter with 1:1 conduction. He is being loaded with amiodarone but remains in atrial flutter with a rate in the 120's today. Will plan for MATTHIEU/CV tomorrow. I discussed this plan with the patient and he is in agreement. NPO after midnight. <JANNY Mckeon - Last Filed: 08/05/22 11:12> (2) Elevated troponin: Code(s): R77.8 - Other specified abnormalities of plasma proteins <JANNY Mckeon - Last Filed: 08/05/22 11:12> Status: Acute <JANNY Mckeon - Last Filed: 08/05/22 11:12> Assessment and Plan: Lexiscan stress test showed a small mild infarct involving the apical and apical inferior segments and small region of mild reversible decreased perfusion system with ischemia at the mid anterior segment. Will start ASA, statin. We discussed possible coronary angiogram, but this will be deferred an outpatient particular is patient had no anginal symptoms prior to or subsequent to spiritism of sinus rhythm. LV function is normal without wall motion abnormalities. <JANNY Mckeon - Last Filed: 08/05/22 11:12> (3) Atrial fibrillation and flutter: Code(s): I48.91 - Unspecified atrial fibrillation; I48.92 - Unspecified atrial flutter <JANNY Mckeon - Last Filed: 08/05/22 11:12> Status: Acute <JANNY Mckeon - Last Filed: 08/05/22 11:12> Assessment and Plan: S/p PVI ablation of atrial fibrillation [facility] 05/04/2022 without symptomatic recurrence to date. However, he presented with SVT (strip unavailable concern may have been atrial flutter with 1:1 conduction given present atrial flutter) very rapid ventricular response which he tolerated poorly. Continue systemic anticoagulation. Management as above. <JANNY Mckoen - Last Filed: 08/05/22 11:12> (4) Essential (primary) hypertension: Code(s): I10 - Essential (primary) hypertension <JANNY Mckeon - Last Filed: 08/05/22 11:12> Status: Acute <JANNY Mckeon - Last Filed: 08/05/22 11:12> Assessment and Plan: At goal. <JANNY Mckeon - Last Filed: 08/05/22 11:12> (5) Type 2 diabetes mellitus: Qualifiers: Diabetes mellitus complication status: with hyperglycemia Diabetes mellitus long chain beamer insulin use: without detention use Qualified Code(s): E11.65 - Type 2 diabetes mellitus with hyperglycemia <JANNY Mckeon - Last Filed: 08/05/22 11:12> Code(s): E11.9 - Type 2 diabetes mellitus without complications <JANNY Mckeon - Last Filed: 08/05/22 11:12> Status: Chronic <JANNY Mckeon - Last Filed: 08/05/22 11:12> Assessment and Plan: Management Per primary service. <JANNY Mckeon - Last Filed: 08/05/22 11:12> (6) Hyperkalemia: Code(s): E87.5 - Hyperkalemia <JANNY Mckeon - Last Filed: 08/05/22 11:12> Status: Acute <JANNY Mckeon - Last Filed: 08/05/22 11:12> Assessment and Plan: Resolved. Check BMP, magnesium. <JANNY Mckeon - Last Filed: 08/05/22 11:12> Assessment and Plan: Attending addendum: I agree with the above documentation and plan of care as outlined. <Zechariah De Souza MD - Last Filed: 08/05/22 13:41> Subjective Date/time seen: 08/05/22 08:33 Cardiology follow up for atrial flutter Remains in atrial flutter today with rate in the 120's. He is asymptomat
--- NOTE | 2022-08-05 08:35 | ECG_ITS ---
Measurements Intervals [place] Rate: 114 P: [place]: 0 QRS: -12 QRSD: 111 T: -87 QT: 337 QTc: 464 Interpretive Statements ATRIAL FLUTTER/TACHYCARDIA WITH RAPID VENTRICULAR RESPONSE MODERATE INTRAVENTRICULAR CONDUCTION DELAY [110+ ms QRS DURATION] ST DEVIATION AND MODERATE T-WAVE ABNORMALITY, CONSIDER LATERAL ISCHEMIA [-0.1+ mV T WAVE IN I/aVL/V5/V6] ST DEVIATION AND MODERATE T-WAVE ABNORMALITY, CONSIDER INFERIOR ISCHEMIA [-0.1+ mV T WAVE IN II/aVF] COMPARED TO ECG 08/04/2022 09:12:43 NO SIGNIFICANT CHANGES Electronically Signed On 08-05-2022 14:58:54 INTEGRATED SPECIALIST by Ana Paula Orlando M.D.
[2022-08-05] MEDS: lisinopriL 5 MG TABLET PO (09:24)
[2022-08-05] MEDS: GLIMEPIRIDE 2 MG TABLET 4 MG PO ×2 (09:24→17:50)
[2022-08-05] MEDS: MONTELUKAST SODIUM 10 MG TABLET PO (09:24)
[2022-08-05] MEDS: METOPROLOL TARTRATE 25 MG TABLET PO ×2 (09:24→21:13)
[2022-08-05] MEDS: MULTIVITAMINS THERAPEUTIC TAB (*BKC) 1 TABLET PO (09:25)
[2022-08-05] MEDS: INSULIN ASPART (*BKC) 100 UNITS/ML SUB-Q ×3 (09:25→17:49)
[2022-08-05] MEDS: AMIODARONE HCL 200 MG TABLET 400 MG PO ×2 (09:26→17:50)
[2022-08-05] MEDS: ATORVASTATIN 20 MG TABLET PO (09:27)
[2022-08-05] MEDS: FLUTICASONE/SALMETEROL 230-21 MCG INHALER 1 PUFF 2 PUFF INHALATION (09:27)
[2022-08-05] MEDS: ASPIRIN 81 MG ENTERIC TABLET PO (09:28)
[2022-08-05 11:58] LABS: Glucose Point of Care 297 mg/dl (65-105)
--- NOTE | 2022-08-05 13:17 | PM.IMPN ---
Progress Note: A&P Assessment and Plan (1) Supraventricular tachycardia: Code(s): I47.1 - Supraventricular tachycardia Status: Acute Assessment and Plan: Medications were adjusted as flecainide cannot be used with ischemic disease. Cardizem started. Continue Xarelto. Now in atrial fib/flutter. Heart rate is elevated. Await plan from Cardiology echo noted stress test does show some reversible ischemia - await plan from cardiology (2) Elevated troponin: Code(s): R77.8 - Other specified abnormalities of plasma proteins Status: Acute Assessment and Plan: EKG showed diffuse ST depression on arrival with improvement following cardioversion. Troponins have remained elevated and her most likely a type 2 infarction due to demand ischemia in the setting of the SVT and hypotension. Echocardiogram ordered to assess LV function and wall motion. He has not had any discomfort since arrival to the floor. (3) Atrial fibrillation and flutter: Code(s): I48.91 - Unspecified atrial fibrillation; I48.92 - Unspecified atrial flutter Status: Acute Assessment and Plan: Status post PVI ablation in April 2022. Maintained on flecainide and diltiazem as well as relative for stroke prophylaxis. (4) Essential (primary) hypertension: Code(s): I10 - Essential (primary) hypertension Status: Acute Assessment and Plan: Blood pressures have been stable since cardioversion. Continue to monitor closely. 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 Initiate sliding scale insulin, Accu-Cheks, and hypoglycemic protocol. Check hemoglobin A1c. (6) Hyperkalemia: Code(s): E87.5 - Hyperkalemia Status: Acute Assessment and Plan: Repeat potassium was normal. Magnesium was low and was replaced. Continue to monitor electrolytes closely. (7) Hypomagnesemia: Code(s): E83.42 - Hypomagnesemia Status: Acute Subjective Date/time seen: 08/05/22 13:17 no complaints Exam Narrative: General: Well-developed, well-nourished male sitting up in bed no distress. Weight: 75.1 kilograms. BMI: 21.8. HEENT: PERRL, EOMI. Sclera anicteric. Oral mucosa moist. Oropharynx clear. Neck: Supple. No JVD. Respiratory: Lungs are clear to auscultation bilaterally. Cardiovascular: Regular rate and rhythm with S1-S2. Gastrointestinal: Abdomen is soft, flat, nontender, and nondistended with positive bowel sounds. Skin: Warm and dry. Some excoriations of the lower legs. Extremities: No cyanosis, clubbing, or edema. Radial and pedal pulses intact. Neurological: Alert. Cranial nerves 2-12 are grossly intact. No gross focal deficits to casual conversation. Psychiatric: Pleasant and cooperative with normal mood and affect. Judgment and insight intact. He is in good spirits. Objective Data Vital Signs Vital Signs: Vital Signs - 24 hr 08/04/22 14:24 08/04/22 14:00 08/04/22 16:57 Temperature 97.0 F L Pulse Rate 116 H 117 H 120 H Respiratory Rate 20 Blood Pressure 91/57 L Pulse Oximetry 99 Oxygen Delivery 08/04/22 17:44 08/04/22 16:00 08/04/22 16:00 Temperature Pulse Rate 112 H 120 H Respiratory Rate Blood Pressure Pulse Oximetry Oxygen Delivery Room Air 08/04/22 18:00 08/04/22 20:00 08/04/22 20:58 Temperature 97.9 F Pulse Rate 119 H 111 H Respiratory Rate 18 Blood Pressure 139/83 Pulse Oximetry 98 99 Oxygen Delivery Room Air 08/04/22 21:57 08/04/22 20:00 08/04/22 20:00 Temperature Pulse Rate 118 H 115 H Respiratory Rate Blood Pressure P
[2022-08-05 16:35] LABS: Glucose Point of Care 338 mg/dl (65-105)
[2022-08-05] MEDS: RIVAROXABAN 20 MG TABLET PO (17:50)
[2022-08-05 20:23] LABS: Glucose Point of Care 179 mg/dl (65-105)
[2022-08-06] VITALS (21 sets, daily range): BP systolic 96–144; BP diastolic 58–100; PULSE 61–131; RESP 12–22; TEMP 35.8–36.6; O2SAT 98–100
--- NOTE | 2022-08-06 | ECG_ITS ---
Measurements Intervals [place] Rate: 63 P: 80 AL: 160 QRS: -7 QRSD: 118 T: -19 QT: 393 QTc: 403 Interpretive Statements SINUS RHYTHM NONSPECIFIC ST AND T-WAVE ABNORMALITY ABNORMAL ECG COMPARED TO ECG 08/06/2022 09:58:31 SINUS RHYTHM NOW PRESENT REPLACES ATRIAL FLUTTER Electronically Signed On 08-06-2022 14:58:45 CAFETERIA WORKER by Cortes Roy M.D.
--- NOTE | 2022-08-06 | ECHO_ITS ---
Patient Info Name: Biju Navarrete Age: 57 years : 1965 Gender: Male Ht: 73 in Wt: 165 lbs BSA: 1.96 m2 HR: 125 bpm Heart Rhythm: Atrial Flutter Technical Quality: Good Exam Date: 08/06/2022 10:24 AM Exam Location: [facility] Patient Status: Inpatient Admit Date: 08/01/2022 Staff Ordering Physician: Jena Hedrick Fiscal Accountant: Woody Morel, WINDY, RT Attending Provider: Mulugeta Alberto MD Referring Physician: Floridalma JOYCE; Exam Type: CA echo transesophageal Study Info Indications I48.1 - Persistent atrial fibrillation Complete two-dimensional, color flow and Doppler transesophageal study is performed. Summary 1. Limited MATTHIEU performed to exclude left atrial appendage thrombus prior to cardioversion. 2. Severe left atrial dilation. 3. Left atrial smoke but no evidence of thrombus. 4. Moderate left ventricular systolic dysfunction. Left Ventricle Left ventricular chamber dimension is mildly enlarged. Left ventricular systolic function is moderately reduced with an ejection fraction by Biplane Method of Discs of Empty. Right Ventricle Right ventricular chamber dimension is normal. Left Atria Left atrial chamber dimension is severely enlarged. There is no thrombus visualized in the left atrium. Right Atria Right atrial chamber dimension is mildly enlarged. Atrial Appendage There is no thrombus visualized in the left atrial appendage. Aortic Valve The aortic valve is normal. Pulmonic Valve The pulmonic valve is not well visualized. Mitral Valve The mitral valve has normal leaflets. Tricuspid Valve The tricuspid valve leaflets are normal. Pericardium/Pleural The pericardium appears normal. Inferior Vena Cava Not well visualized inferior vena cava with Empty collapse upon inspiration consistent with Empty right atrial pressure, Empty. Aorta The aortic root size at the sinus of Valsalva is not well visualized. Report Signatures
[2022-08-06 07:54] LABS: Glucose Point of Care 255 mg/dl (65-105)
[2022-08-06] MEDS: INSULIN ASPART (*BKC) 100 UNITS/ML SUB-Q (08:15)
[2022-08-06] MEDS: AMIODARONE HCL 200 MG TABLET 400 MG PO (08:43)
[2022-08-06] MEDS: ASPIRIN 81 MG ENTERIC TABLET PO (08:44)
[2022-08-06] MEDS: METOPROLOL TARTRATE 25 MG TABLET PO (08:45)
[2022-08-06] MEDS: FLUTICASONE/SALMETEROL 230-21 MCG INHALER 1 PUFF 2 PUFF INHALATION (08:59)
--- NOTE | 2022-08-06 09:51 | WPDMODSED ---
Moderate Sedation Note-Pt Data Patient Data Diagnosis: Atrial flutter with rapid ventricular response Previous ablation for atrial fibrillation Present Complaint: No complaints this morning Procedure to be performed/Plan: Danielito/cardioversion Allergies Allergy/AdvReac Type Severity Reaction Status Date / Time vancomycin Allergy Severe Hives Verified 08/01/22 07:46 Home Medications Medication Instructions Recorded Confirmed Type fluticasone 500 mcg-salmeterol 50 1 inh inhalation Q12H #60 ea 04/23/21 08/01/22 Rx mcg/dose blistr powdr for inhalation (Advair Diskus) sildenafil (pulm.hypertension) 20 20 mg PO .COMPLEX #90 tabs 08/17/21 08/01/22 Rx mg tablet montelukast 10 mg tablet 10 mg PO DAILY #90 tabs 12/07/21 08/01/22 Rx (Singulair) lisinopril 5 mg tablet 5 mg PO DAILY #90 tabs 02/15/22 08/01/22 Rx rivaroxaban 20 mg tablet (Xarelto) 20 mg PO DAILY 02/22/22 08/01/22 History diltiazem HCl 120 mg 120 mg PO DAILY 04/28/22 08/01/22 History capsule,extended release 24 hr, controlled (DILT-XR) flecainide 150 mg tablet 150 mg PO Q12H 04/28/22 08/01/22 History sitagliptin phosphate 100 mg 100 mg PO DAILY #90 tabs 06/07/22 08/01/22 Rx tablet (Januvia) metformin 1,000 mg tablet 1,000 mg BID 07/16/22 08/01/22 History glimepiride 4 mg tablet 4 mg PO BID #180 tabs 07/26/22 08/01/22 Rx Adults Multivitamin 1 tablet PO DAILY 08/01/22 08/01/22 History Current Medications: Active Medications Amiodarone HCl (Amiodarone Hcl 200 Mg Tablet) 400 mg PO BID [facility] Last Admin: 08/06/22 08:43 Dose: 400 mg Aspirin (Aspirin 81 Mg Enteric Tablet) 81 mg PO QAM [facility] Last Admin: 08/06/22 08:44 Dose: 81 mg Atorvastatin Calcium (Atorvastatin 20 Mg Tablet) 20 mg PO DAILY [facility] Last Admin: 08/05/22 09:27 Dose: 20 mg Dextrose (Dextrose 50% 25 Gm/50 Ml Syringe) 12.5 gm IV PUSH PRN PRN; Protocol PRN Reason: Hypoglycemia Glimepiride (Glimepiride 2 Mg Tablet) 4 mg PO BIDWM [facility] Last Admin: 08/06/22 07:57 Dose: Not Given Glucagon (Glucagon For Inj 1 Mg Vial) 1 mg IM PRN PRN; Protocol PRN Reason: Hypoglycemia Glucose (Glucose Oral Gel 15 Gm Of Glucse In 37.5 Gm Tube) 15 gm PO PRN PRN; Protocol PRN Reason: Hypoglycemia Dextrose (Dextrose 5% 1,000 Ml) 1,000 mls @ 100 mls/hr IVPB PRN PRN; Protocol PRN Reason: Hypoglycemia Sodium Chloride (Normal Saline Iv) 1,000 mls @ 30 mls/hr IV CONT .Q24H [facility] Insulin Aspart (Insulin Aspart (*Bkc) 100 Units/Ml) 4 - 8 units SUB-Q TIDWM [facility]; Protocol Last Admin: 08/06/22 08:15 Dose: 5 units Lisinopril (Lisinopril 5 Mg Tablet) 5 mg PO DAILY [facility] Last Admin: 08/05/22 09:24 Dose: 5 mg Metoprolol Tartrate (Metoprolol Tartrate 25 Mg Tablet) 25 mg PO Q12HR [facility] Last Admin: 08/06/22 08:45 Dose: 25 mg Montelukast Sodium (Montelukast Sodium 10 Mg Tablet) 10 mg PO DAILY [facility] Last Admin: 08/05/22 09:24 Dose: 10 mg Multivitamins Therapeutic (Multivitamins Therapeutic Tab (*Bkc)) 1 tablet PO DAILY [facility] Stop: 09/01/22 12:24 Last Admin: 08/05/22 09:25 Dose: 1 tablet Rivaroxaban (Rivaroxaban 20 Mg Tablet) 20 mg PO QPM [facility] Last Admin: 08/05/22 17:50 Dose: 20 mg Fluticasone/Salmeterol (Fluticasone/Salmeterol 230-21 Mcg Inhaler 1 Puff) 2 puff INHALATION Q12HRT [facility] Last Admin: 08/06/22 08:59 Dose: 2 puff Sitagliptin Phosphate (Sitagliptin 100 Mg Tablet) 100 mg PO DAILY [facility] Last Admin: 08/05/22 09:23 Dose: 100 mg Sedation/Anesthesia: No previous sedation/anesthesia problems (including family history). [facility] Past Medical History Medical History (Updated 08/04/22 @ 15:18 by Zechariah De Souza MD) Asthma Atrial fibrillation and flutter Attention deficit hyperactivity disorder Benign prostatic hyperplasia Gout Hyperlipidemia Hypertension Septic arthritis of knee, right (10/2021) Type 2 diabetes mellitus Surgical History Surgical History (Updated 08/01/22 @ 22:40 by Chula Pacheco PA-C) History of cardiac radiofrequency ablation (04/2022) Hist
--- NOTE | 2022-08-06 10:00 | ECG_ITS ---
Measurements Intervals [place] Rate: 128 P: MS: 0 QRS: -22 QRSD: 128 T: 85 QT: 292 QTc: 427 Interpretive Statements ATYPICAL ATRIAL FLUTTER WITH TWO-TO-ONE CONDUCTION NONSPECIFIC ST AND T-WAVE ABNORMALITY ABNORMAL RHYTHM ECG COMPARED TO ECG 08/05/2022 10:12:07 NO SIGNIFICANT CHANGES Electronically Signed On 08-06-2022 14:55:07 COMPUTER HARDWARE DEVELOPER by Cortes Roy M.D.
--- NOTE | 2022-08-06 10:10 | PC.NURSE ---
0985- to chest pain center for MATTHIEU/cardioversion via wheelchair accompanied by RN
--- NOTE | 2022-08-06 10:36 | P.PCNCC_ITS ---
Cardiac Cath Procedure Note Date of procedure:: 08/06/22 Performing physician:: Cortes Roy MD Indication:: Persistent atrial flutter Brief clinical history:: This is a 57-year-old man with a history of atrial fibrillation and atrial flutter. He has previously undergone AFib ablation and was hospitalized here with a recurrence of atrial flutter which was symptomatic with RVR. Despite medical therapy with amiodarone atrial flutter persistent an attempt at DANIELITO cardioversion was recommended for today. Procedure Procedure performed:: Danielito/cardioversion Sedation/Medication given:: Intravenous propofol total dosage of 40 mg Estimated blood loss:: No blood loss Procedure note:: Patient was brought to the cardiac catheterization lab holding area in the postabsorptive state placed in the supine position with defibrillator patches placed in the AP position. He had or pharyngeal Cetacaine used to spray the pharynx and then a bite block placed. Transesophageal echocardiogram was then performed easily and without complication visualizing the left atrium in its entirety without evidence of clot including in the appendage. The DANIELITO probe was then withdrawn and the patient received 1 200 joule synchronized countershock restoring sinus rhythm. Findings:: As above Conclusion:: Successful uncomplicated DANIELITO/cardioversion terminating atrial flutter restoring sinus rhythm using 200 joules x1 shock. Cortes Roy MD [facility]
--- NOTE | 2022-08-06 11:33 | PC.NURSE ---
1110- returned to room post procedure- VSS- monitor SR 60's denies pain- sitting up in chair
[2022-08-06] MEDS: lisinopriL 5 MG TABLET PO (11:36)
[2022-08-06] MEDS: MONTELUKAST SODIUM 10 MG TABLET PO (11:36)
[2022-08-06] MEDS: ATORVASTATIN 20 MG TABLET PO (11:36)
[2022-08-06] MEDS: MULTIVITAMINS THERAPEUTIC TAB (*BKC) 1 TABLET PO (11:36)
[2022-08-06 11:50] LABS: Glucose Point of Care 197 mg/dl (65-105)
--- NOTE | 2022-08-06 14:15 | PM.DS ---
DS: Admitting Diagnosis Discharge Date August 06, 2022 Admitting Diagnosis AFib flutter DS: Discharge Diagnosis Discharge Diagnosis (1) Supraventricular tachycardia: Code(s): I47.1 - Supraventricular tachycardia Status: Acute (2) Elevated troponin: Code(s): R77.8 - Other specified abnormalities of plasma proteins Status: Acute (3) Atrial fibrillation and flutter: Code(s): I48.91 - Unspecified atrial fibrillation; I48.92 - Unspecified atrial flutter Status: Acute (4) Essential (primary) hypertension: Code(s): I10 - Essential (primary) hypertension Status: Acute (5) Type 2 diabetes mellitus: Qualifiers: Diabetes mellitus dietary aide cook insulin use: without dietary aide cook use Diabetes mellitus complication status: with hyperglycemia Qualified Code(s): E11.65 - Type 2 diabetes mellitus with hyperglycemia Code(s): E11.9 - Type 2 diabetes mellitus without complications Status: Chronic (6) Hyperkalemia: Code(s): E87.5 - Hyperkalemia Status: Acute (7) Hypomagnesemia: Code(s): E83.42 - Hypomagnesemia Status: Acute DS: Summary Hospital Course Hospital Course: 57-year-old male came with AFib flutter. Also found have some skin car disease and stress test. Will need follow-up with Cardiology for catheterization. Otherwise we stopped his flecainide is heart rate went back up he was subsequently cardioverted and will be put on beta-alok and amiodarone. Otherwise heart rates are now controlled in sinus rhythm. Time Spent with Patient Time attestation: Total time spent providing and/or coordinating discharge services: Exam Const: General: comfortable, no acute distress, alert and awake Orientation/consciousness: patient oriented x3 HENMT: Head: normal to inspection Eyes: General: appearance normal, both eyes and all related structures Pupils: Equal, round and reactive pupils present Neck: Neck: normal visual inspection, supple and no JVD Carotids: normal carotid upstroke Resp: Effort & Inspection: normal respiratory effort Auscultation: clear to auscultation bilaterally Cardio: Rate: regular rate and tachycardic Rhythm: regular rhythm and abnormal rhythm irregularly irregular Heart sounds: S1 normal heart sound present, S2 normal heart sound present and no murmurs GI: Auscultation: normal bowel sounds Skin: General skin exam: normal color Neuro: General: patient oriented x3 Cranial nerves: Yes Equal, round and reactive pupils present Extrem: General: normal to inspection Psych: Appearance: grossly normal Mental Status: mental status grossly normal DS: Data Data Completed and Pending Labs on day of discharge: Labs from last 24 hours 08/06/22 08/06/22 08/05/22 11:36 07:37 20:09 POC Capillary Glucose 197 H 255 H 179 H 08/05/22 15:54 POC Capillary Glucose 338 H Discharge Plan Discharge Attending physician on discharge: Cortes Blair Consulting providers: Zechariah De Souza Discharging Clinician: Cortes Blair Patient Disposition: Home, Self-Care Activity: no preference Diet: as tolerated Patient Instructions: Antibiotic Form, Supraventricular Tachycardia (DC), Chest Pain (DC) Stand Alone Forms: General Discharge Information Follow-up/Referrals: Zechariah De Souza MD [Physician] - Akira Berrios DO [Primary Care Provider] - Discharge Medications: New atorvastatin 20 mg Tablet 20 mg PO DAILY 30 Days Qty: 30 0RF aspirin 81 mg Tablet,Delayed Release (Dr/Ec) 81 mg PO QAM 30 Days Qty: 30 0RF metoprolol tartrate 25 mg Tablet 25 mg PO Q12HR 30 Days Qty: 60 0RF amiodarone 200 mg tablet 400 mg PO BID 30 Days Qty: 52 0RF Rx Instructions: 400 mg bid x 5 days, then 400 mg daily x 7 days, then 200 mg daily threafter Continued Xarelto 20 mg tablet 20 mg PO DAILY Rx Instructions: must administer with evening meal
== END 2022-08-06 15:56 | disposition home or self-care (01) | DRG 282 ==
LOC: ANHED 08:06 → ANHIMU 12:04
PROVIDERS: Internal Medicine Cardiovascular Disease; Physician Assistant; Specialist; Admitting Provider Family Medicine; Emergency Provider Emergency Medicine; PCP Internal Medicine; Visit Provider Chiropractor
PROC: 5A2204Z Restoration of Cardiac Rhythm, Single (ICD-10-PCS; CPT 93312; principal; 2022-08-06 10:30)
PROC: 5A2204Z Restoration of Cardiac Rhythm, Single (ICD-10-PCS; 2022-08-06 10:30)
DX: I47.1 Supraventricular tachycardia (principal); I21.A1 Myocardial infarction type 2; I48.91 Unspecified atrial fibrillation; I48.92 Unspecified atrial flutter; I10 Essential (primary) hypertension; E11.65 Type 2 diabetes mellitus with hyperglycemia; E78.5 Hyperlipidemia, unspecified; E83.42 Hypomagnesemia; M10.9 Gout, unspecified; Z20.822 Contact with and (suspected) exposure to COVID-19; Z87.891 Personal history of nicotine dependence; Z79.899 Other long term (current) drug therapy; Z88.1 Allergy status to other antibiotic agents; Z79.01 Long term (current) use of anticoagulants; Z79.84 Long term (current) use of oral hypoglycemic drugs
CPT/HCPCS: 36415; 71045; 78452; 80048; 80053; 82948; 83036; 83605; 83735; 83880; 84132; 84443; 84484; 85025; 85027; 85610; 85730; 87636; 92960; 93005; 93017; 93306; 93312; 93320; 93325; 94640; 96361; 96374; 96375; 99285; A9270; A9502; J0153; J1815; J2250; J2704; J2785; J3010; J3475; J7030; J7040

== ENCOUNTER 2023-03-22 23:57 | Inpatient (IN) | payer BC, SELFPAY ==
--- NOTE | ~2023-03-22 | XR_ITS ---
EXAMINATION: XR chest 1V portable DATE: 03/23/2023 01:08 INDICATION: Supraventricular tachycardia. TECHNIQUE: A single frontal view of the chest was obtained. COMPARISON: Chest single view 08/01/2022 FINDINGS: There is a diffuse interstitial pattern, consistent mild pulmonary edema. No pleural effusi on or pneumothorax. The heart size is normal. There is an old healed fracture of right clavicle. IMPRESSION: 1. Mild pulmonary edema. Reviewed, dictated and finalized at location A. IMPRESSION: 1. Mild pulmonary edema.
[2023-03-23] VITALS (35 sets, daily range): BP systolic 95–167; BP diastolic 68–99; PULSE 78–209; RESP 13–21; TEMP 36–37; O2SAT 92–100; BMI 18.1
[2023-03-23] MEDS: ADENOSINE IV SOLN 6 MG/2 ML VIAL (00:12)
[2023-03-23] MEDS: LORazepam INJ (*CRX) 2 MG/ML VIAL (00:22)
[2023-03-23] MEDS: SODIUM CHLORIDE 0.9% IV 2,000 ML 999 ML (00:23)
--- NOTE | 2023-03-23 00:26 | PC.NURSE ---
0025 mg etomidate administered ivp vorb erp. 0027 50 J synchronized cardioversion administered
--- NOTE | 2023-03-23 00:29 | ECG_ITS ---
Measurements Intervals [place] Rate: 207 P: [place]: 0 QRS: -15 QRSD: 93 T: 151 QT: 207 QTc: 385 Interpretive Statements SUPRAVENTRICULAR TACHYCARDIA MARKED ST DEPRESSION, CONSIDER SUBENDOCARDIAL INJURY [0.2+ mV ST DEPRESSION] COMPARED TO ECG 08/06/2022 10:44:02 SUPRAVENTRICULAR TACHYCARDIA NOW PRESENT Electronically Signed On 03-23-2023 15:20:04 CDT by Ana Paula [place] M.D.
--- NOTE | 2023-03-23 00:33 | ECG_ITS ---
Measurements Intervals [place] Rate: 92 P: 76 GA: 158 QRS: -9 QRSD: 110 T: 112 QT: 382 QTc: 473 Interpretive Statements SINUS RHYTHM ANTEROLATERAL ST ABNORMALITY, CONSIDER ISCHEMIA ABNORMAL ECG COMPARED TO ECG 03/23/2023 00:03:16 SINUS RHYTHM HAS REPLACED SUPRAVENTRICULAR TACHYCARDIA Electronically Signed On 03-23-2023 15:21:16 CDT by Zechariah De Souza M.D.
--- NOTE | 2023-03-23 00:33 | PC.NURSE ---
0012 6 mg adenosine administered ivp vorb erp. 0030 12 mg adenosine administered ivp vorb erp.
[2023-03-23 00:53] LABS: Basophils Absolute Auto 0.1 K/mm3 (0.0-0.1); Basophils Percent Auto 0.8 % (0.2-1.2); Eosinophils Absolute Auto 1.1 K/mm3 (0-0.3); Eosinophils Percent Auto 9.5 % (0-4.4); Hematocrit 40.4 % (42.0-52.0); Hemoglobin 12.1 g/dL (14.0-18.0); Immature Granulocyte Absolute 0.04 K/mm3 (0.00-0.031); Immature Granulocyte Percent A 0.4 % (0-0.5); Lymphocytes Absolute Auto 1.88 K/mm3 (0.9-3.2); Lymphocytes Percent Auto 16.5 % (18.3-44.2); Mean Corpuscular Hemoglobin 26.8 pg (26-34); Mean Corpuscular Volume 89.6 fl (80-100); Mean Platelet Volume 9.6 fl (7.4-10.4); Monocytes Absolute Auto 0.8 K/mm3 (0.1-0.6); Monocytes Percent Auto 7.3 % (2.6-8.5); Neutrophils Absolute Auto 7.5 K/mm3 (1.3-6.7); Neutrophils Percent Auto 65.5 % (45.5-73.1); Platelet Count Result 255 k/mm3 (150-375); Red Blood Count 4.51 M/mm3 (4.6-6.20); Red Cell Distribution Width 15.7 % (11.5-14.5); White Blood Count 11.4 K/mm3 (4.5-10.0)
[2023-03-23 00:59] LABS: Alanine Aminotransferase 30 U/L (6-50); Alkaline Phosphatase 146 U/L (38-126); Anion Gap 7 mmol/L (8-16); Aspartate Amino Transferase 34 U/L (17-59); Bilirubin,Total 0.4 mg/dL (0.2-1.3); Blood Urea Nitrogen 38 mg/dL (9-20); Calcium 9.7 mg/dL (8.4-10.2); Carbon Dioxide 29 mmol/L (22-30); Chloride 102 mmol/L (98-107); Estimated CRCL calculation 59 ml/min; Estimated Glomerular Filt Rate 53; Glucose 165 mg/dL (65-110); Magnesium 1.5 mg/dL (1.6-2.3); Phosphorus 4.7 mg/dL (2.5-4.5); Potassium 4.5 mmol/L (3.4-5.0); Sodium 138 mmol/L (137-145)
--- NOTE | 2023-03-23 01:07 | PC.NURSE ---
vorb erp give pt. 20 mg diltiazem ivp
--- NOTE | 2023-03-23 01:40 | ED.GENADULT ---
HPI - General Adult General Chief complaint: Arrhythmia/Palpitations Stated complaint: tachycardia Time Seen by Provider: 03/23/23 00:18 History of Present Illness HPI narrative: This is a 57-year-old male with history of SVT, AFib with RVR, cardiac ablation presenting in SVT. Patient has been having tachycardic episodes on and off the last 2 days. However tonight it became constant. Is associated with chest discomfort, palpitations, anxiety and shortness of breath. Patient came to the emergency department for evaluation. He has been taking his medications as directed. Denies use of stimulants or drugs. No other complaints. 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: [facility] Related Data Home Medications Medication Instructions Recorded Confirmed rivaroxaban 20 mg tablet (Xarelto) 20 mg PO DAILY 02/22/22 01/26/23 Adults Multivitamin 1 tablet PO DAILY 08/01/22 01/26/23 metoprolol succinate 50 mg 50 mg PO BID 12/29/22 01/26/23 tablet,extended release 24 hr Allergies Allergy/AdvReac Type Severity Reaction Status Date / Time vancomycin Allergy Severe Hives Verified 03/22/23 23:58 [facility] Past Medical History Medical History Asthma Atrial fibrillation and flutter Attention deficit hyperactivity disorder Benign prostatic hyperplasia Gout Hyperlipidemia Hypertension Septic arthritis of knee, right (10/2021) Type 2 diabetes mellitus Surgical History Surgical History History of cardiac radiofrequency ablation (04/2022) History of nasal polypectomy History of open reduction and internal fixation (ORIF) procedure Repair left tibial fracture. History of tonsillectomy Family History Family History Mother Polio Father Lung cancer Sibling Carcinoma of colon Cancer Social History Social History Social History: The patient is and lives with his . They have 3 children. They have a [employer] as well as a [employer] company. He has not been able to work since this spring. He is a former smoker and quit in 1991. No alcohol or illicit substance abuse. Surrogate medical decision maker: Ailyn Navarrete, spouse. Code status: Full code. Smoking packs per day: 1 Smoking cigarettes per day: 20.0 Years smoked: 5 Smoking pack-years: 5.00 Smoking status: Former smoker Tobacco type: cigarettes Second hand tobacco smoke exposure: No Smoking end date: 08/08/91 Alcohol intake: former Substance use: never Substance use type: does not use Lack of Transportation: No Lack of Food: Sometimes True Current Housing: I Have Housing Concerned About Future Housing: No Difficulty Paying Gas/Electric Bills: No Difficulty Paying for Meds: No Currently Unemployed: YES Education: Grade School Difficulty w/ Childcare or Family Care: No Living arrangements: with family Spiritual care concerns: No Exam Narrative: APPEARANCE: anxious. Head: atraumatic. EYES: EOMI, NOSE: Atraumatic NECK: Trachea midline RESPIRATORY: No increased rate of breathing clear to auscultation CARDIOVASCULAR: Tachycardic, no peripheral edema ABDOMINAL: Non-distended MUSCULOSKELETAl: No obvious deformities NEURO: Alert. Moving 4/4 extremities SKIN:: Warm, dry. Normal color PSYCHIATRIC: Normal affect Course Vital Signs Vital signs: Vital Signs Temperature 97.7 F 03/23/23 00:04 Pulse Rate 208 H 03/23/23 00:04 Respiratory Rate 18 03/23/23 00:04 Blood Pressure 95/71 L 03/23/23 00:04 Pulse Oximetry 100 03/23/23 00:04 Oxygen Delivery Room Air 03/23/23 00:04 Temperature 98.6 F 03/23/23 00:55 Pulse Rate 98 03/23/23 01:53 Respiratory Rate 19 03/23/23 01:48 Blood Pressure 134/92 H 03/23/23 01:53 Pulse Oximetry 99 03/23/23 01:48 Oxygen Delivery Room Air 0
[2023-03-23] MEDS: dilTIAZem 100 MG/100 ML 100 MG/100 ML BAG IV CONT (01:53)
[2023-03-23] MEDS: MAGNESIUM SULF 2 GM/WATER 50ML 2 GM/50 ML BAG IVPB (01:54)
--- NOTE | 2023-03-23 02:07 | PM.IMHP ---
H&P: HPI History of Present Illness Date/Time: 03/23/23 02:07 Chief Complaint: Chest pain and palpitations Narrative: This is a very complicated 57-year-old man with a significant cardiac electrophysiology history, presenting in acute SVT. Per the ER he was having tachycardic episodes on and off for the last 2 days. It became constant tonight around 11 or 11:30 p.m.. His brought him immediately to the ER. His symptoms were chest discomfort, palpitations, anxiety, and sweating. He has been taking the medications as directed. His ER course today is as follows: His initial heart rate was 209. His initial EKG showed SVT. He received 2 doses of adenosine 6 mg and 12 mg with no response. He then became hypotensive to 90/60. He received synchronized cardioversion at 50 joules. This resulted in a conversion to sinus rhythm. However after this he again went back into an SVT. At this time diltiazem drip was started and the patient converted to sinus rhythm at 98. He is in sinus rhythm on exam when I see him. His blood pressure is normal at 130/80. His magnesium is 1.5. His primary hand trimmer is Dr. Sidhu. His arrhythmias specific history is complicated and is as follows. This is taken from the specialist evaluation by Dr. Amrit Merlos in 12/2022 1. Paroxysmal AF - PVI 05/04/22 Dr. Rangel[facility] - Early recurrence of AFL led to DCCV in 05/2022. EKG showed likely atypical Aflutter - [facility] with cp and palpitations. Pt found to have SVT at 200 bpm refractory to adenosine, c/f aflutter with 1:1 conduction. Flecanide stopped at this time, and pt resumed on amiodarone and underwent MATTHIEU/DCCV. EKG's in 07/2022 admission reviewed in Media tab showed atrial flutter, likely typical. - Recurrence of AF noted in late 09/2021 - Repeat AF/Aflutter RFA done in 11/2022. PV isolated at outset with PWI+CTI done as well as ablation in the anterior mitral line region connected to area of scar. The latter terminated presenting flutter. Hx of HTN HLD, DM The patient did well for about a week to 10 days after his ablation. He noted his heart rates for the majority of the time between 60 and 70. After this time, the patient noted his heart rate increased to the 120s to 130s. There was associated weakness in his legs and fatigue, however he denied tachycardia, palpitations, chest pain, lightheadedness, dizziness, or syncope. The patient was compliant with amiodarone and metoprolol 50 mg b.i.d. as well as Xarelto. Review of Systems Review of Systems: Negative otherwise noted in the [facility] Past Medical History Medical History Asthma Atrial fibrillation and flutter Attention deficit hyperactivity disorder Benign prostatic hyperplasia Gout Hyperlipidemia Hypertension Septic arthritis of knee, right (10/2021) Type 2 diabetes mellitus Surgical History Surgical History History of cardiac radiofrequency ablation (04/2022) History of nasal polypectomy History of open reduction and internal fixation (ORIF) procedure Repair left tibial fracture. History of tonsillectomy Family History Family History Mother Polio Father Lung cancer Sibling Carcinoma of colon Cancer Social History Social History Social History: The patient is and lives with his . They have 3 children. They have a [employer] company as well as a [employer] company. He has not been able to work since this spring. He is a former smoker and quit in 1991. No alcohol or illicit substance abuse. Surrogate medical decision maker: Ailyn Navarrtee, spouse. Code status: Full code. Smoking packs per day: 1 Smoking cigarettes per day: 20.0 Years smoked: 5 Smoking pack-years: 5.00 Smoking status: Former s
--- NOTE | 2023-03-23 02:45 | ADMGEN ---
This patient, Biju Navarrete, was admitted to IMU Room 211-01. Patient/family oriented to hospital policies and general routines including ID bracelet, bed and alarms, visiting hours, pain management, procedures, bathroom and other care routines, personal items, smoking policy, room service/diet, and visiting hours. Information on how to activate the Rapid Response Team has been discussed. Patient/Family are encouraged to report perceived risks to care and to ask questions if they do not understand what they are told or what they should do.
[2023-03-23 04:16] LABS: Troponin I 0.256 ng/mL (0.000-0.034)
--- NOTE | 2023-03-23 08:27 | PM.IMPN ---
Progress Note: A&P Assessment and Plan (1) SVT (supraventricular tachycardia): Code(s): I47.1 - Supraventricular tachycardia Status: Acute Assessment and Plan: Status post 2 rounds of adenosine and synchronized cardioversion, continue diltiazem drip, hold for hypotension, continue metoprolol Consult cardiology pending (2) Hypomagnesemia: Code(s): E83.42 - Hypomagnesemia Status: Acute Assessment and Plan: Replete and recheck (3) Atrial fibrillation and flutter: Code(s): I48.91 - Unspecified atrial fibrillation; I48.92 - Unspecified atrial flutter Status: Acute Assessment and Plan: See HPI for history of paroxysmal AFib/a flutter. Recommend discussing with Cardiology. Treatment for SVT will cover paroxysmal AFib a flutter. Continue Xarelto (4) S/P ablation operation for arrhythmia: Code(s): Z98.890 - Other specified postprocedural states; Z86.79 - Personal history of other diseases of the circulatory system Status: Acute Assessment and Plan: See HPI. Discussed with cardiology. (5) Hyperlipidemia: Code(s): E78.5 - Hyperlipidemia, unspecified Status: Chronic Assessment and Plan: Continue Lipitor 20mg qd (6) Hypertension: Code(s): I10 - Essential (primary) hypertension Status: Chronic Assessment and Plan: See above Blood pressures reviewed 03/23 (7) Insulin dependent diabetes mellitus: Status: Acute Assessment and Plan: Hold oral anti-diabetics, accuchecks, SSI Blood glucose reviewed 03/23 Plan DVT prophylaxis with SCDs GI prophylaxis not indicated Code status full code Subjective Date/time seen: 03/23/23 08:27 Interval history: 57 year old male with h/o arrhythmia p/w SVT. No overnight events noted. No chest pain or shortness of breath. No nausea, vomiting or diarrhea. No fevers or chills. No palpitations. All symptoms resolved. Review of Systems Review of Systems: 12 point review of systems was assessed and was negative except as noted in the HPI Exam Narrative: General: No acute distress, alert and oriented per baseline HEENT: Atraumatic, normocephalic, mucous membranes moist CV: Regular rate and rhythm, S1, S2 Lungs: Clear to auscultation bilaterally, no rales or crackles noted, no wheezes, good air entry Abdomen: Soft, nontender, nondistended Extremities: Normal to inspection Skin: No rashes noted, no lesions or wounds seen Psych: Euthymic, normal affect Objective Data Vital Signs Vital Signs: Vital Signs - 24 hr 03/23/23 00:04 03/23/23 00:20 03/23/23 00:20 Temperature 97.7 F 97.6 F Pulse Rate 208 H 209 H Pulse Rate [Monitor] 209 H Respiratory Rate 18 19 19 Blood Pressure 95/71 L 110/87 Blood Pressure [Right Arm] Pulse Oximetry 100 92 92 Oxygen Delivery Room Air Room Air 03/23/23 00:25 03/23/23 00:25 03/23/23 00:40 Temperature 98.6 F 98.6 F Pulse Rate Pulse Rate [Monitor] 205 H 94 87 Respiratory Rate 15 18 21 H Blood Pressure Blood Pressure [Right Arm] 108/86 167/99 H 133/83 Pulse Oximetry 100 98 98 Oxygen Delivery Room Air Room Air Room Air 03/23/23 00:55 03/23/23 01:53 03/23/23 00:38 Temperature 98.6 F Pulse Rate 98 84 Pulse Rate [Monitor] 83 Respiratory Rate 20 20 Blood Pressure 134/92 H Blood Pressure [Right Arm] 129/93 H Pulse Oximetry 98 98 Oxygen Delivery Room Air 03/23/23 00:55 03/23/23 01:00 03/23/23 01:01 Temperature Pulse Rate 81 150 H 149 H Pulse Rate [Monitor] Respiratory Rate 15 18 16 Blood Pressure 148/68 H Blood Pressure [Right Arm] Pulse Oximetry 100 97 Oxygen Delivery 03/23/23 01:08 03/23/23 01:09 03/23/23 01:10 Temperature Pulse Rate 97 98 98 Pulse Rate [Monitor] Respiratory Rate 13 17 18 Blood Pressure 129/82 129/82 Blood Pressure [Right Arm] Pulse Oximetry 99 96 97 Oxygen Delivery 03/23/23
[2023-03-23] MEDS: FLUTICASONE/SALMETEROL 230-21 MCG INHALER 1 PUFF 2 PUFF INHALATION ×2 (08:34→20:33)
[2023-03-23] MEDS: ASPIRIN 81 MG ENTERIC TABLET PO (08:57)
[2023-03-23] MEDS: ATORVASTATIN 20 MG TABLET PO (08:59)
[2023-03-23] MEDS: METOPROLOL SUCCINATE EXT REL 50 MG TABCR PO (08:59)
[2023-03-23] MEDS: metFORMIN HCL 500 MG TABLET 1000 MG PO ×2 (08:59→17:36)
[2023-03-23 09:16] LABS: Basophils Absolute Auto 0.1 K/mm3 (0.0-0.1); Eosinophils Absolute Auto 1.2 K/mm3 (0-0.3); Eosinophils Percent Auto 16.2 % (0-4.4); Hematocrit 36.9 % (42.0-52.0); Hemoglobin 11.2 g/dL (14.0-18.0); Immature Granulocyte Absolute 0.02 K/mm3 (0.00-0.031); Immature Granulocyte Percent A 0.3 % (0-0.5); Lymphocytes Absolute Auto 1.42 K/mm3 (0.9-3.2); Lymphocytes Percent Auto 19.8 % (18.3-44.2); Mean Corpuscular HGB Conc 30.4 g/dl (32-36); Mean Corpuscular Hemoglobin 27.1 pg (26-34); Mean Corpuscular Volume 89.1 fl (80-100); Monocytes Absolute Auto 0.7 K/mm3 (0.1-0.6); Monocytes Percent Auto 9.3 % (2.6-8.5); Neutrophils Absolute Auto 3.8 K/mm3 (1.3-6.7); Neutrophils Percent Auto 53.4 % (45.5-73.1); Platelet Count Result 215 k/mm3 (150-375); Red Blood Count 4.14 M/mm3 (4.6-6.20); Red Cell Distribution Width 15.4 % (11.5-14.5); White Blood Count 7.2 K/mm3 (4.5-10.0)
[2023-03-23 09:32] LABS: Magnesium 1.5 mg/dL (1.6-2.3)
[2023-03-23 09:42] LABS: Alanine Aminotransferase 27 U/L (6-50); Albumin Level 3.3 g/dL (3.5-5.1); Alkaline Phosphatase 120 U/L (38-126); Anion Gap 4 mmol/L (8-16); Aspartate Amino Transferase 26 U/L (17-59); Bilirubin,Total 0.4 mg/dL (0.2-1.3); Blood Urea Nitrogen 26 mg/dL (9-20); Calcium 8.2 mg/dL (8.4-10.2); Carbon Dioxide 31 mmol/L (22-30); Chloride 105 mmol/L (98-107); Estimated CRCL calculation 65 ml/min; Estimated Glomerular Filt Rate > 60; Glucose 70 mg/dL (65-110); Sodium 140 mmol/L (137-145)
--- NOTE | 2023-03-23 12:02 | ECG_ITS ---
Measurements Intervals [place] Rate: 98 P: DC: 0 QRS: -18 QRSD: 109 T: 208 QT: 358 QTc: 459 Interpretive Statements ATRIAL FLUTTER ST DEVIATION AND MODERATE T-WAVE ABNORMALITY, CONSIDER ANTEROLATERAL ISCHEMIA ABNORMAL ECG COMPARED TO ECG 03/23/2023 00:30:30 ATRIAL FLUTTER NOW PRESENT Electronically Signed On 03-23-2023 15:29:24 CDT by Zechariah De Souza M.D.
--- NOTE | 2023-03-23 12:02 | ECHO_ITS ---
Patient Info Name: Biju Navarrete Age: 57 years : 1965 Gender: Male Ht: 73 in Wt: 177 lbs BSA: 2.03 m2 HR: 100 bpm BP: 131 / 78 mmHg Heart Rhythm: Sinus Rhythm Technical Quality: Fair Exam Date: 03/23/2023 12:44 PM Exam Location: [facility] Card Pulmonary Patient Status: Inpatient Admit Date: 03/23/2023 Staff Ordering Physician: Zechariah De Souza MD Industrial Analyst: Heather Lora RDCS Attending Provider: Jose Alberto Gutierres MD Referring Physician: Ap ORTIZ; Exam Type: CA echo dop color flow w con Study Info Indications R07.89 - Other chest pain - aflutter, Complete two-dimensional, color flow and Doppler transthoracic echocardiogram is performed with contrast to opacify the left ventricle and to improve the deliniation of the left ventricle endocardial borders. Contrast/Agitated Saline Contrast/Ag. Saline: Definity Amount: 2.00 ml Administered By: Heather Lora RDCS Existing IV Access: Yes IV Access Condition: patent with no signs of infiltration Summary 1. Technically difficult study with limited views. Definity contrast enhancement administered. 2. Left ventricular chamber dimension is mildly enlarged. 3. Left ventricular systolic function is mildly to moderately reduced, estimated at 40-45%. 4. There is mildly increased left ventricular wall thickness. 5. The left ventricular diastolic function is indeterminate. 6. Right ventricular chamber dimension is normal. 7. Right ventricular systolic function is mildly reduced. 8. Left atrial chamber dimension is mildly to moderately enlarged. 9. There is trace mitral valve regurgitation. 10. There is mild tricuspid valve regurgitation. 11. Mild pulmonary hypertension, estimated pulmonary arterial systolic pressure is 38 mmHg. 12. Left pleural effusion. 13. There is small pericardial effusion. Left Ventricle Left ventricular chamber dimension is mildly enlarged. Left ventricular systolic function is mildly to moderately reduced, estimated at 40-45%. There is mildly increased left ventricular wall thickness. The left ventricular diastolic function is indeterminate. Technically difficult study with limited views. Definity contrast enhancement administered. Right Ventricle Right ventricular chamber dimension is normal. Right ventricular systolic function is mildly reduced. Left Atria Left atrial chamber dimension is mildly to moderately enlarged. Right Atria Right atrial chamber dimension is mildly enlarged. Aortic Valve The aortic valve is trileaflet. There is no aortic valve stenosis. There is no aortic valve regurgitation. Pulmonic Valve The pulmonic valve is not well visualized. There is trace pulmonic regurgitation. Mitral Valve The mitral valve has thickened leaflets. There is trace mitral valve regurgitation. The mitral valve annulus is mildly calcified. Tricuspid Valve The tricuspid valve leaflets are normal. There is mild tricuspid valve regurgitation. Mild pulmonary hypertension, estimated pulmonary arterial systolic pressure is 38 mmHg. Pericardium/Pleural The pericardium appears normal. There is small pericardial effusion. Left pleural effusion. Inferior Vena Cava Normal inferior vena cava with >50% collapse upon inspiration consistent with normal right atrial pressure, 5 mmHg. Aorta The aortic root size at the sinus of Valsalva is normal. The prox ascending aorta size is normal. There is mild aortic atherosclerosis. Left Ventricular Outflow Tract
--- NOTE | 2023-03-23 12:04 | PM.CNCAR ---
Assessment and Plan Assessment and plan (1) Atrial flutter with rapid ventricular response: Code(s): I48.92 - Unspecified atrial flutter Status: Acute Assessment and Plan: Patient were presents unfortunately with recurrent poorly tolerated atrial flutter with 1:1 conduction with heart rates greater than 200 beats per minute refractory to cardioversion. His heart rate is controlled although he remains in atrial flutter on diltiazem 5 milligrams/hour in addition to Toprol XL 50 mg daily. Patient has failed alternative antiarrhythmic and AV willy blocking agents in the past and does not tolerate amiodarone well for long periods of time. Given limited options and further consultation with my electrophysiology colleague Dr. Paul we will discontinue intravenous diltiazem in favor of IV amiodarone for loading then transition to oral amiodarone 400 mg p.o. t.i.d. beginning tomorrow and continue Toprol XL 50 mg daily as heart rate and BP permits. Further up titration of beta-alok therapy as appropriate. Patient's reports bradycardia with heart rates in the 30s this unclear if his true sinus bradycardia versus for example ventricular bigeminy although the latter is not previously documented. We discussed various options including limited antiarrhythmic, AV willy blocking agent and the fact that he has had several ablations which have to date not been effective in preventing recurrence. Given the limited options and his poor tolerance Dr. May recommended AV junctional ablation and pacemaker implantation preferably with FARM CONSULTANT particular LV dysfunction is identified. As such we will repeat echo contrast status LV function. After my initial visit with him 2D echocardiogram was reviewed in his EF is in fact a [id number] reduced with an EF of 40-45%. Given his relatively young age the fact he will require life long pacing dependence FARM CONSULTANT pacing would be preferable to reduce risk for further LV systolic dysfunction and complication related to heart failure. We discussed all these options, the various risks and limited medical management considerations at great length. All questions answered to their satisfaction. Patient and his verbalized understanding and agreed with plan of care. As EP service is not available at this institution will attempt to stabilize with antiarrhythmic therapy including amiodarone and AV willy blocking agent Toprol XL for now. Provided patient responds favorably and is controlled over the next 24 hours he may be stable for discharge home to follow up as an outpatient with Dr. Paul (EP consultation) next week with plans for AV ablation and pacemaker implantation. Continue systemic anticoagulation for reduction of the folic stroke with Xarelto 20 mg at bedtime. I spent 82 minutes Jeni patient including time spent before, during and after interview and examination including chart review electronic medical record, outside records, consultation notes, laboratory studies, EKG, pertinent imaging, 12 lead ECG, echocardiogram, medical decision-making, consultation with colleagues, and documentation. (2) Elevated troponin: Code(s): R77.8 - Other specified abnormalities of plasma proteins Status: Acute Assessment and Plan: Repeat troponin establish trend. Most likely type 2 infarction secondary to demand ischemia related to relative hypotension in very rapid atrial flutter with 1:1 conduction with heart rate greater than 200 beats per minute as opposed to acute coronary syndrome and/or plaque rupture. Repeat 12 lead ECG revealed atrial flutter with controlled ventricular response. (3) Nonischemic cardiomyopathy: Code(s): I42.8 - Other cardiomyopathies Status: Acute Assessment and Plan: New diagnosis LV systolic dysfunction EF 40-45% most likely tachycardia induced. Optimize medical therapy. Continue Toprol XL. Resume Lisinopril 5 mg daily BP permitting. Monitor renal funct
[2023-03-23 12:05] LABS: Glucose Point of Care 135 mg/dl (65-105)
[2023-03-23] MEDS: AMIODARONE 360 MG/D5W 200 ML 360 MG/200 ML BAG 33.33 MG IV CONT (12:37)
[2023-03-23] MEDS: PERFLUTREN LIPID MICROSPHERES 1.5 ML VIAL DILUTED TO 10 ML TOTAL VOLUME IV PUSH (13:24)
--- NOTE | 2023-03-23 13:53 | IVDEFINITY ---
Prior to administration of IV Definity the patient was educated on the risks and benefits of the imaging enhancing agent including potential adverse side effects. The patient verbalized understanding. Allergies were verified. No exclusion criteria were identified and at least one of the following inclusion criteria were met: 1) physician request, 2) patient technically difficult to image (per the [place] [employer] guidelines of two or more segments not discernable within the apical view), or 3) questionable left ventricular function. ?
[2023-03-23 17:00] LABS: Glucose Point of Care 169 mg/dl (65-105)
[2023-03-23] MEDS: RIVAROXABAN 20 MG TABLET PO (17:37)
[2023-03-23] MEDS: AMIODARONE 360 MG/D5W 200 ML 360 MG/200 ML BAG 16.67 MG IV CONT (17:42)
[2023-03-23 19:59] LABS: Glucose Point of Care 182 mg/dl (65-105)
[2023-03-24] VITALS (24 sets, daily range): BP systolic 92–131; BP diastolic 65–87; PULSE 54–147; RESP 16–18; TEMP 36.1–36.6; O2SAT 96–100
[2023-03-24 04:55] LABS: Basophils Absolute Auto 0.1 K/mm3 (0.0-0.1); Basophils Percent Auto 0.9 % (0.2-1.2); Eosinophils Absolute Auto 1.3 K/mm3 (0-0.3); Eosinophils Percent Auto 16.6 % (0-4.4); Hematocrit 37.3 % (42.0-52.0); Hemoglobin 11.1 g/dL (14.0-18.0); Immature Granulocyte Absolute 0.01 K/mm3 (0.00-0.031); Immature Granulocyte Percent A 0.1 % (0-0.5); Lymphocytes Absolute Auto 1.26 K/mm3 (0.9-3.2); Lymphocytes Percent Auto 16.7 % (18.3-44.2); Mean Corpuscular HGB Conc 29.8 g/dl (32-36); Mean Corpuscular Hemoglobin 26.6 pg (26-34); Mean Corpuscular Volume 89.2 fl (80-100); Mean Platelet Volume 9.4 fl (7.4-10.4); Monocytes Absolute Auto 0.7 K/mm3 (0.1-0.6); Monocytes Percent Auto 9.7 % (2.6-8.5); Neutrophils Absolute Auto 4.2 K/mm3 (1.3-6.7); Platelet Count Result 224 k/mm3 (150-375); Red Blood Count 4.18 M/mm3 (4.6-6.20); Red Cell Distribution Width 15.2 % (11.5-14.5); White Blood Count 7.6 K/mm3 (4.5-10.0)
[2023-03-24 05:06] LABS: Alanine Aminotransferase 28 U/L (6-50); Albumin Level 3.5 g/dL (3.5-5.1); Alkaline Phosphatase 148 U/L (38-126); Anion Gap 6 mmol/L (8-16); Aspartate Amino Transferase 21 U/L (17-59); Bilirubin,Total 0.4 mg/dL (0.2-1.3); Blood Urea Nitrogen 21 mg/dL (9-20); Calcium 8.5 mg/dL (8.4-10.2); Carbon Dioxide 29 mmol/L (22-30); Chloride 102 mmol/L (98-107); Estimated CRCL calculation 76 ml/min; Estimated Glomerular Filt Rate > 60; Glucose 139 mg/dL (65-110); Potassium 4.2 mmol/L (3.4-5.0); Sodium 137 mmol/L (137-145)
[2023-03-24 05:44] LABS: Platelet Estimate Adequate (Adequate)
[2023-03-24 05:45] LABS: Macrocytosis 1+ (NORMAL); Schistocytes None Seen (NORMAL)
[2023-03-24] MEDS: AMIODARONE 360 MG/D5W 200 ML 360 MG/200 ML BAG 16.67 MG IV CONT ×2 (06:04→18:53)
--- NOTE | 2023-03-24 07:52 | ECG_ITS ---
Measurements Intervals [place] Rate: 124 P: MO: 0 QRS: -17 QRSD: 93 T: 206 QT: 337 QTc: 484 Interpretive Statements ATRIAL FLUTTER WITH RAPID VENTRICULAR RESPONSE ST DEVIATION AND MODERATE T-WAVE ABNORMALITY, CONSIDER LATERAL ISCHEMIA [-0.1+ mV T WAVE IN I/aVL/V5/V6] ABNORMAL ECG WARNING: DATA QUALITY MAY AFFECT INTERPRETATION COMPARED TO ECG 03/23/2023 14:10:52 NO SIGNIFICANT DIFFERENCE Electronically Signed On 03-24-2023 13:22:21 CDT by Cortes Roy M.D.
[2023-03-24] MEDS: FLUTICASONE/SALMETEROL 230-21 MCG INHALER 1 PUFF 2 PUFF INHALATION ×2 (08:19→21:06)
[2023-03-24] MEDS: METOPROLOL SUCCINATE EXT REL 50 MG TABCR PO (08:37)
[2023-03-24] MEDS: ASPIRIN 81 MG ENTERIC TABLET PO (08:37)
[2023-03-24] MEDS: ATORVASTATIN 20 MG TABLET PO (08:38)
[2023-03-24] MEDS: metFORMIN HCL 500 MG TABLET 1000 MG PO ×2 (08:38→17:36)
[2023-03-24 08:45] LABS: Glucose Point of Care 140 mg/dl (65-105)
[2023-03-24] MEDS: AMIODARONE 150 MG/D5W 100 ML 150 MG/100 ML BAG 600 MG IV CONT (10:11)
--- NOTE | 2023-03-24 10:45 | PM.PNCARD ---
Progress Note: A&P Assessment and Plan (1) Atrial flutter with rapid ventricular response: Code(s): I48.92 - Unspecified atrial flutter Status: Acute Assessment and Plan: Patient were presents unfortunately with recurrent poorly tolerated atrial flutter with 1:1 conduction with heart rates greater than 200 beats per minute refractory to cardioversion. His heart rate is controlled although he remains in atrial flutter on diltiazem 5 milligrams/hour in addition to Toprol XL 50 mg daily. Patient has failed alternative antiarrhythmic and AV willy blocking agents in the past and does not tolerate amiodarone well for long periods of time. Toprol XL 50 mg daily as heart rate and BP permits. Further up titration of beta-alok therapy as appropriate. Patient's reports bradycardia with heart rates in the 30s this unclear if his true sinus bradycardia versus for example ventricular bigeminy although the latter is not previously documented. We discussed various options including limited antiarrhythmic, AV willy blocking agent and the fact that he has had several ablations which have to date not been effective in preventing recurrence. -As an outpatient after discharge, will plan for follow-up with Dr. Paul as scheduled on Tuesday of next week with recommendations to proceed with AV junctional ablation and pacemaker implantation preferably with [employer]OBATION AND [employer]ROL AGENT given LV dysfunction and need for lifelong ventricular pacing. Electrophysiology services in this regard are not available at this institution. Continue Xarelto 20 mg at bedtime for embolic stroke risk reduction. -increase Toprol XL to 75 mg daily for additional heart rate control. Will given additional p.o. 25 mg Toprol XL x1 now to equal 75 mg this morning. Patient was given an additional IV amiodarone bolus 150 mg x 1 due to RVR in atrial flutter with variable AV block. Continue IV amiodarone infusion for now but will transition to oral amiodarone 400 mg t.i.d. beginning at 1:00 p.m. today provided heart rate reasonably controlled. Need to continue telemetry to monitor heart rate and blood pressure closely. Patient verbalized understanding and agrees with plan of care. Further recommendation follow. If heart rate controlled and patient tolerating regimen reasonably well overnight may consider discharge home tomorrow with close outpatient follow-up. (2) Elevated troponin: Code(s): R77.8 - Other specified abnormalities of plasma proteins Status: Acute Assessment and Plan: Repeat troponin establish trend. Most likely type 2 infarction secondary to demand ischemia related to relative hypotension in very rapid atrial flutter with 1:1 conduction with heart rate greater than 200 beats per minute as opposed to acute coronary syndrome and/or plaque rupture. (3) Nonischemic cardiomyopathy: Code(s): I42.8 - Other cardiomyopathies Status: Acute Assessment and Plan: New diagnosis LV systolic dysfunction EF 40-45% most likely tachycardia induced. Optimize medical therapy. Continue Toprol XL. Resume Lisinopril 5 mg daily BP permitting. Monitor renal function electrolytes closely. We will continue monitor closely as an outpatient. He is not currently in decompensated heart failure. Monitor volume status. (4) Paroxysmal atrial fibrillation: Code(s): I48.0 - Paroxysmal atrial fibrillation Status: Acute Assessment and Plan: Stable at this time. Continue systemic anticoagulation with Xarelto 20 mg at bedtime to reduce embolic stroke risk. Monitor for bleeding. H&H stable. (5) Hypertension associated with type 2 diabetes mellitus: Code(s): E11.59 - Type 2 diabetes mellitus with other circulatory complications; I15.2 - Hypertension secondary to endocrine disorders Status: Acute Assessment and Plan: BP stable at present with better controlled heart rate. Resume Lisinopril 5 mg daily in a.m. for cardiovascular support
--- NOTE | 2023-03-24 11:21 | PM.IMPN ---
Progress Note: A&P Assessment and Plan (1) SVT (supraventricular tachycardia): Code(s): I47.1 - Supraventricular tachycardia Status: Acute Assessment and Plan: Cardiology consulted. Patient started on amiodarone drip and switch to oral amiodarone. Continue Toprol-XL. Dose increased per Cardiology (2) Atrial fibrillation and flutter: Code(s): I48.91 - Unspecified atrial fibrillation; I48.92 - Unspecified atrial flutter Status: Acute Assessment and Plan: Management per Cardiology Continue Xarelto (3) S/P ablation operation for arrhythmia: Code(s): Z98.890 - Other specified postprocedural states; Z86.79 - Personal history of other diseases of the circulatory system Status: Acute Assessment and Plan: Discussed with cardiology. (4) Hyperlipidemia: Code(s): E78.5 - Hyperlipidemia, unspecified Status: Chronic Assessment and Plan: Continue Lipitor 20mg qd (5) Hypertension: Code(s): I10 - Essential (primary) hypertension Status: Chronic Assessment and Plan: Blood pressure stable (6) Insulin dependent diabetes mellitus: Status: Acute Assessment and Plan: Hold oral anti-diabetics, accuchecks, SSI Subjective Date/time seen: 03/24/23 11:21 Interval history: No chest pain Review of Systems Review of Systems: 12 point review of systems was assessed and was negative except as noted in the HPI Exam Narrative: General: No acute distress, alert and oriented per baseline HEENT: Atraumatic, normocephalic, mucous membranes moist CV: Regular rate and rhythm, S1, S2 Lungs: Clear to auscultation bilaterally, no rales or crackles noted, no wheezes, good air entry Abdomen: Soft, nontender, nondistended Extremities: Normal to inspection Skin: No rashes noted, no lesions or wounds seen Psych: Euthymic, normal affect Objective Data Vital Signs Vital Signs: Vital Signs - 24 hr 03/23/23 12:00 03/23/23 12:37 03/23/23 12:00 Temperature 96.9 F L Pulse Rate 100 101 H 101 H Respiratory Rate 16 16 Blood Pressure 131/78 Pulse Oximetry 100 100 Oxygen Delivery Room Air 03/23/23 12:00 03/23/23 14:00 03/23/23 16:00 Temperature 97.3 F L Pulse Rate 99 99 98 Respiratory Rate 16 Blood Pressure 121/85 Pulse Oximetry 100 Oxygen Delivery 03/23/23 16:00 03/23/23 16:00 03/23/23 17:42 Temperature Pulse Rate 98 97 Respiratory Rate Blood Pressure Pulse Oximetry Oxygen Delivery Room Air 03/23/23 18:00 03/23/23 19:52 03/23/23 20:00 Temperature 97.1 F L Pulse Rate 95 97 Respiratory Rate 16 Blood Pressure 136/91 H Pulse Oximetry 100 Oxygen Delivery Room Air 03/23/23 20:36 03/23/23 20:00 03/23/23 22:00 Temperature Pulse Rate 92 97 96 Respiratory Rate 18 Blood Pressure Pulse Oximetry Oxygen Delivery 03/24/23 00:00 03/24/23 00:00 03/24/23 00:00 Temperature 97.6 F Pulse Rate 100 96 Respiratory Rate 16 Blood Pressure 126/79 Pulse Oximetry 100 Oxygen Delivery Room Air 03/24/23 02:00 03/24/23 04:00 03/24/23 04:00 Temperature 97.5 F L Pulse Rate 94 94 Respiratory Rate 16 Blood Pressure 129/78 Pulse Oximetry 100 Oxygen Delivery Room Air 03/24/23 04:00 03/24/23 06:04 03/24/23 06:00 Temperature Pulse Rate 94 94 94 Respiratory Rate Blood Pressure Pulse Oximetry Oxygen Delivery 03/24/23 08:20 03/24/23 08:37 03/24/23 08:00 Temperature 97.4 F L Pulse Rate 127 H 64 Respiratory Rate 18 Blood Pressure 92/69 L Pulse Oximetry 97 96 Oxygen Delivery Room Air 03/24/23 10:10 03/24/23 10:11 03/24/23 08:00 Temperature Pulse Rate 123 H 123 H 127 H Respiratory Rate Blood Pressure 131/87 Pulse Oximetry Oxygen Delivery 03/24/23 10:00 03/24/23 08:00 Temperature Pulse Rate 89 123 H Respiratory Rate 18 Blood Pressure P
[2023-03-24 11:51] LABS: Glucose Point of Care 286 mg/dl (65-105)
[2023-03-24] MEDS: METOPROLOL SUCCINATE EXT REL 25 MG TABCR PO (11:56)
[2023-03-24] MEDS: AMIODARONE HCL 200 MG TABLET 400 MG PO ×2 (14:23→17:35)
[2023-03-24] MEDS: METOPROLOL TARTRATE INJ 5 MG/5 ML VIAL IV PUSH (15:43)
[2023-03-24] MEDS: RIVAROXABAN 20 MG TABLET PO (17:36)
[2023-03-24 18:47] LABS: Glucose Point of Care 180 mg/dl (65-105)
[2023-03-24 19:53] LABS: Glucose Point of Care 230 mg/dl (65-105)
[2023-03-25] VITALS (22 sets, daily range): BP systolic 123–140; BP diastolic 66–90; PULSE 51–101; RESP 18–20; TEMP 35.6–36.6; O2SAT 96–100
--- NOTE | 2023-03-25 00:13 | ECG_ITS ---
Measurements Intervals [place] Rate: 60 P: 67 [place]: 159 QRS: -13 QRSD: 96 T: 93 QT: 446 QTc: 448 Interpretive Statements SINUS RHYTHM NONSPECIFIC ST & T-WAVE ABNORMALITY ABNORMAL ECG COMPARED TO ECG 03/24/2023 09:39:47 SINUS RHYTHM REPLACES ATRIAL FLUTTER Electronically Signed On 03-25-2023 7:45:07 CDT by Cortes Roy M.D.
[2023-03-25 05:56] LABS: Basophils Absolute Auto 0.1 K/mm3 (0.0-0.1); Basophils Percent Auto 0.7 % (0.2-1.2); Eosinophils Absolute Auto 1.3 K/mm3 (0-0.3); Eosinophils Percent Auto 13.8 % (0-4.4); Hematocrit 39.1 % (42.0-52.0); Hemoglobin 11.7 g/dL (14.0-18.0); Immature Granulocyte Absolute 0.04 K/mm3 (0.00-0.031); Immature Granulocyte Percent A 0.4 % (0-0.5); Lymphocytes Absolute Auto 1.42 K/mm3 (0.9-3.2); Mean Corpuscular HGB Conc 29.9 g/dl (32-36); Mean Corpuscular Hemoglobin 27.3 pg (26-34); Mean Corpuscular Volume 91.4 fl (80-100); Mean Platelet Volume 9.8 fl (7.4-10.4); Monocytes Absolute Auto 0.9 K/mm3 (0.1-0.6); Monocytes Percent Auto 9.3 % (2.6-8.5); Neutrophils Absolute Auto 5.7 K/mm3 (1.3-6.7); Neutrophils Percent Auto 60.8 % (45.5-73.1); Platelet Count Result 258 k/mm3 (150-375); Red Blood Count 4.28 M/mm3 (4.6-6.20); Red Cell Distribution Width 15.4 % (11.5-14.5); White Blood Count 9.5 K/mm3 (4.5-10.0)
[2023-03-25 06:08] LABS: Alanine Aminotransferase 25 U/L (6-50); Albumin Level 3.6 g/dL (3.5-5.1); Alkaline Phosphatase 172 U/L (38-126); Anion Gap 6 mmol/L (8-16); Aspartate Amino Transferase 22 U/L (17-59); Bilirubin,Total 0.4 mg/dL (0.2-1.3); Blood Urea Nitrogen 36 mg/dL (9-20); Calcium 8.7 mg/dL (8.4-10.2); Carbon Dioxide 26 mmol/L (22-30); Chloride 101 mmol/L (98-107); Estimated CRCL calculation 61 ml/min; Estimated Glomerular Filt Rate 53; Glucose 218 mg/dL (65-110); Potassium 4.7 mmol/L (3.4-5.0); Sodium 133 mmol/L (137-145)
[2023-03-25] MEDS: FLUTICASONE/SALMETEROL 230-21 MCG INHALER 1 PUFF 2 PUFF INHALATION ×2 (07:20→19:31)
[2023-03-25 08:15] LABS: Glucose Point of Care 228 mg/dl (65-105)
[2023-03-25] MEDS: ASPIRIN 81 MG ENTERIC TABLET PO (08:30)
[2023-03-25] MEDS: METOPROLOL SUCCINATE EXT REL 25 MG TABCR 75 MG PO (08:30)
[2023-03-25] MEDS: AMIODARONE HCL 200 MG TABLET 400 MG PO ×3 (08:31→16:30)
[2023-03-25] MEDS: ATORVASTATIN 20 MG TABLET PO (08:31)
[2023-03-25] MEDS: lisinopriL 5 MG TABLET PO (08:31)
[2023-03-25] MEDS: metFORMIN HCL 500 MG TABLET 1000 MG PO (08:35)
--- NOTE | 2023-03-25 11:55 | PM.PNCARD ---
Progress Note: A&P Assessment and Plan (1) Atrial flutter with rapid ventricular response: Code(s): I48.92 - Unspecified atrial flutter Status: Acute Assessment and Plan: Patient were presents unfortunately with recurrent poorly tolerated atrial flutter with 1:1 conduction with heart rates greater than 200 beats per minute refractory to cardioversion. His heart rate is controlled although he remains in atrial flutter on diltiazem 5 milligrams/hour in addition to Toprol XL 50 mg daily. Patient has failed alternative antiarrhythmic and AV willy blocking agents in the past and does not tolerate amiodarone well for long periods of time. Converted to sinus rhythm Continue amiodarone 400mg p.o. TID for the time being. Would not want to maintain this dose for intermission coordinator - has appointment on 03/29 with EP, Dr. Paul where adjustments can be made Continue Toprol XL 75mg daily Continue a.c with Xarelto OK for discharge today from cardiac standpoint (2) Elevated troponin: Code(s): R77.8 - Other specified abnormalities of plasma proteins Status: Acute Assessment and Plan: Downtrended. Most likely type 2 infarction secondary to demand ischemia related to relative hypotension in very rapid atrial flutter with 1:1 conduction with heart rate greater than 200 beats per minute as opposed to acute coronary syndrome and/or plaque rupture. (3) Nonischemic cardiomyopathy: Code(s): I42.8 - Other cardiomyopathies Status: Acute Assessment and Plan: New diagnosis LV systolic dysfunction EF 40-45% most likely tachycardia induced. Optimize medical therapy. Continue Toprol XL. Resume Lisinopril 5 mg daily BP permitting. Monitor renal function electrolytes closely. We will continue monitor closely as an outpatient. He is not currently in decompensated heart failure. Monitor volume status. (4) Paroxysmal atrial fibrillation: Code(s): I48.0 - Paroxysmal atrial fibrillation Status: Acute Assessment and Plan: Stable at this time. Continue systemic anticoagulation with Xarelto 20 mg at bedtime to reduce embolic stroke risk. Monitor for bleeding. H&H stable. (5) Hypertension associated with type 2 diabetes mellitus: Code(s): E11.59 - Type 2 diabetes mellitus with other circulatory complications; I15.2 - Hypertension secondary to endocrine disorders Status: Acute Assessment and Plan: BP stable at present with better controlled heart rate. Resume Lisinopril 5 mg daily in a.m. for cardiovascular support as BP permits. Monitor renal function electrolytes closely. (6) Mixed diabetic hyperlipidemia associated with type 2 diabetes mellitus: Code(s): E11.69 - Type 2 diabetes mellitus with other specified complication; E78.2 - Mixed hyperlipidemia Status: Acute Assessment and Plan: Continue atorvastatin 20 mg bedtime. Continue management per primary service Januvia 100 mg daily, metformin 1000 mg twice daily. (7) Chronic anticoagulation: Code(s): Z79.01 - snf (current) use of anticoagulants Status: Acute Assessment and Plan: Continue systemic anticoagulation with Xarelto 20 mg daily for stroke risk reduction. Monitor for bleeding. (8) S/P ablation operation for arrhythmia: Code(s): Z98.890 - Other specified postprocedural states; Z86.79 - Personal history of other diseases of the circulatory system Status: Acute Assessment and Plan: As detailed in HPI. He has had prior ablation for AFib and flutter which he remains refractory despite antiarrhythmic therapy. (9) MARINA (acute kidney injury): Code(s): N17.9 - Acute kidney failure, unspecified Status: Acute Subjective Date/time seen: 03/25/23 11:56 Interval history: Follow-up for atrial flutter with 1:1 conduction Date of service 03/24/2023: Patient feels okay. No significant issues overnight maintaining atrial flutter controlled ventricular re
--- NOTE | 2023-03-25 12:20 | PM.IMPN ---
Progress Note: A&P Assessment and Plan (1) SVT (supraventricular tachycardia): Code(s): I47.1 - Supraventricular tachycardia Status: Acute Assessment and Plan: Cardiology consulted. Continue oral amiodarone. Continue Toprol-XL. Continue Xarelto Check serum magnesium (2) Atrial fibrillation and flutter: Code(s): I48.91 - Unspecified atrial fibrillation; I48.92 - Unspecified atrial flutter Status: Acute Assessment and Plan: Management per Cardiology Continue Xarelto (3) Hyperlipidemia: Code(s): E78.5 - Hyperlipidemia, unspecified Status: Chronic Assessment and Plan: Continue Lipitor 20mg qd (4) Hypertension: Code(s): I10 - Essential (primary) hypertension Status: Chronic Assessment and Plan: Blood pressure stable (5) Insulin dependent diabetes mellitus: Status: Acute Assessment and Plan: Hold oral anti-diabetics, accuchecks, SSI (6) MARINA (acute kidney injury): Code(s): N17.9 - Acute kidney failure, unspecified Status: Acute Assessment and Plan: Unclear etiology. Hold lisinopril and metformin. Recheck BMP in the morning. Subjective Date/time seen: 03/25/23 12:20 Interval history: Stable Review of Systems Review of Systems: 12 point review of systems was assessed and was negative except as noted in the HPI Exam Narrative: General: No acute distress, alert and oriented per baseline HEENT: Atraumatic, normocephalic, mucous membranes moist CV: Regular rate and rhythm, S1, S2 Lungs: Clear to auscultation bilaterally, no rales or crackles noted, no wheezes, good air entry Abdomen: Soft, nontender, nondistended Extremities: Normal to inspection Skin: No rashes noted, no lesions or wounds seen Psych: Euthymic, normal affect Objective Data Vital Signs Vital Signs: Vital Signs - 24 hr 03/24/23 14:23 03/24/23 14:00 03/24/23 15:43 Temperature Pulse Rate 120 H 121 H 147 H Respiratory Rate Blood Pressure Pulse Oximetry Oxygen Delivery 03/24/23 16:00 03/24/23 16:00 03/24/23 17:35 Temperature Pulse Rate 121 H 135 H Respiratory Rate Blood Pressure Pulse Oximetry Oxygen Delivery Room Air 03/24/23 16:00 03/24/23 18:00 03/24/23 18:53 Temperature 97.6 F Pulse Rate 61 142 H 135 H Respiratory Rate 18 Blood Pressure 102/79 Pulse Oximetry 100 Oxygen Delivery 03/24/23 19:57 03/24/23 21:05 03/24/23 20:00 Temperature 97.8 F Pulse Rate 54 L 90 Respiratory Rate 18 18 Blood Pressure 124/65 Pulse Oximetry 99 Oxygen Delivery Room Air 03/24/23 20:00 03/24/23 22:00 03/25/23 00:00 Temperature Pulse Rate 118 H 115 H Respiratory Rate Blood Pressure Pulse Oximetry Oxygen Delivery Room Air 03/25/23 00:00 03/25/23 04:00 03/25/23 04:00 Temperature 97.8 F 97.0 F L Pulse Rate 92 56 L Respiratory Rate 18 18 Blood Pressure 140/82 127/66 Pulse Oximetry 100 100 Oxygen Delivery Room Air 03/25/23 00:00 03/25/23 02:00 03/25/23 05:04 Temperature Pulse Rate 101 H 59 L 56 L Respiratory Rate Blood Pressure Pulse Oximetry Oxygen Delivery 03/25/23 04:00 03/25/23 07:20 03/25/23 07:20 Temperature Pulse Rate 57 L 81 81 Respiratory Rate 18 18 Blood Pressure Pulse Oximetry 97 Oxygen Delivery Room Air 03/25/23 08:23 03/25/23 08:30 03/25/23 08:31 Temperature 96.6 F L Pulse Rate 54 L 55 L 55 L Respiratory Rate 20 Blood Pressure 125/70 Pulse Oximetry 100 Oxygen Delivery 03/25/23 08:35 03/25/23 12:02 03/25/23 10:00 Temperature 96.0 F L Pulse Rate 56 L 57 L 58 L Respiratory Rate 20 Blood Pressure 123/75 Pulse Oximetry 100 Oxygen Delivery 03/25/23 12:15 Temperature Pulse Rate 55 L Respiratory Rate Blood Pressure Pulse Oximetry Oxygen Delivery Intake/Output Intake/Output: Intake & Output 0
[2023-03-25 12:46] LABS: Magnesium 1.3 mg/dL (1.6-2.3)
[2023-03-25] MEDS: polyethylene glycoL 3350 17 GM POWD.PACK PO (13:44)
[2023-03-25] MEDS: MAGNESIUM SULF 4 GM/WATER100ML 4 GM/100 ML BAG IVPB (13:48)
[2023-03-25 16:27] LABS: Glucose Point of Care 130 mg/dl (65-105)
[2023-03-25 16:27] LABS: Glucose Point of Care 209 mg/dl (65-105)
[2023-03-25] MEDS: RIVAROXABAN 20 MG TABLET PO (16:30)
[2023-03-25 20:42] LABS: Glucose Point of Care 239 mg/dl (65-105)
[2023-03-26] VITALS (11 sets, daily range): BP systolic 119–138; BP diastolic 62–80; PULSE 49–52; RESP 18–20; TEMP 36.2–37.2; O2SAT 97–100
[2023-03-26 05:30] LABS: Anion Gap 5 mmol/L (8-16); Blood Urea Nitrogen 40 mg/dL (9-20); Calcium 8.7 mg/dL (8.4-10.2); Carbon Dioxide 30 mmol/L (22-30); Chloride 100 mmol/L (98-107); Estimated CRCL calculation 61 ml/min; Estimated Glomerular Filt Rate 53; Glucose 232 mg/dL (65-110); Magnesium 1.8 mg/dL (1.6-2.3); Potassium 5.2 mmol/L (3.4-5.0); Sodium 135 mmol/L (137-145)
[2023-03-26 07:48] LABS: Glucose Point of Care 213 mg/dl (65-105)
[2023-03-26] MEDS: polyethylene glycoL 3350 17 GM POWD.PACK PO (08:11)
[2023-03-26] MEDS: ATORVASTATIN 20 MG TABLET PO (08:13)
[2023-03-26] MEDS: AMIODARONE HCL 200 MG TABLET 400 MG PO (08:13)
[2023-03-26] MEDS: ASPIRIN 81 MG ENTERIC TABLET PO (08:14)
[2023-03-26] MEDS: METOPROLOL SUCCINATE EXT REL 25 MG TABCR 75 MG PO (08:15)
[2023-03-26 12:29] LABS: Glucose Point of Care 345 mg/dl (65-105)
--- NOTE | 2023-03-26 12:39 | PM.DS ---
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 Status: Acute (4) Mixed diabetic hyperlipidemia associated with type 2 diabetes mellitus: Code(s): E11.69 - Type 2 diabetes mellitus with other specified complication; E78.2 - Mixed hyperlipidemia Status: Acute (5) Hypertension associated with type 2 diabetes mellitus: Code(s): E11.59 - Type 2 diabetes mellitus with other circulatory complications; I15.2 - Hypertension secondary to endocrine disorders Status: Acute (6) SVT (supraventricular tachycardia): Code(s): I47.1 - Supraventricular tachycardia Status: Acute DS: Summary Hospital Course Hospital Course: Patient presented with AFib with RVR. Cardiology was consulted. Patient had recurrent poorly tolerated atrial flutter with 1:1 conduction with heart rates greater than 200 beats per minute refractory to cardioversion.? His heart rate is controlled although he remains in atrial flutter on diltiazem 5 milligrams/hour in addition to Toprol XL 50 mg daily.? Patient has failed alternative antiarrhythmic and AV willy blocking agents in the past and does not tolerate amiodarone well for long periods of time.? Converted to sinus rhythm Continue amiodarone 400mg p.o. TID for the time being.? He has appointment on 03/29 with EP, Dr. Paul where adjustments can be made Continue Toprol XL 75mg daily Continue a.c with Xarelto New diagnosis LV systolic dysfunction EF 40-45% most likely tachycardia induced.? Optimize medical therapy.? Continue Toprol XL.? Hold lisinopril 5 mg daily for a few days because of mild acute kidney injury and mild hyperkalemia. Repeat BMP in 2 days before restarting lisinopril. PCP to monitor renal functions.? Continue other home medications as such. Patient clinically stable and is being discharged home Time Spent with Patient Time attestation: Total time spent providing and/or coordinating discharge services: DS: Data Data Completed and Pending Labs on day of discharge: Labs from last 24 hours 03/26/23 03/26/23 03/26/23 11:49 07:45 04:56 Sodium 135 L Potassium 5.2 H Chloride 100 Carbon Dioxide 30 Anion Gap 5 L BUN 40 H Creatinine 1.40 H Estim Creat Clear Calc 61 Estimated GFR 53 L Glucose 232 H POC Capillary Glucose 345 H 213 H Calcium 8.7 Magnesium 1.8 03/25/23 03/25/23 03/25/23 20:07 16:04 11:38 Sodium Potassium Chloride Carbon Dioxide Anion Gap BUN Creatinine Estim Creat Clear Calc Estimated GFR Glucose POC Capillary Glucose 239 H 130 H 209 H Calcium Magnesium 03/25/23 05:25 Sodium Potassium Chloride Carbon Dioxide Anion Gap BUN Creatinine Estim Creat Clear Calc Estimated GFR Glucose POC Capillary Glucose Calcium Magnesium 1.3 L Discharge Plan Discharge Consulting providers: Zechariah De Souza Discharging Clinician: Sherman Wheatley Anticipated Discharge Date/Time: 03/26/23 12:36 Patient Disposition: Home, Self-Care Activity: no preference Diet: heart healthy Patient Instructions: Antibiotic Form Stand Alone Forms: General Discharge Information Follow-up/Referrals: Zechariah De Souza MD [Physician] - Tai Kang MD [Primary Care Provider] - Discharge Medications: New metoprolol succinate [Toprol XL] 25 mg Tablet Extended Release 24 Hr 75 mg PO QAM Qty: 30 0RF amiodarone [Pacerone] 200 mg Tablet 400 mg PO TID Qty: 90 0RF Continued Xarelto 20 mg tablet
== END 2023-03-26 13:16 | disposition home or self-care (01) | DRG 282 ==
LOC: ANHED 03-23 01:52 → ANHIMU 03-23 02:12
PROVIDERS: Student in an Organized Health Care Education/Training Program; Admitting Provider Internal Medicine; Emergency Provider Emergency Medicine; PCP Family Medicine; Visit Provider Hospitalist
DX: I48.92 Unspecified atrial flutter (principal); I21.A1 Myocardial infarction type 2; I47.1 Supraventricular tachycardia; I42.8 Other cardiomyopathies; I48.0 Paroxysmal atrial fibrillation; I10 Essential (primary) hypertension; I95.9 Hypotension, unspecified; J45.909 Unspecified asthma, uncomplicated; E83.42 Hypomagnesemia; E78.5 Hyperlipidemia, unspecified; E11.9 Type 2 diabetes mellitus without complications; M10.9 Gout, unspecified; F90.9 Attention-deficit hyperactivity disorder, unspecified type; Z79.82 Long term (current) use of aspirin; Z79.01 Long term (current) use of anticoagulants; Z87.891 Personal history of nicotine dependence
CPT/HCPCS: 36415; 71045; 80048; 80053; 82948; 83735; 84100; 84443; 84484; 85025; 92960; 93005; 93306; 94640; 96361; 96365; 96366; 96368; 96375; 99285; A9270; C8929; G0378; J0153; J0282; J2060; J3475; J7030; Q9957

== ENCOUNTER 2023-08-31 09:30 | Outpatient (CLI) | payer BC, SELFPAY ==
--- NOTE | ~2023-08-31 | XR_ITS ---
EXAMINATION: XR sinus min 3V DATE: 08/31/2023 10:11 INDICATION: Frontal sinus pain. TECHNIQUE: 5 views of the paranasal sinuses were obtained. COMPARISON: None. FINDINGS: There is leftward deviation of the nasal septum. No fracture. There is mucosal thickening i n the paranasal sinuses, worst in left maxillary sinus. IMPRESSION: 1. Mucosal thickening in the paranasal sinuses, worst in left maxillary sinus. 2. Leftward deviation of the nasal septum. Reviewed, dictated and finalized at location E. IONARY ENGINEER APPRENTICE
[2023-08-31 10:25] LABS: Hematocrit 47.3 % (42.0-52.0); Hemoglobin 14.2 g/dL (14.0-18.0); Mean Corpuscular Hemoglobin 26.2 pg (26-34); Mean Corpuscular Volume 87.3 fl (80-100); Mean Platelet Volume 8.6 fl (7.4-10.4); Platelet Count Result 252 k/mm3 (150-375); Red Blood Count 5.42 M/mm3 (4.6-6.20); Red Cell Distribution Width 16.1 % (11.5-14.5); White Blood Count 8.4 K/mm3 (4.5-10.0)
[2023-08-31 10:34] LABS: Creatine Kinase 31 U/L (55-170)
[2023-08-31 11:15] LABS: Creatinine Urine 248.3 mg/dL
[2023-08-31 12:34] LABS: Microalbumin Urine Random > 1140.0 mg/L (0-16.7)
== END 2023-08-31 09:31 | disposition home or self-care (01) ==
PROVIDERS: PCP Family Medicine; Visit Provider Family Medicine
DX: E11.59 Type 2 diabetes mellitus with other circulatory complications (principal); E87.5 Hyperkalemia; F90.9 Attention-deficit hyperactivity disorder, unspecified type; G47.00 Insomnia, unspecified; I15.2 Hypertension secondary to endocrine disorders; J45.909 Unspecified asthma, uncomplicated; Z79.01 Long term (current) use of anticoagulants; Z86.79 Personal history of other diseases of the circulatory system; Z98.890 Other specified postprocedural states; I47.19 Other supraventricular tachycardia
CPT/HCPCS: 36415; 70220; 82043; 82550; 84443; 85027

== ENCOUNTER 2023-11-01 10:00 | Outpatient (RCR) | payer BC, SELFPAY ==
--- NOTE | 2023-09-06 13:02 | OPREHPOC ---
Outpatient Therapy Plan of Care This is a Multidisciplinary Plan of Care that may contain components documented by all disciplines (PT, OT, and ST.) PT Problem 1 PT Problem #1 Knowledge Deficit PT Goal 1 Goal Pt to be IND with issued HEP Target Visit 8 PT Problem 2 PT Problem #2 Impaired Strength PT Goal 1 Goal Pt to improve global hip strength to 4+/5 to improve stair navigation Target Visit 8 PT Goal 2 Goal Pt to improve 5xSTS time from 22s to 15s to demonstrate a minimized fall risk. Target Visit 8 PT Problem 3 PT Problem #3 Impaired Gait PT Goal 1 Goal Pt to improve 2 min walk distance from 310ft to 400ft. Target Visit 8 PT Problem 4 PT Problem #4 Impaired Functional Mobil PT Goal 1 Goal Pt to improve LEFS score from 18/80 to 60/80. Target Visit 8 PT Goal 2 Goal Pt to demonstrate 30lb functional lift and carry.
--- NOTE | 2023-09-06 13:02 | PTOPEVAL1 ---
Assessment and note entered by Renato Williamson, PT, DPT Evaluation Information Assessment Status Evaluation Diagnosis generalized weakness, calf pain Subjective Information History given by pts Ailyn. She states 2 years ago he had an infection in his leg that caused issues with his heart, leading to a pacemaker placement ~6 months ago. In between the infection, various hospitalization, and inactivity d/t needing a pacemaker pt is now very weak. Pt states he spends most of his time watching tv and lots of time sleeping. Pt reports R knee arthritis that limit some of his mobility, he states he feels like he has no energy. Reported Pain Level Pain Score 0: Self Report Assessment PT Clinical Summary Biju presents to therapy today for his initial evaluation with a diagnosis of generalized weakness after a complicated medical history with multiple comorbidities including viral infection, A-fib, intermittent hospitalization with subsequent pacemaker placement. Today he demonstrates decreased hip and ankle strength, decreased functional balance, decreased mobility, and decreased endurance. He ambulates with a decreased gait speed and a weaving gait pattern. His score on the Tinetti and 5xSTS place him at an increased risk for falls. Skilled therapy services are indicated to address the deficits noted above, to improve mobility, and to return to OF. Plan of Care Interventions Electrical Stimulation,Gait Training,Hot Pack/Cold Pack,Manual Therapy,Neuro Re-education,Patient/ Caregiver Educati,Therapeutic Activities, Therapeutic Exercise PT Services Indicated Yes Treatment Frequency and 2x/wk for 8 visits Duration These treatments will address the objective and functional deficits as defined above. The patient will be advanced safely and appropriately in order for the patient to progress towards his/her prior level of function. Additional exercises will be introduced and as well as a comprehensive home exercise program upon discharge, if needed, ?to ensure carryover of functional gains achieved in the clinic. This treatment plan has been reviewed and agreement upon by the patient.
--- NOTE | 2023-09-30 12:14 | PCPTNOTE ---
Patient arrived to therapy but canceled appointment due to having a migraine.
--- NOTE | 2023-10-03 10:58 | PTOPPROG ---
Assessment and note entered by Renato Williamson, PT, DPT Evaluation Information Assessment Status Progress Diagnosis generalized weakness, calf pain Subjective Information Pts states she has noticed him going up and down the stairs more and walking more than he was a month ago. Pt states he is not sure what has gotten better mobility canales. Assessment PT Clinical Summary Biju presents to therapy today for his progress report following 7 visits of skilled therapy to treat his diagnosis of generalized weakness after a complicated medical history with multiple comorbidities including viral infection, A-fib, intermittent hospitalization with subsequent pacemaker placement. Today he demonstrates improved LE strength, improved gait speed, and improved functional mobility from the last month. He continues to lack IND and functionality from his baseline, including floor to stand transfers, functional mobility, functional strength, and body mechanics. Continuation of skilled therapy services are indicated to address the deficits noted above, to improve mobility, and to return to PLOF. Plan of Care Interventions Electrical Stimulation,Gait Training,Hot Pack/Cold Pack,Manual Therapy,Neuro Re-education,Patient/ Caregiver Educati,Therapeutic Activities, Therapeutic Exercise PT Services Indicated Yes Treatment Frequency and 2x/wk for 8 visits Duration These treatments will address the objective and functional deficits as defined above. The patient will be advanced safely and appropriately in order for the patient to progress towards his/her prior level of function. Additional exercises will be introduced and as well as a comprehensive home exercise program upon discharge, if needed, ?to ensure carryover of functional gains achieved in the clinic. This treatment plan has been reviewed and agreement upon by the patient.
--- NOTE | 2023-11-01 17:07 | PTOPDC ---
Assessment and note entered by Renato Williamson, PT, DPT Evaluation Information Assessment Status Discharge Diagnosis generalized weakness, calf pain Subjective Information Pt states things are going good, his states he is much more active than when he started. He states he can do his daily tasks without much difficulty. Reported Pain Level Pain Score 1: Self Report Assessment PT Clinical Summary Biju presents to therapy today for his progress report following 14 visits of skilled therapy to treat his diagnosis of generalized weakness after a complicated medical history with multiple comorbidities including viral infection, A-fib, intermittent hospitalization with subsequent pacemaker placement. Today he demonstrates improved LE strength, improved gait speed, and improved functional mobility. He is progressing well towards his therapy goals and no longer requires skilled services. He will be discharged at this time with instructions to continue his HEP upon discharge. Plan of Care PT Services Indicated No
== END 2023-11-02 11:24 | disposition home or self-care (01) ==
LOC: ANHGOSHPT 10:00
PROVIDERS: PCP Family Medicine; Visit Provider Family Medicine
DX: M79.669 Pain in unspecified lower leg (principal); R53.1 Weakness
CPT/HCPCS: 97110; 97112; 97161; 97530; 97750

== ENCOUNTER 2024-05-10 11:17 | Outpatient (CLI) | payer BC, SELFPAY ==
--- NOTE | ~2024-05-10 | XR_ITS ---
XR chest 2V Ordering provider: Tai Kang MD History: 58 years Male with . J06.9 - Acute upper respiratory infection, unspecified . Comparison: March 23, 2023 FINDINGS: MEDIASTINUM: The cardiac silhouette is slightly enlarged. Left tripolar pacemaker. LUNGS: No infiltrates, effusions or pneumothorax. OTHER: No free air under the diaphragm. IMPRESSION: No acute cardiopulmonary pathology. Reviewed, dictated and finalized at location A.
[2024-05-10 12:03] LABS: Hematocrit 40.7 % (42.0-52.0); Hemoglobin 12.4 g/dL (14.0-18.0); Mean Corpuscular HGB Conc 30.5 g/dl (32-36); Mean Corpuscular Volume 91.9 fl (80-100); Mean Platelet Volume 9.5 fl (7.4-10.4); Platelet Count Result 197 k/mm3 (150-375); Red Blood Count 4.43 M/mm3 (4.6-6.20); Red Cell Distribution Width 14.1 % (11.5-14.5); White Blood Count 7.6 K/mm3 (4.5-10.0)
[2024-05-10 12:07] LABS: Alanine Aminotransferase 21 U/L (6-50); Albumin Level 3.7 g/dL (3.5-5.1); Alkaline Phosphatase 126 U/L (38-126); Anion Gap 4 mmol/L (4-12); Aspartate Amino Transferase 21 U/L (17-59); Bilirubin,Total 0.7 mg/dL (0.2-1.3); Blood Urea Nitrogen 21 mg/dL (9-20); Calcium 9.1 mg/dL (8.4-10.2); Carbon Dioxide 31 mmol/L (22-30); Chloride 104 mmol/L (98-107); Cholesterol 135 mg/dL (0-200); Estimated Glomerular Filt Rate > 60; Glucose 191 mg/dL (65-110); HDL Direct 37 mg/dL; Potassium 4.3 mmol/L (3.4-5.0); Sodium 139 mmol/L (137-145); Triglycerides 108 mg/dL (<150)
[2024-05-10 12:18] LABS: LDL Cholesterol Direct 76 mg/dL
[2024-05-10 12:33] LABS: Creatinine Urine 138.1 mg/dL
[2024-05-10 14:25] LABS: Microalbumin Urine Random > 1140.0 mg/L (0-16.7)
[2024-05-10 14:26] LABS: MALB Creatinine Ratio > 825.5 mg/g (0-30)
== END 2024-05-10 11:18 | disposition home or self-care (01) ==
LOC: ANHLAB 11:20
PROVIDERS: PCP Family Medicine; Visit Provider Family Medicine
DX: J06.9 Acute upper respiratory infection, unspecified (principal); E11.69 Type 2 diabetes mellitus with other specified complication; E11.59 Type 2 diabetes mellitus with other circulatory complications; I10 Essential (primary) hypertension; I15.2 Hypertension secondary to endocrine disorders; E78.2 Mixed hyperlipidemia; J45.909 Unspecified asthma, uncomplicated; I48.0 Paroxysmal atrial fibrillation; I47.10 Supraventricular tachycardia, unspecified; E87.5 Hyperkalemia; N52.9 Male erectile dysfunction, unspecified; F90.9 Attention-deficit hyperactivity disorder, unspecified type; G47.00 Insomnia, unspecified; M10.9 Gout, unspecified; R53.83 Other fatigue; Z98.890 Other specified postprocedural states; Z86.79 Personal history of other diseases of the circulatory system; Z12.5 Encounter for screening for malignant neoplasm of prostate
CPT/HCPCS: 36415; 71046; 80053; 80061; 82043; 83036; 84153; 85027; G0103

== ENCOUNTER 2024-11-16 07:45 | Outpatient (CLI) | payer MEDICARE, SELFPAY ==
--- NOTE | ~2024-11-16 | XR_ITS ---
Right Knee Technique: AP, lateral, and sunrise views were obtained. Clinical History: Osteoarthritis Findings: No fracture or dislocation is seen. Osseous alignment is anatomic. Joint spaces are preserv ed, with minimal degenerative spurring. Minimal joint effusion is seen. Impression: Minimal degenerative spurring and minimal joint effusion. Reviewed, dictated and finalized at location . Impression: Minimal degenerative spurring and minimal joint effusion.
--- OUTSIDE RECORDS SUMMARY | 2024-11-16 07:49 | XMS_ITS | Clinical Summary ---
Author Organization [facility] Address [address] [place] [address] Attn: Epic Prelude ADT AUGUSTO GONZALEZ [id number] Care Team Providers Care Tax Compliance Manager Name Role Phone Other, Sgf Primary Care Provider Unavailabl e Allergies No known active allergies Active Problems Problem Noted Date Diagnosed Date Left Tibia/Fibula Shaft Fractures 03/01/2010 Encounters Date Type Department Care Team Description 10/17/2024 External Device Data STL ABSTRACTION Provider, Abstract 10/16/2024 External Device Data ST[facility] ABSTRACTION Provider, Abstract 09/11/2024 External Device Data [facility] ABSTRACTION Provider, Abstract from Last 3 Months Social History Tobacco Use Types Packs/Day Years Used Date Smoking Tobacco: Former Cigarettes Q uit: 08/08/1993 Alcohol Use Standard Drinks/Week Comments Yes 0 (1 standard drink = 0.6 oz pur e alcohol) Sex and Gender Information Value Date Recorded Sex Assigned at Not on file Legal Sex Male 8:06 AM CRYSTAL GRINDER Gender Identity Not on file Sexual Orientation Not on file Plan of Treatment Health Maintenance Due Date Last Done Comments DIABETES ANNUAL FOOT EXAM 1985 DIABETES ANNUAL RETINAL EXAM 1985 DIABETES HBA1C Q 6 MONTHS 1985 DIABETES MICROALBUMIN ANNUAL SCREEN 1985 LDL CHOLESTEROL ANNUAL 1985 DTAP/TDAP/TD VACCINES (1 - Tdap) 1986 HEPATITIS B VACCINES (1 of 3 - 19+ 3-dose series) 05/09 COLORECTAL SCREENING 2012 Colorectal Cancer Screening 2012 FIT-DNA Q 3 years 2012 FIT/FOBT Q 1 year 2012 Flex Sig/CT Colonography Q 5 years 2012 ZOSTER VACCINE (1 of 2) 2017 INFLUENZA VACCINE (#1) 2024 Medical Devices Implanted Type Area Practice Managers Device Identifier Shelf Expiration Date Model / Serial / Lot Log [id number] - Volodymyr [employer] - 1 - Cap End Fem Tib Std 8mm 182-2s Implanted:Qty: 1 on 03/02/2010 End Left: Tibia VOLODYMYR- [employer] 11/04/2014 [id number] / N/A / N/A Log [id number] - Whitharral [employer] - 1 - Screw Locking 5x37.5mm [id number] Implanted:Qty: 1 on 03/02/2010 Screw Left: Tibia VOLODYMYR- ORTH[employer] 10/05/2014 [id number] / N/A / N/A Log [id number] - [employer]yr [employer] - 1 - Screw Locking 5x37.5mm [id number] Implanted:Qty: 1 on 03/02/2010 Screw Left: Tibia V[employer]YR- ORTH[employer] 10/05/2014 [id number] / N/A / N/A Log [id number] - [employer] - 1 - Screw Locking 5x42mm [id number] Implanted:Qty: 1 on 03/02/2010 Screw Left: Tibia V[employer]YR- ORTH[employer] 09/06/2014 [id number] / N/A / N/A Log [id number] - [employer] - 1 - Screw Locking 5x42mm [id number] Implanted:Qty: 1 on 03/02/2010 Screw Left: Tibia [employer]- OR[employer] 07/07/2014 [id number] / N/A / N/A Log [id number] - [employer] - 1 - Screw Locking 5x47.5mm [id number] Implanted:Qty: 1 on 03/02/2010 Screw Left: Tibia [employer]- [employer] 11/04/2013 [id number] / N/A / N/A Standard Tibial Nail Implanted:Qty: 1 on 03/02/2010 Left: Tibia VOLODYMYR- [employer]UMA - ORTHOPAED[employer] 07/07/2014 [id number] / / [id number] Explanted Type Area Practice Managers Device Identifier Shelf Expiration Date Model / Serial / Lot Wire [id number] 1806-0s Explanted:Qty: 1 on 03/02/2010 Wire Left: Tibia VOLODYMYR- [employer] [id number] / / Description:moved down from picklist to document and charge appropriately. TS Insurance [employer] Care Teams Tax Compliance Manager Relationship Specialty Start Date End Date Other, Sgf NO ADDRESS ON FILE PCP - General 03/01/10
--- OUTSIDE RECORDS SUMMARY | 2024-11-16 07:49 | XMS_ITS | Clinical Summary ---
Author Organization [facility] [place] [address] Address [address] [place] [address] Care Team Providers Care Counter Intelligence Name Role Phone Uche Miles MD Unavailable [phone] Tai Kang MD Primary Care Provider [phone] Allergies Active Allergy Reactions Criticality Noted Date Comments Apixaban Stomach upset Low 02/10/2022 Medications glimepiride (AMARYL) 4 mg tablet TAKE 1 TABLET BY MOUTH TWICE DAILY ADMINISTER WITH BREAKFAST 2 Active metFORMIN (GLUCOPHAGE) 1,000 mg tablet Take 1 tablet (1,000 mg total) by mouth 2 (two) times a day 2 Active montelukast (SINGULAIR) 10 mg tablet Take 1 tablet (10 mg total) by mouth daily 2 Active Januvia 100 mg tablet Take 1 tablet (100 mg total) by mouth daily 2 Active aspirin 81 mg enteric coated tablet Take 1 tablet (81 mg total) by mouth every morning 2 Active -cec q-Fkuqsrdl-jye al 27 mg iron-1.13 mg-581.92 mg capsule Take by mouth Active fluticasone propion-salmet Dong (ADVAIR DISKUS) 500-50 mcg/dose diskus inhaler Inhale 1 puff 2 (two) times a day Rinse mouth with water after use. Do not swallow. Active atorvastatin (LIPITOR) 20 mg tablet Take 1 tablet (20 mg total) by mouth daily 90 tablet 2 3 Active sildenafiL (VIAGRA) 50 mg tablet TAKE 1 TABLET BY MOUTH NEEDED FOR SEXUAL ACTIVITY, TAKE 30 MINUTES TO 4 HOURS BEFORE ACTIVITY 3 Active Ozempic 0.25 mg or 0.5 mg (2 mg/3 mL) pen injector injection INJECT 0.25 MG (0.368 ML) SUBCUTANEOUSLY WEEKLY FOR 4 WEEKS,THEN INCREASE TO 0.5 MG WEEKLY 4 Active metoprolol tartrate (LOPRESSOR) 25 mg immediate release tablet Take 1 tablet (25 mg total) by mouth 2 (two) times a day 180 tablet 2 4 Active lisinopriL (PRINIVIL,ZEST RIL) 20 mg tablet Take 1 tablet (20 mg total) by mouth daily 4 Active albuterol HFA (PROVENTIL HFA,VENTOLIN HFA,PROAIR HFA) 90 mcg/actuation inhaler INHALE 1 PUFF BY MOUTH EVERY 4 HOURS NEEDED FOR SHORTNESS OF BREATH FOR WHEEZING 4 Active rivaroxaban (Xarelto) 20 mg tablet Take 1 tablet by mouth once daily 90 tablet 2 5 Active Active Problems Problem Noted Date Diagnosed Date Nonischemic cardiomyopathy 04/20/2023 S/P AV willy ablation 04/20/2023 Chronic systolic heart failure 03/30/2023 Biventricular cardiac pacemaker in situ 03/30/20 23 Overview (03/30/2023): Gray BIV Pacemaker. Dx; CHF, Persistent Afib, AV Node Ablation. DOI 04/13/2023-Beverly. Ravinder. Taran remote monitoring. Abnormal stress test 08/18/2022 A-fib 05/04/2022 Medication side effects 02/10/2022 Atrial flutter 12/11/2021 Hypertension associated with diabetes 12/11/2021 At risk for amiodarone toxicity with half-way u se 12/11/2021 Pulmonary HTN 12/11/2021 Mixed diabetic hyperlipidemi a associated with type 2 diabetes mellitus 12/11/2021 Chronic anticoagulation 12/11/2021 TINOCO (dyspnea on exertion) 12/11/2021 Other chest pain 12/11/2021 Encounters Date Type Department Care Team Description 09/18/2024 8:45 AM PATTERN CHANGER AND REPAIRER Ancillary Procedure [facility] Cardiology [address] [facility] [address] [place] [id number] Chronic systolic heart failure (HCC) (Primary Dx); Atrial fibrillation, unspecified type (HCC); Bradycardia; Biventricular cardiac pacemaker in situ; S/P AV willy ablation from Last 3 Months Surgical History Surgery Date Site/Laterality Comments LEG SURGERY SKIN GRAFT ABLATION Medical History Medical History Date Comments Atrial flutter (HCC) Gout Arthritis Diabetes mellitus (HCC) Hypertension Type 2 diabetes mellitus (HCC) Family History Medical History Relation Name Comments Lung disease Father Relation Name Status Comments Father (Age 73) Mother Alive Social History Tobacco Use Types Packs/Day Years Used Date Smoking Tobacco: Former Smokeless Tobacco: Never Tobacco Cessation:Counseling Given: Not Answered AUDIT-C Answer Date Recorded Q1: How often do you have a drink containing alcohol? Never 04/13/2023 Q2: How many drinks containi ng alcohol do you have on a typical day when you are drinking? Patient does not drink Frequency of Binge Drinking Not on file 01/2023 Personal Safety Answer Date Recorded Have you ever been in or are you currently in a harmful physical or emotional relationship or is someone making you feel afraid or unsafe? Denies 04/13/2023 Sex and Gender Information Value Date Recorded Sex Assigned at Not on file Legal Sex Male 7:23 PM PATTERN CHANGER AND REPAIRER Gender Identity Male 11/15/2022 4:11 PM CDT Sexual Orientation Straight 11/15/2022 4: 11 PM CDT Obstetrics History Last Filed Vital Signs Vital Sign Reading Time Taken Comments Blood Pressure 108/62 06/12/2024 9:20 AM PATTERN CHANGER AND REPAIRER Pulse 60 06/12/2024 9:20 AM PATTERN CHANGER AND REPAIRER Temperature 36.3 C (97.3 F) 04/14/2023 7:36 AM CDT Respiratory Rate 18 08/02/2023 11:1 5 AM PATTERN CHANGER AND REPAIRER Oxygen Saturation 98% 06/12/2024 9:20 AM PATTERN CHANGER AND REPAIRER Inhaled Oxygen Concentration - - Weight 84.3 kg (185 lb 14.4 oz) 06/12/2024 9:20 AM PATTERN CHANGER AND REPAIRER Height 185.4 cm (6' 1 ) 06/12/2024 9:20 AM PATTERN CHANGER AND REPAIRER Body Mass Index 24.53 06/12/2024 9:20 AM PATTERN CHANGER AND REPAIRER Plan of Treatment Health Maintenance Due Date Last Done Comments Albumin Creatinine Ratio, Urine 1967 Colon Cancer Screening-Colonoscopy 1967 Depression Screening 1967 Hemoglobin A1C 1967 Hepatitis C Screening 1967 Prostate Cancer Screening-PSA 1967 Dilated Eye Exam 1967 Foot Exam 1967 DTaP/Tdap/Td Vaccine (1 - Tdap) 1978 Hepatitis B Screening 1985 Regular Well Visit/Exam 18-64 1985 Pneumococcal vaccine <65 (2 of 2 - PCV) 06/20/2014 06/20/2013 Zoster Vaccine (1 of 2) 2017 Influenza Vaccine (#1) 2024 06/20/2013, 2011 eGFR 04/13/2024 04/13/2023, 12/06, 04/05/2022, Additional history exists Lipid Panel 06/12/2025 06/12/2024, 09/0 08/2022, 09/27/2022, Additional history exists Medical Devices Implanted Type Area Medical Malpractice Paralegal Device Identifier Shelf Expiration Date Model / Serial / Lot [employer] Vascade Mvp 6-12fr Venous Closure [id number] - [id number] Implanted:Qty: 1 on 11/24/2022 by Amrit Paul MD at [facility] Collagen Right: Femoral Vein [employer] 08/25/2024 800-612 C-10U / / [id number] [employer] Vascade Mvp 6-12fr Venous Closure [id number] - [id number] Implanted:Qty: 1 on 11/24/2022 by Amrit Paul MD at [facility] Collagen Right: Femoral Vein [employer] 08/25/2024 800-612 C-10U / / [id number] [employer] Vascade Mvp 6-12fr Venous Closure [id number] - [id number] Implanted:Qty: 1 on 11/24/2022 by Amrit Paul MD at [facility] Collagen Right: Femoral Vein [employer] 08/25/2024 800-612 C-10U / / [id number] Medtronic Inc Tyrx Absorbable Antibacterial Envelope-Med 2.7x2.5in [id number] - [id number] Implanted:Qty: 1 on 04/13/2023 by Amrit Paul MD at [facility] Collagen Med[employer]onic Inc 12/30/2023 [id number] / / [id number] [employer] Quartet 4.7fr 86cm Quadripolar Is-4 Llll Connector 8 Curve Low 1456q/86 - [id number] - [id number] Implanted:Qty: 1 on 04/13/2023 by Amrit Paul MD at [facility] Lead N/A: Coronary Sinus [employer] 01/05/2026 1456Q/8 6 / [id number] / [employer] Tendril Sts 6fr 58cm Is-1 Connector Active Fixation Bipolar Soft 2088tc/58 - [id number] - [id number] Implanted:Qty: 1 on 04/13/2023 by Amrit Paul MD at [facility] Lead Right: Ventricle [employer] 03/07/2026 2088TC/ 58 / [id number] / [employer] Tendril Sts 6fr 52cm Is-1 Connector Active Fixation Bipolar Soft 2088tc/52 - [id number] - [id number] Implanted:Qty: 1 on 04/13/2023 by Amrit Paul MD at [facility] Lead Right: Atrial Appendage [employer] 03/07/2026 2088TC/ 52 / [id number] / Gray Vascular Pacemaker Quadra Allure Mp Rf Mechanical Supervisor-P Mri [id number] - [id number] - [id number] Implanted:Qty: 1 on 04/13/2023 by Amrit Paul MD at [facility] Pacemaker Left: Infraclavicular Anterior Chest Wall [employer] 09/07/2025 [id number] / [id number] / Gray Vascular Device Clsr Perclose Prostyle Sut-Mediatd Closure-Repair Sys 72289-87 - [id number] - [id number] Implanted:Qty: 1 on 05/04/2022 by Uche Miles MD at [facility] Right: Femoral [employer] 03/07/2024 00220-0 3 / / [employer] Device Clsr Perclose Prostyle Sut-Mediatd Closure-Repair Sys 25275-42 - [id number] - [id number] Implanted:Qty: 1 on 05/04/2022 by Uche Miles MD at [facility] Right: Femoral [employer] 03/07/2024 01006-4 3 / / [employer] Device Clsr Perclose Prostyle Sut-Mediatd Closure-Repair Sys 45386-73 - [id number] - [id number] Implanted:Qty: 1 on 05/04/2022 by Uche Miles MD at [facility] Left: Femoral [employer] 02/05/2024 27105-2 3 / Procedures Procedure Name Priority Date/Time Associated Diagnosis Comments DEVICE CHECK - REMOTE Routine 09/18/2024 10:42 AM PATTERN CHANGER AND REPAIRER Atrial fibrillation, unspecified type (HCC) Bradycardia POCT LIPID PANEL Routine 06/12/2024 9:40 AM PATTERN CHANGER AND REPAIRER Hypertension associated with diabetes (HCC) EGFR Routine 04/13/2023 10:25 AM CDT from Last 3 Months or Most Recently Relevant to Health Maintenance Results * DEVICE CHECK - REMOTE (09/18/2024 10:42 AM PATTERN CHANGER AND REPAIRER) Anatomical Region Laterality Modality Other Narrative 09/27/2024 5:28 PM PATTERN CHANGER AND REPAIRER Gray BIV Pacemaker. Dx; CHF, Persistent Afib, AV Node Ablation. DOI 04/13/2023-Beverly. Ravinder. Taran remote monitoring. Routine VVIR Pacemaker Remote. Transmission attached. Battery status: 3.01 V, 8.3-9.1 years remaining battery life to BAKARI. Stable lead impedances, pacing and sensing thresholds. Presenting rhythm: BP BIVP-99%. 1 Ventricular high rate episodes detected, IEGM demonstrates 2 seconds of NSVT. Medications: Xarelto 20 mg, ASA 81 mg, lisinopril 20 mg, metoprolol 25 mg See scanned report. Office pacemaker follow up: 08/21/25 [place] remote f/u 12/25/24. Go Crockett RN Zechariah De Souza MD [facility] PROC EDURES Final Result * POCT lipid panel (06/12/2024 9:40 AM PATTERN CHANGER AND REPAIRER) Cholesterol, POC 135 mg/dL Comment:GLU = 281 HDL, POC 31 mg/dL Triglycerides, POC 110 mg/dL LDL Cholesterol POC 82 mg/dL Chol/HDL Ratio, POC 2.6 Non-HDL Cholesterol, POC 104 mg/dL Cholesterol Total, POC 135 mg/dL Capillary blood 06/12/2024 9 :40 AM PATTERN CHANGER AND REPAIRER Zeus Kraus MD POINT OF CARE TEST ORDERABLES Fi nal Result * eGFR (04/13/2023 10:25 AM CDT) eGFR 85 mL/min/1. 73 m2 [facility] Comment: Interpretive Data Reference Interval Normal >/= 90 mL/min/1.73m2 Mildly decreased* 60 - 89 mL/min/1.73m2 Mildly to moderately decreased 45 - 59 mL/min/1.73m2 Moderately to severely decreased 30 - 44 mL/min/1.73m2 Severely decreased 15 - 29 mL/min/1.73m2 Kidney Failure < 15 mL/min/1.73m2 *Relative to young adult level Estimated glomerular filtration rate is determined by the 2020 CKD-EPI equation recommended by the National Kidney Foundation (A Unifying Approach to GFR Estimation: Recommendations of the NKF-ASK Task Force on Reassessing the Inclusion of Race in Diagnosing Kidney Disease, JASN 2020). The CKD-EPI equation should not be used for patients with unstable renal function and has not been validated in children and those over 70. Current interpretive data was last reviewed 2021. Blood 04/13/2023 10:2 5 AM CDT 04/13/2023 10:30 AM CDT Amrit Paul MD LAB BLOOD ORDERABLES F inal Result SUZANNA [id number] [address] [facility] [place] [address] from Last 3 Months or Most Recently Relevant to Health Maintenance Insurance [place] [employer] [facility] MEDICARE ADVANTAGE [facility] Address: [address] [address] [place] [address] Advance Directives For more information, please contact: [phone] * Full Code (Latest Code Status on File) Date Activated Date Inactivated Comments 04/13/2023 3:19 PM 04/14/2023 2:32 PM * Full Code Date Activated Date Inactivated Comments 06/01/2022 9:05 AM 2022 4:55 AM * Full Code Date Activated Date Inactivated Comments 04/05/2022 11:21 AM 04/05/2022 2:04 PM Care Teams Counter Intelligence Relationship Specialty Start Date End Date Tai Kang MD [address] [facility] [address], [place] [address] PCP - General Family Practice 02/01/23 Uche Miles MD [address] [facility] [address], [place] [address] Consulting Physician Cardiology 04/05/22
--- OUTSIDE RECORDS SUMMARY | 2024-11-16 07:49 | XMS_ITS | Referral Summary ---
Author Organization [facility] [address] Address [address] [place] [address] Care Team Providers Care Landscape Photographer Name Role Phone Uche Miles MD Unavailable [phone] Tai Kang MD Primary Care Provider [phone] Encounters Date Type Department Care Team Description 09/18/2024 8:45 AM SUPERINTENDENT LAUNDRY Ancillary Procedure [facility] Cardiology [address] [place] [address] [place] [id number] Chronic systolic heart failure (HCC) (Primary Dx); Atrial fibrillation, unspecified type (HCC); Bradycardia; Biventricular cardiac pacemaker in situ; S/P AV willy ablation from Last 3 Months Allergies Active Allergy Reactions Criticality Noted Date [...] total) by mouth every morning 2 Active frgpkaoy84-kpv x-Pqjcxkcf-syf al 27 mg iron-1.13 mg-581.92 mg capsule [...] 03/30/2023 Biventricular cardiac pacemaker in situ 03/30/20 Overview (03/30/2023): Gray BIV Pacemaker. Dx; CHF, Persistent Afib, AV Node Ablation. DOI 04/13/2023-Kahanda. Baudilio Chirinos remote monitoring. Abnormal stress test 08/18/2022 A-fib 05/04/2022 Medication side effects 02/10/2022 Atrial flutter 12/11/2021 Hypertension associated with diabetes 12/11/2021 At risk for amiodarone toxicity with intermediate accountant u se 12/11/2021 Pulmonary HTN 12/11/2021 Mixed diabetic hyperlipidemi a associated with type 2 diabetes mellitus 12/11/2021 Chronic anticoagulation 12/11/2021 TINOCO (dyspnea on exertion) 12/11/2021 Other chest pain 12/11/2021 Social History Tobacco Use Types Packs/Day Years [...] on file Legal Sex Male 7:23 PM SUPERINTENDENT LAUNDRY Gender Identity Male 11/15/2022 4:11 PM CDT Sexual Orientation Straight 11/15/2022 4: 11 PM CDT Last Filed Vital Signs Vital Sign Reading Time Taken Comments Blood Pressure 108/62 06/12/2024 9:20 AM SUPERINTENDENT LAUNDRY Pulse 60 06/12/2024 9:20 AM SUPERINTENDENT LAUNDRY Temperature 36.3 C (97.3 F) 04/14/2023 7:36 AM CDT Respiratory Rate 18 08/02/2023 11:1 5 AM SUPERINTENDENT LAUNDRY Oxygen Saturation 98% 06/12/2024 9:20 AM SUPERINTENDENT LAUNDRY Inhaled Oxygen Concentration - - Weight 84.3 kg (185 lb 14.4 oz) 06/12/2024 9:20 AM SUPERINTENDENT LAUNDRY Height 185.4 cm (6' 1 ) 06/12/2024 9:20 AM SUPERINTENDENT LAUNDRY Body Mass Index 24.53 06/12/2024 9:20 AM SUPERINTENDENT LAUNDRY Plan of Treatment Not on file Medical Devices Implanted Type Area Nurse Emergency Device Identifier Shelf Expiration Date Model / Serial / Lot Green [employer] Inc Vascade Mvp 6-12fr Venous Closure [id number] - [id number] Implanted:Qty: 1 on 11/24/2022 by Amrit aPul MD at [facility] Collagen Right: Femoral Vein Cardiva Medical Inc 08/25/2024 800-612 C-10U / / [id number] Cardiva Medical Inc Vascade Mvp 6-12fr Venous Closure [id number] - [id number] Implanted:Qty: 1 on 11/24/2022 by Amrit Paul MD at [facility] Collagen Right: Femoral Vein [employer] Medical Inc 08/25/2024 800-612 C-10U / / [id number] Cardiva Medical Inc Vascade Mvp 6-12fr Venous Closure [id number]-[id number] - [id number] Implanted:Qty: 1 on 11/24/2022 by Amrit Paul MD at [facility] Right: Femoral Vein [employer] Inc 08/25/2024 800-612 C-10U / / [id number] 0131C Medtronic Inc Tyrx Absorbable Antibacterial Envelope-Med 2.7x2.5in [id number] - [id number] Implanted:Qty: 1 on 04/13/2023 by Amrit Paul MD at [facility] Collagen Medtronic Inc 12/30/2023 [id number] / / [id number] St Pako [employer] Inc Quartet 4.7fr 86cm Quadripolar Is-4 Llll Connector 8 Curve Low 1456q/86 - [id number] - [id number] Implanted:Qty: 1 on 04/13/2023 by Amrit Paul MD at [facility] Lead N/A: Coronary Sinus St [employer] Medical Sc Inc 01/05/2026 1456Q/8 6 / [id number] / [employer] Inc Tendril Sts 6fr 58cm Is-1 Connector Active Fixation Bipolar Soft 2087tc/58 - [id number] - [id number] Implanted:Qty: 1 on 04/13/2023 by Amrit Paul MD at [facility] Lead Right: Ventricle [employer] Inc 03/07/20262087TC/ 58 / [id number] / [employer] Inc Tendril Sts 6fr 52cm Is-1 Connector Active Fixation Bipolar Soft /52 - [id number] - [id number] Implanted:Qty: 1 on 04/13/2023 by Amrit Paul MD at [facility] Lead Right: Atrial Appendage [employer] Inc 03/07/2026/ 52 / [id number] / Gray Vascular Pacemaker Quadra Allure Mp Rf Envelope Fold Operator-P Mri Bi6497 - [id number] - [id number] Implanted:Qty: 1 on 04/13/2023 by Amrit Paul MD at [facility] Pacemaker Left: Infraclavicular Anterior Chest Wall Gray Vascular 09/07/2025 [id number] / [id number] / Gray Vascular Device Clsr Perclose Prostyle Sut-Mediatd Closure-Repair Sys 61002-70 - [id number] - [id number] Implanted:Qty: 1 on 05/04/2022 by Uche Miles MD at [facility] Right: Femoral Gray V[employer] 03/07/2024 11421-0 / Gray Vascular Device Clsr Perclose Prostyle Sut-Mediatd Closure-Repair Sys 06737-35 - [id number] - [id number] Implanted:Qty: 1 on 05/04/2022 by Uche Miles MD at [facility] Right: Femoral Gray Vascular 03/07/2024 33014-1 / Gray Vascular Device Clsr Perclose Prostyle Sut-Mediatd Closure-Repair Sys 87879-32 - [id number] - [id number] Implanted:Qty: 1 on 05/04/2022 by Uche Miles MD at [facility] Left: Femoral Gray Vascular 02/05/2024 19048-3 / Procedures Procedure Name Priority Date/Time Associated Diagnosis Comments DEVICE CHECK - REMOTE Routine 09/18/2024 10:42 AM SUPERINTENDENT LAUNDRY Atrial fibrillation, unspecified type (HCC) Bradycardia POCT LIPID PANEL Routine 06/12/2024 9:40 AM SUPERINTENDENT LAUNDRY Hypertension associated with diabetes (HCC) EGFR Routine 04/13/2023 10:25 AM CDT from Last 3 Months or Most Recently Relevant to Health Maintenance Results * DEVICE CHECK - REMOTE (09/18/2024 10:42 AM SUPERINTENDENT LAUNDRY) Anatomical Region Laterality Modality Other Narrative 09/27/2024 5:28 PM SUPERINTENDENT LAUNDRY Gray BIV Pacemaker. Dx; CHF, Persistent Afib, AV Node Ablation. DOI 04/13/2023-Kahanda. Castellon. [place] remote monitoring. Routine VVIR Pacemaker Remote. Transmission attached. Battery status: 3.01 V, 8.3-9.1 years remaining battery life to BAKARI. Stable lead impedances, pacing and sensing thresholds. Presenting rhythm: BP BIVP-99%. 1 Ventricular high rate episodes detected, IEGM demonstrates 2 seconds of NSVT. Medications: Xarelto 20 mg, ASA 81 mg, lisinopril 20 mg, metoprolol 25 mg See scanned report. Office pacemaker follow up: 08/21/25 Taran remote f/u 12/25/24. Go Crockett, RN Zechariah De Souza MD [facility] PROC EDURES Final Result * POCT lipid panel (06/12/2024 9:40 AM SUPERINTENDENT LAUNDRY) Cholesterol, POC 135 mg/dL Comment:GLU = 281 HDL, POC 31 mg/dL Triglycerides, POC 110 mg/dL LDL Cholesterol POC 82 mg/dL Chol/HDL Ratio, POC 2.6 Non-HDL Cholesterol, POC 104 mg/dL Cholesterol Total, POC 135 mg/dL Capillary blood 06/12/2024 9 :40 AM SUPERINTENDENT LAUNDRY Zeus Kraus MD POINT OF CARE TEST ORDERABLES Fi nal Result * eGFR (04/13/2023 10:25 AM CDT) eGFR 85 mL/min/1. 73 m2 SUZANNA GARCIA Comment: Interpretive Data Reference Interval Normal >/= [...] LAB BLOOD ORDERABLES F inal Result SUZANNA [id number] Department [place] [address] from Last 3 Months or Most Recently Relevant to Health Maintenance Insurance BL CHOICE PRF [place] [facility] MEDICARE ADVANTAGE [facility] Address: [address] [address] [place] [address] Advance Directives For more information, please contact: [phone] * Full Code (Latest Code Status on File) Date Activated Date Inactivated Comments 04/13/2023 3:19 PM 04/14/2023 2:32 PM * Full Code Date Activated Date Inactivated Comments 06/01/2022 9:05 AM 2022 4:55 AM * Full Code Date Activated Date Inactivated Comments 04/05/2022 11:21 AM 04/05/2022 2:04 PM Care Teams Landscape Photographer Relationship Specialty Start Date End Date Tai Kang MD [address] [address] PCP - General Family Practice 02/01/23 Uche Miles MD [address] [address] Consulting Physician Cardiology 04/05/22
[2024-11-16 08:45] LABS: Hemoglobin 13.3 g/dL (14.0-18.0); Mean Corpuscular HGB Conc 29.6 g/dl (32-36); Mean Corpuscular Hemoglobin 27.5 pg (26-34); Mean Corpuscular Volume 93.2 fl (80-100); Mean Platelet Volume 9.2 fl (7.4-10.4); Platelet Count Result 305 k/mm3 (150-375); Red Blood Count 4.83 M/mm3 (4.6-6.20); White Blood Count 8.8 K/mm3 (4.5-10.0)
[2024-11-16 09:11] LABS: Alanine Aminotransferase 34 U/L (6-50); Albumin Level 4.1 g/dL (3.5-5.1); Alkaline Phosphatase 143 U/L (38-126); Anion Gap 8 mmol/L (4-12); Aspartate Amino Transferase 34 U/L (17-59); Bilirubin,Total 0.8 mg/dL (0.2-1.3); Blood Urea Nitrogen 23 mg/dL (9-20); Calcium 9.2 mg/dL (8.4-10.2); Carbon Dioxide 30 mmol/L (22-30); Chloride 106 mmol/L (98-107); Cholesterol 150 mg/dL (0-200); Estimated Glomerular Filt Rate > 60; Glucose 63 mg/dL (65-110); HDL Direct 41 mg/dL; Magnesium 1.5 mg/dL (1.6-2.3); Potassium 4.5 mmol/L (3.4-5.0); Sodium 144 mmol/L (137-145); Triglycerides 64 mg/dL (<150)
[2024-11-16 09:19] LABS: Iron 60 ug/dL (49-181)
[2024-11-16 09:21] LABS: Hemoglobin A1C 6.4 % (<5.7)
[2024-11-16 09:22] LABS: LDL Cholesterol Direct 86 mg/dL
[2024-11-16 09:29] LABS: Percent Iron Saturation 16 % (20-50)
== END 2024-11-16 07:46 | disposition home or self-care (01) ==
LOC: ANHIMG 07:47
PROVIDERS: PCP Family Medicine; Visit Provider Family Medicine
DX: M17.11 Unilateral primary osteoarthritis, right knee (principal); D64.9 Anemia, unspecified; F90.9 Attention-deficit hyperactivity disorder, unspecified type; I10 Essential (primary) hypertension; I48.91 Unspecified atrial fibrillation; I48.92 Unspecified atrial flutter; E78.5 Hyperlipidemia, unspecified; E11.65 Type 2 diabetes mellitus with hyperglycemia; E83.42 Hypomagnesemia; N40.0 Benign prostatic hyperplasia without lower urinary tract symptoms; G47.00 Insomnia, unspecified; J45.909 Unspecified asthma, uncomplicated; Z79.899 Other long term (current) drug therapy
CPT/HCPCS: 36415; 73562; 80053; 80061; 82306; 82607; 82728; 83036; 83540; 83550; 83735; 84443; 85027; 86038; 86039

== ENCOUNTER 2025-02-18 07:36 | Outpatient (CLI) | payer MEDICARE, SELFPAY ==
--- OUTSIDE RECORDS SUMMARY | 2025-02-18 07:41 | XMS_ITS | Clinical Summary ---
Author Organization [facility] Address [address] [place] [address] Attn: Epic Prelude ADT AUGUSTO GONZALEZ [id number] Care Team Providers Care Director Compliance Name Role Phone Other, Sgf Primary Care Provider Unavailabl e Allergies No known active allergies Active Problems Problem Noted Date Diagnosed Date Left Tibia/Fibula Shaft Fractures 03/01/2010 Social History Tobacco Use Types Packs/Day Years Used Date Smoking Tobacco: Former Cigarettes Q uit: 08/08/1993 Alcohol Use Standard Drinks/Week Comments Yes 0 (1 standard drink = 0.6 oz pur e alcohol) Sex and Gender Information Value Date Recorded Sex Assigned at Not on file 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 Gender Identity Not on file Sexual Orientation [...] (1 of 2) 2017 INFLUENZA VACCINE (#1) 2025 Medical Devices Implanted Type Area Preschool Principal Device Identifier Shelf Expiration Date Model / Serial / Lot Log [id number] - [employer] N[employer] Systems - 1 - Cap End Fem Tib Std 8mm 1822-0003s Implanted:Qty: 1 on 03/02/2010 End Left: Tibia VOLODYMYR- HOWMEDICA INT INC 11/04/2014 6920-8012 / N/A / N/A Log 11119 - Volodymyr Nail Systems - 1 - Screw Locking 5x37.5mm 1896-5037s Implanted:Qty: 1 on 03/02/2010 Screw Left: Tibia VOLODYMYR- ORTHOPAEDICS 10/05/2014 1896-5037S / N/A / N/A Log 40395 - Vergas Nail Systems - 1 - Screw Locking 5x37.5mm 1896-5037s Implanted:Qty: 1 on 03/02/2010 Screw Left: Tibia VOLODYMYR- ORTHOPAEDICS 10/05/2014 1896-5037S / N/A / N/A Log 92921 - Vergas N[employer] Systems - 1 - Screw Locking 5x42mm 1896-5042s Implanted:Qty: 1 on 03/02/2010 Screw Left: Tibia VOLODYMYR- ORTHOPAEDICS 09/06/2014 1896-5042S / N/A / N/A Log 60954 - Volodymyr Nail Systems - 1 - Screw Locking 5x42mm 1896-5042s Implanted:Qty: 1 on 03/02/2010 Screw Left: Tibia VOLODYMYR- ORTHOPAEDICS 07/07/2014 1896-5042S / N/A / N/A Log 80259 - Volodymyr Nail Systems - 1 - Screw Locking 5x47.5mm 1896-5047s Implanted:Qty: 1 on 03/02/2010 Screw Left: Tibia VOLODYMYR- ORTHOPAEDICS 11/04/2013 1896-5047S / N/A / N/A Standard Tibial Nail Implanted:Qty: 1 on 03/02/2010 Left: Tibia VOLODYMYR- TRAUMA - ORTHOPAEDICS 07/07/2014 1822-1136S / / [id number] Explanted Type Area Preschool Principal Device Identifier Shelf Expiration Date Model / Serial / Lot Wire K [id number] Explanted:Qty: 1 on 03/02/2010 Wire Left: Tibia VOLODYMYR- [employer] INT INC S / / Description:moved down from picklist to document and charge appropriately. TS Insurance [employer] Care Teams Director Compliance Relationship Specialty Start Date End Date Other, Sgf NO ADDRESS ON FILE PCP - General 03/01/10
--- OUTSIDE RECORDS SUMMARY | 2025-02-18 07:41 | XMS_ITS | Clinical Summary ---
Author Organization [facility] [address] Address [address] [place] [address] Care Team Providers Care Biodiesel Product Manager Name Role Phone Uche Miles MD Unavailable [phone] Tai Kang MD Primary Care Provider [phone] Allergies Active Allergy Reactions Criticality Noted Date [...] total) by mouth every morning 2 Active pqffozwv10-iet h-Hdltxqzb-wka al 27 mg iron-1.13 mg-581.92 mg capsule [...] once daily 90 tablet 2 5 Active iron bisgly,ps-FA-B -C#12-succ 65 mg-65 mg -1,000 mcg (24) tablet Take by mouth Acti ve magnesium gluconate 200 mg tabletIndicati ons:hypomagnes emia 1 tablet (200 mg total) Active Active Problems Problem Noted Date Diagnosed Date Nonischemic cardiomyopathy 04/20/2023 S/P AV willy ablation 04/20/2023 Chronic systolic heart failure 03/30/2023 Biventricular cardiac pacemaker in situ 03/30/20 23 Overview (03/30/2023): Gray BIV Pacemaker. Dx; CHF, Persistent Afib, AV Node Ablation. DOI 04/13/2023-Kahanda. Castellon. Taran remote monitoring. Abnormal stress test 08/18/2022 A-fib 05/04/2022 Medication side effects 02/10/2022 Atrial flutter 12/11/2021 Hypertension associated with diabetes 12/11/2021 At risk for amiodarone toxicity with fdc u se 12/11/2021 Pulmonary HTN 12/11/2021 Mixed diabetic hyperlipidemi a associated with type 2 diabetes mellitus 12/11/2021 Chronic anticoagulation 12/11/2021 TINOCO (dyspnea on exertion) 12/11/2021 Other chest pain 12/11/2021 Encounters Date Type Department Care Team Description 12/25/2024 10:15 AM CDT Office Visit [facility] Cardiology [address] [place] [address] Zeus Kraus MD Permanent atrial fibrillation (HCC) (Primary Dx); Biventricular cardiac pacemaker in situ; Nonischemic cardiomyopathy (HCC) 12/25/2024 7:15 AM CDT Ancillary Procedure [facility] Cardiology [address] [facility] [address] [address] Atrial fibrillation, unspecified type (HCC); Bradycardia from Last 3 Months Surgical History Surgery [...] on file Legal Sex Male 7:23 PM DIRECTOR OF CLINICAL TRIALS Gender Identity Male 11/15/2022 4:11 PM CDT Sexual Orientation Straight 11/15/2022 4: 11 PM CDT Obstetrics History Last Filed Vital Signs Vital Sign Reading Time Taken Comments Blood Pressure 130/72 12/25/2024 10:21 AM CDT Pulse 89 12/25/2024 10:21 AM CDT Temperature 36.3 C (97.3 F) 04/14/2023 7:36 AM CDT Respiratory Rate 18 08/02/2023 11:15 AM DIRECTOR OF CLINICAL TRIALS Oxygen Saturation 98% 12/25/2024 10:21 AM CDT Inhaled Oxygen Concentration - - Weight 84.8 kg (187 lb) 12/25/2024 10:21 AM CDT Height 185.4 cm (6' 1) 12/25/2024 10:21 AM CDT Body Mass Index 24.67 12/25/2024 10:21 AM CDT Plan of Treatment Health Maintenance Due Date [...] 06/20/2013 Zoster Vaccine (1 of 2) 2017 eGFR 04/13/2024 04/13/2023, 12/06, 04/05/2022, Additional history exists Influenza Vaccine (#1) 2025 06/20/2013, 2011 Lipid Panel 06/12/2025 06/12/2024, 09/0 08/2022, 09/27/2022, Additional history exists Medical Devices Implanted Type Area Weight Caller Device Identifier Shelf Expiration Date Model / Serial / Lot Cardiva Medical Inc Vascade Mvp 6-12fr Venous Closure [id number] - [id number] Implanted:Qty: 1 on 11/24/2022 by Amrit Paul MD at [facility] Right: Femoral Vein [employer] Medical Inc 08/25/2024 800-612 C-10U / / [id number] 0131C Cardiva Medical Inc Vascade Mvp 6-12fr Venous Closure [id number]-[id number] - [id number] Implanted:Qty: 1 on 11/24/2022 by Amrit Paul MD at [facility] Collagen Right: Femoral Vein [employer] Medical Inc 08/25/2024 800-612 C-10U / / [id number] 0131C Cardiva [employer] Inc Vascade Mvp 6-12fr Venous Closure [id number]-[id number] - [id number] Implanted:Qty: 1 on 11/24/2022 by Amrit Paul MD at [facility] Collagen Right: Femoral Vein [employer] Inc 08/25/2024 800-612 C-10U / / [id number] 0131C Medtronic Inc Tyrx Absorbable Antibacterial Envelope-Med 2.7x2.5in [id number] - [id number] Implanted:Qty: 1 on 04/13/2023 by Amrit Paul MD at [facility] Collagen Medtronic Inc 12/30/2023 [id number] 2 / / [id number] [employer] Inc Quartet 4.7fr 86cm Quadripolar Is-4 Llll Connector 8 Curve Low 1456q/86 - [id number] - [id number] Implanted:Qty: 1 on 04/13/2023 by Amrit Paul MD at [facility] Lead N/A: Coronary Sinus St [employer] Medical [employer] Inc 01/05/2026 1456Q/8 6 / [id number] / [employer] Inc Tendril Sts 6fr 58cm Is-1 Connector Active Fixation Bipolar Soft 2087tc/58 - [id number] - [id number] Implanted:Qty: 1 on 04/13/2023 by Amrit Paul MD at [facility] Lead Right: Ventricle [employer] Inc 03/07/2026 2088TC/ 58 / [id number] / [employer] Inc Tendril Sts 6fr 52cm Is-1 Connector Active Fixation Bipolar Soft 2087tc/52 - [id number] - [id number] Implanted:Qty: 1 on 04/13/2023 by Amrit Paul MD at [facility] Lead Right: Atrial Appendage St [employer] Inc 03/07/20268TC/ 52 / [id number] / Gray Vascular Pacemaker Quadra Allure Mp Rf Contract Loader-P Mri Nj4932 - [id number] - [id number] Implanted:Qty: 1 on 04/13/2023 by Amrit Paul MD at [facility] Pacemaker Left: Infraclavicular Anterior Chest Wall Gray Vascular 09/07/2025 ZT4813 / [id number] / Gray Vascular Device Clsr Perclose Prostyle Sut-Mediatd Closure-Repair Sys 84260-27 - [id number] - [id number] Implanted:Qty: 1 on 05/04/2022 by Uche Miles MD at [facility] Right: Femoral Gray Vascular 03/07/2024 22276-9 3 / / Gray Vascular Device Clsr Perclose Prostyle Sut-Mediatd Closure-Repair Sys 96518-16 - [id number] - [id number] Implanted:Qty: 1 on 05/04/2022 by Uche Miles MD at [facility] Right: Femoral Gray Vascular 03/07/2024 63581-6 3 / [id number] / Gray Vascular Device Clsr Perclose Prostyle Sut-Mediatd Closure-Repair Sys 24643-57 - [id number] - [id number] Implanted:Qty: 1 on 05/04/2022 by Uche Miles MD at [facility] Left: Femoral Gray V[employer] 02/05/2024 96117-6 3 / / Procedures Procedure Name Priority Date/Time Associated Diagnosis Comments POCT LIPID PANEL Routine 06/12/2024 9:40 AM DIRECTOR OF CLINICAL TRIALS Hypertension associated with diabetes (HCC) EGFR Routine 04/13/2023 10:25 AM CDT from Last 3 Months or Most Recently Relevant to Health Maintenance Results * POCT lipid panel (06/12/2024 9:40 AM DIRECTOR OF CLINICAL TRIALS) Cholesterol, POC 135 mg/dL Comment:GLU = 281 HDL, POC 31 mg/dL Triglycerides, POC 110 mg/dL LDL Cholesterol POC 82 mg/dL Chol/HDL Ratio, POC 2.6 Non-HDL Cholesterol, POC 104 mg/dL Cholesterol Total, POC 135 mg/dL Capillary blood 06/12/2024 9 :40 AM DIRECTOR OF CLINICAL TRIALS us Zeus Kraus MD POINT OF CARE TEST [...] LAB BLOOD ORDERABLES F inal Result SUZANNA [id number] [address] Department [place] [address] from Last 3 Months or Most Recently Relevant to Health Maintenance Insurance BL CHOICE PRF [place] [facility] MEDICARE AD[facility]ANTAGE [facility] Address: [address] [address] [place] [address] Advance Directives For more information, please contact: [phone] * Full Code (Latest Code Status on File) Date Activated Date Inactivated Comments 04/13/2023 3:19 PM 04/14/2023 2:32 PM * Full Code Date Activated Date Inactivated Comments 06/01/2022 9:05 AM 2022 4:55 AM * Full Code Date Activated Date Inactivated Comments 04/05/2022 11:21 AM 04/05/2022 2:04 PM Care Teams Biodiesel Product Manager Relationship Specialty Start Date End Date Tai Kang MD [address] [address] PCP - General Family Practice 02/01/23 Uche Miles MD [address] [address] Consulting Physician Cardiology 04/05/22
--- OUTSIDE RECORDS SUMMARY | 2025-02-18 07:41 | XMS_ITS | Referral Summary ---
Author Organization [facility] [place] [address] Address [address] [place] [address] Care Team Providers Care Briefcase Sewer Name Role Phone Uche Miles MD Unavailable [phone] Tai Kang MD Primary Care Provider [phone] Encounters Date Type Department Care Team Description 12/25/2024 10:15 AM CDT Office Visit [facility] [address] [place] [address] Zeus Kraus MD Permanent atrial fibrillation (HCC) (Primary Dx); Biventricular cardiac pacemaker in situ; Nonischemic cardiomyopathy (HCC) 12/25/2024 7:15 AM CDT Ancillary Procedure [facility] [address] [place] [address] [place] [id number] Atrial fibrillation, unspecified type (HCC); Bradycardia from Last 3 Months Allergies Active Allergy [...] total) by mouth every morning 2 Active gqmlxels70-mcc c-Wsrglpqx-cxd al 27 mg iron-1.13 mg-581.92 mg capsule [...] 12/11/2021 At risk for amiodarone toxicity with fpc u se 12/11/2021 Pulmonary HTN 12/11/2021 Mixed [...] on file Legal Sex Male 7:23 PM DISTANCE EDUCATION COORDINATOR Gender Identity Male 11/15/2022 4:11 PM CDT Sexual Orientation Straight 11/15/2022 4: 11 PM CDT Last Filed Vital Signs Vital Sign Reading Time Taken Comments Blood Pressure 130/72 12/25/2024 10:21 AM CDT Pulse 89 12/25/2024 10:21 AM CDT Temperature 36.3 C (97.3 F) 04/14/2023 7:36 AM CDT Respiratory Rate 18 08/02/2023 11:15 AM DISTANCE EDUCATION COORDINATOR Oxygen Saturation 98% 12/25/2024 10:21 AM CDT Inhaled Oxygen Concentration - - Weight 84.8 kg (187 lb) 12/25/2024 10:21 AM CDT Height 185.4 cm (6' 1) 12/25/2024 10:21 AM CDT Body Mass Index 24.67 12/25/2024 10:21 AM CDT Plan of Treatment Not on file Medical Devices Implanted Type Area Senior Planner Device Identifier Shelf Expiration Date Model / Serial / Lot [employer] Vascade Mvp 6-12fr Venous Closure [id number] - [id number] Implanted:Qty: 1 on 11/24/2022 by Amrit Paul MD at [facility] Collagen Right: Femoral Vein [employer] 08/25/2024 800-612 C-10U / / [id number] [employer] Vascade Mvp 6-12fr Venous Closure [id number] - [id number] Implanted:Qty: 1 on 11/24/2022 by Amrit Paul MD at [facility] Collagen Right: Femoral Vein [employer] 08/25/2024 800-612 C-10U / / [id number] [employer] Vascade Mvp 6-12fr Venous Closure [id number] - [id number] Implanted:Qty: 1 on 11/24/2022 by Amrit Paul MD at [facility] Collagen Right: Femoral Vein [employer] 08/25/2024 800-612 C-10U / / [id number] [employer] Tyrx Absorbable Antibacterial Envelope-Med 2.7x2.5in [id number] - [id number] Implanted:Qty: 1 on 04/13/2023 by Amrit Paul MD at [facility] Collagen [employer] Inc 12/30/2023 [id number] / / [id number] [employer] Quartet 4.7fr 86cm Quadripolar Is-4 Llll Connector 8 Curve Low 1456q/86 - [id number] - [id number] Implanted:Qty: 1 on 04/13/2023 by Amrit Paul MD at [facility] Lead N/A: Coronary Sinus [employer] 01/05/2026 1456Q/8 6 / [id number] / [employer] Tendril Sts 6fr 58cm Is-1 Connector Active Fixation Bipolar Soft 8tc/58 - [id number] - [id number] Implanted:Qty: 1 on 04/13/2023 by Amrit Paul MD at [facility] Lead Right: Ventricle [employer] 03/07/2026 2088TC/ 58 / [id number] / [employer] Tendril Sts 6fr 52cm Is-1 Connector Active Fixation Bipolar Soft 8tc/52 - [id number] - [id number] Implanted:Qty: 1 on 04/13/2023 by Amrit Paul MD at [facility] Lead Right: Atrial Appendage [employer] 03/07/20268TC/ 52 / [id number] / [employer] Pacemaker Quadra Allure Mp Rf Children'S Literature Professor-P Mri [id number] - [id number] - [id number] Implanted:Qty: 1 on 04/13/2023 by Amrit Paul MD at [facility] Pacemaker Left: Infraclavicular Anterior Chest Wall [employer] 09/07/2025 [id number] / [id number] / [employer] Device Clsr Perclose Prostyle Sut-Mediatd Closure-Repair Sys 61883-90 - [id number] - [id number] Implanted:Qty: 1 on 05/04/2022 by Uche Miles MD at [facility] Right: Femoral [employer] 03/07/2024 08544-0 3 / / [employer] Device Clsr Perclose Prostyle Sut-Mediatd Closure-Repair Sys 84940-91 - [id number] - [id number] Implanted:Qty: 1 on 05/04/2022 by Uche Miles MD at [facility] Right: Femoral [employer] 03/07/2024 42610-3 3 / / [id number] [employer] Device Clsr Perclose Prostyle Sut-Mediatd Closure-Repair Sys 71246-48 - [id number] - [id number] Implanted:Qty: 1 on 05/04/2022 by Uche Miles MD at [facility] Left: Femoral [employer] 02/05/2024 53565-1 / [id number] Procedures Procedure Name Priority Date/Time Associated Diagnosis Comments POCT LIPID PANEL Routine 06/12/2024 9:40 AM DISTANCE EDUCATION COORDINATOR Hypertension associated with diabetes (HCC) EGFR Routine 04/13/2023 10:25 AM CDT from Last 3 Months or Most Recently Relevant to Health Maintenance Results * POCT lipid panel (06/12/2024 9:40 AM DISTANCE EDUCATION COORDINATOR) Cholesterol, POC 135 mg/dL Comment:GLU = 281 HDL, POC 31 mg/dL Triglycerides, POC 110 mg/dL LDL Cholesterol POC 82 mg/dL Chol/HDL Ratio, POC 2.6 Non-HDL Cholesterol, POC 104 mg/dL Cholesterol Total, POC 135 mg/dL Capillary blood 06/12/2024 9 :40 AM DISTANCE EDUCATION COORDINATOR Zeus Kraus MD POINT OF CARE TEST [...] LAB BLOOD ORDERABLES F inal Result [facility] [address] [place] [address] from Last 3 Months or Most Recently Relevant to Health Maintenance Insurance [employer] [place] [facility] MEDICARE ADVANTAGE Advance Directives For more information, please contact: [phone] * Full Code (Latest Code Status on File) Date Activated Date Inactivated Comments 04/13/2023 3:19 PM 04/14/2023 2:32 PM * Full Code Date Activated Date Inactivated Comments 06/01/2022 9:05 AM 2022 4:55 AM * Full Code Date Activated Date Inactivated Comments 04/05/2022 11:21 AM 04/05/2022 2:04 PM Care Teams Briefcase Sewer Relationship Specialty Start Date End Date Tai Kang MD [address] [address] PCP - General Family Practice 02/01/23 Uche Miles MD [address] [address] Consulting Physician Cardiology 04/05/22
[2025-02-18 08:43] LABS: Hemoglobin A1C 9.3 % (<5.7)
[2025-02-18 09:04] LABS: Magnesium 1.6 mg/dL (1.6-2.3)
== END 2025-02-18 07:37 | disposition home or self-care (01) ==
PROVIDERS: PCP Family Medicine; Visit Provider Family Medicine
DX: E83.42 Hypomagnesemia (principal); E11.65 Type 2 diabetes mellitus with hyperglycemia
CPT/HCPCS: 36415; 83036; 83735